=== PATIENT | male | born 1940 | race Caucasian/White ===

== ENCOUNTER 2023-01-01 14:10 | Emergency (ER) | payer MEDICARE, OTHER, SELFPAY ==
[2023-01-01] VITALS (9 sets, daily range): BP systolic 133–159; BP diastolic 66–97; PULSE 62–80; RESP 18–27; TEMP 36.4; O2SAT 91–96; BMI 34.4
--- NOTE | 2023-01-01 14:13 | EKG12_ITS ---
Test Reason : STROKE Blood Pressure : / mmHG Vent. Rate : 062 BPM Atrial Rate : 062 BPM P-R Int : 202 ms QRS Dur : 192 ms QT Int : 538 ms P-R-T Axes : 042 -39 131 degrees QTc Int : 546 ms Normal sinus rhythm Left axis deviation Left bundle branch block Abnormal ECG Confirmed by GABO PEGUERO, MARCO ANTONIO ([id number]), rewrite editor NATE KEATING ([id number]) on 01/03/2023 10:11:37 A M Referred By: Confirmed By:DENI AYON MD
--- NOTE | 2023-01-01 14:13 | CT_ITS ---
STUDY: CTA HEAD AND NECK WITH CONTRAST REASON FOR EXAM: Male, 82 years old. Neuro deficit, acute, stroke suspected RADIATION DOSAGE (If Supplied By Facility): CTDIvol = ( 28.06 ) mGy, DLP = ( 726.04 ) mGycm TECHNIQUE: CT angiography was performed with a multi-detector CT scanner. Data acquisition was obtained from the skull base through the vertex following intravenous administration of IV 100mL Isovue-370. MIP images were reconstructed from the axial data set. Post-processing of the angiographic images was performed, with multiplanar reformation and 3D reconstruction. Individualized dose optimization techniques were used for this CT. COMPARISON: No relevant priors. FINDINGS: Normal bilateral petrous carotid arteries. There is calcified plaque formation of the right cavernous carotid artery, without a cross-sectional luminal stenosis. There is calcified plaque formation of the left cavernous carotid artery, without a cross-sectional luminal stenosis. Normal right A1 segments of the anterior cerebral artery. Normal left A1 segments of the anterior cerebral artery. Normal intact anterior communicating artery (ACOM). Normal bilateral A2 segments of the anterior cerebral arteries. Normal right M1 and M2 segments of the middle cerebral arteries, with a normal M1 bifurcation. Normal left M1 and M2 segments of the middle cerebral arteries, with a normal M1 bifurcation. Normal right posterior communicating artery (PCOM). Normal left posterior communicating artery (PCOM). Normal bilateral vertebral arteries. Normal basilar artery with a normal basilar bifurcation. The visualized bilateral superior cerebellar (SCA) arteries are normal. Normal bilateral P1, P2 and visualized P3 segments of the posterior cerebral arteries. There is no demonstrated aneurysm of the upper [place] of [place]. Heterogeneous enlargement of the left lobe of the thyroid gland. AORTIC ARCH: There is atherosclerotic calcific plaque formation of the aortic arch and great vessels arising from the aortic arch, without a hemodynamically significant stenosis. There is a bovine origin of the great vessels with a common origin of the brachiocephalic and left common carotid artery. Normal origin of the left subclavian artery. RIGHT CAROTID ARTERIES: Normal right common carotid artery (CCA). Normal right common carotid bulb. Normal origin of the right internal carotid (ICA) artery without a hemodynamically significant stenosis. Normal visualized cervical portion of the right internal carotid artery. Normal origin of the right external carotid artery (ECA). LEFT CAROTID ARTERIES: Normal left common carotid artery (CCA). Normal left common carotid bulb. There is mild atherosclerotic plaque formation of the origin of the left internal carotid artery with less than 50% cross sectional diameter stenosis. Normal visualized cervical portion of the left internal carotid artery. Normal origin of the left external carotid artery (ECA). VERTEBRAL ARTERIES: There is enhancement within the bilateral vertebral arteries with a small right vertebral artery, and a dominant left vertebral artery. Calcific plaque seen in the distal aspect of the basilar artery. CT/STROKE CTA Head AND Neck W/Con IMPRESSION: Focal calcific plaques at the origin of the left internal carotid artery causing less than 50% narrowing. N.B. : The above Results were Read Back by Perry Lama MD to Lovely Karimi and understanding confirmed on 01/01/2023 14:49:21 (ET). Electronically Signed: Perry Lama MD at 14:50 EDT ,
--- NOTE | 2023-01-01 14:13 | CT_ITS ---
STUDY: CT HEAD STROKE PROTOCOL W/O CONTRAST INJECTION REASON FOR EXAM: Male, 82 years old. Neuro deficit, acute, stroke suspected RADIATION DOSAGE (If Supplied By Facility): CTDIvol = ( 44.99 ) mGy, DLP = ( 846.73 ) mGycm TECHNIQUE: Transaxial CT imaging of the brain was performed without administration of intravenous contrast material. Individualized dose optimization techniques were used for this CT. COMPARISON: No relevant priors. FINDINGS: Normal soft tissue structures. Normal calvarium. There is mild cerebral atrophy with widening of the extra-axial spaces and ventricular dilatation. There are areas of decreased attenuation within the white matter tracts of the supratentorial brain, consistent with microvascular disease changes. Normal basal ganglia and thalami. Normal brainstem. Normal cerebellum. There is no intracranial hemorrhage. There are no findings of an acute ischemic infarction. Atherosclerotic calcific plaques of the vertebral arteries and cavernous portions of the internal carotid arteries bilaterally. Partial opacification of the sphenoid sinus. ASPECT score: 10 CT/STROKE Brain/Head without Cont IMPRESSION: Chronic involutional changes of the brain. N.B. : The above Results were Read Back by Perry Lama MD to Dr Bev DO, and understanding confirmed on 01/01/2023 14:28:22 (ET). Electronically Signed: Perry Lama MD at 14:29 EDT ,
--- NOTE | 2023-01-01 14:14 | ED.VIS.STROK ---
HPI History of Present Illness Chief Complaint: Stroke Alert Detail of Chief Complaint: Concern for stroke Informant: patient and EMS Narrative Narrative: Patient presents the emergency department via EMS from home. Patient apparently was sitting at a desk and then had a could not get up about 25 minutes ago. Patient was noted to be diaphoretic. called EMS. On EMS arrival they noted patient had left-sided weakness and left-sided facial droop. Patient with slurred speech. Patient diaphoretic. They did check a blood sugar and was unremarkable. I am being told patient has no medical history although he cannot really give me much history because of his slurred speech. He is not believed to be on blood thinners. PFSH PFSH Home Medications NK 01/01/23 [History Last Taken Unknown] Allergy/AdvReac Type Severity Reaction Status Date / Time Unable to Assess Allergy Verified 01/01/23 14:12 Social History Smoking Status: Never smoker ROS ROS ED Review of Systems ROS Unobtainable: due to encephalopathy, due to mental status and other Constitutional Constitutional ED: Reports lethargy; Denies chills, fever(s), sweats or weight loss Eyes Eyes: Denies blurry vision, change in vision or diplopia ENT ENT ED: Denies rhinorrhea or sore throat Cardiovascular Cardiovascular: Reports chest pain and racing heartbeat; Denies orthopnea Respiratory/Chest Respiratory/Chest: Reports dyspnea and dyspnea on exertion; Denies cough, orthopnea or sputum Gastrointestinal Gastrointestinal: Denies abdominal pain, diarrhea, nausea or vomiting Genitourinary Genitourinary ED: Denies dysuria, hematuria or urinary frequency Musculoskeletal Musculoskeletal: Denies arthralgias, back pain, myalgias or neck pain Integumentary Denies abscess, Abrasions or rash Neurologic Neurologic: Denies headache(s) or weakness Psychiatric Psychiatric: Denies anxiety, depression or suicidal thoughts Endocrine Endocrinology: Denies polydipsia, polyphagia or polyuria Hematologic/Lymphatic Hematologic/Lymphatic: Denies easy bleeding, easy bruising or lymphadenopathy Allergic/Immunologic Allergic/Immunologic ED: Denies mouth swelling, tongue swelling or urticaria EXAM Physical Exam Const Vital Signs: 01/01/23 14:13 01/01/23 14:21 01/01/23 14:39 Temperature 97.6 F L Temperature Source Temporal Pulse Rate Respiratory Rate Blood Pressure 151/84 H Blood Pressure Mean Blood Pressure Source Blood Pressure Position Blood Pressure Location Pulse Ox Oxygen Delivery Method Room Air 01/01/23 14:23 01/01/23 14:13 01/01/23 14:38 Temperature Temperature Source Pulse Rate 64 65 64 Respiratory Rate 20 H 21 H 27 H Blood Pressure 159/77 H 133/97 H 150/81 H Blood Pressure Mean 104 109 104 Blood Pressure Source Monitor Monitor Blood Pressure Position Semi-Fowlers Semi-Fowlers Blood Pressure Location Right Arm Pulse Ox 92 92 92 Oxygen Delivery Method Room Air Room Air Room Air 01/01/23 15:00 01/01/23 14:53 01/01/23 15:08 Temperature Temperature Source Pulse Rate 80 64 62 Respiratory Rate 18 23 H 21 H Blood Pressure 139/66 H 145/79 H 142/75 H Blood Pressure Mean 90 101 97 Blood Pressure Source Monitor Monitor Blood Pressure Position Semi-Fowlers Semi-Fowlers Blood Pressure Location Right Arm Right Arm Pulse Ox 96 92 91 Oxygen Delivery Method Room Air Room Air Room Air 01/01/23 14:59 Temperature Temperature Source Pulse Rate Respiratory Rate Blood Pressure 140/75 H Blood Pressure Mean 96 Blood Pressure Source Blood Pressure Position Blood Pressure Location Pulse Ox Oxygen Delivery Method Positive well nourished and well developed General Appearance ED: well developed and NAD HEENT Reports TM's clear and moist mucous membranes normocephalic and atraumatic; Negative for trauma or tenderness Tympanic Membrane ED: Yes TM's clear Eyes PERRL and EOMs intact bilaterally General Eye ED: Negative for pale conjunctiva or scleral icterus Neck no lymphadenopathy, supple and no JVD General: Negative for tenderness Chest Wall inspection of chest normal and palpation of chest normal Chest: Negative for tenderness Resp normal respiratory effort and clear to auscultation bilaterally Effort and Inspection: Negative for respiratory distress or pain with movement Auscultation: Negative for rhonchi, wheezes or diminished lung sounds Cardio regular rate, regular rhythm, S1 normal heart sound, S2 normal heart sound and no murmurs Peripheral Pulses: pulses 2+ throughout GI normal to inspection, nondistended, normoactive bowel sounds, soft to palpation, non-tender, non-distended and no masses Back/Spine no CVA tenderness and no thoracic nor lumbar tenderness Extremity normal to inspection General Extremety ED: Negative for edema General Extremity: Negative for edema Neuro oriented x3, CN's II-XII intact bilaterally, no sensory deficits noted and gait normal Neuro Narrative: Patient with left-sided weakness and left-sided facial droop. Patient with extinction to the left side. Forced deviation to the right. NIH stroke scale of 16. Sensorium / Orientation: awake, alert, oriented to person, oriented to place and oriented to time Motor Exam: strength 5/5 throughout and strength abnormal Psych mental status grossly normal Skin no rashes or lesions noted and no wounds MDM MDM MDM Narrative Medical decision making narrative: Patient presented with sudden onset of left-sided weakness and facial droop. Patient with inattention. Patient has significant deficits for stroke. Patient was sent from EMS cot to CT. Radiologist noted patient did not have any evidence of hemorrhage. I immediately ordered tenecteplase for stroke. Stroke neurologist from [facility] was able to evaluate patient and agreed with tenecteplase. I discussed with risk versus benefit of tenecteplase. She would like to proceed. Patient also would like to proceed. Patient lab work-up unremarkable. Stroke neurologist called and said patient had a large vessel occlusion in the right M1 distribution and recommended transfer to [facility]. Patient currently receiving tenecteplase. Discussed CTA results with radiologist who initially noted 50% carotid occlusion left internal carotid artery causing less than 50% narrowing. Initially there was no description of large vessel occlusion. After further evaluation discussion with radiologist he does think there is a LVO in the M1 segment that initially was thought to maybe just be tortuosity. Lab Data Attestation: I reviewed the patient's lab results. Labs: Laboratory Results - last 24 hr 01/01/23 01/01/23 01/01/23 14:00 14:00 14:00 WBC 8.9 RBC 4.61 Hgb 14.9 Hct 44.2 MCV 95.9 H MCH 32.3 H MCHC 33.7 RDW Std Deviation 49.7 H RDW Coeff of [place] 14.2 Plt Count 325 MPV 11.2 Immature Gran % (Auto) 0.200 Neut % (Auto) 48.2 Lymph % (Auto) 35.8 [place] % (Auto) 12.7 H Eos % (Auto) 2.2 Baso % (Auto) 0.9 Absolute Neuts (auto) 4.3 Absolute Lymphs (auto) 3.19 Nucleated RBC % 0 PT 13.3 INR 1.0 APTT 24.6 Sodium 139 Potassium 4.2 Chloride 109 H Carbon Dioxide 24.0 Anion Gap 6 BUN 22 H Creatinine 1.09 Estim Creat Clear Calc 52.25 Est GFR (MDRD) Af Amer 83 Est GFR (MDRD) Non-Af 69 BUN/Creatinine Ratio 20.2 H Glucose 130 H Calcium 8.7 Troponin I High Sens 21 Radiography Diagnostic Testing: Clinical Impression(s) from Imaging Studies Brain CT 01/01/23 14:13 IMPRESSION: Chronic involutional changes of the brain. N.B. : The above Results were Read Back by Perry Lama MD to Dr Bev DO, and understanding confirmed on 01/01/2023 14:28:22 (ET). Electronically Signed: Perry Lama MD at 14:29 EDT , ADDENDUM: 01/01/23 1436 IMPRESSION: Chronic involutional changes of the brain. N.B. : The above Results were Read Back by Perry Lama MD to Dr Bev DO, and understanding confirmed on 01/01/2023 14:28:22 (ET). Electronically Signed: Perry Lama MD at 14:29 EDT , Head/Neck CTA 01/01/23 14:13 IMPRESSION: Focal calcific plaques at the origin of the left internal carotid artery causing less than 50% narrowing. N.B. : The above Results were Read Back by Perry Lama MD to Lovely Karimi and understanding confirmed on 01/01/2023 14:49:21 (ET). Electronically Signed: Perry Lama MD at 14:50 EDT , ADDENDUM: 01/01/23 1457 IMPRESSION: Focal calcific plaques at the origin of the left internal carotid artery causing less than 50% narrowing. N.B. : The above Results were Read Back by Perry Lama MD to Lovely Karimi and understanding confirmed on 01/01/2023 14:49:21 (ET). Electronically Signed: Perry Lama MD at 14:50 EDT , EKG Initial EKG: Attestation: I personally reviewed and interpreted this EKG as follows: Comments: Sinus rhythm with left bundle branch block with rate of 62 bpm Stroke Documentation Questions Stroke Team Activated: Yes Reviewed Inclusion/Exclusion criteria: Yes IV Thrombolytic Administered: Yes No contraindications from thrombolytic administration: Yes Risks, Benefits, Alternatives Discussed: Yes Discharge Plan Triage Chief Complaint: Stroke Alert ED Provider: Lovely Karimi Dx/Rx/DC Orders Clinical Impression: Acute CVA (cerebrovascular accident), Acute left-sided weakness, Dysarthria Prescriptions: No Action NK Primary Care Provider: Rishi Anna Referrals: Care Physician,No Primary [Non-Staff] - Disposition Disposition: DC/Tx to Another Type of HCF Discharge Location: [facility] Discharge Date/Time: 01/01/23 15:28
--- NOTE | 2023-01-01 14:22 | NURSING ---
FAXED FACESHEET TO [facility]
[2023-01-01 14:26] LABS: Absolute Lymphocyte Count 3.19 X10^3/uL (0.83-4.51); Absolute Neutrophil Count 4.3 X10^3/uL (2.0-7.7); Basophil# 0.08 X10^3/uL; Basophil% 0.9 % (0-1); Eosinophils% 2.2 % (0-5); Hematocrit 44.2 % (40-54); Hemoglobin 14.9 g/dL (13.0-16.5); Lymphocyte # 3.19 X10^3/ul (0.83-4.51); Lymphocyte % 35.8 % (19-41); Mean Corp Hgb Conc 33.7 g/dL (32-36); Mean Corpuscular Hgb 32.3 pg (27.0-32.0); Mean Corpuscular Volume 95.9 fL (80-94); Mean Platelet Vol. 11.2 fl (6.2-12.0); Monocyte# 1.13 X10^3/uL; Monocyte% 12.7 % (0-10); NRBC Flagged by Analyzer 0 % (0-5); Neutrophil # 4.28 X10^3/uL (2.7-7.7); Neutrophil % 48.2 % (47-70); Platelet Count 325 K/mm3 (150-450); RBC Distribution Width CV 14.2 % (11.6-14.6); RBC Distribution Width SD 49.7 fl (35.1-43.9); Red Blood Count 4.61 M/mm3 (4.6-6.2); White Blood Count 8.9 K/mm3 (4.4-11.0)
--- NOTE | 2023-01-01 14:28 | NURSING ---
[id number] STROKE ALERT CALLED. ETA IS 5 MIN
[2023-01-01 14:34] LABS: Prothrombin Time (Protime)PT. 13.3 SECONDS (11.7-14.9)
[2023-01-01 14:35] LABS: Partial Thromboplast Time 24.6 Seconds (24.1-36.2)
[2023-01-01] MEDS: Tenecteplase 25 MG in Syringe 1 EACH 3600 MG IV (14:39)
[2023-01-01] MEDS: 0.9% Normal Saline 1,000 ML 100 ML IV (14:39)
[2023-01-01 14:41] LABS: Anion Gap 6 (5-15); BUN 22 mg/dL (7-18); BUN/Creat Ratio 20.2 RATIO (10-20); Calcium,Total 8.7 mg/dL (8.5-10.1); Chloride 109 mmol/L (98-107); Creatinine, Serum 1.09 mg/dL (0.70-1.30); EST Glomerular Filtration Rate 69 mL/min (>60); Est Glom Filt Rate - Afr Amer 83 mL/min (>60); Estimated Creatinine Clearance 52.25 ml/min; Glucose 130 mg/dL (74-106); Potassium 4.2 mmol/L (3.5-5.1); Sodium Level 139 mmol/L (136-145); Troponin-I HS 21 pg/mL (3.0-78.0)
--- NOTE | 2023-01-01 14:54 | NURSING ---
CALLED [facility] FOR TRANSPORT, THEY WILL CHECK WITH THE PRINTING PRESS OPERATOR APPRENTICE AND CALL WITH AN ETA
--- NOTE | 2023-01-01 15:00 | NURSING ---
ETA IS 20 MIN
--- NOTE | 2023-01-01 15:49 | CHAPLAIN ---
Type of Pastoral Visit ___ Initial Visit ___ Follow-up Visit ___ On-call Visit ___ General Patient Visit ___ Spiritual Assessment ___ Family Conference ___ Bereavement _x__ Rapid Response ___ Code Blue ___ Other (describe below) Pastoral Care Referral From ___ Patient ___ Family ___ Nurse ___ Physician ___ Diesel Scoop Operator ___ Keypuncher _x__ Other (describe below) Sacrament/Intervention _x__ Active listening ___ Anointing ___ Latter Day ___ Bereavement ___ Communion ___ Phuong exploration ___ _x__ Life review _x__ Prayer ___ Reconciliation ___ Sacrament of Sick _x__ Supportive presence ___ Wedding ___ Other (describe below) Pastoral Comments responded to stroke alert; patient taken to CT; spouse and daughter arrived and was offered support and presence; both received this offer gratefully; prayer was given; pt was given medical attention/meds and improvement became evident soon; decision remained to send pt to [facility]; got information and directors to family; brought water and had time to listen to family speak of some life review; 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
== END 2023-01-01 15:28 | disposition other institution (70) ==
PROVIDERS: Emergency Provider Emergency Medicine; PCP Family Medicine; Visit Provider Emergency Medicine
DX: I63.232 Cerebral infarction due to unspecified occlusion or stenosis of left carotid arteries (principal); R53.1 Weakness; R47.81 Slurred speech; R47.1 Dysarthria and anarthria
CPT/HCPCS: 51702; 70450; 70496; 70498; 80048; 84484; 85025; 85610; 85730; 93005; 99285; J3101; Q9967; A4216; J3490

== ENCOUNTER → 2023-02-19 | Outpatient (CLI) | payer MEDICARE, OTHER, SELFPAY ==
[2023-02-19 08:30] LABS: Anion Gap 1 (5-15); BUN 18 mg/dL (7-18); BUN/Creat Ratio 18.5 RATIO (10-20); Calcium,Total 8.6 mg/dL (8.5-10.1); Chloride 107 mmol/L (98-107); Creatinine, Serum 0.97 mg/dL (0.70-1.30); EST Glomerular Filtration Rate 78 mL/min (>60); Est Glom Filt Rate - Afr Amer 95 mL/min (>60); Glucose 109 mg/dL (74-106); Potassium 4.3 mmol/L (3.5-5.1); Sodium Level 137 mmol/L (136-145)
== END | disposition home or self-care (01) ==
LOC: LAB 07:06
PROVIDERS: PCP Family Medicine; Referring Provider Internal Medicine Cardiovascular Disease; Visit Provider Internal Medicine Cardiovascular Disease
DX: I11.0 Hypertensive heart disease with heart failure (principal); I50.20 Unspecified systolic (congestive) heart failure
CPT/HCPCS: 36415; 80048

== ENCOUNTER → 2023-02-26 | Outpatient (CLI) | payer MEDICARE, OTHER, SELFPAY ==
--- NOTE | 2023-02-27 12:41 | STRESSREP_ITS ---
Stress Test Report Date: 02/26/2023 Procedure: Pharmacologic stress nuclear imaging study Indications: Heart failure Consent: Per the patient Procedure: The patient underwent pharmacologic (Regadenoson 0.4mg ) evaluation with a peak heart rate of 82 beats per minute (59%predicted maximal heart rate) and a peak blood pressure of 130/84 mmHg. The baseline ECG demonstrated sinus rhythm with left bundle branch block. The peak pharmacologic ECG demonstrated no diagnostic changes secondary to baseline abnormalities. There were no cardiac dysrhythmias pretest, during pharmacologic infusion, or recovery. There was no complaint of chest discomfort during pharmacologic infusion or recovery. The patient was injected with 14.1 millicuries of technetium 99m Cardiolite and subsequently rest SPECT Cardiolite nuclear imaging was obtained in the horizontal long, vertical long, and short axis views. The patient underwent pharmacologic (Regadenoson) evaluation. The patient was injected with 44.3 millicuries of technetium 99m Cardiolite and subsequently stress SPECT Cardiolite nuclear imaging was obtained in the horizontal long, vertical long, and short axis views. A gated Cardiolite study at peak stress was obtained. The examination was stopped secondary to completion of protocol. Rest and stress SPECT Cardiolite nuclear imaging status post realignment, normalization, and attenuation correction demonstrate no reversible perfusion defects. There is mildly decreased uptake at the apex which may represent physiological thinning. The left ventricle appears dilated. The reported LVEF is 24%. Impression: 1. Pharmacologic (Regadenoson) evaluation 2. Peak pharmacologic ECG with no diagnostic changes secondary to baseline abnormalities. 3. There were no cardiac dysrhythmias pretest, during pharmacologic infusion, or recovery. 5. No reversible perfusion defects.. 6. The gated Cardiolite study reports an LVEF of 24%. The left ventricle appears dilated with global hypokinesis. This note was generated with Submittableation software. It may contain incorrect words, spelling, and punctuation that were not noted in checking the note before signing.
== END | disposition home or self-care (01) ==
PROVIDERS: PCP Family Medicine; Referring Provider Internal Medicine Cardiovascular Disease; Visit Provider Internal Medicine Cardiovascular Disease
DX: I51.7 Cardiomegaly (principal); I11.0 Hypertensive heart disease with heart failure; I50.21 Acute systolic (congestive) heart failure; Z86.73 Personal history of transient ischemic attack (TIA), and cerebral infarction without residual deficits; R93.1 Abnormal findings on diagnostic imaging of heart and coronary circulation
CPT/HCPCS: 78452; 93017; A9500; A4216; J2785

== ENCOUNTER → 2023-06-11 | Outpatient (CLI) | payer MEDICARE, OTHER, SELFPAY ==
--- NOTE | 2023-06-11 10:57 | ECHOD_ITS ---
Reason For Study: CARDIOMEGALY Procedure This was a 2D Doppler, Color Flow transthoracic echocardiogram. Exam performed in department. Left Ventricle Mild concentric left ventricular hypertrophy. Severely dilated left ventricle. Severe global left ventricular systolic dysfunction. The left ventricular ejection fraction is 20 %. Stage 1 diastolic dysfunction. Right Ventricle Normal right ventricle. Atria The left and right atria are normal. Mitral Valve Trivial mitral valve insufficiency. Tricuspid Valve Trivial tricuspid valve insufficiency. Unable to estimate RV systolic pressure due to insufficient tricuspid regurgitant envelope. Aortic Valve Aortic sclerosis, no stenosis. Pulmonic Valve The pulmonic valve is not well visualized. Great Vessels Normal sized aortic root. Pericardium/Pleural No pericardial effusion. MMode/2D Measurements & Calculations LVIDd: 7.0 cm IVSd: 1.4 cm Ao root diam: 3.7 cm LVPWd: 1.1 cm LAV(MOD-bp): 90.0 ml LVAd ap4: 48.3 cm2 SV(MOD-sp4): 51.6 ml LAV(MOD-bp) Indexed: 41.5 ml/m2 LVLd ap4: 10.5 cm LAV(MOD-sp2): 94.2 ml EDV(MOD-sp4): 186.4 ml LAV(MOD-sp4): 84.0 ml EDV(sp4-el): 187.5 ml LVAs ap4: 38.6 cm2 LVLs ap4: 9.3 cm ESV(MOD-sp4): 134.9 ml ESV(sp4-el): 136.7 ml EF(MOD-sp4): 27.7 % EF(sp4-el): 27.1 % SV(sp4-el): 50.8 ml LA A4 area: 24.3 cm2 LA dimension(2D): 4.0 cm RA A4 area: 13.8 cm2 TAPSE: 2.7 cm Time Measurements MV dec time: 0.20 sec Doppler Measurements & Calculations MV E max meng: 59.8 cm/sec Lat Peak E' Meng: 6.7 cm/sec Med Peak E' Meng: 6.0 cm/sec MV A max meng: 84.8 cm/sec E/E' lat: 8.9 E/E' med: 9.9 MV E/A: 0.70 MV V2 max: 88.3 cm/sec Ao V2 max: 141.2 cm/sec MV max P.1 mmHg MV dec slope: 307.9 cm/sec2 Ao max P.0 mmHg MV V2 mean: 51.8 cm/sec Ao V2 mean: 95.3 cm/sec MV mean P.2 mmHg Ao mean P.2 mmHg MV V2 VTI: 31.2 cm Ao V2 VTI: 31.7 cm AV (velocity ratio): 0.71 LV V1 max: 105.9 cm/sec PA V2 max: 123.4 cm/sec LV V1 max P.5 mmHg PA V2 mean: 76.5 cm/sec LV V1 mean P.2 mmHg LV V1 mean: 67.8 cm/sec LV V1 VTI: 22.5 cm ECHO/Echo Complete Interpretation Summary Mild concentric left ventricular hypertrophy. Severely dilated left ventricle. Severe global left ventricular systolic dysfunction. The left ventricular ejection fraction is 20 %. Stage 1 diastolic dysfunction. Ordering Physician: Josephine Morrissey Referring Physician: Josephine Morrissey Performed By: Janina Olivares RCS
[2023-06-11 13:05] LABS: Anion Gap 5 (5-15); BUN 21 mg/dL (7-18); BUN/Creat Ratio 20.4 RATIO (10-20); Calcium,Total 8.1 mg/dL (8.5-10.1); Chloride 105 mmol/L (98-107); Cholesterol 159 mg/dL (200); Creatinine, Serum 1.03 mg/dL (0.70-1.30); EST Glomerular Filtration Rate 73 mL/min (>60); Est Glom Filt Rate - Afr Amer 89 mL/min (>60); Glucose 97 mg/dL (74-106); High Density Lipoprotein 29 mg/dL; Magnesium 2.3 mg/dL (1.6-2.6); Potassium 4.3 mmol/L (3.5-5.1); Sodium Level 138 mmol/L (136-145); Triglycerides 293 mg/dL; Very Low Density Lipoprotein 59 mg/dL (5-40)
== END | disposition home or self-care (01) ==
PROVIDERS: PCP Family Medicine; Referring Provider Internal Medicine Cardiovascular Disease; Visit Provider Internal Medicine Cardiovascular Disease
DX: I51.7 Cardiomegaly (principal); I50.20 Unspecified systolic (congestive) heart failure; I42.9 Cardiomyopathy, unspecified; I47.29 Other ventricular tachycardia; I63.411 Cerebral infarction due to embolism of right middle cerebral artery; R93.1 Abnormal findings on diagnostic imaging of heart and coronary circulation
CPT/HCPCS: 36415; 80048; 80061; 83735; 93306

== ENCOUNTER 2023-08-09 18:14 | Emergency (ER) | payer MEDICARE, OTHER, SELFPAY ==
[2023-08-09 18:15] VITALS: BP 165/81; PULSE 71; RESP 18; TEMP 36.2; O2SAT 97; BMI 33.9
--- NOTE | 2023-08-09 18:35 | EX.ED.DYSGE1 ---
HPI History of Present Illness Chief Complaint: Abd Pain Narrative Narrative: Patient presenting today due to constipation. He reports that he normally has a bowel movement every other day. Last bowel movement was . He reports that he is passing gas regularly. No history of bowel obstruction. He denies having abdominal pain. He reports that he has been eating less over the past 4 to 5 days due to decreased appetite. He has felt intermittently nauseous over the past 4 to 5 days but is not currently nauseous. He has had no vomiting. He did try to take 1 dose of MiraLAX a few hours prior to arrival. 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 Essential hypertension HFrEF (heart failure with reduced ejection fraction) Hypertriglyceridemia Left atrial enlargement Left-sided weakness Memory deficit RLS (restless legs syndrome) Umbilical hernia without obstruction or gangrene Ventral hernia without obstruction or gangrene Home Medications aspirin 81 mg tablet,delayed release 81 mg PO DAILY 02/11/23 [History Last Taken Unknown] ascorbic acid (vitamin C) 500 mg tablet 500 mg PO BID 06/02/23 [History Last Taken Unknown] losartan 100 mg tablet 100 mg PO DAILY #90 tabs 06/02/23 [Rx Last Taken Unknown] metoprolol succinate 50 mg tablet,extended release 24 hr 50 mg PO DAILY #90 tabs 06/02/23 [Rx Last Taken Unknown] Allergy/AdvReac Type Severity Reaction Status Date / Time No Known Allergies Allergy Verified 08/09/23 18:15 Family History Father Kidney disease Heart disease Surgical History Hx of left knee surgery Hx of splenectomy Hx of tonsillectomy Social History Smoking Status: Former smoker how long ago did patient quit smokin's alcohol intake: current alcohol intake frequency: holidays/special occasions only substance use type: does not use caffeine: Yes Type: coffee Number of servings: 4 ROS ROS ED Constitutional Constitutional ED: Denies chills or fever(s) Cardiovascular Cardiovascular: Denies chest pain Respiratory/Chest Respiratory/Chest: Denies cough or dyspnea Gastrointestinal Gastrointestinal: Reports constipation; Denies abdominal pain, diarrhea, nausea or vomiting Genitourinary Genitourinary ED: Denies dysuria or urinary frequency Musculoskeletal Musculoskeletal: Denies arthralgias or myalgias Integumentary Denies rash Neurologic Neurologic: Denies weakness EXAM Physical Exam Const Vital Signs: 08/09/23 18:15 Temperature 97.1 F L Temperature Source Temporal Pulse Rate 71 Respiratory Rate 18 Blood Pressure 165/81 H Blood Pressure Mean 109 Pulse Ox 97 Oxygen Delivery Method Room Air Positive well nourished, well developed and no apparent distress General Appearance ED: well developed HEENT Reports normocephalic and head/scalp atraumatic Mouth ED: Yes moist mucous membranes normal Eyes PERRL and EOMs intact bilaterally Neck full ROM and supple Chest Wall inspection of chest normal Resp normal respiratory effort and clear to auscultation bilaterally Cardio regular rate and regular rhythm GI soft to palpation, non-tender, non-distended and no masses Back/Spine normal ROM and normal to inspection Extremity normal to inspection and full ROM Neuro oriented x3, CN's II-XII intact bilaterally, moves all extremities, no focal motor deficits and no sensory deficits noted Sensorium / Orientation: awake and alert Psych mental status grossly normal and thought process normal Skin no rashes or lesions noted and no wounds MDM MDM MDM Narrative Medical decision making narrative: Patient presents today due to constipation. Normally has a bowel movement every other day, today is the day he is supposed to have 1 but has not had 1 yet. He has been passing gas all day today. No abdominal pain or abdominal tenderness on exam. He feels well otherwise. He has had a decreased appetite over the past few days and has not been eating as much which could be contributing to his constipation. He has only had 1 dose of MiraLAX which was just a few hours prior to coming here. KUB obtained and shows nonspecific gas pattern, no signs of bowel obstruction. He will be given magnesium citrate here to take home with him with instructions on how to take this. He has been given return instructions and will be discharged in stable condition. He is comfortable with plan. Radiography X-Ray: Read by ED Physician and Read by Radiologist Diagnostic Testing: Clinical Impression(s) from Imaging Studies KUB X-Ray 08/09/23 18:40 IMPRESSION: Nonspecific mild increased gas pattern with no signs of bowel obstruction or free air. Electronically Signed: Jo Reyes MD at 19:09 EST , Discharge Plan Triage Chief Complaint: Abd Pain ED Midlevel Provider: Rula Downey ED Provider: Guadalupe Simpson Dx/Rx/DC Orders Clinical Impression: Constipation Instructions: ED Constipation (Adult) Prescriptions: No Action aspirin 81 mg tablet,delayed release (DR/EC) 81 mg PO DAILY ascorbic acid (vitamin C) 500 mg tablet 500 mg PO BID losartan 100 mg tablet 100 mg PO DAILY Qty: 90 3RF metoprolol succinate 50 mg tablet extended release 24 hr 50 mg PO DAILY Qty: 90 3RF Primary Care Provider: Rishi Anna Referrals: Rishi Anna MD [Primary Care Provider] - 3-5 Days Activity Restrictions/Additional Instructions: Take half the bottle of magnesium citrate tomorrow morning, if no bowel movement in 3 to 4 hours then you can finish the bottle. Disposition Disposition: Home, Self Care
--- NOTE | 2023-08-09 18:40 | RAD_ITS ---
STUDY: X-RAY - ABDOMEN/PELVIS REASON FOR EXAM: Male, 82 years old. constipation TECHNIQUE: Single AP view of the abdomen / pelvis. COMPARISON: None. FINDINGS: Lung bases not included in the [id number]. Nonspecific increase gas pattern within the bowel. No significant dilatation to suggest obstruction. There is no demonstrated free abdominal air. The visualized liver, spleen and kidneys are grossly normal in size and morphology. Normal soft tissue structures. There are diffuse degenerative changes of the visualized lumbar spine. Artifact versus expansion of the right inferior pubic ramus, clinical correlation recommended and if indicated, follow-up with known dedicated x-ray of the pelvis or pubic bone to evaluate for neoplasm or etiology such as Paget''s versus posttraumatic change. RAD/Abdomen Single View IMPRESSION: Nonspecific mild increased gas pattern with no signs of bowel obstruction or free air. Electronically Signed: Jo Reyes MD at 19:09 EST ,
--- OUTSIDE RECORDS SUMMARY | 2023-08-09 18:55 | XMS RPT_ITS | CCD ---
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 THERAPY TREATMENT NOTE ASSESSMENT: Segundo Lewis tolerated the session with fatigue and no issues. He demonstrated difficulty with balancing on wobble board. The patient will continue to benefit from ongoing skilled physical therapy to progress toward set goals. PLAN FOR NEXT VISIT: Continue with balance and LE strengthening. SUBJECTIVE: Pt reports that he is feeling good today. Pt states he push mowed the lawn yesterday, part of it on a hill. Pain: Pain Pain Level: 0 Post Treatment Pain Post Treatment Pain Level: 0 OBJECTIVE MEASURES WITH LEVEL OF FUNCTION: Pt challenged with balancing on wobble board. TREATMENT: Therapeutic Exercise: 1: Dbl Leg Press: 3x10 64# 2: SL Leg Press: 2x10 ea. 40# 3: Step ups on BOSU 2x10 B 4: Seated LAQ with 2# ankle weight 2x10 B 5: STS without UE 2x10 Skilled Intervention: Patient was educated in proper exercise technique and purpose for exercises. Skilled judgment was provided in selection of appropriate interventions. Correct performance of therapeutic exercises was facilitated with verbal and visual cuing. Neuromuscular Re-Education: 1: Tandem walking on foam beam 2x20ft 2: Side stepping on foam beam 2x20 ft each direction 3: Wobble board taps front to back and side to side x 15 each 4: Balancing on wobble board front to back , multiple attempts x 5 seconds 5: Balancing on wobble board side to side, mulitple attempts x 5 seconds Skilled Intervention: Skilled judgment used to assess appropriate program for balance and coordination activity. Ensured patient safety with use of gait belt. Billing Therapeutic Exercise Treatment Minutes: 17 Neuromuscular Re-Education Treatment Minutes: 24 Total Treatment Time Minutes (timed/untimed): 41 Session Start Time : 931 Session Stop Time : 1013 ROMULO Chaudhry, PT, DPT. documented in this encounter [facility] 02-19-2023 Note HNO ID: [id number] Author: Michelle Schaffer LPN Service: ? Author Type: ? Type: Progress Notes Filed: 02/19/2023 4:53 PM Note Text: Scan on 02/19/2023 8:39 AM by ProviderJessica PA-C: Miscellaneous Lab [facility] 02-19-2023 History of Present illness Narrative Scan on 02/19/2023 8:39 AM by Provider, CARLOS Lopez: Miscellaneous Lab documented in this encounter [facility] 02-18-2023 Note HNO ID: [id number] Author: Anoop Slater PT Service: ? Author Type: Physical Therapist Type: Progress Notes Filed: 02/18/2023 12:51 PM Note Text: Episode Visit Count: 5 Therapist That Will Accept/Oversee The Plan Of Care: Anoop Slater PT, DPT Start of Care Date: 01/29/23 Onset Date: 01/01/23 Plan of Care Certification Date: 01/29/23 Next Certification Due Date: 03/05/23 Patient Identified by Name and Date of : Yes REHABILITATION AND SPORTS THERAPY PHYSICAL THERAPY TREATMENT NOTE ASSESSMENT: Segundo Lewis tolerated the session with fatigue and expected muscle soreness. He demonstrated improvements in balance activities. The patient will continue to benefit from ongoing skilled physical therapy to progress toward set goals. PLAN FOR NEXT VISIT: Continue with balance and LE strengthening. SUBJECTIVE: Patient Reason for Visit: Pt apologizes for missing his last appointment, he didn't have it written down. Pt reports doing a 2 mile walk prior to therapy today. Pt reports that overall he is feeling better. Pt had difficulty sleeping last night. Pain: Pain Pain Level: 0 Post Treatment Pain Post Treatment Pain Level: 0 OBJECTIVE MEASURES WITH LEVEL OF FUNCTION: Patient appropriately challenged with balance exercises today, no loss of balance and improvements in decreased lateral sway compared to previous visits. TREATMENT: Therapeutic Exercise: 1: Lateral step ups on 6 inch step 1x20 B 2: Forward step ups on 6 inch step 2x15 B 3: Seated LAQ with 2# ankle weight 2x10 B Skilled Intervention: Patient was educated in proper exercise technique and purpose for exercises. Skilled judgment was provided in selection of appropriate interventions. Correct performance of therapeutic exercises was facilitated with verbal and visual cuing. Neuromuscular Re-Education: 1: NBOS on even ground EO 1x30 seconds 2: NBOS on even ground wiht EC 2x30 seconds 3: Semi-tandem stance 1x30 seconds B 4: Tandem stance 2x30 seconds B (with occasional tap on // pars and CGA provided at gait belt) 5: Tandem walking on foam beam 2x20ft 6: Side stepping on foam beam 2x20 ft each direction Skilled Intervention: Skilled judgment used to assess appropriate program for balance and coordination activity. Ensured patient safety with use of gait belt. Billing Therapeutic Exercise Treatment Minutes: 17 Neuromuscular Re-Education Treatment Minutes: 23 Total Treatment Time Minutes (timed/untimed): 40 Session Start Time : 1100 Session Stop Time : 1140 ROMULO Chaudhry PT, DPT. [facility] 02-18-2023 History of Present illness Narrative Episode Visit Count: 5 Therapist That Will Accept/Oversee The Plan Of Care: Anoop Slater PT, DPT Start of Care Date: 01/29/23 Onset Date: 01/01/23 Plan of Care Certification Date: 01/29/23 Next Certification Due Date: 03/05/23 Patient Identified by Name and Date of : Yes REHABILITATION AND SPORTS THERAPY PHYSICAL THERAPY TREATMENT NOTE ASSESSMENT: Segundo Lewis tolerated the session with fatigue and expected muscle soreness. He demonstrated improvements in balance activities. The patient will continue to benefit from ongoing skilled physical therapy to progress toward set goals. PLAN FOR NEXT VISIT: Continue with balance and LE strengthening. SUBJECTIVE: Patient Reason for Visit: Pt apologizes for missing his last appointment, he didn't have it written down. Pt reports doing a 2 mile walk prior to therapy today. Pt reports that overall he is feeling better. Pt had difficulty sleeping last night. Pain: Pain Pain Level: 0 Post Treatment Pain Post Treatment Pain Level: 0 OBJECTIVE MEASURES WITH LEVEL OF FUNCTION: Patient appropriately challenged with balance exercises today, no loss of balance and improvements in decreased lateral sway compared to previous visits. TREATMENT: Therapeutic Exercise: 1: Lateral step ups on 6 inch step 1x20 B 2: Forward step ups on 6 inch step 2x15 B 3: Seated LAQ with 2# ankle weight 2x10 B Skilled Intervention: Patient was educated in proper exercise technique and purpose for exercises. Skilled judgment was provided in selection of appropriate interventions. Correct performance of therapeutic exercises was facilitated with verbal and visual cuing. Neuromuscular Re-Education: 1: NBOS on even ground EO 1x30 seconds 2: NBOS on even ground wiht EC 2x30 seconds 3: Semi-tandem stance 1x30 seconds B 4: Tandem stance 2x30 seconds B (with occasional tap on // pars and CGA provided at gait belt) 5: Tandem walking on foam beam 2x20ft 6: Side stepping on foam beam 2x20 ft each direction Skilled Intervention: Skilled judgment used to assess appropriate program for balance and coordination activity. Ensured patient safety with use of gait belt. Billing Therapeutic Exercise Treatment Minutes: 17 Neuromuscular Re-Education Treatment Minutes: 23 Total Treatment Time Minutes (timed/untimed): 40 Session Start Time : 1100 Session Stop Time : 1140 ROMULO Chaudhry PT, DPT. documented in this encounter [facility] 02-10-2023 Note HNO ID: [id number] Author: Anoop Slater PT Service: ? Author Type: Physical Therapist Type: Progress Notes Filed: 02/11/2023 12:45 PM Note Text: Episode Visit Count: 4 Therapist That Will Accept/Oversee The Plan Of Care: Anoop Slater PT, DPT Start of Care Date: 01/29/23 Onset Date: 01/01/23 Plan of Care Certification Date: 01/29/23 Next Certification Due Date: 03/05/23 Patient Identified by Name and Date of : Yes REHABILITATION AND SPORTS THERAPY PHYSICAL THERAPY TREATMENT NOTE ASSESSMENT: Segundo Lewis tolerated the session with fatigue and expected muscle soreness. He demonstrated difficulty with slow control with exercises. The patient will continue to benefit from ongoing skilled physical therapy to progress toward set goals. PLAN FOR NEXT VISIT: Continue with balance and LE strengthening. SUBJECTIVE: Patient Reason for Visit: Pt reports that he is feeling good today. Pt denies pain.Pt reports that he was tired this afternoon, thinks due to beta justino. Pt walked 2 miles today and last week he walked 20 minutes. Pain: Pain Pain Level: 0 Post Treatment Pain Post Treatment Pain Level: 0 OBJECTIVE MEASURES WITH LEVEL OF FUNCTION: Pt easily fatigued with LAQ. TREATMENT: Therapeutic Exercise: 1: Lateral step ups on 6 inch step 1x20 B 2: Forward step ups on 6 inch step 2x10 B 3: Gaq-la-Oixjjo, GTB around knee: 1x10 (cues to perform slower to not fatigue as quickly.) 4: Seated LAQ with 1.5# ankle weight 2x10 B Skilled Intervention: Patient was educated in proper exercise technique and purpose for exercises. Skilled judgment was provided in selection of appropriate interventions. Correct performance of therapeutic exercises was facilitated with verbal and visual cuing. Neuromuscular Re-Education: 1: NBOS on even ground EO 1x30 seconds 2: NBOS on even ground wiht EC 2x30 seconds 3: NBOS on foam EO 2x30 seconds 4: NBOS on foam EC 1x25 seconds (Min A provided at 25 secinds) 5: Semi-tandem stance 1x30 seconds B 6: Tandem stance 1x30 seconds B Skilled Intervention: Skilled judgment used to assess appropriate program for balance and coordination activity. Ensured patient safety with use of gait belt. Billing Therapeutic Exercise Treatment Minutes: 25 Neuromuscular Re-Education Treatment Minutes: 18 Total Treatment Time Minutes (timed/untimed): 43 Session Start Time : 1802 Session Stop Time : 184 ROMULO Chaudhry PT, DPT. [facility] 02-04-2023 Note HNO ID: [id number] Author: Anoop Slater PT Service: ? Author Type: Physical Therapist Type: Progress Notes Filed: 02/04/2023 10:30 AM Note Text: Episode Visit Count: 3 Therapist That Will Accept/Oversee The Plan Of Care: Anoop Slater PT, DPT Start of Care Date: 01/29/23 Onset Date: 01/01/23 Plan of Care Certification Date: 01/29/23 Next Certification Due Date: 03/05/23 REHABILITATION AND SPORTS THERAPY PHYSICAL THERAPY TREATMENT NOTE ASSESSMENT: Segundo Lewis tolerated the session with fatigue, expected muscle soreness, and no issues. He demonstrated improvements in activity tolerance and was able to increase parameters without issue this date. Gulshan demonstrated difficulty in balance interventions and was challenged throughout, david. Tandem stance. The patient will continue to benefit from ongoing skilled physical therapy to progress toward set goals. PLAN FOR NEXT VISIT: B LE strength and balance (more exercises) progressions as able. SUBJECTIVE: Patient Reason for Visit: Pt. states no pain or soreness this a.m.; reports compliance to HEP and his own walking program at home; notes HEP is approrpiate and still challenging for him currently. Pain: Pain Pain Level: 0 Post Treatment Pain Post Treatment Pain Level: 0 Post Treatment Pain Description: Other: See comment Post Treatment Symptoms: Chun LE Fatigue. OBJECTIVE MEASURES WITH LEVEL OF FUNCTION: During ath-ga-zfdsmz with GTB around knee, patient struggled with keeping heap up and eyes looking straight forward - patient able to follow verbal cues to reduce looking down, however sfz-zm-[id number] became more challenging. TREATMENT: Therapeutic Exercise: 1: Blu-ju-Isakiu, GTB around knee: 2x10 2: Fwd Step-Ups: 1x20 ea. leg up first, blue+green box. 3: Bridge GTB: 2x15 4: Lateral Step-Ups: 1x20 ea. side, blue box. 6: Dbl Leg Press: 3x10 64# 7: Supine Hib ABD: 2x20 5 hold GTB. 8: SL Leg Press: 2x10 ea. 40# Skilled Intervention: Patient was educated in proper exercise technique and purpose for exercises. Reviewed and educated patient on additions/changes for home exercise program as above (*). Skilled judgment was provided in selection of appropriate interventions. Correct performance of therapeutic exercises was facilitated with verbal and tactile cuing. Neuromuscular Re-Education: 1: Feet Together, EC on Airex: 3x30 2: Tandem Ground, EO: 4x15 ea. Skilled Intervention: Skilled judgment used to assess appropriate program for balance and coordination activity. Ensured patient safety with use of gait belt AND supervision from therapist. Billing Therapeutic Exercise Treatment Minutes: 35 Neuromuscular Re-Education Treatment Minutes: 10 Total Treatment Time Minutes (timed/untimed): 45 Anoop Slater PT [facility] 02-04-2023 History of Present illness Narrative Episode Visit Count: 3 Therapist That Will Accept/Oversee The Plan Of Care: Anoop Slater PT, DPT Start of Care Date: 01/29/23 Onset Date: 01/01/23 Plan of Care Certification Date: 01/29/23 Next Certification Due Date: 03/05/23 REHABILITATION AND SPORTS THERAPY PHYSICAL THERAPY TREATMENT NOTE ASSESSMENT: Segundo Arsenio Lewis tolerated the session with fatigue, expected muscle soreness, and no issues. He demonstrated improvements in activity tolerance and was able to increase parameters without issue this date. Gulshan demonstrated difficulty in balance interventions and was challenged throughout, david. Tandem stance. The patient will continue to benefit from ongoing skilled physical therapy to progress toward set goals. PLAN FOR NEXT VISIT: B LE strength and balance (more exercises) progressions as able. SUBJECTIVE: Patient Reason for Visit: Pt. states no pain or soreness this a.m.; reports compliance to HEP and his own walking program at home; notes HEP is approrpiate and still challenging for him currently. Pain: Pain Pain Level: 0 Post Treatment Pain Post Treatment Pain Level: 0 Post Treatment Pain Description: Other: See comment Post Treatment Symptoms: Chun LE Fatigue. OBJECTIVE MEASURES WITH LEVEL OF FUNCTION: During wwx-xs-beaczl with GTB around knee, patient struggled with keeping heap up and eyes looking straight forward - patient able to follow verbal cues to reduce looking down, however auu-az-tmxqjn became more challenging. TREATMENT: Therapeutic Exercise: 1: Myp-sy-Qqrnkr, GTB around knee: 2x10 2: Fwd Step-Ups: 1x20 ea. leg up first, blue+green box. 3: Bridge GTB: 2x15 4: Lateral Step-Ups: 1x20 ea. side, blue box. 6: Dbl Leg Press: 3x10 64# 7: Supine Hib ABD: 2x20 5 hold GTB. 8: SL Leg Press: 2x10 ea. 40# Skilled Intervention: Patient was educated in proper exercise technique and purpose for exercises. Reviewed and educated patient on additions/changes for home exercise program as above (*). Skilled judgment was provided in selection of appropriate interventions. Correct performance of therapeutic exercises was facilitated with verbal and tactile cuing. Neuromuscular Re-Education: 1: Feet Together, EC on Airex: 3x30 2: Tandem Ground, EO: 4x15 ea. Skilled Intervention: Skilled judgment used to assess appropriate program for balance and coordination activity. Ensured patient safety with use of gait belt & supervision from therapist. Billing Therapeutic Exercise Treatment Minutes: 35 Neuromuscular Re-Education Treatment Minutes: 10 Total Treatment Time Minutes (timed/untimed): 45 Anoop Slater PT documented in this encounter [facility] 01-31-2023 Note HNO ID: [id number] Author: Anoop Slater PT Service: ? Author Type: Physical Therapist Type: Progress Notes Filed: 01/31/2023 10:54 AM Note Text: Episode Visit Count: 2 Therapist That Will Accept/Oversee The Plan Of Care: Anoop Slater PT, DPT Start of Care Date: 01/29/23 Onset Date: 01/01/23 Plan of Care Certification Date: 01/29/23 Next Certification Due Date: 03/05/23 REHABILITATION AND SPORTS THERAPY PHYSICAL THERAPY TREATMENT NOTE ASSESSMENT: Segundo Lewis tolerated the session with fatigue, expected muscle soreness, and no issues. He demonstrated difficulty with completing standing exercises (david. Step-ups) without looking down at his feet, causing poor posture during movements - patient with slight improvement following cues, however needed frequent reminder. The patient will continue to benefit from ongoing skilled physical therapy to progress toward set goals. PLAN FOR NEXT VISIT: Add balance exercises. SUBJECTIVE: Patient Reason for Visit: Pt. reports no pain when arriving to session. He already completed his HEP this morning and reports adeherance overall. Completed one mile of walking and yardwork yesterday with noticable fatigue. Pain: Pain Pain Level: 0 Post Treatment Pain Post Treatment Pain Level: 0 Post Treatment Pain Description: Other: See comment Post Treatment Symptoms: Bilateral LE Fatigue. OBJECTIVE MEASURES WITH LEVEL OF FUNCTION: Patient needed cueing for double leg press for proper control of the overall movement. Frequent cues needed to not drop the weights and keep feet shoulder width apart. TREATMENT: Therapeutic Exercise: 1: Pallof Press: 2x10 GTB 2: Fwd Step-Ups: 2x12 ea. leg up first, blue+green box. 3: Bridge: 2x10 4: Lateral Step-Ups: 2x12 ea. side, blue box. 5: Standing Static [id number], 2#cuff on ankles. 6: Dbl Leg Press: 3x10 64# 7: Supine Hib ABD: 2x15 3-5 hold GTB. Skilled Intervention: Patient was educated in proper exercise technique and purpose for exercises. Reviewed and educated patient on home exercise program. Skilled judgment was provided in selection of appropriate interventions. Correct performance of therapeutic exercises was facilitated with verbal, visual, and tactile cuing. Billing Therapeutic Exercise Treatment Minutes: 30 Total Treatment Time Minutes (timed/untimed): 30 Anoop Bryon, PT [facility] 01-31-2023 History of Present illness Narrative Episode Visit Count: 2 Therapist That Will Accept/Oversee The Plan Of Care: Anoop Slater PT, DPT Start of Care Date: 01/29/23 Onset Date: 01/01/23 Plan of Care Certification Date: 01/29/23 Next Certification Due Date: 03/05/23 REHABILITATION AND SPORTS THERAPY PHYSICAL THERAPY TREATMENT NOTE ASSESSMENT: Segundo Lewis tolerated the session with fatigue, expected muscle soreness, and no issues. He demonstrated difficulty with completing standing exercises (david. Step-ups) without looking down at his feet, causing poor posture during movements - patient with slight improvement following cues, however needed frequent reminder. The patient will continue to benefit from ongoing skilled physical therapy to progress toward set goals. PLAN FOR NEXT VISIT: Add balance exercises. SUBJECTIVE: Patient Reason for Visit: Pt. reports no pain when arriving to session. He already completed his HEP this morning and reports adeherance overall. Completed one mile of walking and yardwork yesterday with noticable fatigue. Pain: Pain Pain Level: 0 Post Treatment Pain Post Treatment Pain Level: 0 Post Treatment Pain Description: Other: See comment Post Treatment Symptoms: Bilateral LE Fatigue. OBJECTIVE MEASURES WITH LEVEL OF FUNCTION: Patient needed cueing for double leg press for proper control of the overall movement. Frequent cues needed to not drop the weights and keep feet shoulder width apart. TREATMENT: Therapeutic Exercise: 1: Pallof Press: 2x10 GTB 2: Fwd Step-Ups: 2x12 ea. leg up first, blue+green box. 3: Bridge: 2x10 4: Lateral Step-Ups: 2x12 ea. side, blue box. 5: Standing Static [id number], 2#cuff on ankles. 6: Dbl Leg Press: 3x10 64# 7: Supine Hib ABD: 2x15 3-5 hold GTB. Skilled Intervention: Patient was educated in proper exercise technique and purpose for exercises. Reviewed and educated patient on home exercise program. Skilled judgment was provided in selection of appropriate interventions. Correct performance of therapeutic exercises was facilitated with verbal, visual, and tactile cuing. Billing Therapeutic Exercise Treatment Minutes: 30 Total Treatment Time Minutes (timed/untimed): 30 Anoop Slater PT documented in this encounter [facility] 01-29-2023 Note HNO ID: [id number] Author: Anoop Slater PT Service: ? 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 He presents with impairments in ADL's, balance, flexibility, gait, independence in exercise, overall function, strength, and symptom management. PROMIS? (Patient-Reported Outcomes Measurement Information System) scores were reviewed and physical function domain and self efficacy domain identified as within normal limits. Prognosis for therapy is Excellent due to: current objective clinical presentation, good overall health status, good support system/ coping skills . He will benefit from skilled therapy services to meet the goals established for this plan of care as noted below. Goals for Episode of Care: created on 01/29/23 through 03/05/23 [place] in home exercise program including cardiovascular exercise. Patient will demonstrate increase in trunk AND Chun LE strength to 5/5 during manual muscle testing in order to improve function for basic self-care tasks, home management tasks, leisure / recreation skills, light functional tasks, and prior functional tasks. Patient will increase flexibility of B Hamstrings/Quads to WNL to improve ability to maintain proper posture, improve mechanics, and decrease pain. Perform walking 4 miles (prior baseline) with decreased report of symptoms/fatigue in 4-6 weeks. Improve single lower extremity calf raises to 6-8 repetitions to demonstrate increase in strength. Patient will improve 2 minute step test to 90-100 steps. Patient will Improve Timed Up and Go to 8 seconds to demonstrate decreased risk of falling and meet MDC of 2.9 sec for patients who suffered a stroke. Patient Goals: Improve muscle strength and endurance/fatigue. Return to PLOF. Planned Interventions, Frequency, and Duration: Current Frequency: 2x/week Duration: 3 weeks Total Number of Visits Planned: 6 Planned Treatment Interventions: Therapeutic exercise (00895), Neuromuscular re-education (19876), Manual therapy (96335), Therapeutic activities (23497), Self-custodial management (89021), Patient/Family/Caregiver Education, Body Mechanics Training, Gait Training (81186), General Conditioning PLAN FOR NEXT VISIT: Core stabilzation, B LE strengthening and endurance exercises. Patient demonstrates good understanding of plan of care and treatment. The above goals and plan of care were discussed and agreed upon by patient/family. SUBJECTIVE: Segundo Lewis is a 82 year old male seen today for Pt. reports walking for for 4 miles on 01/01/23, returning home and then noticed him having slurred speech, facial droop and L-sided weakness. Pt. was taken via EMS to [facility], adminstered TPA; transferred to [facility], taken to surgery, removed clot and reports no residual symptoms, returned home 01/05/23. Patient reports he is making good recovery and is near previous baseline, except for endurance. Currently walking 1 mile, use to do 4 a day. On beta-blockers, and wilfredo-inhibitor currently. Heart Monitor on till 02/15/23. Patient Goals: Improve muscle strength and endurance/fatigue. Return to PLOF. Functional Limitations: walking in the community, heavy exertion, physical activities, recreational activities Prior Level of Function: Independent without limitations Relevant History Past Relevant Medical Conditions: Comments Relevant Medical Conditions Comments: Stroke, HFrEF Employment: Retired Recreation / Current Exercise: Usually walk 4 miles a day, 3-5 days a week. Now currently doing 1 mile a day. Home Environment Patient Lives With: Spouse Intake Information: Prescription present Previous Treatment: None Falls Interview: No positive findings with falls interview Pain: Pain Pain Level: 0 Post Treatment Pain Post Treatment Pain Level: 0 PROMIS Scales Higher is Better 01/29/2023 Phys Func - Score 49 (within normal limits) Phys Func - Percentile 46 % Self-Eff Symptom - Score 54 (Average) Self-Eff Symptom - Percentile 66 %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 motion consistent with left bundle branch block. Ejection fraction is severely reduced (25 - 30%). Diastolic function is consistent with impaired relaxation (grade I). Right Ventricle: Chamber size is normal. Systolic function is normal. Left Atrium: Chamber size is moderately enlarged. No hemodynamically significant valve disease. No prior for comparison. CXR 01/03/2023 IMPRESSION: Bibasilar atelectasis and potential small pleural effusions, limited by portable technique. ADDITIONAL DATA REVIEWED Intake/Output Summary (Last 24 hours) at 01/04/2023 1249 Last data filed at 01/04/2023 1055 Gross per 24 hour Intake 1260 ml Output 2200 ml Net -940 ml Temp: [98.2 F (36.8 C)-99.5 F (37.5 C)] 98.8 F (37.1 C) Pulse (Heart Rate): [64-78] 64 Resp Rate: [16-27] 22 BP: (127-154)/(60-78) 140/71 O2 Sat (%): [90 %-96 %] 93 % Oxygen Therapy O2 Sat (%): 93 % O2 Device: room air Flow (L/min): 2 LABS Bun/Creat/Cl/CO2/Glucose: 17/0.74/106/24/112 (01/04 405-01/05 1136) Na/K+/Phos/Mg/Ca: 136/4.0/2.7/1.9/-- (01/04 405) WBC/Hgb/Hct/Plts: 13.37/12.8/38.2/239 (01/04 405) Lab Results Component Value Date BNP 147 (H) 01/02/2023 CURRENT MEDICATIONS: aspirin 81 mg Oral Daily Atorvastatin 40 mg Oral QHS enoxaparin 40 mg Subcutaneous Daily Insulin lispro Subcutaneous 4x daily w/meals, HS Lisinopril 2.5 mg Oral Daily Metoprolol succinate 25 mg Oral Daily Senna 8.6 mg Oral Daily Or Senna 8.6 mg Per NG tube Daily I have seen and examined the patient with the team today. I have personally reviewed all the imaging studies and laboratory data and also reviewed the note. I agree with the assessment and plan with the following additions : CTA: R M1 occlusion MRI: R MCA stroke ECHO: EF 25--30% Lab Results Component Value Date LDLCALC 01/01/2023 Comment: Not Calculated Lab Results Component Value Date HGBA1C 6.0 (H) 01/01/2023 CBC: Lab Results Component Value Date WBC 13.37 (H) 01/04/2023 HGB 12.8 (L) 01/04/2023 HCT 38.2 (L) 01/04/2023 PLATELET 239 01/04/2023 MCV 93.9 01/04/2023 Chem 7: Lab Results Component Value Date SODIUM 136 01/04/2023 POTASSIUM 4.0 01/04/2023 CHLORIDE 106 01/04/2023 CO2 24 01/04/2023 GLUCOSE 114 (H) 01/04/2023 BUN 17 01/04/2023 CREATSERUM 0.74 01/04/2023 BUNCREARATIO 23 01/04/2023 OSMOLALITY 288 01/04/2023 GFR 90 01/04/2023 Neuro Exam: MS: SAFIA OX3. Language: Dysarthria CN: No gross assymetry Motor: 5/5 all over. Assessment: Segundo Lewis is a 82 y.o. male with unknown PMH who presents as level A ischemic stroke transfer from with Left sided weakness and facial droop. LKW 1340 on 01/01/23. NIHSS on Telestroke 18. CTA at OSH showed R M1 occlusion. Received TNK at OSH. S/p IR TICI 2 C revascularization. Cryptogenic in etiology suspect due to low EF Plan: ASA Statin HFREF. GDMT Event monitor upon DC PT/OT evaluation Risk factor modification and stroke education DVT prophylaxis Plan rehab Meli Dominguez MD [employer] Department of Neurology Acute Physical Therapy Treatment Prior to Admission AMPAC score(s): PRIOR LEVEL AM-PAC Mobility Raw Score: 24 PRIOR LEVEL AM-PAC Activity Raw Score: 24 Current AM-PAC score(s): CURRENT AM-PAC Mobility Raw Score: 22 Based on the above AM-PAC score(s) and PT clinical judgment, patient is a good candidate for discharge to Home with Outpatient Rehab Services Barriers to discharge home: None Supporting Factors (would benefit from skilled therapy services): Patient status is anticipated to be appropriate to tolerate inpatient rehab therapy requirements at time of discharge from acute care, Impaired balance, Impaired functional status, Fall risk Mobility equipment available at home: 2 wheeled walker, straight cane ADL equipment available at home: shower chair, grab bars Equipment needed for discharge: none Current therapy frequency recommendation in acute: Therapy Frequency: 3 times a week Precautions and Weightbearing Status: Existing Precautions/Restrictions: fall Patient Safety Communication Prior to Visit: Nursing Subjective: Pt reports he would love to get out of bed Pain: General Pain Documentation (Adult, OB, Peds) Presence of Pain: denies pain/discomfort DVPRS (Defense and Veterans Pain Rating Scale) DVPRS: Activity: 0- no pain Objective/Observation: Vitals/Vitals Responses to Treatment: Tolerates session well Cognition Overall Cognitive Status: Within Functional Limits Extremity Assessments: See PT Evaluation flowsheet for Extremity Measurement updates. Skin and Edema: Balance: Sitting Balance Static Sitting-Level of Assistance: Independent Dynamic Sitting-Level of Assistance: Independent Standing Balance Static Standing-Level of Assistance: Supervision Dynamic Standing-Level of Assistance: Supervision Mobility Assessment/Intervention: Supine to Sit Mobility [place] Level: Supine->Sit: independent Transfer Assessment/Intervention: Sit to Stand Transfer [place] Level: Sit->Stand: supervision Skilled Intervention/Details: Sit->Stand: 4x5 completed in session to challenge activity tolerance. Min cues to help with eccentric control/sequencing/and coordination. Improves during session Gait/Functional Mobility Assessment/Intervention: Gait Assessment [place] Level: Gait: supervision Ambulation Distance (Feet): 200 Gait Deviations Identified: decreased doni, decreased gait speed, decreased heel strike, decreased step length Gait Skilled Rationale: verbal Skilled Intervention/Details - Gait: VC for functional activities to improve NMR. Decreased insight to impairments despite education. Unable to significantly improve gait speed and doni. Mild path deviation Outcome Score(s): Augustine Score: 44 Functional Gait Assessment Score: 18 CURRENT [facility] Basic Mobility Inpatient Short Form Turning over in bed: 4 - No Assistance Sitting/standing from chair: 4 - No Assistance Moving from lying on back to sittin - No Assistance Moving to and from bed to chair: 4 - No Assistance Walk in hospital room: 3 - A Little Assistance Climbing 3-5 steps with a railin - A Little Assistance CURRENT [facility] Mobility Raw Score: 22 CURRENT [facility] Mobility Functional Limitation/Modifier: 20.91% Currently Impaired in Basic Mobility - CJ Assessment & Plan: Patient with significant progression in activity tolerance. Presents with higher level balance limitations that would benefit from continued therapy services in an OP setting Patient Instruction/Education this session: importance of functional mobility Plan for next session: higher level balance Acute PT Goals Plan of Care by Skip Messina PT at 01/04/2023 7:30 AM Version 1 of 1 Problem: PT - Balance/Coordination/Neuro Re-Education Goal: AUGUSTINE Description: Pt will complete AUGUSTINE and achieve fall risk cut off to show low fall risk Outcome: Progressing Toward Goal Problem: PT - Mobility Goal: Ambulation Description: Pt will ambulate 300 feet with out an assistive device with independence to improve ability to navigate home environment. Outcome: Progressing Toward Goal Goal: Stairs Description: Pt will ascend/descend 3 stairs with 1 railings with modified independence with out an assistive device to improve ability to perform functional mobility necessary in recommended discharge environment. Outcome: Progressing Toward Goal Problem: PT - Transfers Goal: Supine <-> Sit Description: Pt will perform bed mobility with flat bed & no rail with independence in order to improve functional mobility and safety. Outcome: Progressing Toward Goal Goal: Sit <-> Stand Description: Pt will perform sit to/from stand transfers with independence with out an assistive device in order to improve functional mobility and safety. Outcome: Progressing Toward Goal PT treatment consisted of the following to progress towards the above goal(s): PT Evaluation and Treatment Time Therapeutic Activity Time Entry: 13 Gait Training Time Entry: 12 Treating Therapist: Skip Messina PT Additional Details: Co-evaluation/co-treatment performed?: No simultaneous skilled care performed I used facemask, protective eye shield, and gloves in today's patient interaction. Patient location at end of session: chair Alarms on at end of session: none Needs in reach. Time In: 07 Time Out: 0758 Total Visit Time: 25 minutes Total Treatment Time (skilled, billable minutes): 25 minutes Upon discontinuation of Acute Care Physical Therapy Services or patient discharge from the hospital this note represents the current Physical Therapy Discharge Summary. NEUROVASCULAR STROKE SERVICE Daily Progress Note IDENTIFYING INFORMATION Segundo Lewis MR# [id number] 01/04/2023 HISTORY OF PRESENT ILLNESS Segundo Lewis is a 82 y.o. male with unknown PMH who presents as level A ischemic stroke transfer from [facility] with Left sided weakness and facial droop. LKW 1340 on 01/01/23. NIHSS on Telestroke by Dr. Laureano 18 (2 ques, 2 gaze, 2 vision, 2 FD, 4 LUE, 4 LLE, 2 neglect). CTA at OSH showed R M1 occlusion. Received TNK at OSH at 1340. NIHSS on arrival 5 (1 FD, 1 LUE, 1 LLE, 1 sensory, 1 dysarthria). He was taken to the OR and had R M3 thrombectomy with TICI 2c revascularization. INTERVAL HISTORY 01/02: Remains in ICU. Intubated. Follows commands. 01/03 extubated yesterday, MRI and TTE done, transfer to floor, consult cardiology 01/04: cards following, change lopressor to Toprol XL, PHYSICAL EXAM Gen: awake, alert, NAD HEENT: normocephalic, no scalp lesions or tenderness Neck: trachea midline No JVD CV: +S1S2, RRR, no m/r/g Lungs: LCTA bilaterally with equal chest rise Abd: soft, nontender, nondistended, +BS x4 quadrants Extrem: Warm and well perfused, no edema, 2+ pulses bilaterally Neuro: Oriented x4, LUCAS x 4, sensation intact and equal bilaterally to light touch CN II - All visual lee intact CN II/III - PERRLA CN III/IV/ - EOMI CN V - Light touch to face intact in V1-3 CN VII - Facial movement intact and symmetrical bilaterally CN VIII - Hearing intact CN X - Cough present CN XI - muscular movement of shoulders and sternocleidomastoid muscles intact and equal bilaterally CN XII - midline protrusion of tongue MOTOR EXAMINATION: no drift NIHSS 01/04/2023 Provider NIH Stroke Scale NIH Interval (Provider): daily NIH Level of Conciousness (Provider): 0 NIH LOC Questions (Provider): 0 NIH LOC Commands (Provider): 0 NIH Best Gaze (Provider): 0 NIH Visual (Provider): 0 NIH Facial Palsy (Provider): 0 NIH Left Arm Motor (Provider): 0 NIH Right Arm Motor (Provider): 0 NIH Left Leg Motor (Provider): 0 NIH Right Leg Motor (Provider): 0 NIH Limb Ataxia (Provider): 0 NIH Sensory (Provider): 0 NIH Best Language (Provider): 0 NIH Dysarthria (Provider): 0 NIH Extinction and Inattention (Provider): 0 NIH Total Score (Provider): 0 ASSESSMENT AND PLAN Neuro: R MCA stroke with R M3 occlusion s/p IV TNK & MT with TICI 2c revascularization CTH (OSH): negative for hemorrhage, large territory stroke CTA brain/neck (OSH): R M1 occlusion 24 hour CTH: No acute large territory infarction is seen. No evidence of intracranial hemorrhage. MRI brain: Small areas of acute infarct within the right lenticulostriate and MCA territory. No significant mass effect or midline shift. No intracranial hemorrhage. ECHO: Severe global hypokinesis. Abnormal septal motion consistent with left bundle branch block. Ejection fraction is severely reduced (25 - 30%). Diastolic function is consistent with impaired relaxation (grade I). No hemodynamically significant valve disease. LDL 93 A1c 6.0 -Stroke Etiology (TOAST Criteria): cryptogenic -Antiplatelet plan: ASA 81mg daily -Statin therapy: atorvastatin 40 mg daily -Blood Pressure goal: <180 mmHg -EM at ID Ischemic Stroke Core Measures -NIHSS on admission 5 -Patient has been started on Mechanical (SCD's) and Pharmacological (SQ heparin/Lovenox) and DVT prophylaxis. -Antiplatelet therapy has been initiated, ASA 81mg daily -Anticoagulation therapy was not indicated for this patient -Patients LDL 93 and HgbA1c 6.0 were checked and the patient will be discharged on Atorvastatin 40 mg daily. -Dysphagia screening ordered, and will be completed prior to patient receiving oral intake. -Stroke education booklet has been ordered and will be provided by the RN that includes both written and verbal education to the patient and family regarding ischemic strokes. We have reviewed the patient's personal modifiable risk factors including: HLD as well as education on reducing these risk factors -Patient is being assessed for Rehab by PT/OT/Speech and PM&R if indicated. HTN (POA) -gradual normotension -continue lisinopril 2.5mg daily-advance as tolerated -change lopressor 12.5mg BID to Toprol XL 25 mg daily HFrEF -EF 25-30% on echo, no prior diagnosis -cardiology consulted, appreciate recs, changed to Toprol as recommended Disposition: Segundo Lewis will likely be discharged to [facility] Tatiana Juarez APRN-MANAGER OF ADMINISTRATION 01/04/2023 7:15 AM VITAL SIGNS Temp: [98.2 F (36.8 C)-99.5 F (37.5 C)] 99.5 F (37.5 C) Pulse (Heart Rate): [67-79] 78 Resp Rate: [16-35] 24 BP: (127-159)/(60-78) 153/78 O2 Sat (%): [91 %-96 %] 92 % Oxygen Therapy: Oxygen Therapy O2 Sat (%): 92 % O2 Device: nasal cannula Flow (L/min): 2 Intake/Output: Intake/Output Summary (Last 24 hours) at 01/04/2023 0715 Last data filed at 01/04/2023 0600 Gross per 24 hour Intake 760 ml Output 2946 ml Net -2186 ml LABS/CULTURES Lab Results Component Value Date WBC 13.37 (H) 01/04/2023 HGB 12.8 (L) 01/04/2023 HCT 38.2 (L) 01/04/2023 PLATELET 239 01/04/2023 MCV 93.9 01/04/2023 Lab Results Component Value Date SODIUM 136 01/04/2023 POTASSIUM 4.0 01/04/2023 CHLORIDE 106 01/04/2023 CO2 24 01/04/2023 BUN 17 01/04/2023 CREATSERUM 0.74 01/04/2023 GLUCOSE 114 (H) 01/04/2023 Lab Results Component Value Date CHOLESTEROL 159 01/01/2023 TRIG 186 (H) 01/02/2023 TRIG 429 (H) 01/01/2023 HDL 23 (L) 01/01/2023 LDLCALC 01/01/2023 Comment: Not Calculated Lab Results Component Value Date HGBA1C 6.0 (H) 01/01/2023 No results found for: TOTALPROTEIN , ALBUMIN , ALBUMINALB , ALBUMINFLD , ALBUMINCSF , ALBUMINSERUM , Lab Results Component Value Date CPK 98 01/02/2023 IMAGING/DIAGNOSTIC STUDIES MRI BRAIN STROKE WITHOUT CONTRAST Final Result IMPRESSION: Small areas of acute infarct within the right lenticulostriate and MCA territory. No significant mass effect or midline shift. No intracranial hemorrhage. I personally viewed and interpreted these images and I have reviewed and approved this report. CHEST PORTABLE Final Result IMPRESSION: Bibasilar atelectasis and potential small pleural effusions, limited by portable technique. CARDIOGRAM Final Result CT HEAD WITHOUT CONTRAST Final Result IMPRESSION: 1. No evolving large vessel occlusion within the brain. 2. No evidence of intracranial hemorrhage. 3. Chronic appearing sphenoid sinus opacification with potential fungal colonization. CHEST PORTABLE Final Result IMPRESSION: Pulmonary edema. Life support devices in place. Minor atelectasis. ABDOMEN 1 VIEW PORTABLE Final Result IMPRESSION: Distal tip of the Dobbhoff tube at the junction of the second and third portion of the duodenum. CATIONS aspirin 81 mg Oral Daily Atorvastatin 40 mg Oral QHS enoxaparin 40 mg Subcutaneous Daily Insulin lispro Subcutaneous 4x daily w/meals, HS Lisinopril 2.5 mg Oral Daily Metoprolol succinate 25 mg Oral Daily Senna 8.6 mg Oral Daily Or Senna 8.6 mg Per NG tube Daily NEUROVASCULAR STROKE SERVICE Daily Progress Note IDENTIFYING INFORMATION Segundo Lewis MR# [id number] 01/03/2023 HISTORY OF PRESENT ILLNESS Segundo Lewis is a 82 y.o. male with unknown PMH who presents as level A ischemic stroke transfer from [facility] with Left sided weakness and facial droop. LKW 1340 on 01/01/23. NIHSS on Telestroke by Dr. Laureano 18 (2 ques, 2 gaze, 2 vision, 2 FD, 4 LUE, 4 LLE, 2 neglect). CTA at OSH showed R M1 occlusion. Received TNK at OSH at 1340. NIHSS on arrival 5 (1 FD, 1 LUE, 1 LLE, 1 sensory, 1 dysarthria). He was taken to the OR and had R M3 thrombectomy with TICI 2c revascularization. INTERVAL HISTORY 01/02: Remains in ICU. Intubated. Follows commands. 01/03 extubated yesterday, MRI and TTE done, transfer to floor, consult cardiology PHYSICAL EXAM Gen: awake, alert, NAD HEENT: normocephalic, no scalp lesions or tenderness Neck: trachea midline No JVD CV: +S1S2, RRR, no m/r/g Lungs: LCTA bilaterally with equal chest rise Abd: soft, nontender, nondistended, +BS x4 quadrants Extrem: Warm and well perfused, no edema, 2+ pulses bilaterally Neuro: Oriented x4, LUCAS x 4, sensation intact and equal bilaterally to light touch CN II - All visual lee intact CN II/III - PERRLA CN III/IV/ - EOMI CN V - Light touch to face intact in V1-3 CN VII - Facial movement intact and symmetrical bilaterally CN VIII - Hearing intact CN X - Cough present CN XI - muscular movement of shoulders and sternocleidomastoid muscles intact and equal bilaterally CN XII - midline protrusion of tongue MOTOR EXAMINATION: no drift NIHSS 01/03/2023 Provider NIH Stroke Scale NIH Interval (Provider): daily NIH Level of Conciousness (Provider): 0 NIH LOC Questions (Provider): 0 NIH LOC Commands (Provider): 0 NIH Best Gaze (Provider): 0 NIH Visual (Provider): 0 NIH Facial Palsy (Provider): 0 NIH Left Arm Motor (Provider): 0 NIH Right Arm Motor (Provider): 0 NIH Left Leg Motor (Provider): 0 NIH Right Leg Motor (Provider): 0 NIH Limb Ataxia (Provider): 0 NIH Sensory (Provider): 0 NIH Best Language (Provider): 0 NIH Dysarthria (Provider): 0 NIH Extinction and Inattention (Provider): 0 NIH Total Score (Provider): 0 ASSESSMENT AND PLAN Neuro: R MCA stroke with R M3 occlusion s/p IV TNK & MT with TICI 2c revascularization CTH (OSH): negative for hemorrhage, large territory stroke CTA brain/neck (OSH): R M1 occlusion 24 hour CTH: No acute large territory infarction is seen. No evidence of intracranial hemorrhage. MRI brain: Small areas of acute infarct within the right lenticulostriate and MCA territory. No significant mass effect or midline shift. No intracranial hemorrhage. ECHO: Severe global hypokinesis. Abnormal septal motion consistent with left bundle branch block. Ejection fraction is severely reduced (25 - 30%). Diastolic function is consistent with impaired relaxation (grade I). No hemodynamically significant valve disease. LDL 93 A1c 6.0 -Stroke Etiology (TOAST Criteria): cryptogenic vs cardioembolic (low EF, cards recs pending) -Antiplatelet plan: ASA 81mg to start 01/04 -Statin therapy: atorvastatin 40 mg daily -Blood Pressure goal: <180 mmHg Ischemic Stroke Core Measures -NIHSS on admission 5 -Patient has been started on Mechanical (SCD's) and Pharmacological (SQ heparin/Lovenox) and DVT prophylaxis. -Antiplatelet therapy has been initiated, ASA 81mg daily -Anticoagulation therapy was not indicated for this patient -Patients LDL 93 and HgbA1c 6.0 were checked and the patient will be discharged on Atorvastatin 40 mg daily. -Dysphagia screening ordered, and will be completed prior to patient receiving oral intake. -Stroke education booklet has been ordered and will be provided by the RN that includes both written and verbal education to the patient and family regarding ischemic strokes. We have reviewed the patient's personal modifiable risk factors including: HLD as well as education on reducing these risk factors -Patient is being assessed for Rehab by PT/OT/Speech and PM&R if indicated. HTN (POA) -gradual normotension -continue lisinopril 2.5mg daily and lopressor 12.5mg BID started in NCCU HFrEF -EF 25-30% on echo, no prior diagnosis -cardiology consulted, appreciate recs Disposition: Segundo Lewis will likely be discharged to [facility] Ilya Chilel APRN-MANAGER OF ADMINISTRATION 01/03/2023 1:50 PM VITAL SIGNS Temp: [97.8 F (36.6 C)-99.1 F (37.3 C)] 98.7 F (37.1 C) Pulse (Heart Rate): [68-79] 75 Resp Rate: [20-35] 24 BP: (127-159)/(58-78) 157/73 O2 Sat (%): [91 %-96 %] 92 % Weight: [87.8 kg (193 lb 9 oz)-89.6 kg (197 lb 9.6 oz)] 89.6 kg (197 lb 9.6 oz) Oxygen Therapy: Oxygen Therapy O2 Sat (%): 92 % O2 Device: nasal cannula Flow (L/min): 1 Oxygen Delivery/Consumption Hemodynamics BSA (Calculated - sq m): 2.06 m2 Intake/Output: Intake/Output Summary (Last 24 hours) at 01/03/2023 1350 Last data filed at 01/03/2023 1342 Gross per 24 hour Intake 2957.75 ml Output 2721 ml Net 236.75 ml LABS/CULTURES Lab Results Component Value Date WBC 10.72 (H) 01/02/2023 HGB 12.6 (L) 01/02/2023 HCT 36.5 (L) 01/02/2023 PLATELET 229 01/02/2023 MCV 95.3 (H) 01/02/2023 Lab Results Component Value Date SODIUM 139 01/02/2023 POTASSIUM 3.9 01/02/2023 CHLORIDE 108 01/02/2023 CO2 22 01/02/2023 BUN 18 01/02/2023 CREATSERUM 0.80 01/02/2023 GLUCOSE 115 (H) 01/02/2023 Lab Results Component Value Date CHOLESTEROL 159 01/01/2023 TRIG 186 (H) 01/02/2023 TRIG 429 (H) 01/01/2023 HDL 23 (L) 01/01/2023 LDLCALC 01/01/2023 Comment: Not Calculated Lab Results Component Value Date HGBA1C 6.0 (H) 01/01/2023 No results found for: TOTALPROTEIN , ALBUMIN , ALBUMINALB , ALBUMINFLD , ALBUMINCSF , ALBUMINSERUM , Lab Results Component Value Date CPK 98 01/02/2023 IMAGING/DIAGNOSTIC STUDIES MRI BRAIN STROKE WITHOUT CONTRAST XR CHEST PORTABLE Final Result IMPRESSION: Bibasilar atelectasis and potential small pleural effusions, limited by portable technique. CARDIOGRAM Final Result CT HEAD WITHOUT CONTRAST Final Result IMPRESSION: 1. No evolving large vessel occlusion within the brain. 2. No evidence of intracranial hemorrhage. 3. Chronic appearing sphenoid sinus opacification with potential fungal colonization. CHEST PORTABLE Final Result IMPRESSION: Pulmonary edema. Life support devices in place. Minor atelectasis. ABDOMEN 1 VIEW PORTABLE Final Result IMPRESSION: Distal tip of the Dobbhoff tube at the junction of the second and third portion of the duodenum. CATIONS [START ON 01/04/2023] aspirin 81 mg Oral Daily Atorvastatin 40 mg Oral QHS enoxaparin 40 mg Subcutaneous Daily Insulin regular Subcutaneous Q6H Lisinopril 2.5 mg Oral Daily Metoprolol 12.5 mg Oral Q12H Senna 8.6 mg Oral Daily Or Senna 8.6 mg Per NG tube Daily Acute Care Speech Language Pathology Note Received consult for swallow evaluation. However, patient passed [place] Swallow Screening by nursing. Swallow eval by QUOTATION CLERK will not be completed at this time unless this service notified of change in status or re-consult for swallow eval placed. QUOTATION CLERK requested speech/language/cognitive evaluation given R MCA stroke with R M3 occlusion s/p IV TNK & MT with TICI 2c revascularization. Thank you. No charge Skye Bullock MA, [facility]-QUOTATION CLERK Pager: [phone] License: [email or web address] Email: [email or web address] I have independently seen and examined the patient on 01/03/23. I agree with the history, examination, assessment and plan as documented by the DIRECTOR OF ASSISTED LIVING with my changes/additions added. 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 S/p TNK. CTA revealed R M2-3 occlusion. He underwent MT with TICI2c revascularization c/b right groin hematoma. He was intubated for the procedure and presented to [facility]. Interval History: Extubated yesterday. No acute overnight events Scheduled Meds: [START ON 01/04/2023] aspirin 81 mg Oral Daily Atorvastatin 40 mg Oral QHS enoxaparin 40 mg Subcutaneous Daily Insulin regular Subcutaneous Q6H Senna 8.6 mg Oral Daily Or Senna 8.6 mg Per NG tube Daily Labs: Lipid panel: Lab Results Component Value Date CHOLESTEROL 159 01/01/2023 TRIG 186 (H) 01/02/2023 HDL 23 (L) 01/01/2023 LDLCALC 01/01/2023 Comment: Not Calculated CHOLTOTALHDL 6.9 (H) 01/01/2023 NHCHOL 136 (H) 01/01/2023 Chem 7: Lab Results Component Value Date SODIUM 139 01/02/2023 POTASSIUM 3.9 01/02/2023 CHLORIDE 108 01/02/2023 CO2 22 01/02/2023 GLUCOSE 115 (H) 01/02/2023 BUN 18 01/02/2023 CREATSERUM 0.80 01/02/2023 BUNCREARATIO 23 01/02/2023 OSMOLALITY 294 01/02/2023 GFR 88 01/02/2023 CBC: Lab Results Component Value Date WBC 10.72 (H) 01/02/2023 HGB 12.6 (L) 01/02/2023 HCT 36.5 (L) 01/02/2023 PLATELET 229 01/02/2023 MCV 95.3 (H) 01/02/2023 Physical Exam: Vitals: 01/03/23 1122 BP: Pulse: Resp: Temp: 98.7 F (37.1 C) SpO2: General: no acute distress HEENT: normocephalic, atraumatic Cardiovascular: +S1S2, RRR,+1 edema, + distal pulses, capillary refill < 3 seconds Pulmonary: Redcued auscultate at bilateral bases Abdominal: soft, nontender, nondistended, active bowel sounds Extremities: R groin hematoma - stable Neurology: awake and alert, oriented x3, EOMI, slight facial asymmetry, no drifts Assessment and Plan: Neurology: Acute R MCA ischemic stroke - S/p TNK and MT with TICI2c revascularization Cytotoxic cerebral edema - CTH in 24 hours after thrombolytics with no bleed. On ASA - atorvastatin - SBP goal <160, MAP >65. Eunatremia - Brain MRI Wo contrast when able - Neurochecks and NIHSS Pulmonary: Acute postprocedural respiratory failure - resolved, extubated on 01/02 Oxygen Therapy O2 Sat (%): 91 % O2 Device: nasal cannula Flow (L/min): 1 Oxygen Concentration (%): 40 Cardiovascular: Cardiomyopathy - SBP goal< 160, MAP goal >65. PRN Hydralazine and Labetalol - TTE reveled EF of 25-30%, start low dose lisinopril and metoprolol. Card consult - HLD: statin - Repeat CXR today Nephrology: - Maintain euvolemia Intake/Output Summary (Last 24 hours) at 01/03/2023 1149 Last data filed at 01/03/2023 1112 Gross per 24 hour Intake 3484.77 ml Output 2630 ml Net 854.77 ml GI/Nutrition: - Diet - Bowel regimen to prevent constipation Endocrinology: - Goal blood glucose 140-180. SSI, A1c of 6 ID: - PRN Tylenol for T>100.4F Heme/Onc: Acute R groin hematoma after angio, site is marked, pressure applied. Hgb is stable. Continue to watch - Goal plt >100, INR <1.4, Hgb >7 - VTE prophylaxis: - SCDs - Chemical prophylaxis - LVX Acute deconditioning - PT/OT consulted and following - Mobility as tolerated Additional details and other supportive care as per the DIRECTOR OF ASSISTED LIVING note from the same day Transfer out to floor Adin Dia MD Neurocritical Care Attending Acute Occupational Therapy Evaluation Prior to Admission AM-PAC Score: PRIOR LEVEL AM-PAC Activity Raw Score: 24 Current AM-PAC score(s): CURRENT AM-PAC Activity Raw Score: 20 Based on the above AM-PAC score(s) and OT clinical judgment, discharge destination recommendation is: Inpatient Rehab Facility (possible prog to home with outpatient services if medically appropriate) Supporting Factors (would benefit from skilled therapy services): Impaired balance, Fall risk Mobility equipment available at home: 2 wheeled walker, straight cane ADL equipment available at home: shower chair, grab bars Equipment recommendations for discharge: Current therapy frequency recommendation(s) in acute: 5 times a week Precautions and Weightbearing Status: OT Existing Precautions/Restrictions: fall Urinary catheter Patient Safety Communication Prior to Visit: Nursing Subjective: Pt reports feeling good and happy that him and his came in when they did! Pain: General Pain Documentation (Adult, OB, Peds) Presence of Pain: denies pain/discomfort DVPRS (Defense and Veterans Pain Rating Scale) DVPRS: Rest: 0- no pain DVPRS: Activity: 0- no pain Home Setting Residence: House Lives With: spouse First floor setup: grab bars, bedroom, walk-in shower Number of stairs to enter home: 1 Stair Railings at Home: entry - present on both sides Mobility Equipment Available: 2 wheeled walker, straight cane ADL Equipment Available: shower chair, grab bars Home Environment Details: Son and daughter are both available at times to assist, both and pt are retired Previous Level of Function Prior level ADL Overview: Independent with all ADLs Dominant Hand: Right (sometimes uses left) Bed Mobility/Transfers: independent Ambulation Skills: independent Assistive Device: none used Level of Ambulation: community IADL History IADLs: independent Home Management Skills: ( perform, but pt physically capable) Meal Prep Responsibility: Secondary Laundry Responsibility: Secondary Objective/Observation: Vitals/Vitals Responses to Treatment: Pt SBP reached as high as 195, DBP reached as high as 91. After sitting pt down and cueing for breaths and pumping ankles, pt returned to stable levels (152/69). By the end of the session, pt vitals were stable and pt was in chair. O2 Device: nasal cannula Flow (L/min): 1 Vision Screen Currently wearing corrective lenses: Reading only Speech Speech: no gross deficits noted Hearing Hearing: no gross deficits noted Cognition Overall Cognitive Status: Within Functional Limits ADLs: ADL Assessment: LE Dressing Deficit ADL Anticipated Performance (ADLs not directly observed this session): Eating, Grooming, Bathing, UE Dressing, Toileting Eating Assistance: Independent Grooming Assistance: Independent Bathing Assistance: Contact guard assist UE Dressing Assistance: Independent LE Dressing Assistance: Contact guard assist LE Dressing Location: edge of bed LE Dressing Deficit: Increased time to complete, Balance, Don/doff R sock, Don/doff L sock LE Dressing Skilled Rationale (Verbal/Tactile/Visual/Demonstrati on): Technique of activity, Cues for increased safety, Supervision, Setup LE Dressing Intervention/Details: Cued pt for figure four tech for LE dressing, pt able to don both socks with CGA Toilet Assistance: Contact guard assist Extremity Assessments: RUE Assessment RUE Assessment: Within Functional Limits LUE Assessment LUE Assessment: Within Functional Limits Left UE Assessment Details: Shoulder and elbow flexion 4/5 Balance: Sitting Balance Static Sitting-Level of Assistance: Contact guard Dynamic Sitting-Level of Assistance: Contact guard Skilled Rationale: Positioning, Verbal cues Sitting Balance Skilled Intervention/Details: Cued pt for upright posture in bed, pt sat EOB for approx 3-5 min and in armed chair for approx 8-10 min Standing Balance Static Standing-Level of Assistance: Contact guard Dynamic Standing-Level of Assistance: Contact guard Skilled Rationale: Verbal cues, Cues for increased safety, Initiation and execution of task, Technique of activity, Positioning, Sequencing Standing Balance Skilled Intervention/Details: Cued pt for deep breaths and controlled upright psture during standing. pt stood for approx 8-10 Neuro: Sensation Overall Sensation: Intact Gross Coordination Gross Coordination: bilat UE intact Fine Motor Coordination Additional Documentation: Yes Fine Motor Coordination Left Hand, Finger To Nose: mild impairment Right Hand, Finger To Nose: normal performance Left Hand, Manipulation of Objects: normal performance Right Hand, Manipulation of Objects: normal performance Skin and Edema: Edema Edema: present Location: groin Mobility Assessment: Rolling/Turning Mobility [place] Level: Rolling/Turning: contact guard assist Bed Features/Set-up: Rolling/Turning: Head of bed elevated, Use of bed rail Skilled Rationale: Positioning, Sequencing, Verbal cues, Technique of activity Skilled Intervention/Details: Rolling/Turning: Cued pt for initiation of the transfer and educated on tech, pt demonstrated understanding well Supine to Sit Mobility [place] Level: Supine->Sit: contact guard assist Bed Features/Set-up: Supine->Sit: Head of bed elevated, Use of bed rail Skilled Rationale: Sequencing, Positioning, Verbal cues, Technique of activity, Hand placement Skilled Intervention/Details: Supine->Sit: cued pt for hand placement on bed rail and bed to assist in sitting to supine pos Transfer Assessment: Sit to Stand Transfer [place] Level: Sit->Stand: contact guard assist Skilled Rationale: Positioning, Sequencing, Verbal cues, Technique of activity, Initiation and execution of task Skilled Intervention/Details: Sit->Stand: x2 EOB, x1 chair, cued pt to begin transfer, pt able to complete transfer with CGA Stand to Sit Transfer [place] Level: Stand->Sit: contact guard assist Skilled Rationale: Positioning, Sequencing, Verbal cues, Technique of activity, Initiation and execution of task, Controlled descent for sitting Skilled Intervention/Details: Stand->Sit: x2 chair, x1 EOB, cued pt for slow and controlled descent, pt able to follow commands well and complete transfer with CGA Functional Mobility: Functional Mobility [place] Level: Functional Mobility/Gait: contact guard assist Functional Mobility Distance: Distance needed to access BSC/chair Ambulation Distance (Feet): 5 Functional Mobility Deficits: Balance, Generalized weakness Functional Mobility Skilled Rationale: Verbal cues, Technique of activity Skilled Intervention/Details - Functional Mobility/Gait: Cued pt for balance deficits and initiation of tasks/transfers Outcome Score(s): Fugl-Man Assessment of Physical Performance Left Flexor synergy (out of 12): 12 Left Extensor synergy (out of 6): 6 Left Volitional movement mixing synergies (out of 6) : 6 Left Volitional Movement with little or no synergy (out of 6): 4 Left Wrist (out of 10): 10 Left Hand (out of 14): 14 Left Coordination/Speed (out of 6): 5 LUE Fugl-Man Score (out of 60): 57 CURRENT [facility] Daily Activity Inpatient Short Form Putting on/Taking Off Lower Body Clothin - A Little Assistance Bathin - A Little Assistance Toiletin - A Little Assistance Putting on/Taking Off Upper Body Clothin - No Assistance Groomin - A Little Assistance Eatin - No Assistance CURRENT [facility] Activity Raw Score: 20 CURRENT [facility] Activity Functional Limitation/Modifier: 38.32% Currently Impaired in Daily Activity - Assessment & Plan: Patient was admitted for acute left sided weakness and facial droop. S/p TNK. CTA revealed R M2-3 occlusion. He underwent MT with TICI2c revascularization c/b right groin hematoma and seen for therapy evaluation related to generalized safety and mobility assessment. Exam findings include impairments in: balance, neuromotor development. These impairments contribute to occupational performance limitations including bathing, toileting, leisure integration, driving/transportation. The following factors impact the plan of care: Patient will benefit from skilled occupational therapy to address these impairments, occupational performance limitations, and participation restrictions. Patient's rehab potential is: good, to achieve stated therapy goals. Planned Therapy Interventions (OT Eval): ADL retraining, balance training, transfer training Patient Instruction/Education this session: Patient Instruction: role of OT, POC, OOB activity Plan for next session: balance training, standing tolerance Acute OT Goals Plan of Care by Marija Chowdhury OT at 01/03/2023 10:50 AM Version 1 of 1 Problem: OT - Dressing Goal: Lower Body Dressing Description: Pt will complete LE dressing tasks with supervision for improved ability to complete self-care activities. Outcome: Ongoing Problem: OT - ADLs Goal: Toileting Description: Pt will complete toileting task including clothing management with supervision for improved ability to safely complete self-care activities. Outcome: Ongoing Problem: OT - Balance Goal: Balance - Standing Description: Pt will perform 10 minutes of functional ADL task in standing with supervision and balance level of good to promote safety and improved balance required for self-care activities. Outcome: Ongoing Problem: OT - Endurance Goal: Endurance Functional Mobilty Around Home Description: Pt will complete distance needed for common household mobility without device and sup A for item retrieval and ADL completion. Outcome: Ongoing Problem: OT - Strength/ROM Goal: Neuro Re-education Description: Pt will participate in neuro re-ed of LUE to improve coordination to good for improved use in ADLs. Outcome: Ongoing OT treatment consisted of the following to work and progress towards the above goal(s): OT Evaluation and Treatment Time OT Evaluation (Moderate) Time Entry: 41 Evaluating Therapist: Elmer Treviño Additional Details: Co-evaluation/co-treatment performed?: Yes, simultaneous billable skilled care This co-evaluation session performed between OT and PT was beneficial, necessary and provided distinct services in establishing this person's individual plan of care. Medical complexity with functional deficits necessitated two skilled therapy disciplines working concurrently to determine each discipline's goals. This co-treatment was medically necessary due to patient's: Coordination issues and Postural control I used gloves and facemask in today's patient interaction. OT Evaluation Complexity Occupational Profile and Client History: Moderate - expanded history Assessment of Occupational Performance: Moderate (3-5 performance deficits) Clinical Decision/Performance Deficits: Moderate (detailed assessments w/several treatment options) Time In: 1009 Time Out: 1050 Total Visit Time: 41 minutes Total Treatment Time (skilled, billable minutes): 41 minutes Patient location at end of session: chair Alarms on at end of session: RN aware Needs in reach. Upon discontinuation of Acute Care Occupational Therapy Services or patient discharge from the hospital this note represents the current Occupational Therapy Discharge Summary. Associated attestation - Marija Chowdhury OT - 01/03/2023 1:31 PM EDT I, Marija Chowdhury OT, provided direct guidance in the room during this patient care session. I attest that all documentation reflects accurate skilled clinical decisions and judgements. Acute Physical Therapy Evaluation Prior to Admission [facility] score(s): PRIOR LEVEL AM-PAC Mobility Raw Score: 24 Current AM-PAC score(s): CURRENT AM-PAC Mobility Raw Score: 17 Based on the above AM-PAC score(s) and PT clinical judgment, patient is a good candidate for discharge to Inpatient Rehab Facility Supporting Factors (would benefit from skilled therapy services): Patient status is anticipated to be appropriate to tolerate inpatient rehab therapy requirements at time of discharge from acute care, Impaired balance, Impaired functional status, Fall risk Mobility equipment available at home: 2 wheeled walker, straight cane ADL equipment available at home: shower chair, grab bars Equipment needed for discharge: to be determined Current therapy frequency recommendation in acute: Therapy Frequency: 6 times a week Precautions and Weightbearing Status: Existing Precautions/Restrictions: fall Urinary catheter Patient Safety Communication Prior to Visit: Nursing Subjective: Pt agreeable to therapy. Pain: General Pain Documentation (Adult, OB, Peds) Presence of Pain: denies pain/discomfort Home Setting Residence: House Lives With: spouse First floor setup: grab bars, bedroom, walk-in shower Number of stairs to enter home: 1 Stair Railings at Home: entry - present on both sides Mobility Equipment Available: 2 wheeled walker, straight cane ADL Equipment Available: shower chair, grab bars Home Environment Details: Son and daughter are both available at times to assist, both and pt are retired Previous Level of Function Prior level ADL Overview: Independent with all ADLs Dominant Hand: Right (sometimes uses left) Bed Mobility/Transfers: independent Ambulation Skills: independent Assistive Device: none used Level of Ambulation: community Prior Level of Function Details: Pt drives Objective/Observation: Vitals/Vitals Responses to Treatment: Pt BP went up to 195/91 after x1 sit to stand from EOB and dropped down to 167/73 after a 3-4 min. Pt BP was stable later throughout the session with 152/69. Cognition Overall Cognitive Status: Within Functional Limits Arousal/Alertness: Appropriate responses to stimuli Orientation Level: Oriented X4 Following Commands: Follows all commands and directions without difficulty Safety Judgment: Good awareness of safety precautions Awareness of Errors: Good awareness of errors made Deficits: Fully aware of deficits Vision Screen Currently wearing corrective lenses: Reading only Visual Impairments Observed?: No Speech Speech: no gross deficits noted Extremity Assessments: RUE Assessment RUE Assessment: Within Functional Limits LUE Assessment LUE Assessment: Within Functional Limits RLE Assessment RLE Assessment: Within Functional Limits LLE Assessment LLE Assessment: Strength Impaired Strength LLE L Hip Flexion: 4/5 L Knee Extension: 4/5 L Ankle Plantar Flexion: 4/5 Sensation Overall Sensation: Intact Mobility Assessment: Rolling/Turning Mobility [place] Level: Rolling/Turning: contact guard assist Bed Features/Set-up: Rolling/Turning: Head of bed elevated, Use of bed rail Skilled Rationale: Verbal cues, Cues for increased safety, Positioning, Hand placement Skilled Intervention/Details: Rolling/Turning: cueing on log roll technique Supine to Sit Mobility [place] Level: Supine->Sit: contact guard assist Bed Features/Set-up: Supine->Sit: Head of bed elevated, Use of bed rail Skilled Rationale: Positioning, Verbal cues, Cues for increased safety Skilled Intervention/Details: Supine->Sit: cueing on R hand placement on the L bed rail, pushing off on his R arm to increase safety and effectiveness of the tasks Balance: Sitting Balance Static Sitting-Level of Assistance: Contact guard Dynamic Sitting-Level of Assistance: Contact guard Skilled Rationale: Positioning, Visual cues, Maintain precautions, Verbal cues Standing Balance Static Standing-Level of Assistance: Contact guard Dynamic Standing-Level of Assistance: Contact guard Skilled Rationale: Verbal cues, Positioning, Cues for increased safety Transfer Assessment: Sit to Stand Transfer [place] Level: Sit->Stand: contact guard assist Skilled Rationale: Positioning, Verbal cues, Cues for increased safety Skilled Intervention/Details: Sit->Stand: x1 stand from EOB, BP went up to 195/91 after transfer, dropped to 167/73 after a rest break of 3-4 min. Pt then demonstrated x2 stand from incliner and BP is was 152/69 and stable for the rest of the session. Stand to Sit Transfer [place] Level: Stand->Sit: contact guard assist Skilled Rationale: Positioning, Hand placement, Cues for increased safety Skilled Intervention/Details: Stand->Sit: cueing on hand placement on the arm rests before sitting down to increase safety Outcome Score(s): [place] Score: 27- med fall risk CURRENT [facility] Basic Mobility Inpatient Short Form Turning over in bed: 3 - A Little Assistance Sitting/standing from chair: 3 - A Little Assistance Moving from lying on back to sittin - A Little Assistance Moving to and from bed to chair: 3 - A Little Assistance Walk in hospital room: 3 - A Little Assistance Climbing 3-5 steps with a railin - A Lot of Assistance CURRENT [facility] Mobility Raw Score: 17 CURRENT AM-PAC Mobility Functional Limitation/Modifier: 50.57% Currently Impaired in Basic Mobility - CK Assessment & Plan: Patient was admitted for R M1 occlusion ischemic stroke and seen for therapy evaluation related to weakness and impaired mobility d/t post thrombectomy recovery. Exam findings include impairments in: Strength, Balance, Gait/Locomotion, Transfers, Aerobic capacity/endurance. These impairments contribute to functional limitations including Decreased ambulation distance/endurance, Difficulty stair climbing/descent, Increased fall risk, Decreased functional mobility. Current clinical presentation is Evolving - changing/inconsistent clinical characteristics (Moderate). Patient history factors impacting Plan Of Care include CVA, balance limitions . Patient will benefit from skilled physical therapy to address these impairments, functional limitations, and participation restrictions and has good rehab potential to achieve therapy goals. Planned Therapy Interventions: balance training, functional activity tolerance, gait training, neuromuscular re-education, transfer training Patient Instruction/Education this session: Fall preventions. Acute PT Goals Plan of Care by Skip Messina PT at 01/03/2023 10:05 AM Version 1 of 1 Problem: PT - Balance/Coordination/Neuro Re-Education Goal: AUGUSTINE Description: Pt will complete AUGUSTINE and achieve fall risk cut off to show low fall risk Outcome: Ongoing Problem: PT - Mobility Goal: Ambulation Description: Pt will ambulate 300 feet with out an assistive device with independence to improve ability to navigate home environment. Outcome: Ongoing Goal: Stairs Description: Pt will ascend/descend 3 stairs with 1 railings with modified independence with out an assistive device to improve ability to perform functional mobility necessary in recommended discharge environment. Outcome: Ongoing Problem: PT - Transfers Goal: Supine <-> Sit Description: Pt will perform bed mobility with flat bed & no rail with independence in order to improve functional mobility and safety. Outcome: Ongoing Goal: Sit <-> Stand Description: Pt will perform sit to/from stand transfers with independence with out an assistive device in order to improve functional mobility and safety. Outcome: Ongoing PT treatment consisted of the following to progress towards the above goal(s): PT Evaluation and Treatment Time PT Evaluation (Moderate) Time Entry: 41 Evaluating Therapist: Dolores Bryan Additional Details: Co-evaluation/co-treatment performed?: Yes, simultaneous billable skilled care This co-evaluation session performed between PT and OT was beneficial, necessary and provided distinct services in establishing this person's individual plan of care. Medical complexity with functional deficits necessitated two skilled therapy disciplines working concurrently to determine each discipline's goals. This co-treatment was medically necessary due to patient's: initial safety assessment I was assisted by NAOMIE Valdivia for today's session. and I used gloves and facemask in today's patient interaction. Evaluation Complexity Components History: Moderate (1-2 personal factors and/or comorbidities) Body Systems Review: Moderate (Addressing a total of 3 or more elements) Clinical Presentation: Evolving - changing/inconsistent clinical characteristics (Moderate) Clinical Decision Making: Moderate Time In: 1009 Time Out: 1050 Total Visit Time: 41 minutes Total Treatment Time (skilled, billable minutes): 41 minutes Patient location at end of session: chair Alarms on at end of session: none Needs in reach. Upon discontinuation of Acute Care Physical Therapy Services or patient discharge from the hospital this note represents the current Physical Therapy Discharge Summary. Associated attestation - Skip Messina PT - 01/03/2023 1:56 PM EDT I supervised and agree with the PT student note and have made revisions as needed. Skip Messina PT, DPT License # [id number] Upon discontinuation of Acute Care Physical Therapy Services or patient discharge from the hospital this note represents the current Physical Therapy Discharge Summary. NEUROCRITICAL CARE DAILY NOTE HOSPITAL VISIT DEMOGRAPHICS Patient: Segundo Lewis Code status: Full Code Admission date: 01/01/2023 4:35 PM Hospital days: LOS: 2 days HISTORY OF PRESENT ILLNESS Segundo Lewis is a 82 y.o. male withunknown pmhx, who presented from [facility] with an acute ischemic stroke secondary to R M1 occlusion. Last known well was at 1330 and he presented with left sided weakness and facial droop. NIHSS was 16 initially at OSH, he received TNK at 1439 and NIH improved to 10 upon EMS pickup, when he arrived to [facility] NIH was 5. CTA demonstrated R M1 occlusion. he received IV tPA. Due to the emergent need for treatment, patient was taken emergently for a mechanical thrombectomy. INTERVAL HISTORY SINCE ADMISSION 01/01/2023: admit to NCCU post thrombectomy TICI 2C, R groin hematoma, fentanyl gtt, Q6 H/H 01/02: extubated, 24H CTH stable, start ASA/lovenox. Passed swallow. 01/03: Transfer orders for Neurovasc PHYSICAL EXAM GENERAL: Alert, no acute distress, up to chair at bedside HEENT: normocephalic, no scalp wounds nor lesions CARDIO: +S1S2, RRR, no edema PULM: clear to auscultation bilaterally, equal chest rise, on room air ABDOMINAL: soft, nontender, nondistended, active bowel sounds : Scrotum is edematous and nontender with some ecchymosis noted extending from R groin site (ecchymosis has not increased in area significantly since yesterday); kaba catheter in place EXTREMITIES: no wounds or lesions noted VASCULAR: 2+ distal pulses, Large R groin hematoma with ecchymosis, stable since yesterday NEURO: Oriented to person, place, year/month, interactive. Speech is fluent. EOMI, pupils 3 mm PERRL. Following commands in all extremities. Sensation intact throughout. Mental status: oriented to person, interactive, slight right gaze preference, EOMI, pupils 3 and reactive. follows commands Speech/language: intubated Motor: Normal bulk and tone. Purposeful motor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 admission 5 -Patient has been started on Mechanical (SCD's) and Pharmacological (SQ heparin/Lovenox) DVT prophylaxis will be started if 24 hour CTH stable -Antiplatelet therapy has been held in setting of IV TNK -Anticoagulation therapy was not indicated for this patient -Patients LDL 93 and HgbA1c 6.0 were checked and the patient will be discharged on Atorvastatin 40 mg daily. -Dysphagia screening ordered, and will be completed prior to patient receiving oral intake. -Stroke education booklet has been ordered and will be provided by the RN that includes both written and verbal education to the patient and family regarding ischemic strokes. We have reviewed the patient's personal modifiable risk factors including: HLD as well as education on reducing these risk factors -Patient is being assessed for Rehab by PT/OT/Speech and PM&R if indicated. Disposition: Segundo Lewis will likely be discharged to [facility] Ivana Dumont APRN-GALA 01/02/2023 8:20 AM VITAL SIGNS Temp: [97.4 F (36.3 C)-98.7 F (37.1 C)] 97.4 F (36.3 C) Pulse (Heart Rate): [65-97] 73 Resp Rate: [12-34] 22 BP: (107-199)/(55-132) 122/58 O2 Sat (%): [87 %-99 %] 96 % Weight: [87.1 kg (192 lb 1.6 oz)-87.8 kg (193 lb 8 oz)] 87.8 kg (193 lb 8 oz) Oxygen Therapy: Oxygen Therapy O2 Sat (%): 96 % O2 Device: ventilator (mechanical ventilation) Oxygen Concentration (%): 45 Ventilator Settings and Monitoring (Adult/Peds) Ventilator Type: R860 Ventilator/Non-Ventilator Mode: A/C PRVC Set/Target Tidal Volume: 400 mL/kg IBW Tidal Volume: 5.48 Set Respiratory Rate/Release Rate: 16 Total Respiratory Rate: 20 PEEP (cm H2O): 6 Peak Inspiratory Pressure (cmH2O): 13 I:E Ratio: 1:2.1 Oxygen Delivery/Consumption Hemodynamics BSA (Calculated - sq m): 2.05 m2 Intake/Output: Intake/Output Summary (Last 24 hours) at 01/02/2023 0820 Last data filed at 01/02/2023 0718 Gross per 24 hour Intake 1.67 ml Output 1715 ml Net 306.67 ml LABS/CULTURES Lab Results Component Value Date HGB 13.4 01/02/2023 HCT 39.6 01/02/2023 Lab Results Component Value Date SODIUM 138 01/02/2023 POTASSIUM 4.4 01/02/2023 CHLORIDE 108 01/02/2023 CO2 21 01/02/2023 BUN 22 01/02/2023 CREATSERUM 0.81 01/02/2023 GLUCOSE 160 (H) 01/02/2023 Lab Results Component Value Date CHOLESTEROL 159 01/01/2023 TRIG 186 (H) 01/02/2023 TRIG 429 (H) 01/01/2023 HDL 23 (L) 01/01/2023 LDLCALC 01/01/2023 Comment: Not Calculated Lab Results Component Value Date HGBA1C 6.0 (H) 01/01/2023 No results found for: TOTALPROTEIN , ALBUMIN , ALBUMINALB , ALBUMINFLD , ALBUMINCSF , ALBUMINSERUM , Lab Results Component Value Date CPK 98 01/02/2023 IMAGING/DIAGNOSTIC STUDIES MRI BRAIN STROKE WITHOUT CONTRAST (Results Pending) CT HEAD WITHOUT CONTRAST (Results Pending) ECHOCARDIOGRAM (Results Pending) MEDICATIONS Atorvastatin 40 mg Oral QHS chlorhexidine 15 mL Swish & Spit Q12H faMOTIdine 20 mg Oral Q12H Or famotidine (PF) 20 mg Intravenous Q12H Or faMOTIdine 20 mg Per NG tube Q12H Insulin regular Subcutaneous Q6H Labetalol Senna 8.6 mg Oral Daily Or Senna 8.6 mg Per NG tube Daily 01/02/23 0501 B = Both Spontaneous Awakening and Breathing Trials Was patient receiving mechanical ventilation? Yes Safety Screen Spontaneous Breathing Trial (SBT) Per Provider/LIP Order (see order) (thrombectomy site still bleeding, needs to be relaxed with leg straight.) SBT not performed. See comment above. Department of Pharmacy Stroke Note Patient: Segundo Lewis Room/Bed: [facility]0/ Patient has transferred from an outside hospital ([facility] [phone]). I have contacted the facility and confirmed with the pharmacist the patient was started on the following thrombolytic therapy prior to arrival: Tenecteplase Bolus: 25 mg given at 14:39 on 01/01/[address] [facility], patient went to directly to OR. Please feel free to contact me with any further questions. Name: Ana Berry RPH Phone #: [phone] Date/Time: 01/01/2023 9:07 PM Respiratory Therapy Shift Assessment Segundo Lewis is a 82 y.o. male Plan of care/Rounds Updates: Wean to extuabate No Order No active isolations Admit reason: No chief complaint on file. There were no encounter diagnoses. Pulm/Smoking Hx: No past medical history on file. Social History Tobacco Use Smoking status: Not on file Smokeless tobacco: Not on file Substance Use Topics Alcohol use: Not on file Recent pertinent labs: Recent ABG/VBG: Sputum/Secretions/Consistency/[place] r: clear Breath Sounds:clear Signed: Nhi Mcgarry RCP 01/01/2023 6:26 PM documented in this encounter [facility] 01-04-2023 Plan of care note Problem: PT - Balance/Coordination/Neuro Re-Education Goal: AUGUSTINE Description: Pt will complete AUGUSTINE and achieve fall risk cut off to show low fall risk Outcome: Progressing Toward Goal Problem: PT - Mobility Goal: Ambulation Description: Pt will ambulate 300 feet with out an assistive device with independence to improve ability to navigate home environment. Outcome: Progressing Toward Goal Goal: Stairs Description: Pt will ascend/descend 3 stairs with 1 railings with modified independence with out an assistive device to improve ability to perform functional mobility necessary in recommended discharge environment. Outcome: Progressing Toward Goal Problem: PT - Transfers Goal: Supine <-> Sit Description: Pt will perform bed mobility with flat bed & no rail with independence in order to improve functional mobility and safety. Outcome: Progressing Toward Goal Goal: Sit <-> Stand Description: Pt will perform sit to/from stand transfers with independence with out an assistive device in order to improve functional mobility and safety. Outcome: Progressing Toward Goal [facility] 01-03-2023 Consult note Associated Order (s): IP CONSULT TO CARDIOLOGY CARDIOLOGY CONSULT INITIAL EVALUATION IDENTIFYING DATA PATIENT: Segundo Lewis ADMIT DATE: 01/01/2023 TIME OF EVALUATION: 01/03/2023 3:32 PM HOSPITAL STAY: LOS: 2 days CONSULTING SERVICE: Neurovascular REASON FOR CONSULTATION: admitted with acute stroke, echo with EF 25-30%, no prior HF diagnosis, appreciate recs ASSESSMENT AND PLAN #Cardiomyopathy, EF 25%, without heart failure Patient carries no past medical history due to minimal contact with physicians. Presents for ischemic stroke. As a part of the workup a TTE was obtained which demonstrated EF 25-30%, no WMA, no significant valvular disease. EKG NSR with LBBB, non-ischemic. In discussion with him, he denies any and all cardiac symptoms and is otherwise able to walk four miles without provocation of symptoms. Does not routinely see a physician. Never had heart failure symptoms. Recommendations: Agree with lisinopril, advance as tolerated Recommend switching metoprolol tartrate to metoprolol succinate, as succinate has mortality benefit in individuals with reduced EF. If further blood pressure control is needed, could instead switch to Coreg Follow up outpatient with cardiology in 4-6 weeks for further evaluation Cardiology will sign off. Recommendations are not final until co-signed by an attending. If you have any questions or need any further information, please feel free to contact the the Cardiology Consult Service. Thank you for allowing us to participate in the care of Segundo Lewis. Dinesh Martin MD Fellow of Cardiovascular Medicine Department of Internal Medicine, Division of Cardiology [facility] [email or web address] HISTORY OF PRESENT ILLNESS Segundo Lewis is a 82 y.o. male with a past no medical history. Patient carries no past medical history due to minimal contact with physicians. Presents for ischemic stroke. As a part of the workup a TTE was obtained which demonstrated EF 25-30%, no WMA, no significant valvular disease. EKG NSR with LBBB, non-ischemic. In discussion with him, he denies any and all cardiac symptoms and is otherwise able to walk four miles without provocation of symptoms. Does not routinely see a physician. Never had heart failure symptoms. FAMILY HISTORY No family history on file. REVIEW OF SYSTEMS A full 12 point review of systems was performed and was negative unless otherwise noted. PHYSICAL EXAM General: alert, no distress, no slurred speech or respiratory distress CV: heart rate normal, regular rhythm, no murmurs appreciated. Respiratory: lungs clear to auscultation bilaterally, symmetric chest rise, no increased work of breathing Body mass index is 28.35 kg/m . Relevant Data Vitals: 01/03/23 1514 BP: 151/70 Pulse: 74 Resp: 20 Temp: 98.2 F (36.8 C) SpO2: 91% No past medical history on file. Past Surgical History: Procedure Laterality Date THROMBECTOMY NONCORONARY ARTERY MECHANICAL PERCUTANEOUS 1ST VESSEL N/A 01/01/2023 Laterality: N/A; Surgeon: Felipe Crook MD; Location: [facility] MAIN OR PLACEMENT CATH SELECTIVE INTERNAL CAROTID ARTERY W/ ANGIO IPSILAT INTRACRANIAL CAROTID W/ RAD S&I N/A 01/01/2023 Laterality: N/A; Surgeon: Felipe Crook MD; Location: [facility] MAIN OR SPLENECTOMY TONSILLECTOMY Current Outpatient Medications Medication Instructions aspirin 81 mg, Oral, DAILY MRI BRAIN STROKE WITHOUT CONTRAST Preliminary Result IMPRESSION: Small areas of acute infarct within the right lenticulostriate and MCA territory. No significant mass effect or midline shift. No intracranial hemorrhage. XR CHEST PORTABLE Final Result IMPRESSION: Bibasilar atelectasis and potential small pleural effusions, limited by portable technique. CARDIOGRAM Final Result CT HEAD WITHOUT CONTRAST Final Result IMPRESSION: 1. No evolving large vessel occlusion within the brain. 2. No evidence of intracranial hemorrhage. 3. Chronic appearing sphenoid sinus opacification with potential fungal colonization. CHEST PORTABLE Final Result IMPRESSION: Pulmonary edema. Life support devices in place. Minor atelectasis. ABDOMEN 1 VIEW PORTABLE Final Result IMPRESSION: Distal tip of the Dobbhoff tube at the junction of the second and third portion of the duodenum. [START ON 01/04/2023] aspirin chewable tablet 81 mg, 81 mg, Daily Atorvastatin (LIPITOR) tablet 40 mg, 40 mg, QHS Enoxaparin Sodium (LOVENOX) injection 40 mg, 40 mg, Daily Insulin regular (HUMULIN R;NOVOLIN R) injection, , Q6H Lisinopril (PRINIVIL) tablet 2.5 mg, 2.5 mg, Daily Metoprolol (LOPRESSOR) tablet 12.5 mg, 12.5 mg, Q12H Senna (SENOKOT) tablet 8.6 mg, 8.6 mg, Daily Or Senna (SENOKOT) tablet 8.6 mg, 8.6 mg, Daily Acetaminophen, 650 mg, Q4H PRN Or Acetaminophen, 650 mg, Q4H PRN bisacodyl, 10 mg, Daily PRN Calcium Gluconate, 2 g, As directed PRN Or calcium gluconate IVPB, 4 g, As directed PRN Dextrose, 7.5-25 g, As directed PRN And glucose, 1-2 Tube, As directed PRN hydrALAZINE, 10 mg, Q1H PRN Or hydrALAZINE, 20 mg, Q1H PRN Labetalol, 10 mg, Q1H PRN Or Labetalol, 20 mg, Q1H PRN Magnesium Sulfate IVPB, 4 g, As directed PRN Ondansetron 4mg/2ml, 4 mg, Q4H PRN Polyethylene glycol, 17 g, Daily PRN Or Polyethylene glycol, 17 g, Daily PRN potassium chloride, 20 mEq, As directed PRN Or Potassium chloride, 20 mEq, As directed PRN Or Potassium Bicarb-Citric Acid, 20 mEq, As directed PRN Or potassium chloride, 10 mEq, As directed PRN Sodium chloride 0.9%, 250 mL, PRN Sodium Phosphate IVPB, 30 mmol, As directed PRN Or Sodium Phosphate IVPB, 45 mmol, As directed PRN CBC Lab Results Component Value Date WBC 10.72 (H) 01/02/2023 HGB 12.6 (L) 01/02/2023 HCT 36.5 (L) 01/02/2023 PLATELET 229 01/02/2023 MCV 95.3 (H) 01/02/2023 EDIF Lab Results Component Value Date RBCDISTRIBU 14.7 (H) 01/02/2023 PLATELET 229 01/02/2023 MPV 10.9 01/02/2023 Lab Results Component Value Date SODIUM 139 01/02/2023 POTASSIUM 3.9 01/02/2023 CHLORIDE 108 01/02/2023 CO2 22 01/02/2023 BUN 18 01/02/2023 CREATSERUM 0.80 01/02/2023 GLUCOSE 115 (H) 01/02/2023 No results found for: ALT , TRANSFERASEA , AST , GGT , GAMMAGT , ALKPHOS , BILITOTAL , BILIDIRECT Lab Results Component Value Date INR 1.0 01/01/2023 PT 13.7 01/01/2023 Results for orders placed during the hospital encounter of 01/01/23 ECHOCARDIOGRAM 01/02/2023 (Final) Interpretation Summary Left Ventricle: Chamber size is normal. Normal wall thickness. Severe global hypokinesis. Abnormal septal motion consistent with left bundle branch block. Ejection fraction is severely reduced (25 - 30%). Diastolic function is consistent with impaired relaxation (grade I). Right Ventricle: Chamber size is normal. Systolic function is normal. Left Atrium: Chamber size is moderately enlarged. No hemodynamically significant valve disease. No prior for comparison. Associated attestation - Debbie Clark MD - 01/03/2023 4:47 PM EDT Attending Note: Thank you for allowing us the opportunity to participate in your patient's care. I independently interviewed and examined the patient. I discussed the history, physical exam and care plan with the Performance Test Architect, Dr. Hema Martin. Any changes to the history or physical exam were either edited in the note, or mentioned in this summation. If you have any questions, please do not hesitate to contact our service. Mr. Lewis is an 82 year old gentleman who denies any past medical issues but does admit he does not go to the doctor. He was taking no prescriptions upon admission. He presented with a right sided CVA s/p TPA and thrombectomy. He is doing well. He had an echo as a part of his evaluation and it showed an LVEF of 25% with global hypokinesis, LBBB, moderately dilated LA and no valve disease. He denies chest pain, shortness of breath, PND, orthopnea, syncope, or dizziness. Assessment/Plan: 1. HFrEF. LVEF is 25-30%. He is clinically not in acute CHF. I agree with Dr. Martin's assessment and recommendations. Start GDMT as tolerated. Recommend OP follow up with Cardiology locally. 2. LA enlargement. His LA is moderately dilated on echo which can be a risk or result of paroxysmal atrial fibrillation. Would recommend OP monitoring as his CVA may have been due to PAF. Exam: VS: reviewed Lungs: clear bilaterally Cor: regular w/o murmur Abd: benign Extr: no MAIN I have personally interviewed and examined the patient independently on 01/03/2023. Debbie Clark M.D., FACP, FACC Engine Repair Supervisor of Clinical Internal Medicine Division of Cardiovascular Medicine [facility] Work Phone: 01-03-2023 Consult note Associated Order (s): IP CONSULT TO CARDIOLOGY CARDIOLOGY CONSULT INITIAL EVALUATION IDENTIFYING DATA PATIENT: Segundo Lewis ADMIT DATE: 01/01/2023 TIME OF EVALUATION: 01/03/2023 3:32 PM HOSPITAL STAY: LOS: 2 days CONSULTING SERVICE: Neurovascular REASON FOR CONSULTATION: admitted with acute stroke, echo with EF 25-30%, no prior HF diagnosis, appreciate recs ASSESSMENT AND PLAN #Cardiomyopathy, EF 25%, without heart failure Patient carries no past medical history due to minimal contact with physicians. Presents for ischemic stroke. As a part of the workup a TTE was obtained which demonstrated EF 25-30%, no WMA, no significant valvular disease. EKG NSR with LBBB, non-ischemic. In discussion with him, he denies any and all cardiac symptoms and is otherwise able to walk four miles without provocation of symptoms. Does not routinely see a physician. Never had heart failure symptoms. Recommendations: Agree with lisinopril, advance as tolerated Recommend switching metoprolol tartrate to metoprolol succinate, as succinate has mortality benefit in individuals with reduced EF. If further blood pressure control is needed, could instead switch to Coreg Follow up outpatient with cardiology in 4-6 weeks for further evaluation Cardiology will sign off. Recommendations are not final until co-signed by an attending. If you have any questions or need any further information, please feel free to contact the the Cardiology Consult Service. Thank you for allowing us to participate in the care of Segundo Lewis. Dinesh Martin MD Fellow of Cardiovascular Medicine Department of Internal Medicine, Division of Cardiology [facility] [email or web address] HISTORY OF PRESENT ILLNESS Segundo Lewis is a 82 y.o. male with a past no medical history. Patient carries no past medical history due to minimal contact with physicians. Presents for ischemic stroke. As a part of the workup a TTE was obtained which demonstrated EF 25-30%, no WMA, no significant valvular disease. EKG NSR with LBBB, non-ischemic. In discussion with him, he denies any and all cardiac symptoms and is otherwise able to walk four miles without provocation of symptoms. Does not routinely see a physician. Never had heart failure symptoms. FAMILY HISTORY No family history on file. REVIEW OF SYSTEMS A full 12 point review of systems was performed and was negative unless otherwise noted. PHYSICAL EXAM General: alert, no distress, no slurred speech or respiratory distress CV: heart rate normal, regular rhythm, no murmurs appreciated. Respiratory: lungs clear to auscultation bilaterally, symmetric chest rise, no increased work of breathing Body mass index is 28.35 kg/m . Relevant Data Vitals: 01/03/23 1514 BP: 151/70 Pulse: 74 Resp: 20 Temp: 98.2 F (36.8 C) SpO2: 91% No past medical history on file. Past Surgical History: Procedure Laterality Date THROMBECTOMY NONCORONARY ARTERY MECHANICAL PERCUTANEOUS 1ST VESSEL N/A 01/01/2023 Laterality: N/A; Surgeon: Felipe Crook MD; Location: [facility] MAIN OR PLACEMENT CATH SELECTIVE INTERNAL CAROTID ARTERY W/ ANGIO IPSILAT INTRACRANIAL CAROTID W/ RAD S&I N/A 01/01/2023 Laterality: N/A; Surgeon: Felipe Crook MD; Location: [facility] MAIN OR SPLENECTOMY TONSILLECTOMY Current Outpatient Medications Medication Instructions aspirin 81 mg, Oral, DAILY MRI BRAIN STROKE WITHOUT CONTRAST Preliminary Result IMPRESSION: Small areas of acute infarct within the right lenticulostriate and MCA territory. No significant mass effect or midline shift. No intracranial hemorrhage. XR CHEST PORTABLE Final Result IMPRESSION: Bibasilar atelectasis and potential small pleural effusions, limited by portable technique. CARDIOGRAM Final Result CT HEAD WITHOUT CONTRAST Final Result IMPRESSION: 1. No evolving large vessel occlusion within the brain. 2. No evidence of intracranial hemorrhage. 3. Chronic appearing sphenoid sinus opacification with potential fungal colonization. CHEST PORTABLE Final Result IMPRESSION: Pulmonary edema. Life support devices in place. Minor atelectasis. ABDOMEN 1 VIEW PORTABLE Final Result IMPRESSION: Distal tip of the Dobbhoff tube at the junction of the second and third portion of the duodenum. [START ON 01/04/2023] aspirin chewable tablet 81 mg, 81 mg, Daily Atorvastatin (LIPITOR) tablet 40 mg, 40 mg, QHS Enoxaparin Sodium (LOVENOX) injection 40 mg, 40 mg, Daily Insulin regular (HUMULIN R;NOVOLIN R) injection, , Q6H Lisinopril (PRINIVIL) tablet 2.5 mg, 2.5 mg, Daily Metoprolol (LOPRESSOR) tablet 12.5 mg, 12.5 mg, Q12H Senna (SENOKOT) tablet 8.6 mg, 8.6 mg, Daily Or Senna (SENOKOT) tablet 8.6 mg, 8.6 mg, Daily Acetaminophen, 650 mg, Q4H PRN Or Acetaminophen, 650 mg, Q4H PRN bisacodyl, 10 mg, Daily PRN Calcium Gluconate, 2 g, As directed PRN Or calcium gluconate IVPB, 4 g, As directed PRN Dextrose, 7.5-25 g, As directed PRN And glucose, 1-2 Tube, As directed PRN hydrALAZINE, 10 mg, Q1H PRN Or hydrALAZINE, 20 mg, Q1H PRN Labetalol, 10 mg, Q1H PRN Or Labetalol, 20 mg, Q1H PRN Magnesium Sulfate IVPB, 4 g, As directed PRN Ondansetron 4mg/2ml, 4 mg, Q4H PRN Polyethylene glycol, 17 g, Daily PRN Or Polyethylene glycol, 17 g, Daily PRN potassium chloride, 20 mEq, As directed PRN Or Potassium chloride, 20 mEq, As directed PRN Or Potassium Bicarb-Citric Acid, 20 mEq, As directed PRN Or potassium chloride, 10 mEq, As directed PRN Sodium chloride 0.9%, 250 mL, PRN Sodium Phosphate IVPB, 30 mmol, As directed PRN Or Sodium Phosphate IVPB, 45 mmol, As directed PRN CBC Lab Results Component Value Date WBC 10.72 (H) 01/02/2023 HGB 12.6 (L) 01/02/2023 HCT 36.5 (L) 01/02/2023 PLATELET 229 01/02/2023 MCV 95.3 (H) 01/02/2023 EDIF Lab Results Component Value Date RBCDISTRIBU 14.7 (H) 01/02/2023 PLATELET 229 01/02/2023 MPV 10.9 01/02/2023 Lab Results Component Value Date SODIUM 139 01/02/2023 POTASSIUM 3.9 01/02/2023 CHLORIDE 108 01/02/2023 CO2 22 01/02/2023 BUN 18 01/02/2023 CREATSERUM 0.80 01/02/2023 GLUCOSE 115 (H) 01/02/2023 No results found for: ALT , TRANSFERASEA , AST , GGT , GAMMAGT , ALKPHOS , BILITOTAL , BILIDIRECT Lab Results Component Value Date INR 1.0 01/01/2023 PT 13.7 01/01/2023 Results for orders placed during the hospital encounter of 01/01/23 ECHOCARDIOGRAM 01/02/2023 (Final) Interpretation Summary Left Ventricle: Chamber size is normal. Normal wall thickness. Severe global hypokinesis. Abnormal septal motion consistent with left bundle branch block. Ejection fraction is severely reduced (25 - 30%). Diastolic function is consistent with impaired relaxation (grade I). Right Ventricle: Chamber size is normal. Systolic function is normal. Left Atrium: Chamber size is moderately enlarged. No hemodynamically significant valve disease. No prior for comparison. Associated attestation - Debbie Clark MD - 01/03/2023 4:47 PM EDT Attending Note: Thank you for allowing us the opportunity to participate in your patient's care. I independently interviewed and examined the patient. I discussed the history, physical exam and care plan with the Performance Test Architect, Dr. Hema Martin. Any changes to the history or physical exam were either edited in the note, or mentioned in this summation. If you have any questions, please do not hesitate to contact our service. Mr. Lewis is an 82 year old gentleman who denies any past medical issues but does admit he does not go to the doctor. He was taking no prescriptions upon admission. He presented with a right sided CVA s/p TPA and thrombectomy. He is doing well. He had an echo as a part of his evaluation and it showed an LVEF of 25% with global hypokinesis, LBBB, moderately dilated LA and no valve disease. He denies chest pain, shortness of breath, PND, orthopnea, syncope, or dizziness. Assessment/Plan: 1. HFrEF. LVEF is 25-30%. He is clinically not in acute CHF. I agree with Dr. Martin's assessment and recommendations. Start GDMT as tolerated. Recommend OP follow up with Cardiology locally. 2. LA enlargement. His LA is moderately dilated on echo which can be a risk or result of paroxysmal atrial fibrillation. Would recommend OP monitoring as his CVA may have been due to PAF. Exam: VS: reviewed Lungs: clear bilaterally Cor: regular w/o murmur Abd: benign Extr: larisa QUACH I have personally interviewed and examined the patient independently on 01/03/2023. Debbie Clark M.D., FACP, FACC Engine Repair Supervisor of Clinical Internal Medicine Division of Cardiovascular Medicine [facility] Neurovascular Evaluation Note Evaluation Date: 01/01/2023 Unit: Room/bed info not found Consultation was requested by Dr. Larisa green. providers found Patient status: Emergency Length of stay: 0 days Reason for Consult/Chief Complaint L facial droop, L side weakness, + drift History of Present Illness Segundo Lewis is a 82 y.o. male with unknown PMH who presents as level A ischemic stroke transfer from [facility] with Left sided weakness and facial droop. LKW 1340 on 01/01/23. NIHSS on Telestroke by Dr. Laureano 18 (2 ques, 2 gaze, 2 vision, 2 FD, 4 LUE, 4 LLE, 2 neglect). CTA at OSH showed R M1 occlusion. Received TNK at OSH at 1340. NIHSS on arrival 5 (1 FD, 1 LUE, 1 LLE, 1 sensory, 1 dysarthria). Pt was evaluated on way to OR for thrombectomy. Review of Systems A complete review of systems was negative except for mentioned above. Neurovascular-specific History / Information Home antiplatelet/anticoagulation therapy: Antiplatelet therapy: none. Patient Current Risk Factors: Stroke risk factors include unkown. Prior stroke history: unknown. Family Hx of Stroke: Parents: unknown Siblings: unknown Stroke Diagnostic/Treatment Eligibility Information TNK/tPA given at [facility] at 1340 on 01/01/23.. Time to tPA delayed due to: N/A Stroke Clinical Assessment Information: Past Medical History Medical History: Past Medical History No past medical history on file. SURGICAL HISTORY: Past Surgical History No past surgical history on file. SOCIAL HISTORY: Medications PRIOR TO ARRIVAL MEDS: Prior to Admission medications Not on File Current Meds: Current Facility Administered Meds: Current Medications No current facility-administered medications for this encounter. No current outpatient medications on file. Scheduled Meds: Continuous Infusions: PRN Meds: Vitals Objective Findings: Vital Signs (24hrs): BP: ()/() Arterial Line (1) BP: ()/() There is no height or weight on file to calculate BMI. Lines/Drains/Airways/Wounds: Patient Lines/Drains/Airways Status Active Lines, Drains, Airways, & Wound Overview None Physical Exam General: Laying comfortably in bed; in no acute distress. CV: RRR. Pulmonary: No increased work of breathing, equal chest rise bilaterally, no audible wheezing. Abdomen: soft, non-tender Ext: No cyanosis, edema, or deformity Skin: No rash Neurological Examination Psych and Mental status: alert; oriented to person, place, year, and month; good attention Speech/language: fluent; comprehension intact; object naming intact; repetition intact Cranial nerves: CN II visual lee full to confrontation without visual extinction CN III, IV, PERRL. EOMI. CN V facial sensation intact to light touch bilaterally in V1, V2, V3 CN VII fleft facial droop CN VIII hearing grossly intact to voice CN IX & X soft palate elevates symmetrically in the midline, +ve dysarthria CN XI shoulder shrug full strength bilaterally CNXII tongue protrudes midline Motor: Normal bulk and tone. Right Arm: no drift Left Arm: mild drift Right Leg: no drift Left Leg: mild drift Coordination: Lkxqog-wd-mivd intact bilaterally. Sensation: less sharp on LLE. Gait: deferred Laboratory Results Diagnostics/Procedures: Labs-CBC Labs-Chem 7(PMC) Labs-Coags Additional Labs No results found for: CHOLESTEROL , TRIG , HDL , LDLCALC , LDLDIRECT Labs-Hemoglobin A1C No results found for: HGBA1C Imaging CT Stroke Head at OSH: no acute findings CTA Brain/Neck at OSH: Right M1 occlusion Assessment/Impression Segundo Lewis pis a 82 year old male with unknown PMH who has Left sided weakness and facial droop. LKW 1340 on 01/01/23. initial NIHSS on telestroke 18 (2 ques, 2 gaze, 2 vision, 2 FD, 4 LUE, 4 LLE, 2 neglect). CTA at OSH showed R M1 occlusion. Received TNK at OSH at 1340. NIHSS on arrival 5 (1 FD, 1 LUE, 1 LLE, 1 sensory, 1 dysarthria). pt headed for thrombectomy to the OR. Plan -Please admit to Neurocritical care (NCC) attending Dr. Cooper. An ischemic stroke with IV thrombolysis order set has been signed and held. -Neurosurgery Consulted for Thrombectomy -Swallow evaluation prior to any oral intake -start Aspirin 81 mg orally or 300 mg rectally once 24 CT head with out hemorrhage -Blood pressure goals with SBP less than 180 -Obtain brain MRI, stroke protocol -ECHO to evaluate cardiac function -Lipid panel, LFTs and HgbA1c to evaluate secondary risk factors for ischemic stroke -Baseline EKG, if not done in ED. Continuous telemetry -PT, OT, Speech and social media manager consults This plan has been discussed with stroke attending Dr. Dominguez and has been communicated to ED and NCCU teams. ONUR Guerra Neurology PGY-2 Pager: [phone] 01/01/23 3:06 PM Associated attestation - Meli Dominguez MD - 01/01/2023 6:11 PM EDT I have seen and examined the patient with the team today. I have personally reviewed all the imaging studies and laboratory data and also reviewed the note. I agree with the assessment and plan with the following additions : HCT: Negative CTA: R M1 occlusion MRI: ECHO: No results found for: LDLCALC No results found for: HGBA1C CBC: P Chem 7:P Neuro Exam: MS: AA OX3. Language: Dysarthria CN:Left facial droop Motor: 5/5 all over on right and left hemiparesis Assessment: Segundo Lewis is a 82 y.o. male with unknown PMH who presents as level A ischemic stroke transfer from with Left sided weakness and facial droop. LKW 1340 on 01/01/23. NIHSS on Telestroke 18 (2 ques, 2 gaze, 2 vision, 2 FD, 4 LUE, 4 LLE, 2 neglect). CTA at OSH showed R M1 occlusion. Received TNK at OSH at 1340. NIHSS on arrival 5 (1 FD, 1 LUE, 1 LLE, 1 sensory, 1 dysarthria). Plan: Thrombectomy Stroke w/up Ct with any decline and at 24 hours PT/OT evaluation Risk factor modification and stroke education DVT prophylaxis - SCD and pharmacological prophylaxis after [address] Meli Dominguez MD [employer] Department of Neurology documented in this encounter [facility] 01-03-2023 Hospital Discharge instructions Yanira Diaz RN - 01/03/2023 2:41 PM EDT Please take these discharge instructions to your primary care doctor follow appointment to show them,keep them for your reference and refer to them often for follow up appointments.It is best to write your appointments on a personal calendar so you do not miss them,call if you need to change any appointments please. Education: What are the most common symptoms of stroke? The following are the most common symptoms of stroke. However, each individual may experience symptoms differently. If any of these symptoms are present, call 911 (or your local ambulance service) immediately. Treatment is most effective when started immediately. Symptoms may be sudden and include: -Weakness or numbness of the face, arm, or leg, especially on one side of the body -Confusion or difficulty speaking or understanding -Problems with vision such as dimness or loss of vision in one or both eyes -Dizziness or problems with balance or coordination -Problems with movement or walking -Severe headaches with no other known cause, especially if sudden onset All of the above warning signs may not occur with each stroke. Do not ignore any of the warning signs, even if they go away - take action immediately. The symptoms of stroke may resemble other medical conditions or problems. Always consult your physician for a diagnosis We have provided both written and verbal education to the patient and family regarding ischemic and hemorrhagic strokes. We have discussed the warning signs/symptoms as well as causes of stroke. We have discussed the importance of activating 911/EMS in the event of these symptoms. We have reviewed the patient's personal risk factors as well as education on reducing these risk factors. [facility] Personalized Stroke Treatment Plan My Stroke Type: [x] Ischemic Stroke (Blockage of blood flow to the brain) [] Hemorrhagic Stroke (Bleeding in the brain) [] TIA- Transient Ischemic Attack (mini-stroke) My Risk Factors Include: [x] High Blood Pressure [] Diabetes [] High Cholesterol [x] Heart Disease [] Atrial Fibrillation (Irregular Heart Rate) [] Smoking [] Obesity [] Clotting Disorder [] Alcohol Abuse [] Drug Abuse [] Prior History [] Family History [] Obstructive Sleep Apnea My Follow-Up Treatment Goals: [x] Blood Pressure < 140/90 [] Stop Smoking Immediately [x] LDL < 70 [] HgA1C levels <7% [] Decrease BMI to <25 [x] Take all ordered medications [x] Avoid non-prescription or over the counter medication not cleared by your physician [x] Limit Alcohol use to no more than 1 drink per day for females and 2 drinks per day for males [] Do not drive until cleared [x] Follow up with PCP within a week of discharge to home [x] Follow-up with Neurovascular [x] Follow-up with Occupational,physical and speech therapy if ordered [x] Watch out for depression and seek treatment if needed CONTACTS FOR NEUROVASCULAR SERVICE: - You may call your neurovascular doctors office at [phone], if you have questions between 8:30 am and 4:30 pm. - For off hours or the weekend you may call the office or the hospital rapid transit operator at and ask for the stroke resident it integration architect to be paged. - If you have any questions or needs, please call Abigail Clay RN, stroke plc programmer at [phone] Mon-Fri from - ? Any questions concerning your discharge instructions please call Case Management Office [phone] Patient Stroke Resources: [facility] Stroke Support [facility] Stroke Support Group is for stroke survivors, friends, and family members. Meets every Friday from 12:00PM to 1:00PM at [facility] ([facility] [address] [place] [address] Ksenia Pabon, at [phone]. If you are outside of the [facility], contact The [place] [employer] at www.strokeassociation.org or 2-464-0-stroke, or for supports groups in your area. Also refer to the Stroke Education booklet you received as part of your stroke education while you were a patient for additional resources Additional Contacts: Evening and Weekend Contacts If you have questions or concerns during evening, weekend, or holiday hours, please call: -[facility] rapid transit operator at [phone]. -[facility] rapid transit operator at [phone] Ask the rapid transit operator to page the on-call doctor for Neurovascular service, they were responsible for your care while you were in the hospital. If you having an emergency, call 911. *In the event of an Emergency: If you have a physical or psychiatric emergency call 911 or go to your local emergency department. You should also call your outpatient provider's emergency number. Other reference numbers: [facility] Intake Office at [phone]; [facility] at [phone]; or Suicide Prevention Hotline at 501-259-2775. *Helpful phone numbers: Free Crisis Hotline: 7-547-065-TALK ( ) Suicide Hotline: 271.663.1107 Seniors Suicide Hotline: 937.187.2496 [facility] Youth: 354.974.9616 Mental Health of [place]: 566.870.7181 (free counseling) [employer] Access Hotline: 998-297-EVYK (611-320-6871) 24-hour crisis text hotline: Text the word 4hope to 628-998 for crisis support. Texting this number is free if you have Verizon, [employer], [employer] or Sprint. [facility] Financial Assistance: If you want to learn more about these programs, please call .There are three programs to help you with the cost of your medical care: Medicaid, Hospital Care Assurance Program (HCAP) & bud If you are without Insurance and believe you may qualify for Medicaid/public assistance: The [facility] Department of Job and Family Services can now process bowles (TANF), food (SNAP) and Medicaid Applications over the phone. Please call 6-901-643[facility] ([phone]) and apply over the phone or apply online at www.benefits.[place].gov. Friday-Friday 8am-12pm noon. Medication Assistance Programs [employer] members can buy 100+ common prescriptions for FREE, $3 or $6. Annual membership is $36 for individuals and $72 for families (up to 6 people, including pets). Sign up online or enroll at your nearest pharmacy! -[employer], web site can provide a significant number of coupons for medications at a much lower sneed. Your physician has ordered a 30 day mobile tele monitor. [employer] will mail this to you with instructions. Please call with questions. You will receive a call from a [phone] number to verify your mailing address. Ilya Chilel APRN-MANAGER OF ADMINISTRATION - 01/03/2023 2:41 PM EDT Know your medicines Make sure you know why you are taking each medicine. Make a master list of all your medicines. Write down the medicine names and doctors' names. Include doses and side effects too. And write down why you take each medicine. Include all prescription and nivj-goz-mzunkyp medicines, vitamins, and supplements. Keep this list up to date. Take a copy to each doctor visit. Know when you will run out of each medicine. Ask your pharmacist if there are ways the drugstore can remind you to refill your medicines so you do not run out. Write refill reminders on your calendar. Don't wait until you have a few pills left. Ask your pharmacist to plan your refills so that you can hop picker all your medicines at the same time. This can mean fewer trips to the drugstore. If we have prescribed you a new medication during your stay, please contact with your primary physician for refills LEANDRO Lala - 01/03/2023 2:41 PM EDT Activity -- Please follow these instructions: -Advance your activity as you can tolerate - You may walk all you want. You may go up and down the steps. Use the railing for support - It is normal for your energy level and sleep patterns to change after a stroke - Take rest periods during the day as needed - Complete recovery may take several weeks, months, up to a year. Patience is alvarez. LEANDRO Lala - 01/03/2023 2:41 PM EDT Current Diet Orders Procedures DIET REGULAR Standing Status: Standing Number of Occurrences: 1 LEANDRO Lala - 01/03/2023 2:41 PM EDT Notify Your Doctor if you have any of the following: NEUROLOGICAL CHANGES-- Change in alertness Increased sleepiness Nausea and vomiting New onset of numbness or weakness in arms or legs New problems with your bowels or bladder New or worse problems with balance or walking Seizures, new or worsening UNRELIEVED HEADACHE PAIN-- New or increased pain unrelieved with pain medications Pain associated with nausea and vomiting Pain associated with other symptoms QUESTIONS OR PROBLEMS-- Any questions or problems that you are unsure about Deep Vein Thrombosis Symptoms Call your doctor or nurse right away if you have any signs of blood clots such as -Tender, swollen or reddened areas anywhere in your leg. -Numbness or tingling in your lower leg or calf, or at the top of your leg or groin -Skin on you leg looks pale or blue or feels cold to touch -Chest pain or have trouble breathing -Fever or chills documented in this encounter [facility] 01-03-2023 Plan of care note Problem: OT - Dressing Goal: Lower Body Dressing Description: Pt will complete LE dressing tasks with supervision for improved ability to complete self-care activities. Outcome: Ongoing Problem: OT - ADLs Goal: Toileting Description: Pt will complete toileting task including clothing management with supervision for improved ability to safely complete self-care activities. Outcome: Ongoing Problem: OT - Balance Goal: Balance - Standing Description: Pt will perform 10 minutes of functional ADL task in standing with supervision and balance level of good to promote safety and improved balance required for self-care activities. Outcome: Ongoing Problem: OT - Endurance Goal: Endurance Functional Mobilty Around Home Description: Pt will complete distance needed for common household mobility without device and sup A for item retrieval and ADL completion. Outcome: Ongoing Problem: OT - Strength/ROM Goal: Neuro Re-education Description: Pt will participate in neuro re-ed of LUE to improve coordination to good for improved use in ADLs. Outcome: Ongoing [facility] 01-03-2023 Plan of care note Problem: PT - Balance/Coordination/Neuro Re-Education Goal: AUGUSTINE Description: Pt will complete AUGUSTINE and achieve fall risk cut off to show low fall risk Outcome: Ongoing Problem: PT - Mobility Goal: Ambulation Description: Pt will ambulate 300 feet with out an assistive device with independence to improve ability to navigate home environment. Outcome: Ongoing Goal: Stairs Description: Pt will ascend/descend 3 stairs with 1 railings with modified independence with out an assistive device to improve ability to perform functional mobility necessary in recommended discharge environment. Outcome: Ongoing Problem: PT - Transfers Goal: Supine <-> Sit Description: Pt will perform bed mobility with flat bed & no rail with independence in order to improve functional mobility and safety. Outcome: Ongoing Goal: Sit <-> Stand Description: Pt will perform sit to/from stand transfers with independence with out an assistive device in order to improve functional mobility and safety. Outcome: Ongoing [facility] 01-03-2023 Nurse Note Pt reassessed w/o changes unless otherwise noted. [facility] 01-03-2023 Plan of care note Problem: Patient Care Overview Goal: Plan of Care Review Outcome: Ongoing Goal: Individualization & Mutuality Outcome: Ongoing Goal: Discharge Needs Assessment Outcome: Ongoing Goal: Interdisciplinary Rounds/Family Conf Outcome: Ongoing Problem: Thrombolytic Therapy (Adult) Goal: Signs and Symptoms of Listed Potential Problems Will be Absent, Minimized or Managed (Thrombolytic Therapy) Description: Signs and symptoms of listed potential problems will be absent, minimized or managed by discharge/transition of care (reference Thrombolytic Therapy (Adult) CPG). Outcome: Ongoing Problem: Stroke (Ischemic) (Adult) Goal: Signs and Symptoms of Listed Potential Problems Will be Absent, Minimized or Managed (Stroke) Description: Signs and symptoms of listed potential problems will be absent, minimized or managed by discharge/transition of care (reference Stroke (Ischemic) (Adult) CPG). Outcome: Ongoing [facility] 01-03-2023 Nurse Note Pt reassessed w/o changes unless otherwise noted. [facility] 01-02-2023 Plan of care note Respiratory Status Update: Segundo Lewis has been liberated from mechanical ventilation. Recent Vitals and Breath Sounds: Blood pressure 129/58, pulse 75, temperature 99 F (37.2 C), temperature source Oral, resp. rate (!) 32, height 1.778 m (5' 10 ), weight 87.8 kg (193 lb 8 oz), SpO2 95 %. 01/02/2023 Post-Extubation Orders and Indications: Oxtgen via nasal cannula - titrate to maintain SpO2 >=92% Respiratory Plan of Care: As above plus Further therapeutic interventions as needed or required. Thank you, will follow with you. The patients respiratory plan of care was updated by Maximo Rodriguez RCP 01/02/2023 1:06 PM [facility] 01-02-2023 Note HNO ID: [id number] Author: Anahi Salinas LPN Service: ? Author Type: ? Type: Progress Notes Filed: 01/02/2023 11:12 AM Note Text: Scan on 01/01/2023 11:01 PM by External Provider, REBECCAC: Consultation - Emergency Medicine [facility] 01-02-2023 History of Present illness Narrative Scan on 01/01/2023 11:01 PM by External Provider, REBECCAC: Consultation - Emergency Medicine documented in this encounter [facility] 01-02-2023 Progress note Formatting of t his note might be different from the original. I certify that this patient requires inpatient services at this time. I anticipate the expected length of stay will include at least two midnights. Inpatient services are due to the following medical concerns Right MCA infarct. Plans for post hospitalization care will be discharge to [facility]. [facility] 01-02-2023 Note Acute Coronary Syndr ome (ACS): Initial Evaluation and Management: [email or web address] [email or web address] [email or web address] [facility] 01-01-2023 History and physical note NEUROCRITICAL CARE HISTORY AND PHYSICAL HOSPITAL VISIT DEMOGRAPHICS Patient: Segundo Lewis Code status: Full Code Admission date: 01/01/2023 4:35 PM Hospital days: LOS: 0 days CHIEF COMPLAINT Level A LVO HISTORY OF PRESENT ILLNESS Segundo Lewis is a 82 y.o. male withunknown pmhx, who presented from [facility] with an acute ischemic stroke secondary to R M1 occlusion. Last known well was at 1330 and he presented with left sided weakness and facial droop. NIHSS was 16 initially at OSH, he received TNK at 1439 and NIH improved to 10 upon EMS pickup, when he arrived to [facility] NIH was 5. CTA demonstrated R M1 occlusion. he received IV tPA. Due to the emergent need for treatment, patient was taken emergently for a mechanical thrombectomy. INTERVAL HISTORY SINCE ADMISSION 01/01/2023: admit to NCCU post thrombectomy TICI 2C, R groin hematoma, fentanyl gtt, Q6 H/H REVIEW OF SYSTEMS Review of systems not obtained due to intubated and sedated. HISTORY No past medical history on file. No past surgical history on file. Social History Socioeconomic History Marital status: Not on file Spouse name: Not on file Number of children: Not on file Years of education: Not on file Highest education level: Not on file Occupational History Not on file Tobacco Use Smoking status: Not on file Smokeless tobacco: Not on file Substance and Sexual Activity Alcohol use: Not on file Drug use: Not on file Sexual activity: Not on file Other Topics Concern Not on file Social History Narrative Not on file Social Determinants of Health Financial Resource Strain: Not on file Food Insecurity: Not on file Transportation Needs: Not on file Physical Activity: Not on file Stress: Not on file Social Connections: Not on file Intimate Partner Violence: Not on file Housing Stability: Not on file ALLERGIES AND HOME MEDICATIONS Allergies: has no allergies on file. Home Medications: No medications prior to admission. Prior to Arrival Meds: No medications prior to admission. Hospital Medications: Infusions: fentaNYL (SUBLIMAZE) Infusion 25 mcg/hr (01/01/232199) niCARdipine (CARDENE) Infusion Propofol 25 mcg/kg/min (01/01/232251) Sodium chloride 0.9% w/potassium cl 75 mL/hr at 01/01/232199 Scheduled: Atorvastatin 40 mg Oral QHS chlorhexidine 15 mL Swish & Spit Q12H faMOTIdine 20 mg Oral Q12H Or famotidine (PF) 20 mg Intravenous Q12H Or faMOTIdine 20 mg Per NG tube Q12H Insulin regular Subcutaneous Q6H Labetalol Senna 8.6 mg Oral Daily Or Senna 8.6 mg Per NG tube Daily PRN: Acetaminophen OR Acetaminophen, bisacodyl, Calcium Gluconate OR calcium gluconate IVPB, Insulin regular AND BLOOD GLUCOSE (POC DEVICE) AND BLOOD GLUCOSE (POC DEVICE) UDPRN AND COMMUNICATION ORDER FOR NURSING CARE: For Blood Glucose LESS THAN 80 mg/dl AND Dextrose AND glucose AND NOTIFY PHYSICIAN, Blood Glucose LESS THAN 80 mg/dl, fentaNYL AND fentaNYL (SUBLIMAZE) Infusion, fentaNYL OR fentaNYL, hydrALAZINE OR hydrALAZINE, Labetalol OR Labetalol, Labetalol, Magnesium Sulfate IVPB, Ondansetron 4mg/2ml, Polyethylene glycol OR Polyethylene glycol, potassium chloride OR Potassium chloride OR Potassium Bicarb-Citric Acid OR potassium chloride, Sodium chloride 0.9%, Sodium Phosphate IVPB OR Sodium Phosphate IVPB PHYSICAL EXAM GENERAL: Drowsy, no acute distress HEENT: normocephalic, no scalp wounds nor lesions CARDIO: +S1S2, RRR, no m/r/g, no edema PULM: clearto auscultation bilaterally, equal chest rise; mechanically ventilated ABDOMINAL: soft, nontender, nondistended, active bowel sounds EXTREMITIES: no wounds or lesions VASCULAR: 2+ distal pulses, capillary refill <3 seconds; Large R groin hematoma NEURO: Mental status: drowsy oriented to person, interactive, slight right gaze preference, unable to cross midline , pupils 3 and reactive Speech/language: intubated Motor: Normal bulk and tone. Purposeful motor response RUE/RLE, localized LUE, wiggled toes LLE. Follows commands on right side Sensation: Extremity sensation intact throughout. Coordination: No ataxia, dysmetria FTS ASSESSMENT AND PLAN Neuro: (01/01/2023) Day of Surgery S/p R M3 thrombectomy TICI 2C R MCA stroke - Initial CVA Management: - 01/01 Stroke alert performed; summary of imaging findings: R M1 Occlusion - 01/01: TNK given @ 1439 - 01/01 NSGY consulted for thrombectomy, performed and obtained TICI 2C revascularization - Ongoing CVA management: - Monitor neurostatus with neurochecks Q1H and pupilometer Q1H - Prevent cerebral hypoperfusion with goal SBP < 160 (see cards) - Imaging: - 01/[address] H: No acute findings - 01/01 CTA: R M1 Occlusion - 24 hr CTH: p - MRI B: p - Daily NIHSS: NIH Stroke Scale: NIH Level of Conciousness (Provider): 1 NIH LOC Questions (Provider): 1 NIH LOC Commands (Provider): 0 NIH Best Gaze (Provider): 1 NIH Visual (Provider): 0 NIH Facial Palsy (Provider): 1 NIH Left Arm Motor (Provider): 3 NIH Right Arm Motor (Provider): 1 NIH Left Leg Motor (Provider): 3 NIH Right Leg Motor (Provider): 1 NIH Limb Ataxia (Provider): 0 NIH Sensory (Provider): 0 NIH Best Language (Provider): 0 NIH Dysarthria (Provider): 0 NIH Extinction and Inattention (Provider): 0 NIH Total Score (Provider): 12 - Stroke etiology presumed to be unknown based on the TOAST Criteria. Stroke risk factors include unknown. - Complete TTE (see cards) P - Obtain LDL level and statin therapy if indicated (see cards) 93 - Obtain HA1C level (see endo) 6.0 - Initiate antiplatelet therapy within 48H of admission (see cards) - Initiate VTE prophylaxis immediately if no tPA given or 24H post-thrombectomy if performed (see heme) - Develop therapeutic anticoagulation plan, if indicated based on CVA etiology (see cards) - Consider urine drug screen on admission if no stroke risk factors - Consider hypercoagulability panel 24H-post tPA if no stroke risk factors - Pain/Sedation management - Tylenol 650mg Q4H PRN - Fentanyl gtt - Propofol gtt Psych: No Current Issues Pulm: Acute Post-Procedural Respiratory Failure Ventilator/Non-Ventilator Mode: A/C PRVC Set Respiratory Rate/Release Rate: 16 PEEP (cm H2O): 6 O2 Sat (%): 97 % (01/02 139) O2 Device: ventilator (mechanical ventilation) (01/02 2000) Oxygen Concentration (%): 100 (01/02 139) - Goal SpO2 >92%; wean FiO2 as tolerated - - INK3CFM, encourage pulmonary toileting Cards: HLD Temp: [97.4 F (36.3 C)] 97.4 F (36.3 C) Pulse (Heart Rate): [65-97] 70 Resp Rate: [16-34] 16 BP: (119-199)/(59-132) 143/69 O2 Sat (%): [87 %-98 %] 98 % Weight: [87.1 kg (192 lb 1.6 oz)] 87.1 kg (192 lb 1.6 oz) - Goal SBP <160, MAP >65 - Home antihypertensives: none - PRN labetalol and hydralazine -TTE: P - 01/01 troponin: - 01/02 ECG: p - Statin Therapy: Indicated if LDL >70; began atorvastatin 40 mg Recent Labs 01/01/23200401/02/23 0006 CHOLESTEROL 159 -- TRIG 429* 186* HDL 23* -- LDLDIRECT 93 -- Renal/: No Current Issues - Fluid Balance: - Goal: euvolemia - Net p mL/24H, p mL/admission - UOP p mL/24H - Continue kaba, (indication: I/O) - Maintenance: 0.9NS w/ 20 KCl @ 75 mL/hr - Daily Chem 10; electrolytes replaced per NCCU protocol Recent Labs 01/02/23 0006 SODIUM 138 POTASSIUM 4.4 CHLORIDE 108 CO2 21 BUN 22 CREATSERUM 0.81 MAGNESIUM 1.9 PHOSPHORUS 4.0 CPK 98 GI/Nutrition: Obesity No results for input(s): ALBUMIN , BILIDIRECT , BILITOTAL , ALKPHOS , ALT , AST , TP , AMYLASE , LIPASE in the last 72 hours. - DIET NPO WITHOUT meds AAT - - Consult nutrition for malnutrition screening - Body mass index is 27.56 kg/m . - Bowel regimen: - - Senna, miralax Endo: No Current Issues - Goal blood glucose 140-180 Recent Labs 01/01/23 1818 01/01/23200301/01/23200401/02/23 0005 01/02/23 0006 GLUCOSE 137* 167* -- 162* 160* HGBA1C -- -- 6.0* -- -- ID: No Current Issues No results for input(s): WBC , LACT , PROCALCITONI in the last 72 hours. - Temp (24hrs), Av.1 F (36.7 C), Min:97.4 F (36.3 C), Max:98.7 F (37.1 C) - PRN Tylenol for T>100.4F - Most recent and positive cultures: Date Collected Source Result Date Finalized 01/01 Staph nasal swab p - Antiinfectives: Start Date Antiinfective Coverage Course Length Stop Date Heme/Onc: R Femoral Hematoma / thrombectomy failed closure Recent Labs 01/01/23200401/02/23 0006 HGB -- 13.7 HCT -- 40.8 PT 13.7 -- PTT 24.9 -- INR 1.0 -- FIBRINOGEN 300 -- - Goal plt >100, INR <1.4, Hgb >7 - Q6H H/H Musc: No Current Issues - PT/OT consulted and following - Current Activity Order: AAT Social/Dispo: - Code status: Full Code - - HCPOA/LNOK: - 01/01: Last updated Family. - Medications reconciled - Discharge planning per PCRM/SW. Nicotine Dependence [facility] ICU Checklist: [ ] CAM-ICU [ ] ICU Diary daily completed on [ ] SAT [ ] SBT [ ] DVT ppx; [ x] SCDs; [ ] Lovenox, [ ] heparin [x ] Stress ulcer prophylaxis: Pepcid while intubated - Lines/Tubes: Kaba: inserted 01/01, (indication:I/O) Segundo Lewis remained in the neurocritical care unit overnight requiring frequent neurochecks, strict BP control and monitoring, follow up on imaging, strict I&Os, pain management, and monitoring for neurologic decline. Greater the 50% of my time today was spent in counseling and/or coordination of care for this patient. I have spent a total of 25 minutes with this patient. Lisa Wheeler APRN-MANAGER OF ADMINISTRATION Service pager: [phone] Service [place] #: [phone] (Beds [phone] and beds), [place] #: [phone] (Beds [phone] and [facility]) 01/01/23 10:23 PM [facility] 01-01-2023 History and physical note NEUROCRITICAL CARE HISTORY AND PHYSICAL HOSPITAL VISIT DEMOGRAPHICS Patient: Segundo Lewis Code status: Full Code Admission date: 01/01/2023 4:35 PM Hospital days: LOS: 0 days CHIEF COMPLAINT Level A LVO HISTORY OF PRESENT ILLNESS Segundo Lewis is a 82 y.o. male withunknown pmhx, who presented from [facility] with an acute ischemic stroke secondary to R M1 occlusion. Last known well was at 1330 and he presented with left sided weakness and facial droop. NIHSS was 16 initially at OSH, he received TNK at 1439 and NIH improved to 10 upon EMS pickup, when he arrived to [facility] NIH was 5. CTA demonstrated R M1 occlusion. he received IV tPA. Due to the emergent need for treatment, patient was taken emergently for a mechanical thrombectomy. INTERVAL HISTORY SINCE ADMISSION 01/01/2023: admit to NCCU post thrombectomy TICI 2C, R groin hematoma, fentanyl gtt, Q6 H/H REVIEW OF SYSTEMS Review of systems not obtained due to intubated and sedated. HISTORY No past medical history on file. No past surgical history on file. Social History Socioeconomic History Marital status: Not on file Spouse name: Not on file Number of children: Not on file Years of education: Not on file Highest education level: Not on file Occupational History Not on file Tobacco Use Smoking status: Not on file Smokeless tobacco: Not on file Substance and Sexual Activity Alcohol use: Not on file Drug use: Not on file Sexual activity: Not on file Other Topics Concern Not on file Social History Narrative Not on file Social Determinants of Health Financial Resource Strain: Not on file Food Insecurity: Not on file Transportation Needs: Not on file Physical Activity: Not on file Stress: Not on file Social Connections: Not on file Intimate Partner Violence: Not on file Housing Stability: Not on file ALLERGIES AND HOME MEDICATIONS Allergies: has no allergies on file. Home Medications: No medications prior to admission. Prior to Arrival Meds: No medications prior to admission. Hospital Medications: Infusions: fentaNYL (SUBLIMAZE) Infusion 25 mcg/hr (01/01/23 2200) niCARdipine (CARDENE) Infusion Propofol 25 mcg/kg/min (01/01/232251) Sodium chloride 0.9% w/potassium cl 75 mL/hr at 01/01/232199 Scheduled: Atorvastatin 40 mg Oral QHS chlorhexidine 15 mL Swish & Spit Q12H faMOTIdine 20 mg Oral Q12H Or famotidine (PF) 20 mg Intravenous Q12H Or faMOTIdine 20 mg Per NG tube Q12H Insulin regular Subcutaneous Q6H Labetalol Senna 8.6 mg Oral Daily Or Senna 8.6 mg Per NG tube Daily PRN: Acetaminophen OR Acetaminophen, bisacodyl, Calcium Gluconate OR calcium gluconate IVPB, Insulin regular AND BLOOD GLUCOSE (POC DEVICE) AND BLOOD GLUCOSE (POC DEVICE) UDPRN AND COMMUNICATION ORDER FOR NURSING CARE: For Blood Glucose LESS THAN 80 mg/dl AND Dextrose AND glucose AND NOTIFY PHYSICIAN, Blood Glucose LESS THAN 80 mg/dl, fentaNYL AND fentaNYL (SUBLIMAZE) Infusion, fentaNYL OR fentaNYL, hydrALAZINE OR hydrALAZINE, Labetalol OR Labetalol, Labetalol, Magnesium Sulfate IVPB, Ondansetron 4mg/2ml, Polyethylene glycol OR Polyethylene glycol, potassium chloride OR Potassium chloride OR Potassium Bicarb-Citric Acid OR potassium chloride, Sodium chloride 0.9%, Sodium Phosphate IVPB OR Sodium Phosphate IVPB PHYSICAL EXAM GENERAL: Drowsy, no acute distress HEENT: normocephalic, no scalp wounds nor lesions CARDIO: +S1S2, RRR, no m/r/g, no edema PULM: clearto auscultation bilaterally, equal chest rise; mechanically ventilated ABDOMINAL: soft, nontender, nondistended, active bowel sounds EXTREMITIES: no wounds or lesions VASCULAR: 2+ distal pulses, capillary refill <3 seconds; Large R groin hematoma NEURO: Mental status: drowsy oriented to person, interactive, slight right gaze preference, unable to cross midline , pupils 3 and reactive Speech/language: intubated Motor: Normal bulk and tone. Purposeful motor response RUE/RLE, localized LUE, wiggled toes LLE. Follows commands on right side Sensation: Extremity sensation intact throughout. Coordination: No ataxia, dysmetria FTS ASSESSMENT AND PLAN Neuro: (01/01/2023) Day of Surgery S/p R M3 thrombectomy TICI 2C R MCA stroke - Initial CVA Management: - 01/01 Stroke alert performed; summary of imaging findings: R M1 Occlusion - 01/01: TNK given @ 1439 - 01/01 NSGY consulted for thrombectomy, performed and obtained TICI 2C revascularization - Ongoing CVA management: - Monitor neurostatus with neurochecks Q1H and pupilometer Q1H - Prevent cerebral hypoperfusion with goal SBP < 160 (see cards) - Imaging: - 01/[address] H: No acute findings - 01/01 CTA: R M1 Occlusion - 24 hr CTH: p - MRI B: p - Daily NIHSS: NIH Stroke Scale: NIH Level of Conciousness (Provider): 1 NIH LOC Questions (Provider): 1 NIH LOC Commands (Provider): 0 NIH Best Gaze (Provider): 1 NIH Visual (Provider): 0 NIH Facial Palsy (Provider): 1 NIH Left Arm Motor (Provider): 3 NIH Right Arm Motor (Provider): 1 NIH Left Leg Motor (Provider): 3 NIH Right Leg Motor (Provider): 1 NIH Limb Ataxia (Provider): 0 NIH Sensory (Provider): 0 NIH Best Language (Provider): 0 NIH Dysarthria (Provider): 0 NIH Extinction and Inattention (Provider): 0 NIH Total Score (Provider): 12 - Stroke etiology presumed to be unknown based on the TOAST Criteria. Stroke risk factors include unknown. - Complete TTE (see cards) P - Obtain LDL level and statin therapy if indicated (see cards) 93 - Obtain HA1C level (see endo) 6.0 - Initiate antiplatelet therapy within 48H of admission (see cards) - Initiate VTE prophylaxis immediately if no tPA given or 24H post-thrombectomy if performed (see heme) - Develop therapeutic anticoagulation plan, if indicated based on CVA etiology (see cards) - Consider urine drug screen on admission if no stroke risk factors - Consider hypercoagulability panel 24H-post tPA if no stroke risk factors - Pain/Sedation management - Tylenol 650mg Q4H PRN - Fentanyl gtt - Propofol gtt Psych: No Current Issues Pulm: Acute Post-Procedural Respiratory Failure Ventilator/Non-Ventilator Mode: A/C PRVC Set Respiratory Rate/Release Rate: 16 PEEP (cm H2O): 6 O2 Sat (%): 97 % (01/02 139) O2 Device: ventilator (mechanical ventilation) (01/02 2000) Oxygen Concentration (%): 100 (01/02 139) - Goal SpO2 >92%; wean FiO2 as tolerated - - NIV6GDS, encourage pulmonary toileting Cards: HLD Temp: [97.4 F (36.3 C)] 97.4 F (36.3 C) Pulse (Heart Rate): [65-97] 70 Resp Rate: [16-34] 16 BP: (119-199)/(59-132) 143/69 O2 Sat (%): [87 %-98 %] 98 % Weight: [87.1 kg (192 lb 1.6 oz)] 87.1 kg (192 lb 1.6 oz) - Goal SBP <160, MAP >65 - Home antihypertensives: none - PRN labetalol and hydralazine -TTE: P - 01/01 troponin: 17 - 01/02 ECG: p - Statin Therapy: Indicated if LDL >70; began atorvastatin 40 mg Recent Labs 01/01/23200401/02/23 0006 CHOLESTEROL 159 -- TRIG 429* 186* HDL 23* -- LDLDIRECT 93 -- Renal/: No Current Issues - Fluid Balance: - Goal: euvolemia - Net p mL/24H, p mL/admission - UOP p mL/24H - Continue kaba, (indication: I/O) - Maintenance: 0.9NS w/ 20 KCl @ 75 mL/hr - Daily Chem 10; electrolytes replaced per NCCU protocol Recent Labs 01/02/23 0006 SODIUM 138 POTASSIUM 4.4 CHLORIDE 108 CO2 21 BUN 22 CREATSERUM 0.81 MAGNESIUM 1.9 PHOSPHORUS 4.0 CPK 98 GI/Nutrition: Obesity No results for input(s): ALBUMIN , BILIDIRECT , BILITOTAL , ALKPHOS , ALT , AST , TP , AMYLASE , LIPASE in the last 72 hours. - DIET NPO WITHOUT meds AAT - - Consult nutrition for malnutrition screening - Body mass index is 27.56 kg/m . - Bowel regimen: - - Senna, miralax Endo: No Current Issues - Goal blood glucose 140-180 Recent Labs 01/01/23 1818 01/01/23200301/01/23200401/02/23 0005 01/02/23 0006 GLUCOSE 137* 167* -- 162* 160* HGBA1C -- -- 6.0* -- -- ID: No Current Issues No results for input(s): WBC , LACT , PROCALCITONI in the last 72 hours. - Temp (24hrs), Av.1 F (36.7 C), Min:97.4 F (36.3 C), Max:98.7 F (37.1 C) - PRN Tylenol for T>100.4F - Most recent and positive cultures: Date Collected Source Result Date Finalized 01/01 Staph nasal swab p - Antiinfectives: Start Date Antiinfective Coverage Course Length Stop Date Heme/Onc: R Femoral Hematoma 2/ thrombectomy failed closure Recent Labs 01/01/23200401/02/23 0006 HGB -- 13.7 HCT -- 40.8 PT 13.7 -- PTT 24.9 -- INR 1.0 -- FIBRINOGEN 300 -- - Goal plt >100, INR <1.4, Hgb >7 - Q6H H/H Musc: No Current Issues - PT/OT consulted and following - Current Activity Order: AAT Social/Dispo: - Code status: Full Code - - HCPOA/LNOK: - 01/01: Last updated Family. - Medications reconciled - Discharge planning per PCRM/SW. Nicotine Dependence [facility] ICU Checklist: [ ] CAM-ICU [ ] ICU Diary daily completed on [ ] SAT [ ] SBT [ ] DVT ppx; [ x] SCDs; [ ] Lovenox, [ ] heparin [x ] Stress ulcer prophylaxis: Pepcid while intubated - Lines/Tubes: Kaba: inserted 01/01, (indication:I/O) Segundo Lewis remained in the neurocritical care unit overnight requiring frequent neurochecks, strict BP control and monitoring, follow up on imaging, strict I&Os, pain management, and monitoring for neurologic decline. Greater the 50% of my time today was spent in counseling and/or coordination of care for this patient. I have spent a total of 25 minutes with this patient. LEANDRO Butler Service pager: [phone] Service [place] #: [phone] (Beds [phone] and beds), [place] #: [id number] (Beds [phone] and [facility] beds) 01/01/23 10:23 PM documented in this encounter [facility] 01-01-2023 Note Acute Coronary Syndr ome (ACS): Initial Evaluation and Management: [email or web address] [facility] 01-01-2023 Nurse procedure note NEUROCRITICAL CARE OR SIGNOUT NOTE Admitting Diagnosis: Level A, LVO Procedure Completed: Procedure(s): THROMBECTOMY NONCORONARY ARTERY MECHANICAL PERCUTANEOUS 1ST VESSEL PLACEMENT CATH SELECTIVE INTERNAL CAROTID ARTERY W/ ANGIO IPSILAT INTRACRANIAL CAROTID W/ RAD S&I Intraoperative Interventions: R M3 thrombectomy TICI 2c - EBL: * No blood loss amount entered * - Fluids given: 900 mL NaCl - Medications given: mignon, succs, propofol - NMB reversed? No - Complications: * No complications entered in OR log * - Hemodynamic issues? Yes - Endotracheal cough deflated during the case, patient desaturated to 83% ETT exchanged. With closure, CELT failed, groin hematoma - manual pressure held. Hematoma site soft. - Case length: 1 Hr 41 Min 16 Sec Postop Plan: - Goal SBP <160, MAP >65 - Trend H&H - Family updated by DARYL 01/01/23 6:34 PM. LEANDRO Yuan 01/01/23 Service Pager: [phone] 6:34 PM [facility] Work Phone: 01-01-2023 Consult note Formatting of th is note is different from the original. Neurovascular Evaluation Note Evaluation Date: 01/01/2023 Unit: Room/bed info not found Consultation was requested by Dr. Larisa green. providers found Patient status: Emergency Length of stay: 0 days Reason for Consult/Chief Complaint L facial droop, L side weakness, + drift History of Present Illness Segundo Lewis is a 82 y.o. male with unknown PMH who presents as level A ischemic stroke transfer from [facility] with Left sided weakness and facial droop. LKW 1340 on 01/01/23. NIHSS on Telestroke by Dr. Laureano 18 (2 ques, 2 gaze, 2 vision, 2 FD, 4 LUE, 4 LLE, 2 neglect). CTA at OSH showed R M1 occlusion. Received TNK at OSH at 1340. NIHSS on arrival 5 (1 FD, 1 LUE, 1 LLE, 1 sensory, 1 dysarthria). Pt was evaluated on way to OR for thrombectomy. Review of Systems A complete review of systems was negative except for mentioned above. Neurovascular-specific History / Information Home antiplatelet/anticoagulation therapy: Antiplatelet therapy: none. Patient Current Risk Factors: Stroke risk factors include unkown. Prior stroke history: unknown. Family Hx of Stroke: Parents: unknown Siblings: unknown Stroke Diagnostic/Treatment Eligibility Information TNK/tPA given at OSh at 1340 on 01/01/23.. Time to tPA delayed due to: N/A Stroke Clinical Assessment Information: Past Medical History Medical History: Past Medical History No past medical history on file. SURGICAL HISTORY: Past Surgical History No past surgical history on file. SOCIAL HISTORY: Medications PRIOR TO ARRIVAL MEDS: Prior to Admission medications Not on File Current Meds: Current Facility Administered Meds: Current Medications No current facility-administered medications for this encounter. No current outpatient medications on file. Scheduled Meds: Continuous Infusions: PRN Meds: Vitals Objective Findings: Vital Signs (24hrs): BP: ()/() Arterial Line (1) BP: ()/() There is no height or weight on file to calculate BMI. Lines/Drains/Airways/Wounds: Patient Lines/Drains/Airways Status Active Lines, Drains, Airways, & Wound Overview None Physical Exam General: Laying comfortably in bed; in no acute distress. CV: RRR. Pulmonary: No increased work of breathing, equal chest rise bilaterally, no audible wheezing. Abdomen: soft, non-tender Ext: No cyanosis, edema, or deformity Skin: No rash Neurological Examination Psych and Mental status: alert; oriented to person, place, year, and month; good attention Speech/language: fluent; comprehension intact; object naming intact; repetition intact Cranial nerves: CN II visual lee full to confrontation without visual extinction CN III, IV, PERRL. EOMI. CN V facial sensation intact to light touch bilaterally in V1, V2, V3 CN VII fleft facial droop CN VIII hearing grossly intact to voice CN IX & X soft palate elevates symmetrically in the midline, +ve dysarthria CN XI shoulder shrug full strength bilaterally CNXII tongue protrudes midline Motor: Normal bulk and tone. Right Arm: no drift Left Arm: mild drift Right Leg: no drift Left Leg: mild drift Coordination: [id number] intact bilaterally. Sensation: less sharp on LLE. Gait: deferred Laboratory Results Diagnostics/Procedures: Labs-CBC Labs-Chem 7([facility]) Labs-Coags Additional Labs No results found for: CHOLESTEROL , TRIG , HDL , LDLCALC , LDLDIRECT Labs-Hemoglobin A1C No results found for: HGBA1C Imaging CT Stroke Head at OSH: no acute findings CTA Brain/Neck at OSH: Right M1 occlusion Assessment/Impression Segundo Arsenio Debbie pis a 82 year old male with unknown PMH who has Left sided weakness and facial droop. LKW 1340 on 01/01/23. initial NIHSS on telestroke 18 (2 ques, 2 gaze, 2 vision, 2 FD, 4 LUE, 4 LLE, 2 neglect). CTA at OSH showed R M1 occlusion. Received TNK at OSH at 1340. NIHSS on arrival 5 (1 FD, 1 LUE, 1 LLE, 1 sensory, 1 dysarthria). pt headed for thrombectomy to the OR. Plan -Please admit to Neurocritical care (NCC) attending Dr. Cooper. An ischemic stroke with IV thrombolysis order set has been signed and held. -Neurosurgery Consulted for Thrombectomy -Swallow evaluation prior to any oral intake -start Aspirin 81 mg orally or 300 mg rectally once 24 CT head with out hemorrhage -Blood pressure goals with SBP less than 180 -Obtain brain MRI, stroke protocol -ECHO to evaluate cardiac function -Lipid panel, LFTs and HgbA1c to evaluate secondary risk factors for ischemic stroke -Baseline EKG, if not done in ED. Continuous telemetry -PT, OT, Speech and social media manager consults This plan has been discussed with stroke attending Dr. Dominguez and has been communicated to ED and NCCU teams. ONUR Guerra Neurology PGY-2 Pager: [phone] 01/01/23 3:06 PM Associated attestation - Meli Dominguez MD - 01/01/2023 6:11 PM EDT I have seen and examined the patient with the team today. I have personally reviewed all the imaging studies and laboratory data and also reviewed the note. I agree with the assessment and plan with the following additions : HCT: Negative CTA: R M1 occlusion MRI: ECHO: No results found for: LDLCALC No results found for: HGBA1C CBC: P Chem 7:P Neuro Exam: MS: AA OX3. Language: Dysarthria CN:Left facial droop Motor: 5/5 all over on right and left hemiparesis Assessment: Segundo Lewis is a 82 y.o. male with unknown PMH who presents as level A ischemic stroke transfer from with Left sided weakness and facial droop. LKW 1340 on 01/01/23. NIHSS on Telestroke 18 (2 ques, 2 gaze, 2 vision, 2 FD, 4 LUE, 4 LLE, 2 neglect). CTA at OSH showed R M1 occlusion. Received TNK at OSH at 1340. NIHSS on arrival 5 (1 FD, 1 LUE, 1 LLE, 1 sensory, 1 dysarthria). Plan: Thrombectomy Stroke w/up Ct with any decline and at 24 hours PT/OT evaluation Risk factor modification and stroke education DVT prophylaxis - SCD and pharmacological prophylaxis after [address] Meli Dominguez MD [employer] Department of Neurology [facility] Work Phone: 10-19-2022 Miscellaneous Notes Stroke patient education has been reviewed and all required elements are complete and personalized. Care plan documentation complete and patient adequate for discharge. Next dose medication details have been added to the AVS as appropriate. Problem: PT - Balance/Coordination/Neuro Re-Education Goal: AUGUSTINE Description: Pt will complete AUGUSTINE and achieve fall risk cut off to show low fall risk Outcome: Progressing Toward Goal Problem: PT - Mobility Goal: Ambulation Description: Pt will ambulate 300 feet with out an assistive device with independence to improve ability to navigate home environment. Outcome: Progressing Toward Goal Goal: Stairs Description: Pt will ascend/descend 3 stairs with 1 railings with modified independence with out an assistive device to improve ability to perform functional mobility necessary in recommended discharge environment. Outcome: Progressing Toward Goal Problem: PT - Transfers Goal: Supine <-> Sit Description: Pt will perform bed mobility with flat bed & no rail with independence in order to improve functional mobility and safety. Outcome: Progressing Toward Goal Goal: Sit <-> Stand Description: Pt will perform sit to/from stand transfers with independence with out an assistive device in order to improve functional mobility and safety. Outcome: Progressing Toward Goal Problem: OT - Dressing Goal: Lower Body Dressing Description: Pt will complete LE dressing tasks with supervision for improved ability to complete self-care activities. Outcome: Ongoing Problem: OT - ADLs Goal: Toileting Description: Pt will complete toileting task including clothing management with supervision for improved ability to safely complete self-care activities. Outcome: Ongoing Problem: OT - Balance Goal: Balance - Standing Description: Pt will perform 10 minutes of functional ADL task in standing with supervision and balance level of good to promote safety and improved balance required for self-care activities. Outcome: Ongoing Problem: OT - Endurance Goal: Endurance Functional Mobilty Around Home Description: Pt will complete distance needed for common household mobility without device and sup A for item retrieval and ADL completion. Outcome: Ongoing Problem: OT - Strength/ROM Goal: Neuro Re-education Description: Pt will participate in neuro re-ed of LUE to improve coordination to good for improved use in ADLs. Outcome: Ongoing Problem: PT - Balance/Coordination/Neuro Re-Education Goal: AUGUSTINE Description: Pt will complete AUGUSTINE and achieve fall risk cut off to show low fall risk Outcome: Ongoing Problem: PT - Mobility Goal: Ambulation Description: Pt will ambulate 300 feet with out an assistive device with independence to improve ability to navigate home environment. Outcome: Ongoing Goal: Stairs Description: Pt will ascend/descend 3 stairs with 1 railings with modified independence with out an assistive device to improve ability to perform functional mobility necessary in recommended discharge environment. Outcome: Ongoing Problem: PT - Transfers Goal: Supine <-> Sit Description: Pt will perform bed mobility with flat bed & no rail with independence in order to improve functional mobility and safety. Outcome: Ongoing Goal: Sit <-> Stand Description: Pt will perform sit to/from stand transfers with independence with out an assistive device in order to improve functional mobility and safety. Outcome: Ongoing Pt reassessed w/o changes unless otherwise noted. Problem: Patient Care Overview Goal: Plan of Care Review Outcome: Ongoing Goal: Individualization & Mutuality Outcome: Ongoing Goal: Discharge Needs Assessment Outcome: Ongoing Goal: Interdisciplinary Rounds/Family Conf Outcome: Ongoing Problem: Thrombolytic Therapy (Adult) Goal: Signs and Symptoms of Listed Potential Problems Will be Absent, Minimized or Managed (Thrombolytic Therapy) Description: Signs and symptoms of listed potential problems will be absent, minimized or managed by discharge/transition of care (reference Thrombolytic Therapy (Adult) CPG). Outcome: Ongoing Problem: Stroke (Ischemic) (Adult) Goal: Signs and Symptoms of Listed Potential Problems Will be Absent, Minimized or Managed (Stroke) Description: Signs and symptoms of listed potential problems will be absent, minimized or managed by discharge/transition of care (reference Stroke (Ischemic) (Adult) CPG). Outcome: Ongoing Pt reassessed w/o changes unless otherwise noted. Respiratory Status Update: Segundo Lewis has been liberated from mechanical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 Confidentiality of Alcohol and Drug Abuse Patient Records regulations: The Federal rules restrict any use of the information to criminally investigate or prosecute any alcohol or drug abuse patient.[facility] Center[facility] the event this information is protected by the Federal Confidentiality of Alcohol and Drug Abuse Patient Records regulations: The Federal rules restrict any use of the information to criminally investigate or prosecute any alcohol or drug abuse patient.[facility] Center[facility] the event this information is protected by the Federal Confidentiality of Alcohol and Drug Abuse Patient Records regulations: The Federal rules restrict any use of the information to criminally investigate or prosecute any alcohol or drug abuse patient.[facility] Center[facility] the event this information is protected by the Federal Confidentiality of Alcohol and Drug Abuse Patient Records regulations: The Federal rules restrict any use of the information to criminally investigate or prosecute any alcohol or drug abuse patient.[facility] Center[facility] the event this information is protected by the Federal Confidentiality of Alcohol and Drug Abuse Patient Records regulations: The Federal rules restrict any use of the information to criminally investigate or prosecute any alcohol or drug abuse patient.[facility] Center[facility] the event this information is protected by the Federal Confidentiality of Alcohol and Drug Abuse Patient Records regulations: The Federal rules restrict any use of the information to criminally investigate or prosecute any alcohol or drug abuse patient.[facility] Center[facility] the event this information is protected by the Federal Confidentiality of Alcohol and Drug Abuse Patient Records regulations: The Federal rules restrict any use of the information to criminally investigate or prosecute any alcohol or drug abuse patient.[facility] CenterIn the event this information is protected by the Federal Confidentiality of Alcohol and Drug Abuse Patient Records regulations: The Federal rules restrict any use of the information to criminally investigate or prosecute any alcohol or drug abuse patient.[facility] CenterIn the event this information is protected by the Federal Confidentiality of Alcohol and Drug Abuse Patient Records regulations: The Federal rules restrict any use of the information to criminally investigate or prosecute any alcohol or drug abuse patient.[facility] CenterIn the event this information is protected by the Federal Confidentiality of Alcohol and Drug Abuse Patient Records regulations: The Federal rules restrict any use of the information to criminally investigate or prosecute any alcohol or drug abuse patient.[facility] CenterIn the event this information is protected by the Federal Confidentiality of Alcohol and Drug Abuse Patient Records regulations: The Federal rules restrict any use of the information to criminally investigate or prosecute any alcohol or drug abuse patient.[facility] CenterIn the event this information is protected by the Federal Confidentiality of Alcohol and Drug Abuse Patient Records regulations: The Federal rules restrict any use of the information to criminally investigate or prosecute any alcohol or drug abuse patient.[facility] Reason for Visit (unrecogniz ed section and content) Specialty Diagnoses / Procedures Referred By Maddy perez Referred To Contact [facility] Diagnoses HFrEF (heart failure with reduced ejection fraction) (HCC) Left atrial enlargement 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) Left-sided weakness Procedures CONSULT TO PHYSICAL THERAPY PHYSICAL THERAPY EVALUATION HIGH COMPLEX 45 MINS Polina Maravilla PA-C [address] [place] [address] [facility] [address] [address] Referral ID Status Reason Start Date Expiration Date Visits Requested Visits Authorized [id number] Authorized PCP Requested Referral Auto-Generate d Referral 01/07/2023 01/07/2024 99 99 Reason Comments Results Reason Comments Medicare Wellness Exam Reason Comments Imm/Inj Reason Comments ER Discharge Summary Specialty Diagnoses / Procedures Referred By Maddy perez Referred To Contact Diagnoses Level A, LVO Felipe Crook MD [address] [place] [address] [facility] [address] [place] [address] Referral ID Status Reason Start Date Expiration Date Visits Re quested Visits Authorized [id number] [address] report Reason Comments Hospital F/U Reason Comments Stroke [facility] for stroke on , had surgery Specialty Diagnoses / Procedures Referred By Maddy perez Referred To Contact Neurology Diagnoses HFrEF (heart failure with reduced ejection fraction) (HCC) Left atrial enlargement 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) Procedures CONSULT TO NEUROLOGY OFFICE/OUTPATIENT [facility] MDM 60-74 MINUTES Polina Maravilla PA-C [address] [place] [address] Referral ID Status Reason Start Date Expiration Date V isits Requested Visits Authorized [id number] Closed PCP Requested Referral 01/07/2023 01/07/2024 1 1 Reason Comments PT Eval Specialty Diagnoses / Procedures Referred By Maddy perez Referred To Contact [facility] Diagnoses HFrEF (heart failure with reduced ejection fraction) (HCC) Left atrial enlargement 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) Left-sided weakness Procedures CONSULT TO PHYSICAL THERAPY PHYSICAL THERAPY EVALUATION [facility] COMPLEX 45 MINS Polina Maravilla PA-C [address] [place] [address] [facility] [place] [address] [place] [address] Reason Comments Physical Therapy Reason Comments Outside [id number] Ordered Reason Comments Outside Stress Test Reason Comments Outside Cardiology Reason Comments Outside [id number] Ordered ECHO Care Teams (unrecognized sec tion and content) 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 Start Date End Date Rishi Anna MD [address] [place] [address] PCP - General Family Medicine 12/11/18 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 Start Date End Date Rishi Anna MD [address] [place] [address] PCP - General Family Medicine 12/11/18 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 Start Date End Date Rishi Anna MD [address] [place] [address] PCP - General Family Medicine 12/11/18 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 Start Date End Date Self, Self PCP - General Other 01/02/23 01/04/23 Rishi Anna MD [address] [place] [address] PCP - General Family Medicine 01/05/23 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 Start Date End Date Rishi Anna MD [address] [place] [address] PCP - General Family Medicine 12/11/18 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 Start Date End Date Rishi Anna MD [address] [place] [address] PCP - General Family Medicine 12/11/18 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 Start Date End Date Rishi Anna MD [address] [place] [address] PCP - General Family Medicine 12/11/18 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 Start Date End Date Rishi Anna MD [address] [place] [address] PCP - General Family Medicine 12/11/18 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 Start Date End Date Rishi Anna MD [address] [place] [address] PCP - General Family Medicine 12/11/18 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 Start Date End Date Rishi Anna MD [address] [place], [place] [address] [phone] PCP - General Family Medicine 12/11/18 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 Start Date End Date Rishi Anna MD [address] [place] [address] PCP - General Family Medicine 12/11/18 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 Start Date End Date Rishi Anna MD [address] [place] [address] PCP - General Family Medicine 12/11/18 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 [place] [address] [place] [phone] PCP - General Family Medicine 12/11/18 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 [place] [address] [place] [address] PCP - General Family Medicine 12/11/18 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 Start Date End Date Rishi Anna MD [address] [place] [phone] PCP - General Family Medicine 12/11/18 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 1957 (Given - Provider: Kristen Yanez RN) 1403 (Given - Provider: Claudia Richardson RN)2111 (Given - Provider: Soraida Whiting RN) 721 (Given - Provider: Soraida Whiting RN) Acetaminophen (TYLENOL) tablet 650 mg(Linked Group 3) 650 mg, Per NG tube, EVERY 4 HOURS NEEDED, Starting on Fri01/01/23 at 1840, Until 01/05/23 at 1416, Mild Pain, Other, Oral temp > 99.5 F, Maximum dose of acetaminophen is 4000 mg from all sources in 24 hours. 1957 (See Alternative - Provider: Kristen Yanez RN) 1403 (See Alternative - Provider: Claudia Richardson RN)2111 (See Alternative - Provider: Soraida Whiting RN) 721 (See Alternative - Provider: Soraida Whiting RN) bisacodyl (DULCOLAX) suppository 10 mg 10 mg, Rectal, DAILY NEEDED, Starting on Fri01/01/23 at 1844, Until 01/05/23 at 1416, Constipation 1st Line Calcium Gluconate 10 % injection 2 g (CANCELED) 2 g, Intravenous, ADMINISTER DIRECTED, Starting on Fri01/01/23 at 1840, Until 01/04/23 at 2311, See admin instructions, ICU Calcium Gluconate Replacement Parameters, Administer if ionized calcium is between 4.1-4.4 mg/dl. EXCLUDE less than 45 kg, SCr greater than or equal to 2 mg/dL, CrCl less than 30 ml/min, ESRD, and renal replacement therapy, Serum total Ca x serum Phos greater than 70 mg/dL. Extravasation Risk 0544 (Given - Provider: Willa Chen RN) Ondansetron 4mg/2ml (ZOFRAN) injection 4 mg 4 mg, Intravenous, EVERY 4 HOURS NEEDED, Starting on Fri01/01/23 at 1840, Until 01/05/23 at 1416, Nausea / Vomiting Polyethylene glycol (MIRALAX) packet 17 g(Linked Group 4) 17 g, Oral, DAILY NEEDED, Starting on Fri01/01/23 at 1840, Until 01/05/23 at 1416, Constipation If No Bowel Movement in 48 Hours, after bisacodyl Polyethylene glycol (MIRALAX) packet 17 g(Linked Group 4) 17 g, Per NG tube, DAILY NEEDED, Starting on Fri01/01/23 at 1840, Until 01/05/23 at 1416, Constipation If No Bowel Movement in 48 Hours, after bisacodyl Potassium chloride (K-DUR) tablet ER 20 mEq (CANCELED) 20 mEq, Oral, ADMINISTER DIRECTED, Starting on Fri01/01/23 at 1840, Until 01/04/23 at 2311, See admin instructions, ICU Potassium Replacement Parameters, Swallow tablets whole; do not crush, chew, or suck on tablet. Tablet may also be broken in half and each half swallowed separately Administer 40 mEq if potassium level 3.6-3.9 mmol/L; administer 80 mEq if potassium level is less than or equal to 3.5 mmol/L If replacing magnesium also, replete Mg prior to KCl administration. EXCLUDE less than 45 kg, SCr greater than or equal to 2 mg/dL, CrCl less than 30 ml/min, ESRD, and renal replacement therapy. If patient receiving tube feeds, diet or is receiving other oral medications, enteral route preferred unless serum potassium is less than 3.0 mmol/L, then use IV formulation. If potassium level is less than or equal to 3.0 mmol/L, recheck potassium 4 hours after replacement. 0544 (Given - Provider: Willa Chen, RN) Sodium chloride 0.9% IV solution 250 mL Intravenous, at 20 mL/hr, NEEDED, Starting on Fri01/01/23 at 1840, Until Fri01/05/23 at 1416, Carrier Fluid - See Admin. Inst, 250mL 0.9NS to be used as carrier fluid for intermittent small volume or piggyback medication administration as needed. Infusion rate of the carrier fluid should be set at 20 mL/hr unless the rate as the intermittent medication is less than 20 mL/hr. For intermittent medications with a rate less than 20 mL/hr set the carrier fluid at that rate of the intermittent or piggy back medication. Linked Groups Order Group 1: Enoxaparin Sodium (LOVENOX) injection 40 mgJump to med 40 mg, Subcutaneous, DAILY, First dose on Fri01/03/23 at 0900, Until Discontinued

Indications: DVT/PE prophylaxis And PLATELET COUNT (CANCELED) Routine, EVERY 3 DAYS AM LAB, First occurrence on Fri01/05/23 at 0500, Until Specified, New collection Group 2: Senna (SENOKOT) tablet 8.6 mgJump to med 8.6 mg, Oral, DAILY, First dose on Deirdre 01/02/23 at 0900, Until Discontinued Or Senna (SENOKOT) tablet 8.6 mgJump to med 8.6 mg, Per NG tube, DAILY, First dose on Fri01/02/23 at 0900, Until Discontinued Group 3: Acetaminophen (TYLENOL) tablet 650 mgJump to med 650 mg, Oral, EVERY 4 HOURS NEEDED, Starting on Fri01/01/23 at 1840, Until Fri01/05/23 at 1416, Mild Pain, Other, Oral temp > 99.5 F
Maximum dose of acetaminophen is 4000 mg from all sources in 24 hours.
Or Acetaminophen (TYLENOL) tablet 650 mgJump to med 650 mg, Per NG tube, EVERY 4 HOURS NEEDED, Starting on Fri01/01/23 at 1840, Until Fri01/05/23 at 1416, Mild Pain, Other, Oral temp > 99.5 F
Maximum dose of acetaminophen is 4000 mg from all sources in 24 hours.
Group 4: Polyethylene glycol (MIRALAX) packet 17 gJump to med 17 g, Oral, DAILY NEEDED, Starting on Fri01/01/23 at 1840, Until Fri01/05/23 at 1416, Constipation If No Bowel Movement in 48 Hours, after bisacodyl Or Polyethylene glycol (MIRALAX) packet 17 gJump to med 17 g, Per NG tube, DAILY NEEDED, Starting on Fri01/01/23 at 1840, Until Fri01/05/23 at 1416, Constipation If No Bowel Movement in 48 Hours, after bisacodyl FOR RECORDS PERTAINING TO PATIENTS WHO ARE OR HAVE BEEN ENROLLED IN A CHEMICAL DEPENDENCY/SUBSTANCEABUSE PROGRAM, SOME INFORMATION MAY BE OMITTED. This clinical summary was aggregated from multiple sources. Caution should be exercised in using it in the provision of clinical care. This summary normalizes information from multiple sources, and as a consequence, information in this document may materially change the coding, format and clinical context of patient data. In addition, data may be omitted in some cases. CLINICAL DECISIONS SHOULD BE BASED ON THE PRIMARY CLINICAL RECORDS. [facility] [employer] [facility]. provides no warranty or guarantee of the accuracy or completeness of information in this document.
[2023-08-09] MEDS: Magnesium Citrate 300 ML PO (20:03)
[2023-08-09 20:04] VITALS: BP 138/74; PULSE 81; RESP 16; O2SAT 99
== END 2023-08-09 20:05 | disposition home or self-care (01) ==
PROVIDERS: Emergency Provider Emergency Medicine; PCP Family Medicine; Visit Provider Emergency Medicine
DX: K59.00 Constipation, unspecified (principal); Z87.891 Personal history of nicotine dependence; Z79.82 Long term (current) use of aspirin; Z79.899 Other long term (current) drug therapy; Z86.73 Personal history of transient ischemic attack (TIA), and cerebral infarction without residual deficits
CPT/HCPCS: 74018; 99282

== ENCOUNTER 2025-03-27 00:17 | Emergency (ER) | payer MEDICARE, OTHER, SELFPAY ==
[2025-03-27 00:18] VITALS: BP 159/80; PULSE 74; RESP 16; TEMP 36.4; O2SAT 96; BMI 33.3
--- NOTE | 2025-03-27 00:53 | EX.ED.DYSGE1 ---
HPI History of Present Illness Chief Complaint: Dizziness Informant: patient Narrative Narrative: Patient is an 84-year-old male with past medical history of hyperlipidemia and previous CVA. He states that his previous stroke was a few years ago and caused left-sided arm and leg weakness with the inability to speak. He states he received medication in the ER and then was transferred to [facility] and after a few days was discharged any deficit. He states he simply takes a baby aspirin daily but denies any true blood thinner use. He states that this evening he was sitting around watching football and then he states he watched a movie after this. He reported that he got up and at that time felt dizzy. He describes the dizziness as a sense of being off balance or sense of motion and states he felt he was falling towards the right. He states this lasted only for a few minutes and then resolved. He denies any recent bouts of sick symptoms such as nausea vomiting diarrhea or dysuria. He denies any concern for dehydration. He reports feeling normal at this time but because of his previous history of stroke in the event this evening he was concerned for this and therefore comes in for evaluation. 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 Essential hypertension HFrEF (heart failure with reduced ejection fraction) Hypertriglyceridemia Left atrial enlargement Left-sided weakness Memory deficit RLS (restless legs syndrome) Umbilical hernia without obstruction or gangrene Ventral hernia without obstruction or gangrene Home Medications ?Medication ?Instructions ?Recorded ?Last Taken ?Type aspirin 81 mg tablet,delayed 81 mg PO DAILY 02/11/23 Unknown History release ascorbic acid (vitamin C) 500 mg 500 mg PO BID 06/02/23 Unknown History tablet losartan 100 mg tablet 100 mg PO DAILY #90 tabs 06/04/24 Unknown Rx metoprolol succinate 50 mg 50 mg PO DAILY #90 tabs 06/04/24 Unknown Rx tablet,extended release 24 hr Allergy/AdvReac Type Severity Reaction Status Date / Time No Known Allergies Allergy Verified 03/27/25 00:23 Family History Father Kidney disease Heart disease Surgical History Hx of left knee surgery Hx of splenectomy Hx of tonsillectomy Social History Smoking Status: Former smoker how long ago did patient quit smokin's alcohol intake: current alcohol intake frequency: holidays/special occasions only substance use type: does not use caffeine: Yes Type: coffee Number of servings: 4 ROS ROS ED Constitutional Constitutional ED: Denies chills or fever(s) Eyes Eyes: Denies change in vision ENT ENT ED: Denies ear pain, rhinorrhea or sore throat Cardiovascular Cardiovascular: Reports other Details: Negative syncope ; Denies chest pain, palpitations or racing heartbeat Respiratory/Chest Respiratory/Chest: Denies cough or dyspnea Gastrointestinal Gastrointestinal: Reports nausea; Denies abdominal pain, diarrhea or vomiting Genitourinary Genitourinary ED: Denies dysuria Musculoskeletal Musculoskeletal: Denies myalgias Integumentary Denies rash Neurologic Neurologic: Reports other Details: Positive dizziness ; Denies headache(s) Hematologic/Lymphatic Hematologic/Lymphatic: Denies easy bleeding or easy bruising EXAM Physical Exam Const Vital Signs: 03/27/25 00:18 03/27/25 00:56 Temperature 97.6 F L 98.1 F Temperature Source Oral Pulse Rate 74 73 Respiratory Rate 16 16 Blood Pressure 159/80 H 150/70 H Blood Pressure Mean 106 96 Pulse Ox 96 96 Oxygen Delivery Method Room Air Positive well nourished, well developed and obese General Appearance ED: well developed; Negative for pallor Nutritional Appearance: obese HEENT HEENT Narrative: Normocephalic atraumatic Bilateral TMs have approximately 90% cerumen impaction; a portion of the TM that is visualized is not reveal any signs of secondary infection Eyes PERRL and EOMs intact bilaterally General Eye ED: Negative for scleral icterus Neck supple Resp normal respiratory effort and clear to auscultation bilaterally Cardio regular rate and regular rhythm Rate: other Other Details: Radial and carotid pulses are equal and symmetric GI normal to inspection, nondistended, normoactive bowel sounds, non-tender, non-distended and no masses Auscultation: normoactive bowel sounds Palpation: soft Extremity normal to inspection Neuro oriented x3, CN's II-XII intact bilaterally and no sensory deficits noted Neuro Narrative: GCS of 15 Cranial nerves II through XII are grossly intact without focal neurologic deficit No pronator drift no dysmetria no truncal ataxia There is mild horizontal nystagmus noted with positive [place] exam on left NIH stroke scale score of 0 Sensorium / Orientation: alert Motor Exam: strength 5/5 throughout Psych mental status grossly normal Skin no rashes or lesions noted and No skin turgor normal Skin Narrative: Skin turgor is slightly increased General Skin Exam: Negative for jaundice or pallor MDM MDM MDM Narrative Medical decision making narrative: Patient presented to the ER slightly hypertensive but otherwise with stable vitals. He reported short-lived bout of dizziness which she described as more of an off-balance or sense of motion. He states that there has been no recent symptoms such as vomiting or diarrhea which could have led to dehydration. He denies any loss of blood in his urine or stool. At this time he feels normal and was able to drive and ambulate on his own without any dizziness. I discussed with the patient that his history and exam is most consistent with peripheral vertigo. In order to rule out acute blood loss anemia acute kidney injury clinically significant electrolyte abnormality or potential brain bleed or mass the safest option would be to perform basic laboratory studies and a head CT. I informed the patient however as he does not have any truncal ataxia or pronator drift and the fact that his symptoms came on suddenly worsened with motion and then resolved at rest that the chance for this being a posterior circulation stroke/vertebrobasilar insufficiency is extremely low. The patient reports that as his history and exam does not indicate this dizziness was from a stroke he does not want to undergo any type of testing and request to be discharged. Therefore at this time the patient can walk with a steady gait there is no sign to suggest SUSTAINABILITY MANAGER infarct and vitals are stable and the patient is competent to make this decision therefore he will be discharged as requested and can follow-up with family doctor for further evaluation or return to the ER if needed History & Record Review Discussion w/independent historian: Patient Discharge Plan Triage Chief Complaint: Dizziness ED Provider: Merlin West Dx/Rx/DC Orders Clinical Impression: Peripheral vertigo, Essential hypertension, History of cardioembolic cerebrovascular accident (CVA) Instructions: ED BPV Vertigo Prescriptions: No Action aspirin 81 mg tablet,delayed release (DR/EC) 81 mg PO DAILY ascorbic acid (vitamin C) 500 mg tablet 500 mg PO BID metoprolol succinate 50 mg tablet extended release 24 hr 50 mg PO DAILY Qty: 90 3RF losartan 100 mg tablet 100 mg PO DAILY Qty: 90 3RF Primary Care Provider: Rishi Anna Referrals: Rishi Anna MD [Primary Care Provider] - Activity Restrictions/Additional Instructions: Your physical exam did not show any signs of stroke. Your history and exam is consistent with peripheral vertigo. If this happens once again but it is short-lived and only lasts a few minutes and then resolves it is okay to stay home. However if symptoms are persistent or recurrent please return to the ER for repeat evaluation. Print Language: Hungarian Disposition Disposition: Home, Self Care Discharge Date/Time: 03/27/25 01:03
[2025-03-27 00:56] VITALS: BP 150/70; PULSE 73; RESP 16; TEMP 36.7; O2SAT 96
--- OUTSIDE RECORDS SUMMARY | 2025-03-27 01:00 | XMS RPT_ITS | CCD ---
Author Organization [facility] Care Team Providers Care Flat Grinder Operator Name Role Phone Rishi Wright MD Primary Care Provider Self, Self Primary Care Provider Unavailabl Rishi Bhatt MD Primary Care Provider Rishi Wright MD Primary Care Provider [phone] PROVIDER, UNKNOWN Attending Unavailable PROVIDER, UNKNOWN Admitting Unavailable Dr. Rishi Wright Primary Care Provider Dr. Rishi Wright Referring Provider Ghanshyam, Dr. Burton Attending Provider Ghanshyam, Dr. Burton Referring Provider Ghanshyam, Dr. Burton Other Provider RISHI WRIGHT Primary Care Unavailable TATIANA JUAREZ Referring Unavailable ANA MARIA BOND Attending Unavailable MELI DOMINGUEZ Attending Unavailable FELIPE CROOK Admitting Unavailable [facility], OTHER Referring Unavailable CONSULT, CARDIOLOGY Consulting Unavailable SYSTEM, PROVIDER NOT IN Referring Unavaila Dr. Rishi Álvarez Primary Care Provider Ghanshyam, Dr. Burton Attending Provider Ghanshyam, Dr. Burton Referring Provider Ghanshyam, Dr. Burton Other Provider Dr. Rishi Wright Referring Provider Josephine Morrissey Referring Unavailable Josephine Morrissey Attending Unavailable Rishi Wright Primary Care Unavailable Ungur, Remus Attending Unavailable Rishi Wright Primary Care Unavailable Rishi Wright Primary Care Unavailable Josephine Morrissey Attending Unavailable Ghanshyam, Josephine Referring Unavailable Adriana, Rishi Primary Care Unavailable AdrianaRishi estrella Referring Unavailable Ghanshyam, Josephine Attending Unavailable Ghanshyam, Josephine Referring Unavailable Ghanshyam, Josephine Attending Unavailable Adriana, Rishi Primary Care Unavailable Ghanshyam, Josephine Consulting Unavailable Ghanshyam, Josephine Attending Unavailable Adriana, Rishi Primary Care Unavailable Ghanshyam, Josephine Referring Unavailable Adriana, Rishi Primary Care Unavailable Ghanshyam, Josephine Attending Unavailable Adriana, Rishi Referring Unavailable Adriana, Rishi Primary Care Unavailable Ghanshyam, Josephine Attending Unavailable Ghanshyam, Josephine Referring Unavailable Adriana, Dr. Blackwell Primary Care Provider Ghanshyam, Dr. Burton Attending Provider Ghanshyam, Dr. Burton Referring Provider Rishi Wright MD Primary Care Provider Traci FIRE EXTINGUISHER MECHANIC.CRIMINAL RESEARCHER, Rolanda Unavailable Polina Maravilla PA-C Unavailable Rishi Wright MD Primary Care Provider Traci FIRE EXTINGUISHER MECHANIC.GALA, Rolanda Unavailable Polina Maravilla PA-C Unavailable GIRMA WOODY Attending Unavailable ADRIANA, RISHI A Primary Care Unavailable ADRIANA, RISHI A Primary Care Unavailable JACQUES WHITMORE Attending Unavailable ADRIANASHENA ESTRELLAREY A Attending Unavailable ADRIANA, RISHI A Primary Care Unavailable ADRIANA, RISHI A Referring Unavailable ADRIANA, RISHI A Primary Care Unavailable ANDREA HERRERA Referring Unavailable ADRIANA, RISHI A Primary Care Unavailable ANDREA HERRERA Referring Unavailable ADRIANA, RISHI A Primary Care Unavailable ANDREA HERRERA Referring Unavailable ADRIANA, RISHI A Primary Care Unavailable GIRMA WOODY Attending Unavailable ANDREA HERRERA Referring Unavailable ADRIANA, RISHI A Primary Care Unavailable GIRMA WOODY Referring Unavailable ADRIANA, RISHI A Primary Care Unavailable KE, GIRMA Referring Unavailable ADRIANA, RISHI A Primary Care Unavailable KE, GIRMA Referring Unavailable ADRIANA, RISHI A Primary Care Unavailable Medications Current Medications Medication Drug Class(es) Dates Sig (Normalized) Sig (Original) ascorbic acid 500 mg oral tablet (2 sources) Vitamin C Start: 06-02-2023 take 500 mg by mouth twice daily Ascorbic Acid (Vitamin C) Active 500 MG PO TWICE A DAY June 02, 2023 12:00am aspirin 81 mg delayed release oral tablet (20 sources) Platelet Aggregation Inhibitor, Nonsteroidal Anti-inflammatory Drug Start: 02-11-2023 take 81 mg by mouth once daily Aspirin Active 81 MG PO DAILY February 10, 2023 11:00pm Start: 01-04-2023 End: 03-24-2025 aspirin chewable tablet 81 m g Start: 01-02-2023 End: 01-03-2023 aspirin chewable tablet 81 m g Start: 03-03-2014 End: 06-21-2023 take 325 mg by mouth once daily Aspirin Discontinued 325 MG PO DAILY February 03, 2023 11:00pm February 11, 2023 9:48am Comment on above: Take 1 tablet by oc th as needed. Take with food. Take 81 mg by mouth once daily. losartan potassium 100 mg oral tablet (20 sources) Angiotensin 2 Receptor Nury Start: 06-02-2023 take 1 tablet by mouth once losartan (COZAAR) 100 mg tablet Take 1 tablet by mouth once daily. Per [facility] 06/05/2023 Active Start: 02-11-2023 End: 06-02-2023 take 50 mg by mouth once daily Losartan Discontinued 5 0 MG PO DAILY February 10, 2023 11:00pm June 02, 2023 2:58pm Comment on above: Take 1 tablet by oc th once daily. Per [facility] 24 hr metoprolol succinate 50 mg extended release oral tablet (20 sources) beta-Adrenergic Nury Start: 06-05-2023 take 1 tablet by mouth every hour metoprolol succinate ER (TOPROL XL) 50 mg 24 hr tablet Take 1 tablet by mouth once daily. Per [facility] 06/05/2023 Active Start: 06-02-2023 take 50 mg by mouth once daily Metoprolol Succinate Active 50 MG PO DAILY June 02, 2023 12:00am Start: 01-04-2023 End: 06-05-2023 take 25 mg by mouth once daily Metoprolol Succinate Di scontinued 25 MG PO DAILY April 07, 2023 11:01June 02, 2023 2:58pm Start: 01-03-2023 End: 01-03-2023 Metoprolol (LOPRESSOR) table t 12.5 mg Comment on above: Take 25 mg by mouth once daily. Take 1 tablet by co th once daily. Per [facility] Completed/Discontinued Medications Medication Drug Class(es) Dates Sig (Normalized) Sig (Original) Acetaminophen (1 source) Start: 01-01-2023 End: 01-05-2023 take 1 tablet by mouth every four hours as needed Acetaminophen (TYLENOL) tablet 650 mg atorvastatin 40 mg oral tablet (20 sources) HMG-CoA Reductase Inhibitor Start: 01-03-2023 End: 06-21-2023 take 40 mg by mouth at bedtime Atorvastatin Discontinued 40 MG PO AT BEDTIME February 03, 2023 11:00pm February 11, 2023 9:48am Start: 01-02-2023 End: 01-03-2023 Atorvastatin (LIPITOR) table t 40 mg Comment on above: Take 40 mg by mouth once daily. bisacodyl 10 mg rectal suppository (1 source) Stimulant Laxative Start: 01-02-20 End: 01-06-20 bisacodyl (DULCOLAX) suppository 10 mg chlorhexidine gluconate 1.2 mg/ml mouthwash (1 source) Start: 01-03-20 End: 01-03-20 chlorhexidine (PERIDEX) 0.12 % oral solution 15 mL empagliflozin 10 mg oral tablet (2 sources) Sodium-Glucose Cotransporter 2 Inhibitor Start: 06-02-20 End: 08-09-19 take 1 tablet by mouth once daily Empagliflozin (Jardiance) 10 mg tablet Discontinued 10 MG PO DAILY June 02, 2023 12:00am August 09, 2023 6:53pm Enoxaparin Sodium (LOVENOX) injection 40 mg (1 source) Start: 01-04-20 End: 01-06-20 Enoxaparin Sodium (LOVENOX) injection 40 mg Garlic (2 sources) Non-Standardized Food Allergenic Extract Start: 06-02-20 End: 08-09-19 take 1000 mg by mouth once daily Garlic Discontinued 1000 MG PO DAILY June 02, 2023 12:00am August 09, 2023 6:52pm Start: 06-02-2023 take 1000 mg by mouth once cinthia ly Garlic Active 1000 MG PO DAILY June 02, 2023 12:00am 1 ml HYDROmorphone hydrochloride 1 mg/ml cartridge (2 sources) Opioid Agonist Start: 01-01-2023 End: 01-01-2023 HYDROmorphone (DILAUDID) injection 1 mg Start: 01-01-2023 End: 01-01-2023 HYDROmorphone (DILAUDID) inj ection iv contrast (will be provided with radiology test) (1 source) Start: 07-16-2024 End: 07-17-2024 iv contrast (will be provided with radiology test) Indications: Hydronephrosis, unspecified hydronephrosis type CT Urogram WO/W Inject, intravenously, once for 1 dose.No IV access, insert saline lock prior to the beginning of sedation, infusion, injection of imaging exam. Discontinue saline lock post exam. If Pt. has a central line or IVAD, may access for administration according to line specific nursing protocol. Once exam is complete flush line and de-access according to line specific nursing protocol in the CT contrast administration guidelines link. 1 Each 07/16/2024 07/17/2024 labetalol hydrochloride 5 mg/ml injectable solution (1 source) beta-Adrenergic Nury Start: 01-01-2023 End: 01-01-2023 Labetalol (NORMODYNE) injection 10 mg lisinopril 2.5 mg oral tablet (17 sources) Angiotensin Converting Enzyme Inhibitor Start: 01-03-2023 End: 06-05-2023 take 2.5 mg by mouth once daily Lisinopril Discontinued 2.5 MG PO DAILY February 03, 2023 11:00pm February 11, 2023 10:25am Comment on above: Take 2.5 mg by mouth once daily. 50 ml magnesium sulfate 80 mg/ml injection (1 source) Start: 01-01-2023 End: 01-04-2023 Magnesium sulfate 4 g in sterile water 50 ml premix IVPB mecobalamin 1 mg chewable tablet (2 sources) Start: 06-02-2023 End: 08-09-2023 take 3000 ug by mouth once daily Mecobalamin (Vitamin B12) Discontinued 3000 MCG PO DAILY June 02, 2023 12:00am August 09, 2023 6:53pm Courtland-3 Fatty Acids (2 sources) Start: 06-02-2023 End: 08-09-2023 take 1000 mg by mouth once daily Courtland-3 Fatty Acids Discontinued 1000 MG PO DAILY June 02, 2023 12:00am August 09, 2023 6:53pm Start: 06-02-2023 take 1000 mg by mouth once cinthia ly Courtland-3 Fatty Acids Active 1000 MG PO DAILY June 02, 2023 12:00am 2 ml ondansetron 2 mg/ml injection (1 source) Serotonin-3 Receptor Antagonist Start: 01-01-2023 End: 01-05-2023 take 4 mg intravenously every four hours as needed Ondansetron 4mg/2ml (ZOFRAN) injection 4 mg Perflutren Lipid Microsphere (DEFINITY) 1.5 mL in Normal saline flush 0.9% 8.5 mL (1 source) Start: 01-02-2023 End: 01-02-2023 Perflutren Lipid Microsphere (DEFINITY) 1.5 mL in Normal saline flush 0.9% 8.5 mL Polyethylene glycol (MIRALAX) packet 17 g (1 source) Start: 01-01-2023 End: 01-05-2023 Polyethylene glycol (MIRALAX) packet 17 g 1000 ml potassium chloride 0.02 meq/ml / sodium chloride 9 mg/ml injection (2 sources) Start: 01-01-2023 End: 01-02-2023 sodium chloride 0.9% 1,000 ml with potassium chloride 20 mEq premix IV solution 100 ml propofol 10 mg/ml injection (1 source) General Anesthetic Start: 01-01-2023 End: 01-02-2023 Propofol (DIPRIVAN) 1000 MG/100ML premix infusion Senna Leaves (1 source) Start: 01-02-2023 End: 01-05-2023 Senna (SENOKOT) tablet 8.6 mg 1000 ml sodium chloride 9 mg/ml injection (2 sources) Start: 07-16-2024 End: 07-16-2024 0.9 % sodium chloride (NACL 0.9%) infusion Indications: Hydronephrosis, unspecified hydronephrosis type Administer at rate defined per CT contrast administration specifications. To be provided with radiology test. 150 mL 07/16/2024 07/16/2024 Start: 01-01-2023 End: 01-05-2023 Sodium chloride 0.9% IV solu tion 250 mL ubidecarenone 200 mg oral capsule (2 sources) Start: 06-02-2023 End: 08-09-2023 Coenzyme Q10 Discontinued 200 MG PO TWICE A DAY June 02, 2023 12:00am August 09, 2023 6:52pm vitamin e 180 mg oral capsule (2 sources) Start: 06-02-2023 End: 08-09-2023 take 360 mg by mouth twice daily Vitamin E (Dl, Acetate) Discontinued 360 MG PO TWICE A DAY June 02, 2023 12:00am August 09, 2023 6:53pm Problems Active Problems Problem Classification Problem Date Documented Da te Episodic/Chronic Acute cerebrovascular disease (20 sources) 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; Translations: [Cerebral infarction due to embolism of right middle cerebral artery] Onset: 01-01-2023 Chronic Cardiac dysrhythmias (4 sources) Nonsustained ventricular tachycardia ; Translations: [Nonsustained ventricular tachycardia] 06-02-2023 Chronic Congestive heart failure; nonhypertensive (20 sources) Heart failure with reduced ejection fraction; Translations: [Unspecified systolic (congestive) heart failure] Onset: 01-07-2023 Chronic Disorders of lipid metabolism (20 sources) Hypertriglyceridemia; Translations: [Pure hyperglyceridemia] Onset: 06-05-2022 Chronic Essential hypertension (18 sources) Essential hypertension; Translations: [Essential (primary) hypertension] Onset: 03-17-2023 02-11-2023 Chronic Hypertension with complications and secondary hypertension (1 source) Hypertensive heart disease with heart failure; Translations: [Hypertensive heart disease with heart failure] Onset: 03-17-2023 Chronic Neoplasms of unspecified nature or uncertain behavior (3 sources) Neoplasm of uncertain behavior of skin of nose; Translations: [Neoplasm of uncertain behavior of skin] Onset: 03-24-2025 03-24-2025 Episodic Other aftercare (1 source) Post-discharge follow-up; [...] 01-07-2023 Chronic Other and ill-defined heart disease (2 sources) Cardiomegaly; Translations: [Cardiomegaly] Onset: 03-17-2023 Chronic Other congenital anomalies (20 sources) Congenital anomaly of spleen; 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] Onset: 07-06-2007 07-06-2007 Chronic Other diseases of kidney and ureters (2 sources) Hydronephrosis; Translations: [Unspecified hydronephrosis] 07-16-2024 Episodic Other gastrointestinal disorders (1 source) Constipation; Translations: [Constipation, unspecified] 08-09-2023 Episodic Other hereditary and degenerative nervous system conditions (20 sources) Restless legs; Translations: [Restless legs syndrome] Onset: 12-11-2018 12-11-2018 Chronic Other male genital disorders (18 sources) Secondary erectile dysfunction; Translations: [Male erectile dysfunction, unspecified] Onset: 06-21-2023 06-21-2023 Chronic Other nervous system disorders (4 sources) Dysarthria; Translations: [Dysarthria and anarthria] 01-09-2023 Episodic Other non-traumatic joint disorders (2 sources) Pain in left knee; Translations: [Pain in joint, lower leg] Onset: 03-24-2025 03-24-2025 Episodic Other nutritional; endocrine; and metabolic disorders (19 sources) Obese class I; Translations: [Obesity, unspecified] Onset: 06-21-2023 06-21-2023 Chronic Other upper respiratory infections (1 source) Acute upper respiratory infection; Translations: [Acute upper respiratory infection, unspecified] 07-15-2024 Episodic Lesly-; endo-; and myocarditis; cardiomyopathy (except that caused by tuberculosis or sexually transmitted disease) (5 sources) Cardiomyopathy; Translations: [Cardiomyopathy, unspecified] Onset: 06-02-2023 06-02-2023 Chronic Unclassified (2 sources) Level A, LVO Onset: 01-01-2023 Unclassified (1 source) Other ventricular tachycardia; Translations: [Other ventricular tachycardia] Onset: 06-02-2023 Past or Other Problems Problem Classification Problem Date Documented Date Episodic/Chronic Abdominal hernia (20 sources) Umbilical hernia; Translations: [Umbilical hernia without obstruction or gangrene] Onset: 06-05-2022 Episodic Administrative/social admission (20 sources) Advance directive discussed with patient; Translations: [Other specified counseling] Onset: 06-05-2022 Episodic Diabetes mellitus without complication (20 sources) Hyperglycemia; Translations: [Hyperglycemia, unspecified] Onset: 06-05-2022 Episodic Genitourinary symptoms and ill-defined conditions (20 sources) Proteinuria; Translations: [Proteinuria, unspecified] Onset: 06-23-2024 06-23-2023 Episodic Immunizations and screening for infectious disease (5 sources) Vaccination needed; Translations: [Encounter for immunization] Onset: 06-30-2024 Episodic Malaise and fatigue (20 sources) Left hemiparesis; Translations: [Weakness] Onset: 01-29-2023 Episodic Other circulatory disease (19 sources) History of cerebrovascular accident; Translations: [Personal history of transient ischemic attack (TIA), and cerebral infarction without residual deficits] Onset: 06-21-2023 06-21-2023 Episodic Other diseases of kidney and ureters (1 source) Unspecified hydronephrosis; Translations: [Hydronephrosis, unspecified hydronephrosis type] Onset: 08-04-2024 Episodic Other non-epithelial cancer of skin (1 source) Malignant neoplasm of skin; Translations: [Other and unspecified malignant neoplasm of other specified sites of skin] Onset: 01-29-2007 01-29-2007 Episodic Other screening for suspected conditions (not mental disorders or infectious disease) (7 sources) Echocardiogram abnormal; Translations: [Abnormal findings on diagnostic imaging of heart and coronary circulation] Onset: 03-17-2023 02-25-2023 Episodic Residual codes; unclassified (20 sources) Memory impairment; Translations: [Other amnesia] Onset: 12-11-2018 12-11-2018 Episodic Residual codes; unclassified (20 sources) Active living will ; Translations: [Other specified health status] Onset: 06-05-2022 Episodic Screening and history of mental health and substance abuse codes (4 sources) Patient encounter status; Translations: [Encounter for screening examination for other mental health and behavioral disorders] Onset: 06-30-2024 06-29-2024 Episodic Results Test Name Value Interpretation Reference Range Facility [facility] 03-24-2025 CNOV Office Visit ([facility]) ANKIT LEWIS ([id number]) 1940 M Date Time Provider Department 03/24/25 3:15 PM JACQUES WHITMORE [facility] During your visit today, we recorded the following information about you: Temperature Pulse Respiration Blood pressure 97 degrees 64/minute 22/minute 158/79 Weight 104 kg Jacques Whitmore MD 03/24/2025 3:34 PM Signed Schedule follow-up with dermatology for suspected cancer on the nose. [facility] [phone] [facility] [phone] Jacques Whitmore MD 03/24/2025 3:51 PM Signed [facility] Subjective Ankit Lewis is a 84 year old male. 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 Review of Systems Objective BP 158/79 Pulse 97 Temp (!) 17.8 ?C (64 ?F) Resp 22 Wt 104 kg (229 lb 4.5 oz) SpO2 94% BMI 33.38 kg/m? Physical Exam Constitutional: General: He is not in acute distress. HENT: Nose: Comments: 9 mm circumference by 5 mm tall keratotic papule on the midline ball of the nose. Central dome has erosion and granulation tissue. Eyes: Extraocular Movements: Extraocular movements intact. Pupils: Pupils are equal, round, and reactive to light. Cardiovascular: Rate and Rhythm: Normal rate and regular rhythm. Pulmonary: Effort: Pulmonary effort is normal. Breath sounds: Normal breath sounds. Musculoskeletal: Cervical back: Neck supple. No tenderness. Comments: KNEE: left. No erythema, no effusion, mild joint hypertrophy. FROM without pain. No crepitus. No joint line tenderness. Stable to varus and valgus strain. Negative anterior drawer test. Negative posterior drawer test. Lymphadenopathy: Cervical: No cervical adenopathy. Neurological: Mental Status: He is alert. {ASSESSMENT/PLAN: 1. 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 - CONSULT TO DERMATOLOGY He would like to stay local. Numbers for [facility] offices provided. 2. Acute pain of left knee - ICD9: 719.46, ICD10: M25.562 Follow up if failing to continue improving. Jacques Whitmore MD Differential Diagnoses - Basal carcinoma - Squamous cell carcinoma - Keratoacanthoma Procedures Allergies As of Date: 03/24/2025 (No Known Allergies) Date Reviewed: 03/24/2025 Reviewed by: Marcelo Pickens LPN - Fully Assessed Reason for Visit: Derm Problem [33] Cmt: Area on bridge/tip of nose, red raised sore on area, x 2-3 weeks worsening Knee Pain [132] Cmt: Left knee pain, swelling, started wearing new shoes and having issues 2-3 days Primary Visit Diagnosis:Neoplasm of uncertain behavior of skin of nose [D48.5] Other Visit Diagnosis:Acute pain of left knee [M25.562] Order(s):CONSULT TO DERMATOLOGY [9006] Order #: [id number]: 1 FUTURE Prescriptions as of 03/24/2025 - aspirin, enteric coated (ASPIRIN, ENTERIC COATED) 325 mg EC tablet Take 325 mg by mouth once daily. - metoprolol succinate ER (TOPROL XL) 50 mg 24 hr tablet Take 1 tablet by mouth once daily. Per [facility] - losartan (COZAAR) 100 mg tablet Take 1 tablet by mouth once daily. Per [facility] Meds Comments as of 08/09/2023: Uses [facility] for Rx's. 08/09/23. No change to med list. 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 Normal [facility] 03-09-2025 CNOV Office Visit ([facility] ) ANKIT LEWIS ([id number]) 1940 M Date Time Provider Department 03/09/25 10:20 AM GIRMA WOOYD During your visit today, we recorded the following information about you: Pulse Blood pressure Weight Height 60/minute 127/66 104.3 kg 1.765 m Girma Woody MD 03/09/2025 12:19 PM Signed [facility] SERVICE DATE: 03/09/2025 CHIEF COMPLAINT: proteinuria f/u Recording using ambient AI software for draft documentation of the visit was discussed with the patient/authorized claim representative; all questions welcomed and answered. 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 Previous notes and results reviewed. Relevant events/history: - 09/08/2024: Seen by me. Serologies ordered. 03/09/2025 Ankit reports no new symptoms or concerns since his last visit. He has been taking Metamucil but recently switched to a similar product from [employer], which he finds more effective. He drinks 3-5 glasses of water daily and has reduced his coffee intake to 2 cups per day, split into halves and spread throughout the day. He previously consumed 12-20 cups of coffee daily but reduced his intake after experiencing headaches. He has not walked for about 2 weeks due to a foot injury caused by a twisted sock but plans to resume walking soon. Prior to his stroke, he walked 4 miles daily, 5-7 times a week. He uses one large pillow for sleep and denies dyspnea, except what he attributes to old age. He is currently on losartan 100 mg and has a bottle of Jardiance at home but has not taken it. He reports some swelling, which he attributes to his heart condition. He has not seen his hearing examiner for about a year. He recalls a previous stroke affecting his left leg and arm, which resolved after treatment. He denies any recent changes in weight. 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 metoprolol succinate ER (TOPROL XL) 50 mg 24 hr tablet Take 1 tablet by mouth once daily. Per [facility] losartan (COZAAR) 100 mg tablet Take 1 tablet by mouth once daily. Per [facility] ALLERGIES: ALLERGIES No Known Allergies REVIEW OF SYSTEMS: Constitutional: No fevers, chills, weight loss Eyes: No loss in vision, photophobia Ear, Nose, and Throat: No epistaxis, nasal congestion Cardiovascular: No chest pain, CALLEJAS, SOB, palpitations Respiratory: No cough, hemoptysis Gastrointestinal: No diarrhea, constipation Genitourinary: No dysuria, polyuria Musculoskeletal: No joint pain, morning stiffness Skin: No rash, no ulcers Neurological: No headaches, seizures, paresthesias Psychiatric: No depression, anxiety Endocrine: No hair loss, no heat intolerance Hematologic:No easy bruising, easy bleeding PHYSICAL EXAM: BP 127/66 Pulse 60 Ht 176.5 cm (5' 9.49) Wt 104.3 kg (230 lb) BMI 33.49 kg/m? BP - standardized method Pulse 1 BP #1: 127/65 Pulse #1: 60 beats/min 2 BP #2 : 125/63 Pulse #2 : 60 beats/min 3 BP #3 : 130/72 Pulse #3 : 61 beats/min Average Average BP: 127/66 Average Pulse: 60 beats/min Orthostatic vitals Supine Sitting Standing BP cuff location BP cuff size Comments for BP values First BP (right) First BP (left) Last 14 BP Last 14 Encounter BP Readings: Date: BP: 09/08/2024 145/77 07/15/2024 132/84 06/30/2024 122/72 06/21/2023 140/70 01/16/2023 138/70 01/07/2023 108/60 06/05/2022 142/74 11/30/2021 134/80 12/11/2018 122/78 04/19/2014 120/70 03/03/2014 137/88 03/17/2013 132/80 07/05/2008 140/80 01/08/2008 114/74 Last 2 Encounter Wt Readings: Date: Wt: 09/08/2024 104.6 kg (230 lb 9.6 oz) 07/15/2024 106.5 kg (234 lb 12.6 oz) General: Awake, not in distress. HENT: Normocephalic. Eyes: PERRL, Anicteric Neck:Trachea midline, No JVD Respiratory: Clear bilaterally. CV: RRR, No murmurs, rubs, or gallops Abdomen: Soft, non-distended. Extremities: Pedal edema absent. Skin: No rashes (more content not included)... Normal [facility] CBC panel Auto (Bld)on 03-07 Erythrocyte distribution width (RBC) [Ratio] 14.4 % Normal 11.5-15.0 [facility] Comment on above: Order Comment: Ciarani irvin Type: BLOOD SPECIMENOrdering Facility: [facility] Address: [address] [place] [address] Performed By: #### 5 8410-2 ####[facility] [id number] [place] [address] [place] Hematocrit (Bld) [Volume fraction] 42.4 % Normal 39.0-51.0 [facility] Comment on above: Order Comment: Regulo bryan Type: BLOOD SPECIMENOrdering Facility: [facility] Address: [address] [place] [address] Performed By: #### 5 8410-2 ####[facility] [id number] [place] [address] [place] Hemoglobin (Bld) [Mass/Vol] 14.5 g/dL Normal 13.0-17.0 [facility] Comment on above: Order Comment: Speci irvin Type: BLOOD SPECIMENOrdering Facility: [facility] Address: [address] [place] [address] Performed By: #### 5 8410-2 ####[facility] [id number] [place] [address] [place] MCH (RBC) [Entitic mass] 32.3 pg Normal 26.0-34.0 [facility] Comment on above: Order Comment: Speci men Type: BLOOD SPECIMENOrdering Facility: [facility] Address: [address] [place] [address] Performed By: #### 5 8410-2 ####[facility] [place] LAUDERDALENCMIRIANA [id number] [place] [address] [place] MCHC (RBC) [Mass/Vol] 34.2 g/dL Normal 30.5-36.0 [facility] Comment on above: Order Comment: Speci men Type: BLOOD SPECIMENOrdering Facility: [facility] Address: [address] [place] [address] Performed By: #### 5 8410-2 ####[facility]NC[facility] [id number] [place] [address] [place] MCV (RBC) [Entitic vol] 94.4 fL Normal 80.0-100.0 [facility] Comment on above: Order Comment: Speci men Type: BLOOD SPECIMENOrdering Facility: [facility] Address: [address] [place] [address] Performed By: #### 5 8410-2 ####[facility]ITALNCLIA [id number] [place] [address] [place] Nucleated RBC (Bld) [#/Vol] 10*3/uL Normal <0.01 [facility] Comment on above: Order Comment: Speci men Type: BLOOD SPECIMENOrdering Facility: [facility] Address: [address] [place] [address] Performed By: #### 5 8410-2 ####[facility] HOSPITALNCA [id number] [place] [address] [place] Platelet mean volume (Bld) [Entitic vol] 10.2 fL Normal 9.0-12.7 [facility] Comment on above: Order Comment: Speci men Type: BLOOD SPECIMENOrdering Facility: [facility] Address: [address] [place] [address] Performed By: #### 5 8410-2 ####[facility] [place] [id number] [address] Platelets (Bld) [#/Vol] 376 10*3/uL Normal 150-400 [facility] Comment on above: Order Comment: Speci men Type: BLOOD SPECIMENOrdering Facility: [facility] Address: [address] [place] [address] Performed By: #### 5 8410-2 ####[facility] AJNCLIA [id number] [place] [address] [place] RBC (Bld) [#/Vol] 4.49 10*6/uL Normal 4.20-6.00 [facility] Comment on above: Order Comment: Speci men Type: BLOOD SPECIMENOrdering Facility: [facility] Address: [address] [place] [address] Performed By: #### 5 8410-2 ####[facility] HOSPITALALFREDOA [id number] [place] [address] [place] WBC (Bld) [#/Vol] 7.15 10*3/uL Normal 3.70-11.00 [facility] Comment on above: Order Comment: Speci men Type: BLOOD SPECIMENOrdering Facility: [facility] Address: [address] [place] [address] Performed By: #### 5 8410-2 ####[facility]ITALNCLIA [id number] [place] [address] [place] [facility] [place] Prot/Creat Uron 03-07-2025 Protein/Creatinine (U) [Mass ratio] 0.55 mg/mg High <0.15 [facility] Comment on above: Order Comment: Speci men Type: URINE SPECIMENOrdering Facility: [facility] Address: [address] [place] [address] Result Comment: Adul t Proteinuria Categories: <0.15 mg/mg is considered normal to mildly increased 0.15 - 0.50 mg/mg is considered moderately increased >0.50 mg/mg is considered severely increased KDIGO. (2013). KDIGO 2012 Clinical Practice Guideline for the Evaluation and Management of Chronic Kidney Disease. Official Journal of the International Society of Nephrology, 3(1), 1-150. Performed By: #### 2 890-2 ####[facility] LABIA [id number] [place] [id number] [place] Protein/Creatinine (U) [Mass ratio]on 03-07-2025 Creatinine (U) [Mass/Vol] 62.0 mg/dL Normal 20.0-300.0 [facility] Comment on above: Order Comment: Speci men Type: URINE SPECIMENOrdering Facility: [facility] Address: [address] [place] [address] Performed By: #### 2 890-2 ####[facility] [id number] [place] [id number] [place] Protein (U) [Mass/Vol] 34 mg/dL High 0-20 Cl [facility] Comment on above: Order Comment: Speci men Type: URINE SPECIMENOrdering Facility: [facility] Address: [address] [place], [place] [address] Performed By: #### 2 890-2 ####[facility] LABIA [id number] [place] [id number] [place] Renal function 2000 panelon 03-07-2025 Albumin [Mass/Vol] 3.9 g/dL Normal 3.9-4.9 [facility] Comment on above: Order Comment: Speci men Type: BLOOD SPECIMENOrdering Facility: [facility] Address: [address] [place], [place] [address] Performed By: #### 2 4362-6 ####[facility] [id number] [place] [address] [place] Anion gap [Moles/Vol] 11 mmol/L Normal 8-15 [facility] Comment on above: Order Comment: Speci men Type: BLOOD SPECIMENOrdering Facility: [facility] Address: [address] [place] [address] Performed By: #### 2 4362-6 ####[facility] KIAN MILLWNCLIA [id number] [place] [address] [place] Calcium [Mass/Vol] 9.0 mg/dL Normal 8.5-10.2 [facility] Comment on above: Order Comment: Speci men Type: BLOOD SPECIMENOrdering Facility: [facility] Address: [address] [place] [address] Performed By: #### 2 4362-6 ####[facility] PETERSBURGWNCLIA [id number] [place] [address] [place] Chloride [Moles/Vol] 102 mmol/L Normal 98-107 [facility] Comment on above: Order Comment: Speci men Type: BLOOD SPECIMENOrdering Facility: [facility] Address: [address] [place] [address] Performed By: #### 2 4362-6 ####[facility]ITALNCLIA [id number] [place] [address] [place] CO2 [Moles/Vol] 24 mmol/L Normal 22-30 [facility] Comment on above: Order Comment: Speci men Type: BLOOD SPECIMENOrdering Facility: [facility] Address: [address] [place] [address] Performed By: #### 2 4362-6 ####[facility], AVONLIA [id number] [place] [address] [place] Creatinine [Mass/Vol] 0.92 mg/dL Normal 0.73-1.22 [facility] Comment on above: Order Comment: Speci men Type: BLOOD SPECIMENOrdering Facility: [facility] Address: [address] [place] [address] Performed By: #### 2 4362-6 ####[facility] [id number] [place] [address] [place] eGFRcr SerPlBld CKD-EPI 2020 82 mL/min/1.73m??? Normal >=60 [facility] Comment on above: Order Comment: Regulo bryan Type: BLOOD SPECIMENOrdering Facility: [facility] Address: [address] [place] [address] Result Comment: Palmira mated Glomerular Filtration Rate (eGFR) is calculated using the 2020 CKD-EPI creatinine equation. This equation utilizes serum creatinine, sex, and age as parameters. The creatinine assay has traceable calibration to isotope dilution-mass spectrometry. Refer to KDIGO guidelines for clinical interpretation. In patients with unstable renal function, e.g. those with acute kidney injury, the eGFR may not accurately reflect actual GFR. Performed By: #### 2 4362-6 ####[facility] [id number] [place] [address] [place] Glucose [Mass/Vol] 99 mg/dL Normal 74-99 [facility] Comment on above: Order Comment: Regulo bryan Type: BLOOD SPECIMENOrdering Facility: [facility] Address: [address] [place] [address] Result Comment: The [place] Diabetes Association (ADA) provides guidance for cutoff values for fasting glucose and random glucose. The ADA defines fasting as no caloric intake for at least 8 hours. Fasting plasma glucose results between 100 to 125 mg/dL indicate increased risk for diabetes (prediabetes). Fasting plasma glucose results greater than or equal to 126 mg/dL meet the criteria for diagnosis of diabetes. In the absence of unequivocal hyperglycemia, results should be confirmed by repeat testing. In a patient with classic symptoms of hyperglycemia or hyperglycemic crisis, random plasma glucose results greater than or equal to 200 mg/dL meet the criteria for diagnosis of diabetes. Reference: Standards of Medical Care in Diabetes 2016, [place] Diabetes Association. Diabetes Care. 2016.39(Suppl 1). Performed By: #### 2 4362-6 ####[facility] KIAN MILLTOWNCLIA [id number] [place] [address] [place] Phosphate [Mass/Vol] 3.4 mg/dL Normal 2.7-4.8 [facility] Comment on above: Order Comment: Speci men Type: BLOOD SPECIMENOrdering Facility: [facility] Address: [address] [place] [address] Performed By: #### 2 4362-6 ####[facility] MILLTOWNCLIA [id number] [place] [address] [place] Potassium [Moles/Vol] 4.5 mmol/L Normal 3.7-5.1 [facility] Comment on above: Order Comment: Speci men Type: BLOOD SPECIMENOrdering Facility: [facility] Address: [address] [place] [address] Performed By: #### 2 4362-6 ####[facility]ITALNCLIA [id number] [place] [address] [place] Sodium [Moles/Vol] 137 mmol/L Normal 136-144 [facility] Comment on above: Order Comment: Speci men Type: BLOOD SPECIMENOrdering Facility: [facility] Address: [address] [place] [address] Performed By: #### 2 4362-6 ####[facility] MILLTOWNCLIA [id number] [place] [address] [place] Urea nitrogen [Mass/Vol] 16 mg/dL Normal 9-24 [facility] Comment on above: Order Comment: Speci men Type: BLOOD SPECIMENOrdering Facility: [facility] Address: [address] [place] [address] Performed By: #### 2 4362-6 ####[facility] MILLWNCLIA [id number] [place] [address] [place] Urinalysis complete panel (U )on 03-07-2025 Bacteria LM.HPF (Urine sed) [#/Area] Negative Normal Negative [facility] Comment on above: Order Comment: Speci men Type: URINE SPECIMEN [facility] Address: [address] [place] [address] Performed By: #### 2 4356-8 #### [facility] CLIA [id number] [address] [place] [address] [place] Bilirubin Ql (U) Negative Normal Negative [facility] Comment on above: Order Comment: Speci men Type: URINE SPECIMEN [facility] Address: [address] [place] [address] Performed By: #### 2 4356-8 #### [facility] CLIA [id number] [address] [place] [address] [place] Clarity (Unsp spec) Clear Normal Clear [facility] Comment on above: Order Comment: Speci men Type: URINE SPECIMEN [facility] Address: [address] [place] [address] Performed By: #### 2 4356-8 #### [facility] CLIA [id number] [address] [place] [address] [place] [facility] Color (U) Yellow Normal Yellow [facility] Comment on above: Order Comment: Speci men Type: URINE SPECIMEN [facility] Address: [address] [place] [address] Performed By: #### 2 4356-8 #### [facility] CLIA [id number] [address] [place] [address] [place] Epithelial cells LM.HPF (Urine sed) [#/Area] None Seen Normal [facility] Comment on above: Order Comment: Speci men Type: URINE SPECIMEN [facility] Address: [address] [place] [address] Performed By: #### 2 4356-8 #### [facility] CLIA [id number] [address] [place] [address] [place] Glucose Test strip (U) [Mass/Vol] Negative Normal Negative [facility] Comment on above: Order Comment: Speci men Type: URINE SPECIMEN [facility] Address: [address] [place], [place] [address] Performed By: #### 2 4356-8 #### [facility] CLIA [id number] [address] [place], [place] [address] [place] Hemoglobin Ql (U) Negative Normal Negative [facility] Comment on above: Order Comment: Speci men Type: URINE SPECIMEN [facility] Address: [address] [place] [address] Performed By: #### 2 4356-8 #### [facility] CLIA [id number] [address] [place] [address] [place] Hyaline casts (Urine sed) [#/Area] 0 /[LPF] Normal 0 /LPF [facility] Comment on above: Order Comment: Speci men Type: URINE SPECIMEN [facility] Address: [address] [place] [address] Performed By: #### 2 4356-8 #### [facility] CLIA [id number] [address] [place], [place] [address] [place] Ketones Ql (U) Negative Normal Negative [facility] Comment on above: Order Comment: Speci men Type: URINE SPECIMEN [facility] Address: [address] [place], [place] [id number] Performed By: #### 2 4356-8 #### [facility] CLIA [id number] [address] [place], [place] [address] [place] Leukocyte esterase Test strip Ql (U) Negative Normal Negative [facility] Comment on above: Order Comment: Speci men Type: URINE SPECIMEN [facility] Address: [address] [place] [address] Performed By: #### 2 4356-8 #### [facility] CLIA [id number] [address] [place] [address] [place] Nitrite Ql (U) Negative Normal Negative [facility] Comment on above: Order Comment: Speci men Type: URINE SPECIMEN [facility] Address: [address] [place] [address] Performed By: #### 2 4356-8 #### [facility] CLIA [id number] [address] [place] [address] [place] pH (U) 6.5 [pH] Normal 5.0-8.0 [facility] Comment on above: Order Comment: Speci men Type: URINE SPECIMEN [facility] Address: [address] [place] [address] Performed By: #### 2 4356-8 #### [facility] CLIA [id number] [address] [place] [address] [place] Protein (U) [Mass/Vol] 1+ Abnormal Negative [facility] Comment on above: Order Comment: Speci men Type: URINE SPECIMEN [facility] Address: [address] [place] [address] Performed By: #### 2 4356-8 #### [facility] CLIA [id number] [address] [place] [address] [place] RBC LM.HPF (Urine sed) [#/Area] 0-2 /HPF Normal 0-2 /HPF [facility] Comment on above: Order Comment: Speci men Type: URINE SPECIMEN [facility] Address: [address] [place] [address] Performed By: #### 2 4356-8 #### [facility] CLIA [id number] [address] [place] [address] [place] Specific gravity (U) [Rel density] 1.014 Normal 1.005-1.030 [facility] Comment on above: Order Comment: Speci men Type: URINE SPECIMEN [facility] Address: [address] [place] [address] Performed By: #### 2 4356-8 #### [facility] CLIA [id number] [address] [place] [address] [place] Urobilinogen Ql (U) 0.2 EU/dL Normal 0.2-1.0 EU/dL [facility] Comment on above: Order Comment: Speci men Type: URINE SPECIMEN [facility] Address: [address] [place] [address] Performed By: #### 2 4356-8 #### [facility] CLIA [id number] [address] [place] [address] [place] WBC LM.HPF (Urine sed) [#/Area] 0-5 /HPF Normal 0-5 /HPF [facility] Comment on above: Order Comment: Speci men Type: URINE SPECIMEN [facility] Address: [address] [place] [address] Performed By: #### 2 4356-8 #### [facility] CLIA [id number] [address] [place] [address] [place] CNPDarling 12-17-2024 SCOOTER Telephone (NELLIE) ANKIT LEWIS ([id number]) 1940 M Date Time Provider Department 12/17/24 GIRMA WOODY During your visit today, we recorded the following information about you: Guadalupe Garner RN 12/17/2024 11:36 AM Signed I called and left a detailed message relaying results message below from Dr. Woody. Phone number provided to call back if any questions or concerns. [employer] message was also sent by Dr. Woody. Hi Mr Lewis, your kidney function is stable. Your potassium level in the blood is borderline high. Food like bananas, avocados, tomatoes, potatoes, oranges juice, beans, nuts, beef are high in potassium. Please cut down intake of these. Urine protein loss and serum kappa to lambda ratio are within stable as well. Girma Woody MD, FACP, FASN Allergies As of Date: 12/17/2024 (No Known Allergies) Date Reviewed: 09/08/2024 Reviewed by: Kortney Appiah RN - Fully Assessed Prescriptions as of 12/17/2024 - aspirin 81 mg chewable tablet Take 81 mg by mouth once daily. - metoprolol succinate ER (TOPROL XL) 50 mg 24 hr tablet Take 1 tablet by mouth once daily. Per [facility] - losartan (COZAAR) 100 mg tablet Take 1 tablet by mouth once daily. Per [facility] Meds Comments as of 08/09/2023: Uses [facility]ston for Rx's. 08/09/23. No change to med list. 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] [address] [Z78.9] 06/05/2022 Advance directive discussed with patient [Z71.8*06/05/2022 Elevated hemoglobin A1c [R73.09] 06/05/2022 Hypertriglyceridemia [E78.1] 06/05/2022 Umbilical hernia without obstruction or gangren*06/05/2022 Ventral hernia without obstruction or gangrene *06/05/2022 Left atrial enlargement [I51.7] 01/07/2023 Left-sided weakness [R53.1] 01/29/2023 Chronic systolic congestive heart failure (HCC)*06/05/2023 History of CVA (cerebrovascular accident) [Z86.*06/21/2023 Obesity, Class I, BMI 30-34.9 [E66.811] 06/21/2023 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*06/21/2023 Proteinuria [R80.9] 06/23/2024 Essential hypertension [I10] 09/08/2024 Encounter Status:Closed by GUADALUPE GARNER on 12/17/24 Normal [facility] CBC panel Auto (Bld)on 12-15 Erythrocyte distribution width (RBC) [Ratio] 14.5 % Normal 11.5-15.0 [facility] Comment on above: Order Comment: Speci men Type: BLOOD SPECIMEN [facility] Address: [address] [place] [address] Performed By: #### 5 195-3, 21295-3, 47686-6 #### [facility] CLIA [id number] [address] [place] [address] [place] Hematocrit (Bld) [Volume fraction] 45.1 % Normal 39.0-51.0 [facility] Comment on above: Order Comment: Speci men Type: BLOOD SPECIMEN [facility] Address: [address] [place] [address] Performed By: #### 5 195-3, 82375-1, 73872-0 #### [facility] CLIA [id number] [address] [place] [address] [place] Hemoglobin (Bld) [Mass/Vol] 14.8 g/dL Normal 13.0-17.0 [facility] Comment on above: Order Comment: Speci men Type: BLOOD SPECIMEN [facility] Address: [address] [place] [address] Performed By: #### 5 195-3, 34023-5, 43985-0 #### [facility] CLIA [id number] [address] [place] [address] [place] MCH (RBC) [Entitic mass] 31.9 pg Normal 26.0-34.0 [facility] Comment on above: Order Comment: Speci men Type: BLOOD SPECIMEN [facility] Address: [address] [place] [address] Performed By: #### 5 195-3, 39851-2, 57654-0 #### [facility] CLIA [id number] [address] [place] [address] [place] MCHC (RBC) [Mass/Vol] 32.8 g/dL Normal 30.5-36.0 [facility] Comment on above: Order Comment: Speci men Type: BLOOD SPECIMEN [facility] Address: [address] [place] [address] Performed By: #### 5 195-3, 62462-5, 20640-2 #### [facility] CLIA [id number] [address] [place] [address] [place] MCV (RBC) [Entitic vol] 97.2 fL Normal 80.0-100.0 [facility] Comment on above: Order Comment: Speci men Type: BLOOD SPECIMEN Ordering Facility: [facility] Address: [address] [place] [address] Performed By: #### 5 195-3, 75053-5, 69706-7 #### [facility] CLIA [id number] [address] [place] [address] [place] Nucleated RBC (Bld) [#/Vol] 10*3/uL Normal <0.01 [facility] Comment on above: Order Comment: Speci men Type: BLOOD SPECIMEN Ordering Facility: [facility] Address: [address] [place] [address] Performed By: #### 5 195-3, 47067-6, 60653-7 #### [facility] CLIA [id number] [address] [place] [address] [place] Platelet mean volume (Bld) [Entitic vol] 11.9 fL Normal 9.0-12.7 [facility] Comment on above: Order Comment: Speci men Type: BLOOD SPECIMEN Ordering Facility: [facility] Address: [address] [place] [address] Performed By: #### 5 195-3, 92502-6, 09118-1 #### [facility] CLIA [id number] [address] [place] [address] [place] Platelets (Bld) [#/Vol] 318 10*3/uL Normal 150-400 [facility] Comment on above: Order Comment: Speci men Type: BLOOD SPECIMEN Ordering Facility: [facility] Address: [address] [place] [address] Performed By: #### 5 195-3, 61356-9, 16133-4 #### [facility] CLIA [id number] [address] [place] [address] [place] RBC (Bld) [#/Vol] 4.64 10*6/uL Normal 4.20-6.00 [facility] Comment on above: Order Comment: Speci men Type: BLOOD SPECIMEN Ordering Facility: [facility] Address: [address] [place] [address] Performed By: #### 5 195-3, 62636-8, 43069-6 #### [facility] CLIA [id number] [address] [place] [address] [place] WBC (Bld) [#/Vol] 7.31 10*3/uL Normal 3.70-11.00 [facility] Comment on above: Order Comment: Speci men Type: BLOOD SPECIMEN Ordering Facility: [facility] Address: [address] [place] [address] Performed By: #### 5 195-3, 64355-2, 87911-2 #### [facility] CLIA [id number] [address] [place] [address] [place] KAPPA/DEAN,FREE,SERon 2024 Immunoglobulin light chains.kappa.free (S) [Mass/Vol] 103.1 mg/L High 3.3-19.4 [facility] Comment on above: Order Comment: Speci men Type: BLOOD SPECIMEN Ordering Facility: [facility] Address: [address] [place] [address] Result Comment: Rare ly, increased serum free light chains levels may not be detected or accurately quantified due to prozone phenomenon or in high viscosity samples using this immunoturbidimetric assay. Correlation with other laboratory results and clinical findings is recommended. The [place] Free Light Chain was performed using the Binding Site Optilite immunoturbidimetric method. Result obtained with different assay methods or kits cannot be used interchangeably. Performed By: #### 5 195-3, 89333-0, 84397-3 #### [facility] CLIA [id number] [address] [place] [address] [place] [facility] [place] Immunoglobulin light chains.kappa/Immunoglo bulin light chains.lambda (S) [Mass ratio] 1.91 High 0.26-1.65 [facility] Comment on above: Order Comment: Speci men Type: BLOOD SPECIMEN Ordering Facility: [facility] Address: [address] [place] [address] Performed By: #### 5 195-3, 24309-6, 85711-7 #### [facility] CLIA [id number] [address] [place] [address] [place] Immunoglobulin light chains.lambda.free [Mass/Vol] 54.1 mg/L High 5.7-26.3 [facility] Comment on above: Order Comment: Speci men Type: BLOOD SPECIMEN Ordering Facility: [facility] Address: [address] [place] [address] Result Comment: Rare ly, increased serum free light chains levels may not be detected or accurately quantified due to prozone phenomenon or in high viscosity samples using this immunoturbidimetric assay. Correlation with other laboratory results and clinical findings is recommended. The Lambda Free Light Chain was performed using the Binding Site Optilite immunoturbidimetric method. Result obtained with different assay methods or kits cannot be used interchangeably. Performed By: #### 5 195-3, 39062-4, 60189-0 #### [facility] CLIA [id number] [address] [place] [address] [place] Prot/Creat Uron 12-15-2024 Protein/Creatinine (U) [Mass ratio] 0.87 mg/mg High <0.15 [facility] Comment on above: Order Comment: Speci men Type: BLOOD SPECIMEN Ordering Facility: [facility] Address: [address] [place] [address] Result Comment: Adul t Proteinuria Categories: <0.15 mg/mg is considered normal to mildly increased 0.15 - 0.50 mg/mg is considered moderately increased >0.50 mg/mg is considered severely increased KDIGO. (2013). KDIGO 2012 Clinical Practice Guideline for the Evaluation and Management of Chronic Kidney Disease. Official Journal of the International Society of Nephrology, 3(1), 1-150. Performed By: #### 5 195-3, 15228-9, 79764-7 #### [facility] CLIA [id number] [address] [place] [address] [place] Protein/Creatinine (U) [Mass ratio]on 12-15-2024 Creatinine (U) [Mass/Vol] 38.9 mg/dL Normal 20.0-300.0 [facility] Comment on above: Order Comment: Speci men Type: BLOOD SPECIMEN Ordering Facility: [facility] Address: [address] [place] [address] Performed By: #### 5 195-3, 49769-5, 29466-4 #### [facility] CLIA [id number] [address] [place] [address] [place] Protein (U) [Mass/Vol] 34 mg/dL High 0-20 [facility] Comment on above: Order Comment: Speci men Type: BLOOD SPECIMEN Ordering Facility: [facility] Address: [address] [place] [address] Performed By: #### 5 195-3, 38634-6, 53365-1 #### [facility] CLIA [id number] [address] [place] [address] [place] Renal function 2000 panelon 12-15-2024 Albumin [Mass/Vol] 3.8 g/dL Low 3.9-4.9 [facility] Comment on above: Order Comment: Speci men Type: BLOOD SPECIMENOrdering Facility: [facility] Address: [address] [place] [address] Performed By: #### 2 4362-6 ####[facility] [id number] [place] [address] [place] Anion gap [Moles/Vol] 10 mmol/L Normal 8-15 [facility] Comment on above: Order Comment: Speci men Type: BLOOD SPECIMENOrdering Facility: [facility] Address: [address] [place] [address] Performed By: #### 2 4362-6 ####[facility] [id number] [place] [address] [place] Calcium [Mass/Vol] 8.9 mg/dL Normal 8.5-10.2 [facility] Comment on above: Order Comment: Speci men Type: BLOOD SPECIMENOrdering Facility: [facility] Address: [address] [place] [address] Performed By: #### 2 4362-6 ####[facility] [id number] [place] [id number] [place] Chloride [Moles/Vol] 102 mmol/L Normal 98-107 [facility] Comment on above: Order Comment: Speci men Type: BLOOD SPECIMENOrdering Facility: [facility] Address: [address] [place] [address] Performed By: #### 2 4362-6 ####[facility] [id number] [place] [id number] [place] CO2 [Moles/Vol] 25 mmol/L Normal 22-30 [facility] Comment on above: Order Comment: Speci men Type: BLOOD SPECIMENOrdering Facility: [facility] Address: [address] [place] [address] Performed By: #### 2 4362-6 ####[facility] [id number] [place] [address] [place] Creatinine [Mass/Vol] 0.88 mg/dL Normal 0.73-1.22 [facility] Comment on above: Order Comment: Speci men Type: BLOOD SPECIMENOrdering Facility: [facility] Address: [address] [place] [address] Performed By: #### 2 4362-6 ####[facility] [id number] [place] [address] [place] Creatinine and Glomerular filtration rate.predicted panel (S/P/Bld) 85 mL/min/1.73m??? Normal >=60 [facility] Comment on above: Order Comment: Speci men Type: BLOOD SPECIMENOrdering Facility: [facility] Address: [address] [place] [address] Result Comment: [place] mated Glomerular Filtration Rate (eGFR) is calculated using the 2020 CKD-EPI creatinine equation. This equation utilizes serum creatinine, sex, and age as parameters. The creatinine assay has traceable calibration to isotope dilution-mass spectrometry. Refer to KDIGO guidelines for clinical interpretation. In patients with unstable renal function, e.g. those with acute kidney injury, the eGFR may not accurately reflect actual GFR. Performed By: #### 2 4362-6 ####[facility] [id number] [place] [id number] [place] Glucose [Mass/Vol] 100 mg/dL High 74-99 [facility] Comment on above: Order Comment: Speci men Type: BLOOD SPECIMENOrdering Facility: [facility] Address: [address] [place] [id number] Result Comment: The [place] Diabetes [employer] (ADA) provides guidance for cutoff values for fasting glucose and random glucose. The ADA defines fasting as no caloric intake for at least 8 hours. Fasting plasma glucose results between 100 to 125 mg/dL indicate increased risk for diabetes (prediabetes). Fasting plasma glucose results greater than or equal to 126 mg/dL meet the criteria for diagnosis of diabetes. In the absence of unequivocal hyperglycemia, results should be confirmed by repeat testing. In a patient with classic symptoms of hyperglycemia or hyperglycemic crisis, random plasma glucose results greater than or equal to 200 mg/dL meet the criteria for diagnosis of diabetes. Reference: Standards of Medical Care in Diabetes 2016, [place] [employer] Association. Diabetes Care. 2016.39(Suppl 1). Performed By: #### 2 4362-6 ####[facility] [id number] [place] [address] [place] Phosphate [Mass/Vol] 3.1 mg/dL Normal 2.7-4.8 [facility] Comment on above: Order Comment: Speci men Type: BLOOD SPECIMENOrdering Facility: [facility] Address: [address] [place] [address] Performed By: #### 2 4362-6 ####[facility] [id number] [place] [address] [place] Potassium [Moles/Vol] 5.3 mmol/L High 3.7-5.1 [facility] Comment on above: Order Comment: Speci men Type: BLOOD SPECIMENOrdering Facility: [facility] Address: [address] [place] [address] Performed By: #### 2 4362-6 ####[facility] [id number] [place] [address] [place] Sodium [Moles/Vol] 137 mmol/L Normal 136-144 [facility] Comment on above: Order Comment: Speci men Type: BLOOD SPECIMENOrdering Facility: [facility] Address: [address] [place] [address] Performed By: #### 2 4362-6 ####[facility] [id number] [place] [address] [place] Urea nitrogen [Mass/Vol] 17 mg/dL Normal 9-24 [facility] Comment on above: Order Comment: Speci men Type: BLOOD SPECIMENOrdering Facility: [facility] Address: [address] [place] [address] Performed By: #### 2 4362-6 ####[facility] [id number] [place] [address] [place] Urinalysis complete panel (U )on 12-15-2024 Bacteria LM.HPF (Urine sed) [#/Area] Negative Normal Negative [facility] Comment on above: Order Comment: Speci men Type: BLOOD SPECIMEN Ordering Facility: [facility] Address: [address] [place] [address] Performed By: #### 5 195-3, 34239-7, 91551-8 #### [facility] CLIA [id number] [address] [place] [address] [place] Bilirubin Ql (U) Negative Normal Negative [facility] Comment on above: Order Comment: Speci men Type: BLOOD SPECIMEN Ordering Facility: [facility] Address: [address] [place] [address] Performed By: #### 5 195-3, 38134-7, 07247-1 #### [facility] CLIA [id number] [address] [place] [address] [place] Clarity (Unsp spec) Clear Normal Clear [facility] Comment on above: Order Comment: Speci men Type: BLOOD SPECIMEN Ordering Facility: [facility] Address: [address] [place] [address] Performed By: #### 5 195-3, 23585-5, 89971-3 #### [facility] CLIA [id number] [address] [place] [address] [place] Color (U) Yellow Normal Yellow [facility] Comment on above: Order Comment: Speci men Type: BLOOD SPECIMEN Ordering Facility: [facility] Address: [address] [place] [address] Performed By: #### 5 195-3, 21692-0, 76967-7 #### [facility] CLIA [id number] [address] [place] [address] [place] Epithelial cells LM.HPF (Urine sed) [#/Area] None Seen Normal [facility] Comment on above: Order Comment: Speci men Type: BLOOD SPECIMEN Ordering Facility: [facility] Address: [address] [place] [address] Performed By: #### 5 195-3, 16789-3, 88400-7 #### [facility] CLIA [id number] [address] [place] [address] [place] Glucose Test strip (U) [Mass/Vol] Negative Normal Negative [facility] Comment on above: Order Comment: Speci men Type: BLOOD SPECIMEN Ordering Facility: [facility] Address: [address] [place] [address] Performed By: #### 5 195-3, 27525-1, 02581-1 #### [facility] CLIA [id number] [address] [place] [address] [place] Hemoglobin Ql (U) Negative Normal Negative [facility] Comment on above: Order Comment: Speci men Type: BLOOD SPECIMEN Order[facility] Facility: [facility] Address: [address] [place] [address] Performed By: #### 5 195-3, 14760-7, 65471-6 #### [facility] CLIA [id number] [address] [place], [place] [id number] [place] Hyaline casts (Urine sed) [#/Area] 0 /[LPF] Normal 0 /LPF [facility] Comment on above: Order Comment: Speci men Type: BLOOD SPECIMEN Order[facility] Facility: [facility] Address: [address] [place] [address] Performed By: #### 5 195-3, 60802-9, 29999-7 #### [facility] CLIA [id number] [address] [place] [address] [place] Ketones Ql (U) Negative Normal Negative [facility] Comment on above: Order Comment: Speci men Type: BLOOD SPECIMEN Ordering Facility: [facility] Address: [address] [place] [address] Performed By: #### 5 195-3, 37910-6, 13197-1 #### [facility] CLIA [id number] [address] [place] [address] [place] Leukocyte esterase Test strip Ql (U) Negative Normal Negative [facility] Comment on above: Order Comment: Speci men Type: BLOOD SPECIMEN Ordering Facility: [facility] Address: [address] [place] [address] Performed By: #### 5 -3, 39451-5, 88070-6 #### [facility] CLIA [id number] [address] [place] [address] [place] Nitrite Ql (U) Negative Normal Negative [facility] Comment on above: Order Comment: Speci men Type: BLOOD SPECIMEN Ordering Facility: [facility] Address: [address] [place] [address] Performed By: #### 5 195-3, 00631-4, 14047-2 #### [facility] CLIA [id number] [address] [place], [place] [address] [place] pH (U) 6.5 [pH] Normal <8.5 [facility] Comment on above: Order Comment: Speci men Type: BLOOD SPECIMEN Order[facility] Facility: [facility] Address: [address] [place] [address] Performed By: #### 5 195-3, 43906-5, 06350-8 #### [facility] CLIA [id number] [address] [place] [address] [place] Protein (U) [Mass/Vol] 1+ Abnormal Negative [facility] Comment on above: Order Comment: Speci men Type: BLOOD SPECIMEN Ordering Facility: [facility] Address: [address] [place] [address] Performed By: #### 5 195-3, 19533-0, 59040-6 #### [facility] CLIA [id number] [address] [place] [address] [place] RBC LM.HPF (Urine sed) [#/Area] 0-2 /HPF Normal 0-2 /HPF [facility] Comment on above: Order Comment: Speci men Type: BLOOD SPECIMEN Ordering Facility: [facility] Address: [address] [place] [address] Performed By: #### 5 195-3, 30991-1, 21391-6 #### [facility] CLIA [id number] [address] [place] [address] [place] Specific gravity (U) [Rel density] 1.012 Normal 1.005-1.030 [facility] Comment on above: Order Comment: Speci men Type: BLOOD SPECIMEN Ordering Facility: [facility] Address: [address] [place] [address] Performed By: #### 5 195-3, 45139-3, 26291-8 #### [facility] CLIA [id number] [address] [place] [address] [place] Urobilinogen Ql (U) 0.2 EU/dL Normal 0.2-1.0 EU/dL [facility] Comment on above: Order Comment: Speci men Type: BLOOD SPECIMEN Ordering Facility: [facility] Address: [address] [place] [address] Performed By: #### 5 195-3, 10724-8, 18441-2 #### [facility] CLIA [id number] [address] [place] [address] [place] WBC LM.HPF (Urine sed) [#/Area] 0-5 /HPF Normal 0-5 /HPF [facility] Comment on above: Order Comment: Speci men Type: BLOOD SPECIMEN Order[facility] Facility: [facility] Address: [address] [place] [address] Performed By: #### 5 195-3, 50443-3, 22866-6 #### [facility] CLIA [id number] [address] [place] [address] [place] CHRIS BY IFA WITH REFLEXon Nuclear Ab Ql (S) Negative Normal Negative [facility] Comment on above: Order Comment: Speci men Type: BLOOD SPECIMENOrdering Facility: [facility] Address: [address] [place] [address] Result Comment: Anti -nuclear antibody test is used as an aid in diagnosis of systemic autoimmune diseases. Where positive and clinically warranted, follow-up using disease-specific testing is recommended. Low positive titers are not uncommon with advanced age, certain chronic infections, and malignancies among others. Test methodology: Indirect fluorescence immunoassay (IFA) using HEp-2 cells. Performed By: #### A NCA, ANAIFR ####[facility] [id number] [place] [address] [place] ANTI NEUTRO CYTO ABon 2024 INTERPRETATION (ANCA) Equivocal staining seen on the ethanol (indirect immunofluorescence screen) slide but negative results on follow up confirmatory testing. Anti-nuclear antibody test may be considered. Clinical correlation is required. Normal [facility] Comment on above: Order Comment: Speci men Type: BLOOD SPECIMENOrdering Facility: [facility] Address: [address] [place] [address] Performed By: #### A NCA, ANAIFR ####[facility] [id number] [place] [address] [place] Myeloperoxidase Ab Qn (S) <0.2 Normal <1.0 [facility] Comment on above: Order Comment: Speci men Type: BLOOD SPECIMENOrdering Facility: [facility] Address: [address] [place] [address] Performed By: #### A NCA, ANAIFR ####[facility] [id number] [address] [place] Neutrophil cytoplasmic Ab.classic IF Ql (S) Negative Normal Negative [facility] Comment on above: Order Comment: Speci men Type: BLOOD SPECIMENOrdering Facility: [facility] Address: [address] [place] [address] Performed By: #### A NCA, ANAIFR ####[facility] [id number] [address] Neutrophil cytoplasmic Ab.perinuclear IF Ql (S) Negative Normal Negative [facility] Comment on above: Order Comment: Speci men Type: BLOOD SPECIMENOrdering Facility: [facility] Address: [address] [place] [address] Performed By: #### A NCA, ANAIFR ####[facility] [id number] [place] [address] [place] Proteinase 3 Ab Qn (S) <0.2 Normal <1.0 [facility] Comment on above: Order Comment: Speci men Type: BLOOD SPECIMENOrdering Facility: [facility] Address: [address] [place] [address] Performed By: #### A NCA, ANAIFR ####[facility] [id number] [address] [place] STAFF REVIEW (ANCA) Reviewed by Lang Galicia, Ph.D D(GIACOMO) Normal [facility] Comment on above: Order Comment: Speci men Type: BLOOD SPECIMENOrdering Facility: [facility] Address: [address] [place] [address] Performed By: #### A NCA, ANAIFR ####[facility] [id number] [place] [address] [place] C3 SerPl-mCncon 09-14-2024 Complement C3 [Mass/Vol] 144 mg/dL Normal 86-166 [facility] Comment on above: Order Comment: Speci men Type: BLOOD SPECIMENOrdering Facility: [facility] Address: [address] [place] [address] Performed By: #### 4 485-9, 4498-2 ####[facility] [id number] [place] [address] [place]#### 1987-5 ####[facility] [id number] [place] [address] [place] C4 SerPl-ncon 09-14-2024 Complement C4 [Mass/Vol] 26 mg/dL Normal 13-46 [facility] Comment on above: Order Comment: Speci men Type: BLOOD SPECIMENOrdering Facility: [facility] Address: [address] [place] [address] Performed By: #### 4 485-9, 4498- ####[facility] [id number] [place] [address] [place]#### 1987- ####[facility]ORY[facility] [id number] [place] [address] [place] CBC panel Auto (Bld)on 09-14 Erythrocyte distribution width (RBC) [Ratio] 14.2 % Normal 11.5-15.0 [facility] Comment on above: Order Comment: Speci men Type: BLOOD SPECIMEN [facility] Address: [address] [place] [address] Performed By: #### 5 195-3, 18701-4, 43153-0 #### [facility] CLIA [id number] [address] [place] [address] [place] Hematocrit (Bld) [Volume fraction] 44.2 % Normal 39.0-51.0 [facility] Comment on above: Order Comment: Speci men Type: BLOOD SPECIMEN [facility]: [facility] Address: [address] [place] [address] Performed By: #### 5 195-3, 24134-1, 44139-3 #### [facility] CLIA [id number] [address] [place] [address] [place] Hemoglobin (Bld) [Mass/Vol] 15.3 g/dL Normal 13.0-17.0 [facility] Comment on above: Order Comment: Speci men Type: BLOOD SPECIMEN [facility] Facility: [facility] Address: [address] [place] [address] Performed By: #### 5 195-3, 38974-5, 35994-6 #### [facility] CLIA [id number] [address] [place] [address] [place] MCH (RBC) [Entitic mass] 32.4 pg Normal 26.0-34.0 [facility] Comment on above: Order Comment: Speci men Type: BLOOD SPECIMEN [facility] Facility: [facility] Address: [address] [place] [address] Performed By: #### 5 195-3, 11315-3, 43967-1 #### [facility] [facility] CLIA [id number] [address] [place] [address] [place] MCHC (RBC) [Mass/Vol] 34.6 g/dL Normal 30.5-36.0 [facility] Comment on above: Order Comment: Speci men Type: BLOOD SPECIMEN Ordering Facility: [facility] Address: [address] [place] [address] Performed By: #### 5 195-3, 87050-6, 79384-1 #### [facility] CLIA [id number] [address] [place] [address] [place] MCV (RBC) [Entitic vol] 93.6 fL Normal 80.0-100.0 [facility] Comment on above: Order Comment: Speci men Type: BLOOD SPECIMEN Ordering Facility: [facility] Address: [address] [place] [address] Performed By: #### 5 195-3, 22765-7, 47658-3 #### [facility] CLIA [id number] [address] [place] [address] [place] Nucleated RBC (Bld) [#/Vol] 10*3/uL Normal <0.01 [facility] Comment on above: Order Comment: Speci men Type: BLOOD SPECIMEN Ordering Facility: [facility] Address: [address] [place] [address] Performed By: #### 5 195-3, 03041-4, 23632-0 #### [facility] CLIA [id number] [address] [place] [address] [place] Platelet mean volume (Bld) [Entitic vol] 10.4 fL Normal 9.0-12.7 [facility] Comment on above: Order Comment: Speci men Type: BLOOD SPECIMEN Ordering Facility: [facility] Address: [address] [place] [address] Performed By: #### 5 195-3, 98424-9, 19428-1 #### [facility] CLIA [id number] [address] [place] [address] [place] Platelets (Bld) [#/Vol] 352 10*3/uL Normal 150-400 [facility] Comment on above: Order Comment: Speci men Type: BLOOD SPECIMEN Ordering Facility: [facility] Address: [address] [place] [address] Performed By: #### 5 195-3, 06470-2, 23368-0 #### [facility] CLIA [id number] [address] [place] [address] [place] RBC (Bld) [#/Vol] 4.72 10*6/uL Normal 4.20-6.00 [facility] Comment on above: Order Comment: Speci men Type: BLOOD SPECIMEN Ordering Facility: [facility] Address: [address] [place] [address] Performed By: #### 5 195-3, 83392-6, 70303-3 #### [facility] CLIA [id number] [address] [place] [address] [place] WBC (Bld) [#/Vol] 6.77 10*3/uL Normal 3.70-11.00 [facility] Comment on above: Order Comment: Speci men Type: BLOOD SPECIMEN Ordering Facility: [facility] Address: [address] [place] [address] Performed By: #### 5 195-3, 69593-5, 69761-0 #### [facility] CLIA [id number] [address] [place] [address] [place] CREATININE BLDon 09-14-2024 Creatinine [Mass/Vol] 0.86 mg/dL Normal 0.73-1.22 [facility] Comment on above: Order Comment: Speci men Type: BLOOD SPECIMEN Ordering Facility: [facility] Address: [address] [place] [address] Performed By: #### 5 195-3, 75677-6, 46126-4 #### [facility] CLIA [id number] [address] [place] [address] [place] Creatinine and Glomerular filtration rate.predicted panel (S/P/Bld) 86 mL/min/1.73m??? Normal >=60 [facility] Comment on above: Order Comment: Speci men Type: BLOOD SPECIMEN Ordering Facility: [facility] Address: [address] [place] [address] Result Comment: [place] mated Glomerular Filtration Rate (eGFR) is calculated using the 2020 CKD-EPI creatinine equation. This equation utilizes serum creatinine, sex, and age as parameters. The creatinine assay has traceable calibration to isotope dilution-mass spectrometry. Refer to KDIGO guidelines for clinical interpretation. In patients with unstable renal function, e.g. those with acute kidney injury, the eGFR may not accurately reflect actual GFR. Performed By: #### 5 195-3, 94304-7, 21969-9 #### [facility] CLIA [id number] [address] [place] [address] [place] CRP SerPl-mCncon 09-14-2024 CRP [Mass/Vol] mg/L Normal <0.9 [facility] Comment on above: Order Comment: Regulo bryan Type: BLOOD SPECIMENOrdering Facility: [facility] Address: [address] [place] [address] Performed By: #### 4 485-9, 4498-2 ####[facility] [id number] [place] [address] [place]#### 1988-5 ####[facility] [id number] [place] [address] [place] HBV core Ab Ser Qlon 025 HBV core Ab Ql (S) Negative Normal Negative [facility] Comment on above: Order Comment: Regulo bryan Type: BLOOD SPECIMEN Ordering Facility: [facility] Address: [address] [place] [address] Result Comment: No e vidence of current or past infection with Hepatitis B virus. Should recent infection be suspected, repeat testing may be considered 3-4 weeks after this draw. Performed By: #### 5 195-3, 65431-7, 57730-2 #### [facility] CLIA [id number] [address] [place] [address] [place] HBV surface Ab Ql (S)on 08-22 HBV surface Ab Qn (S) <8.00 Normal [facility] Comment on above: Order Comment: Regulo bryan Type: BLOOD SPECIMEN Ordering Facility: [facility] Address: [address] [place] [address] Result Comment: <8 m IU/mL: No serological evidence of immunity to Hepatitis B Virus. >/= 8 to <12 mIU/mL: No serological evidence of immunity to Hepatitis B Virus. >/= 12 mIU/mL: Consistent with serological evidence of immunity to Hepatitis B Virus. Performed By: #### 5 195-3, 99376-8, 22019-7 #### [facility] CLIA [id number] [address] [place] [address] [place] HBV surface Ab Ser Qlon 08-22 HBV surface Ab Ql (S) Negative Normal [facility] Comment on above: Order Comment: Speci men Type: BLOOD SPECIMEN Ordering Facility: [facility] Address: [address] [place] [address] Result Comment: No s erological evidence of immunity to Hepatitis B Virus. Performed By: #### 5 195-3, 73940-0, 01386-9 #### [facility] CLIA [id number] [address] [place] [address] [place] HBV surface Ag Ser Qlon 08-22 HBV surface Ag Ql (S) Negative Normal Negative [facility] Comment on above: Order Comment: Speci men Type: BLOOD SPECIMEN Ordering Facility: [facility] Address: [address] [place] [address] Performed By: #### 5 195-3, 55718-4, 21191-5 #### [facility] CLIA [id number] [address] [place] [address] [place] HCV Ab Ser Qlon 09-14-2024 HCV Ab Ql (S) Negative Normal Negative [facility] Comment on above: Order Comment: Speci men Type: BLOOD SPECIMENOrdering Facility: [facility] Address: [address] [place] [address] Result Comment: The result suggests no evidence of active infection with Hepatitis C virus. Should recent infection be suspected, repeat testing may be considered 4-6 weeks after this draw. Performed By: #### 1 6128-1 ####[facility] [id number] [address] [place] IMMUNOFIXATION SCREEN, SERUM on 09-14-2024 MPA RESULT No M protein is identified. Normal No M protein is identified. [facility] Comment on above: Order Comment: Speci men Type: BLOOD SPECIMEN Ordering Facility: [facility] Address: [address] [place] [address] Performed By: #### 5 195-3, 92606-0, 63653-0 #### [facility] CLIA [id number] [address] [place] [address] [place] STAFF REVIEW (MPA) Reviewed by Ravinder Bronson MD, Ph.D ([id number]) Normal [facility] Comment on above: Order Comment: Speci men Type: BLOOD SPECIMEN Ordering Facility: [facility] Address: [address] [place] [address] Performed By: #### 5 195-3, 26722-1, 07505-7 #### [facility] CLIA [id number] [address] [place] [address] [place] IMMUNOGLOBULINS,IGG,IGA,IGMo n 09-14-2024 IgA [Mass/Vol] 534 mg/dL High 70-400 [facility] Comment on above: Order Comment: Speci men Type: BLOOD SPECIMEN Ordering Facility: [facility] Address: [address] [place] [address] Performed By: #### 5 195-3, 99889-5, 45798-6 #### [facility] CLIA [id number] [address] [place], [place] [address] [place] IgG [Mass/Vol] 1612 mg/dL High 700-1600 [facility] Comment on above: Order Comment: Speci men Type: BLOOD SPECIMEN Ordering Facility: [facility] Address: [address] [place] [address] Performed By: #### 5 195-3, 90879-3, 55247-0 #### [facility] CLIA [id number] [address] [id number] [address] [place] IgM [Mass/Vol] 38 mg/dL Low 40-230 [facility] Comment on above: Order Comment: Speci men Type: BLOOD SPECIMEN Ordering Facility: [facility] Address: [address] [place] [address] Performed By: #### 5 195-3, 92404-8, 68794-4 #### [facility] CLIA [id number] [address] [place] [address] [place] KAPPA/DEAN,FREE,SERon 2024 Immunoglobulin light chains.kappa.free (S) [Mass/Vol] 107.9 mg/L High 3.3-19.4 [facility] Comment on above: Order Comment: Speci men Type: URINE SPECIMEN Ordering Facility: [facility] Address: [address] [place] [address] Result Comment: Rare ly, increased serum free light chains levels may not be detected or accurately quantified due to prozone phenomenon or in high viscosity samples using this immunoturbidimetric assay. Correlation with other laboratory results and clinical findings is recommended. The [place] Ii Free Light Chain was performed using the Binding Site Optilite immunoturbidimetric method. Result obtained with different assay methods or kits cannot be used interchangeably. Performed By: #### 2 4356-8 #### [facility] CLIA [id number] [address] [place] [address] [place] Immunoglobulin light chains.kappa/Immunoglo bulin light chains.lambda (S) [Mass ratio] 2.12 High 0.26-1.65 [facility] Comment on above: Order Comment: Speci men Type: URINE SPECIMEN Ordering Facility: [facility] Address: [address] [place] [address] Performed By: #### 2 4356-8 #### [facility] CLIA [id number] [address] [place] [address] [place] Immunoglobulin light chains.lambda.free [Mass/Vol] 50.8 mg/L High 5.7-26.3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 [facility] [address] [place], [address] GAP 5 Normal 5-15 [facility] Comment on above: Performed By: #### L 500.2500, L500.4100, L501.5200 #### [facility] [address] [place], [address] GFR/1.73 sq M.predicted among non-blacks MDRD (S/P/Bld) [Vol rate/Area] 73 mL/min/{1.73_m2} Normal >60 [facility] Comment on above: Result Comment: Non- GFR Calc Performed By: #### L 500.2500, L500.4100, L501.5200 #### [facility] [address] [place], [address] Glucose [Mass/Vol] 97 mg/dL Normal 74-106 [facility] Comment on above: Performed By: #### L 500.2500, L500.4100, L501.5200 #### [facility] [address] [place], [address] Potassium [Moles/Vol] 4.3 mmol/L Normal 3.5-5.1 [facility] Comment on above: Performed By: #### L 500.2500, L500.4100, L501.5200 #### [facility] [address] [place], [address] Sodium [Moles/Vol] 138 mmol/L Normal 136-145 [facility] Comment on above: Performed By: #### L 500.2500, L500.4100, L501.5200 #### [facility] [address] [place], [address] Urea nitrogen [Mass/Vol] 21 mg/dL High 7-18 [facility] Comment on above: Performed By: #### L 500.2500, L500.4100, L501.5200 #### [facility] [address] [place], [address] Basophil percentageOrdered B y: Josephine Morrissey on 06-11-2023 Chloride [Moles/Vol] 105 mmol/L 98-107 [facility] Cholesterol [Mass/Vol] 159 mg/dL <200 [facility] Comment on above: <200 mg/dL Desirable 200-240 mg/dL Borderline >240 mg/dL High Risk Glucose [Mass/Vol] 97 mg/dL 74-106 [facility] Potassium [Moles/Vol] 4.3 mmol/L 3.5-5.1 [facility] Sodium [Moles/Vol] 138 mmol/L 136-145 [facility] Triglyceride [Mass/Vol] 293 mg/dL <199 [facility] Comment on above: The drugs N-Acetylcy steine and Metamizole may falsely depress this assay.Serum Triglycerides Reference Interval Normal <150 mg/dL Borderline high 150 - 199 mg/dL High 200 - 499 mg/dL Very High > or = 500 mg/dL Echo Completeon 06-11-2023 Echo Complete [facility] [address] [place] [address] Echo Complete 06/11/23 1113 MR#: [id number] Acct: [id number] Name: ANKIT LEWIS Rep #: [id number] : 1940 82 From: Josephine Morrissey MD Attending Dr: Dr. Josephine Morrissey MD Status: REG I Ordering Dr: Josephine Morrissey MD Date: 06/11/23 Location: [facility] Sex: M C Admitted: Reason For Study: CARDIOMEGALY Procedure This was a 2D Doppler, Color Flow transthoracic echocardiogram. Exam performed in department. Left Ventricle Mild concentric left ventricular hypertrophy. Severely dilated left ventricle. Severe global left ventricular systolic dysfunction. The left ventricular ejection fraction is 20 %. Stage 1 diastolic dysfunction. Right Ventricle Normal right ventricle. Atria The left and right atria are normal. Mitral Valve Trivial mitral valve insufficiency. Tricuspid Valve Trivial tricuspid valve insufficiency. Unable to estimate RV systolic pressure due to insufficient tricuspid regurgitant envelope. Aortic Valve Aortic sclerosis, no stenosis. Pulmonic Valve The pulmonic valve is not well visualized. Great Vessels Normal sized aortic root. Pericardium/Pleural No pericardial effusion. MMode/2D Measurements Calculations LVIDd: 7.0 cm IVSd: 1.4 cm Ao root diam: 3.7 cm LVPWd: 1.1 cm LAV(MOD-bp): 90.0 ml LVAd ap4: 48.3 cm2 SV(MOD-sp4): 51.6 ml LAV(MOD-bp) Indexed: 41.5 ml/m2 LVLd ap4: 10.5 cm LAV(MOD-sp2): 94.2 ml EDV(MOD-sp4): 186.4 ml LAV(MOD-sp4): 84.0 ml EDV(sp4-el): 187.5 ml LVAs ap4: 38.6 cm2 LVLs ap4: 9.3 cm ESV(MOD-sp4): 134.9 ml ESV(sp4-el): 136.7 ml EF(MOD-sp4): 27.7 % EF(sp4-el): 27.1 % SV(sp4-el): 50.8 ml LA A4 area: 24.3 cm2 LA dimension(2D): 4.0 cm RA A4 area: 13.8 cm2 TAPSE: 2.7 cm Time Measurements MV dec time: 0.20 sec Doppler Measurements Calculations MV E max raad: 59.8 cm/sec Lat Peak E' Raad: 6.7 cm/sec Med Peak E' Raad: 6.0 cm/sec MV A max raad: 84.8 cm/sec E/E' lat: 8.9 E/E' med: 9.9 MV E/A: 0.70 MV V2 max: 88.3 cm/sec Ao V2 max: 141.2 cm/sec MV max P.1 mmHg MV dec slope: 307.9 cm/sec2 Ao max P.0 mmHg MV V2 mean: 51.8 cm/sec Ao V2 mean: 95.3 cm/sec MV mean P.2 mmHg Ao mean P.2 mmHg MV V2 VTI: 31.2 cm Ao V2 VTI: 31.7 cm AV (velocity ratio): 0.71 LV V1 max: 105.9 cm/sec PA V2 max: 123.4 cm/sec LV V1 max P.5 mmHg PA V2 mean: 76.5 cm/sec LV V1 mean P.2 mmHg LV V1 mean: 67.8 cm/sec LV V1 VTI: 22.5 cm ECHO/Echo Complete Interpretation Summary Mild concentric left ventricular hypertrophy. Severely dilated left ventricle. Severe global left ventricular systolic dysfunction. The left ventricular ejection fraction is 20 %. Stage 1 diastolic dysfunction. Ordering Physician: Josephine Morrissey Referring Physician: Josephine Morrissey Performed By: Janina Olivares RCS 06/11/23 1548 Date Josephine Morrissey MD CC: Dr. Josephine Morrissey MD; Dr. Rishi Wright MD Date Dictated: 06/11/23 1113 Date Transcribed: 06/11/23 1548 Marine Painter: Signed Normal [facility] Laboratory - Chemistry and C hemistry - challengeOrdered By: Josephine Morrissey on 06-11-2023 CO2 [Moles/Vol] 28.0 mmol/L 21.0-32.0 [facility] Magnesium [Mass/Vol] 2.3 mg/dL 1.6-2.6 [facility] Urea nitrogen/Creatinine [Mass ratio] 20.4 mg/mg - [facility] Lipid Profileon 06-11-2023 Cholesterol [Mass/Vol] 159 mg/dL Normal 200 [facility] Comment on above: Result Comment: <200 mg/dL Desirable 200-240 mg/dL Borderline >240 mg/dL High Risk Performed By: #### L 500.2500, L500.4100, L501.5200 #### [facility] [address] [place], [address] Cholesterol in HDL [Mass/Vol] 29 mg/dL Low [facility] Comment on above: Result Comment: The drugs N-Acetylcysteine and Metamizole may falsely depress this assay. Reference Range HDL <40 mg/dL Low HDL Cholesterol HDL >or= 60 mg/dL High HDL Cholesterol Performed By: #### L 500.2500, L500.4100, L501.5200 #### [facility] [address] [place], [address] Cholesterol in LDL [Mass/Vol] 71 mg/dL Normal 0-130 [facility] Comment on above: Performed By: #### L 500.2500, L500.4100, L501.5200 #### [facility] [address] [place], [address] Cholesterol in VLDL [Mass/Vol] 59 mg/dL High 5-40 [facility] Comment on above: Performed By: #### L 500.2500, L500.4100, L501.5200 #### [facility] [address] [place], [place], [address] Triglyceride [Mass/Vol] 293 mg/dL High [facility] Comment on above: Result Comment: The drugs N-Acetylcysteine and Metamizole may falsely depress this assay. Serum Triglycerides Reference Interval Normal <150 mg/dL Borderline high 150 - 199 mg/dL High 200 - 499 mg/dL Very High > or = 500 mg/dL Performed By: #### L 500.2500, L500.4100, L501.5200 #### [facility] [address] [place], [address] Magnesiumon 06-11-2023 Magnesium [Mass/Vol] 2.3 mg/dL Normal 1.6-2.6 [facility] Comment on above: Performed By: #### L 500.2500, L500.4100, L501.5200 #### [facility] [address] [place], [place], [id number] No Panel InformationOrdered By: Josephine Morrissey on 06-11-2023 Estimated GFR (MDRD) Amer 89 mL/min >60 [facility] Comment on above: GFR Calc Estimated GFR (MDRD) Non-Af Amer 73 mL/min >60 [facility] Comment on above: Non- GFR Calc Serum or plasma calcium logan urement (mass/volume)Ordered By: Josephine Morrissey on 06-11-2023 Calcium [Mass/Vol] 8.1 mg/dL 8.5-10.1 [facility] Serum or plasma cholesterol in HDL measurement (mass/volume)Ordered By: Josephine Morrissey on 06-11-2023 Cholesterol in HDL [Mass/Vol] 29 mg/dL >40 [facility] Comment on above: The drugs N-Acetylcy steine and Metamizole may falsely depress this assay. Reference Range HDL <40 mg/dL Low HDL Cholesterol HDL >or= 60 mg/dL High HDL Cholesterol Serum or plasma cholesterol in VLDL measurement (mass/volume)Ordered By: Josephine Morrissey on 06-11-2023 Cholesterol in VLDL [Mass/Vol] 59 mg/dL 5-40 [facility] Serum or plasma creatinine m easurement (mass/volume)Ordered By: Josephine Morrissey on 06-11-2023 Creatinine [Mass/Vol] 1.03 mg/dL 0.70-1.30 [facility] Comment on above: The validity of the calculated GFR & GFRAA in patients over 70 years has not been determined. Clinical correlation is essential. Serum or plasma low density lipoprotein (LDL) cholesterol measurement (mass/volume)Ordered By: Josephine Morrissey on 06-11-2023 Cholesterol in LDL [Mass/Vol] 71 mg/dL 0-130 [facility] Serum or plasma urea nitroge n measurement (mass/volume)Ordered By: Josephine Morrissey on 06-11-2023 Urea nitrogen [Mass/Vol] 21 mg/dL 7-18 [facility] Thin prep Papanicolaou smear with manual screeningOrdered By: Josephine Morrissey on 06-11-2023 Thin prep Papanicolaou smear with manual screening 5 5-15 [facility] Cardiology Visit Reporton Cardiology Visit Report [facility] [place] [facility] [address] [place] [address]. [address] [place], [place] [address] OFFICE VISIT Date of Service: 06/02/23 MR#: [id number] Acct: [id number] Name: ANKIT LEWIS Rep #: [id number] : 1940 Provider: Dr. Josephine Morrissey MD Age/Sex: 82/M Location[place] [facility] Status: Signed [facility] History of Present Illness Details: This gentleman is here for follow-up visit. Denies any complaints today. No chest pains. Shortness of breath only with strenuous activity. No orthopnea. No PND. No ankle edema. Denies any palpitations. No lightheadedness or dizziness. No syncope or presyncope. Intake Vital Signs 02/11/23 10:44 06/02/23 14:39 Height 5 ft 8.9 in 5 ft 8.9 in Weight: 232 lb BMI 34.3 BP 155/79 H Blood Pressure Location Lt brachial Position Sitting Respiration 16 Pulse 71 Pulse Source Auscultation Intake Visit Reasons: 3 M FU Pants Busheler Required: No Accompanied by: Is patient in pain?: No Allergies No Known Allergies Allergy (Unverified 06/02/23 14:39) Medications aspirin 81 mg tablet,delayed release 81 mg PO DAILY 02/11/23 [History Confirmed 05/26/23] ascorbic acid (vitamin C) 500 mg tablet 500 mg PO BID 06/02/23 [History Confirmed 06/02/23] coenzyme Q10 200 mg capsule 200 mg PO BID 06/02/23 [History Confirmed 06/02/23] empagliflozin 10 mg tablet (Jardiance) 10 mg PO DAILY #30 tabs 06/02/23 [Rx Confirmed 06/02/23] garlic 1,000 mg capsule 1,000 mg PO DAILY 06/02/23 [History Confirmed 06/02/23] losartan 100 mg tablet 100 mg PO DAILY #90 tabs 06/02/23 [Rx Confirmed 06/02/23] mecobalamin (vitamin B12) 1,000 mcg chewable tablet 3,000 mcg PO DAILY 06/02/23 [History Confirmed 06/02/23] metoprolol succinate 50 mg tablet,extended release 24 hr 50 mg PO DAILY #90 tabs 06/02/23 [Rx Confirmed 06/02/23] omega-3 fatty acids 1,000 mg capsule 1,000 mg PO DAILY 06/02/23 [History Confirmed 06/02/23] vitamin E (dl, acetate) 180 mg (400 unit) capsule 360 mg PO BID 06/02/23 [History Confirmed 06/02/23] Ejection fraction %: 25 to 29 [facility] History Abnormal echocardiogram 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 Essential hypertension HFrEF (heart failure with reduced ejection fraction) Hypertriglyceridemia Left atrial enlargement Left-sided weakness Memory deficit RLS (restless legs syndrome) Umbilical hernia without obstruction or gangrene Ventral hernia without obstruction or gangrene Surgical History Hx of left knee surgery Hx of splenectomy Hx of tonsillectomy Family History Father Kidney disease Heart disease Social History Smoking Status: Former smoker how long ago did patient quit smokin's alcohol intake: current alcohol intake frequency: holidays/special occasions only substance use type: does not use caffeine: Yes Type: coffee Number of servings: 4 ROS Const Const: Positive for fatigue, daytime sleepiness (occasionally) and difficulty sleeping; Negative for weakness, headache(s), frequent falls or excessive sweating Eyes Eyes: Positive for change in vision; Negative for loss of peripheral vision, transient loss of vision, blurry vision, double vision or tunnel vision ENT ENT: Negative for headache(s), dizziness, Nosebleed/epistaxis or balance problems Cardio Chest Pain: No Palpitations: No Edema: None Muscle aches with walking: None Resp Respiratory: Positive for SOB with activity (when walking up hill); Negative for SOB at rest, SOB orthopnea SOB lying down, Cough or paroxysmal nocturnal dyspnea GI GI: Negative nausea, vomiting, heartburn or black,tarry stools : Negative for hematuria Musc Musc: Negative for muscle aches/ myalgia, muscle weakness, joint pain or balance problems Skin Skin: Negative non-healing lesions, rash or unusual bruising Neuro Neuro: Negative for dizziness, lightheadedness, near syncope, syncope, frequent falls, headache(s), weakness, blurry vision, double vision or lack of coordination Ketan Hematologic/Lymphatic: Negative for easy bleeding or easy bruising Endo Endo: Positive for fatigue; Negative for excessive sweating or increased thirst/drinking Psych Psych: Negative for anxiety or depression Allergy Allergy/Immunology: Negative for hives and Negative for rash Cardiology Exam Const Appearance: comfortable and no acute distress Nutritional Appearance: well nourished Neck Neck: no JVD Carotids: Negative bruit Chest Auscultation: Bilateral: Clear to Auscultation Cardio Rate: regular rate Rhythm: regular rhythm Heart sounds: S1 normal and S2 (more content not included)... Normal [facility] Stress Reporton 02-27-2023 Stress Report [facility] [address] [place] [address] MR#: [id number] Acct: [id number] Name: NICOANKIT RIZZO Rep #: [id number] : 1940 82 From: Josephine Morrissey MD Primary Care: Dr. Rishi Wright MD Status: REG CLI Referring Dr: Josephine Morrissey MD Sex: M C Stress Test Report Date: 02/26/2023 Procedure: Pharmacologic stress nuclear imaging study Indications: Heart failure Consent: Per the patient Procedure: The patient underwent pharmacologic (Regadenoson 0.4mg ) evaluation with a peak heart rate of 82 beats per minute (59%predicted maximal heart rate) and a peak blood pressure of 130/84 mmHg. The baseline ECG demonstrated sinus rhythm with left bundle branch block. The peak pharmacologic ECG demonstrated no diagnostic changes secondary to baseline abnormalities. There were no cardiac dysrhythmias pretest, during pharmacologic infusion, or recovery. There was no complaint of chest discomfort during pharmacologic infusion or recovery. The patient was injected with 14.1 millicuries of technetium 99m Cardiolite and subsequently rest SPECT Cardiolite nuclear imaging was obtained in the horizontal long, vertical long, and short axis views. The patient underwent pharmacologic (Regadenoson) evaluation. The patient was injected with 44.3 millicuries of technetium 99m Cardiolite and subsequently stress SPECT Cardiolite nuclear imaging was obtained in the horizontal long, vertical long, and short axis views. A gated Cardiolite study at peak stress was obtained. The examination was stopped secondary to completion of protocol. Rest and stress SPECT Cardiolite nuclear imaging status post realignment, normalization, and attenuation correction demonstrate no reversible perfusion defects. There is mildly decreased uptake at the apex which may represent physiological thinning. The left ventricle appears dilated. The reported LVEF is 24%. Impression: 1. Pharmacologic (Regadenoson) evaluation 2. Peak pharmacologic ECG with no diagnostic changes secondary to baseline abnormalities. 3. There were no cardiac dysrhythmias pretest, during pharmacologic infusion, or recovery. 5. No reversible perfusion defects.. 6. The gated Cardiolite study reports an LVEF of 24%. The left ventricle appears dilated with global hypokinesis. This note was generated with Cardiioation software. It may contain incorrect words, spelling, and punctuation that were not noted in checking the note before signing. 02/27/23 1244 Date Josephine Morrissey MD CC: Dr. Josephine Morrissey MD; Dr. Rishi Wright MD Date Dictated: 02/27/231240 Date Transcribed: 02/27/231240 Marine Painter: AR Signed Normal [facility] Basic Metabolic Profile (BMP )on 02-19-2023 BUN/CRE 18.5 RATIO Normal 10-20 [facility] Comment on above: Performed By: #### L 500.2500 #### [facility] [address] [place], [address] CA,Total 8.6 mg/dL Normal 8.5-10.1 [facility] Comment on above: Performed By: #### L 500.2500 #### [facility] [address] [place], [address] Chloride [Moles/Vol] 107 mmol/L Normal 98-107 [facility] Comment on above: Performed By: #### L 500.2500 #### [facility] [address] [place], [address] CO2 [Moles/Vol] 29.0 mmol/L Normal 21.0-32.0 [facility] Comment on above: Performed By: #### L 500.2500 #### [facility] [address] [place], [address] Creatinine [Mass/Vol] 0.97 mg/dL Normal 0.70-1.30 [facility] Comment on above: Result Comment: The validity of the calculated GFR GFRAA in patients over 70 years has not been determined. Clinical correlation is essential. Performed By: #### L 500.2500 #### [facility] [address] [place], [address] EST GFR - AA 95 mL/min Normal >60 [facility] Comment on above: Result Comment: Afri can Nigerian GFR Calc Performed By: #### L 500.2500 #### [facility] [address] [place], [address] GAP 1 Low 5-15 [facility] Comment on above: Performed By: #### L 500.2500 #### [facility] [address] [place], [address] GFR/1.73 sq M.predicted among non-blacks MDRD (S/P/Bld) [Vol rate/Area] 78 mL/min/{1.73_m2} Normal >60 [facility] Comment on above: Result Comment: Non- GFR Calc Performed By: #### L 500.2500 #### [facility] [address] [place], [address] Glucose [Mass/Vol] 109 mg/dL High 74-106 [facility] Comment on above: Result Comment: Fast ing Glucose result from 100 to 125 mg/dL suggests IMPAIRED HOMEOSTASIS per A.D.A. criteria. Performed By: #### L 500.2500 #### [facility] [address] [place], [address] Potassium [Moles/Vol] 4.3 mmol/L Normal 3.5-5.1 [facility] Comment on above: Performed By: #### L 500.2500 #### [facility] [address] [place], [address] Sodium [Moles/Vol] 137 mmol/L Normal 136-145 [facility] Comment on above: Performed By: #### L 500.2500 #### [facility] [address] [place], [address] Urea nitrogen [Mass/Vol] 18 mg/dL Normal 7-18 [facility] Comment on above: Performed By: #### L 500.2500 #### [facility] [address] [place], [address] Basophil percentageOrdered B y: Josephine Morrissey on 02-19-2023 Chloride [Moles/Vol] 107 mmol/L 98-107 [facility] Glucose [Mass/Vol] 109 mg/dL 74-106 [facility] Comment on above: Fasting Glucose resu lt from 100 to 125 mg/dL suggests IMPAIRED HOMEOSTASIS per A.D.A. criteria. Potassium [Moles/Vol] 4.3 mmol/L 3.5-5.1 [facility] Sodium [Moles/Vol] 137 mmol/L 136-145 [facility] - Chemistry and C hemistry - challengeOrdered By: Josephine Morrissey on 02-19-2023 CO2 [Moles/Vol] 29.0 mmol/L 21.0-32.0 [facility] Urea nitrogen/Creatinine [Mass ratio] 18.5 mg/mg 10-20 [facility] No Panel InformationOrdered By: Josephine Morrissey on 02-19-2023 Estimated GFR (MDRD) Amer 95 mL/min >60 [facility] Comment on above: GFR Calc Estimated GFR (MDRD) Non-Af Amer 78 mL/min >60 [facility] Comment on above: Non- GFR Calc Serum or plasma calcium logan urement (mass/volume)Ordered By: Josephine Morrissey on 02-19-2023 Calcium [Mass/Vol] 8.6 mg/dL 8.5-10.1 [facility] Serum or plasma creatinine m easurement (mass/volume)Ordered By: Josephine Morrissey on 02-19-2023 Creatinine [Mass/Vol] 0.97 mg/dL 0.70-1.30 [facility] Comment on above: The validity of the calculated GFR & GFRAA in patients over 70 years has not been determined. Clinical correlation is essential. Serum or plasma urea nitroge n measurement (mass/volume)Ordered By: Josephine Morrissey on 02-19-2023 Urea nitrogen [Mass/Vol] 18 mg/dL 7-18 [facility] Thin prep Papanicolaou smear with manual screeningOrdered By: Josephine Morrissey on 02-19-2023 Thin prep Papanicolaou smear with manual screening 1 5-15 [facility] Cardiology Visit Reporton Cardiology Visit Report [facility] [place] [facility] [address] [place] [address] OFFICE VISIT Date of Service: 02/11/23 MR#: [id number] Acct: [id number] Name: ANKIT LEWIS Rep #: [id number] : 1940 Provider: Dr. Josephine Morrissey MD Age/Sex: 82/M Location: [facility] Status: Signed HPI HPI History of Present Illness Details: This gentleman has had a CVA last month. He was emergently transferred to [facility] where in cerebral thrombectomy was performed. As part of his work-up, an echocardiogram was done. It showed ejection fraction of 25%. Presently, he is wearing a 30-day heart monitor. Patient denies any history of coronary artery disease. Denies any history of angina either at rest or with exertion. Denies any shortness of breath. According to him, the day before his CVA, he had done his routine 4 miles walk without any problems. Denies any orthopnea. No PND. No ankle edema. Denies any palpitations. Intake Vital Signs 01/01/23 15:00 02/11/23 10:44 Height 5 ft 8.9 in 5 ft 8.9 in Weight: 220 lb BMI 32.5 BP 150/75 H Blood Pressure Location Lt brachial Position Sitting Respiration 16 Pulse 54 L Pulse Source Auscultation Intake Visit Reasons: HFREF / CVA (MARAVILLA) Pants Busheler Required: No Accompanied by: Is patient in pain?: No Allergies No Known Allergies Allergy (Unverified 02/11/23 10:47) Medications metoprolol succinate 25 mg tablet,extended release 24 hr 25 mg PO DAILY 02/04/23 [History Confirmed 02/04/23] aspirin 81 mg tablet,delayed release 81 mg PO DAILY 02/11/23 [History Confirmed 02/11/23] losartan 50 mg tablet 50 mg PO DAILY #90 tabs 02/11/23 [Rx Confirmed 02/11/23] Ejection fraction %: 25 to 29 [facility] Medical History (Updated 02/11/23 @ 11:[address] 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 Essential hypertension HFrEF (heart failure with reduced ejection fraction) Hypertriglyceridemia Left atrial enlargement Left-sided weakness Memory deficit RLS (restless legs syndrome) Umbilical hernia without obstruction or gangrene Ventral hernia without obstruction or gangrene Surgical History (Updated 02/11/23 @ 10:52 by Lucrecia Hill) Hx of left knee surgery Hx of splenectomy Hx of tonsillectomy Family History (Updated 02/11/23 @ 10:50 by Lucrecia Hill) Father Kidney disease Heart disease Social History (Updated 02/11/23 @ 10:50 by Lucrecia Hill) Smoking Status: Former smoker how long ago did patient quit smokin's alcohol intake: current alcohol intake frequency: holidays/special occasions only substance use type: does not use caffeine: Yes Type: coffee Number of servings: 4 ROS Const Const: Positive for fatigue, daytime sleepiness and difficulty sleeping; Negative for weakness, headache(s), frequent falls or excessive sweating Eyes Eyes: Negative for loss of peripheral vision, transient loss of vision, blurry vision, double vision or tunnel vision ENT ENT: Negative for headache(s), dizziness, Nosebleed/epistaxis or balance problems Cardio Chest Pain: No Palpitations: No Edema: Right Muscle aches with walking: None Resp Respiratory: Negative for SOB with activity, SOB at rest, SOB orthopnea SOB lying down, Cough or paroxysmal nocturnal dyspnea GI GI: Negative nausea, vomiting, heartburn or black,tarry stools : Positive for frequent nighttime urination/ nocturia; Negative for hematuria Musc Musc: Negative for muscle aches/ myalgia, muscle weakness, joint pain or balance problems Skin Skin: Negative non-healing lesions, rash or unusual bruising Neuro Neuro: Negative for dizziness, lightheadedness, near syncope, syncope, frequent falls, headache(s), weakness, blurry vision, double vision or lack of coordination Ketan Hematologic/Lymphatic: Negative for easy bleeding or easy bruising Endo Endo: Positive for fatigue; Negative for excessive sweating or increased thirst/drinking Psych Psych: Negative for anxiety or depression Allergy Allergy/Immunology: Negative for hives and Negative for rash Cardiology Exam Const Appearance: comfortable and no acute distress Nutritional Appearance: well nourished Neck Neck: no JVD Carotids: Negative bruit Chest Auscultation: Bilateral: Clear to Auscultation Cardio Rate: regular rate Rhythm: regular rhythm Heart sounds: S1 normal and S2 normal Neuro General: patient alert, patient awake and patient oriented x3 Extremities Lower Extremity Edema: None: Bilateral Supplemental Info Supplemental Information ECHOCARDIOGRAM 01/02/23: - Left ventricle: Chamber size is normal. Normal wall thickness. Severe global hypokinesis. Abnormal septal motion consistent with left bundle branch block. Ejecti (more content not included)... Normal [facility] CBC,PLATELETSon 01-05-2023 Hematocrit (Bld) [Volume fraction] 37.2 % Low 39.6-48.8 [facility] Comment on above: Performed By: #### L DLB, LIPDR #### [facility] (DEFAULT) [address] [place] [id number] Hemoglobin (Bld) [Mass/Vol] 12.7 g/dL Low 13.4-16.8 [facility] Comment on above: Performed By: #### L DLB, LIPDR #### [facility] (DEFAULT) [address] [place] [phone] MCV (RBC) [Entitic vol] 93.9 fL Normal 79.0-94.5 [facility] Comment on above: Performed By: #### L DLB, LIPDR #### [facility] (DEFAULT) [address] [place] [address] Mean Cell Hgb 32.1 pg Normal 26.1-33.3 [facility] Comment on above: Performed By: #### L DLB, LIPDR #### [facility] (DEFAULT) [address] [place] [address] Mean Cell Hgb Conc 34.1 g/dL Normal 31.9-36.5 [facility] Comment on above: Performed By: #### L DLB, LIPDR #### [facility] (DEFAULT) [address] [place] [address] Platelet mean volume (Bld) [Entitic vol] 10.6 fL Normal 8.7-12.3 [facility] Comment on above: Performed By: #### L DLB, LIPDR #### [facility] [facility] ([facility] [address] [place] [address] 14714 Platelets (Bld) [#/Vol] 251 10*3/uL Normal 146-337 [facility] Comment on above: Performed By: #### L FREDERICK, LIPDR #### [facility] (DEFAULT) [address] [place] [address] 45977 RBC (Bld) [#/Vol] 3.96 10*6/uL Low 4.38-5.83 [facility] Comment on above: Performed By: #### L DLB, LIPDR #### [facility] (DEFAULT) [address] [place] [address] 07047 RBC Distribution 14.2 % Normal 10.9-14.3 [facility] Comment on above: Performed By: #### L FREDERICK, LIPDR #### [facility] (DEFAULT) [address] [place] [address] 36912 WBC (Bld) [#/Vol] 10.81 10*3/uL High 3.73-10.10 [facility] Comment on above: Performed By: #### L DLB, LIPDR #### [facility] (DEFAULT) [address] [place] [address] 31365 Erythrocyte distribution width (RBC) [Ratio] 14.2 % 10.9 - 14.3 % [facility] Hematocrit (Bld) [Volume fraction] 37.2 % Low 39.6 - 48.8 % [facility] Hemoglobin (Bld) [Mass/Vol] 12.7 g/dL Low 13.4 - 16.8 g/dL [facility] Interpretation and review of laboratory results Abnormal [facility] MCH (RBC) [Entitic mass] 32.1 pg 26.1 - 33.3 pg [facility] MCHC (RBC) [Mass/Vol] 34.1 g/dL 31.9 - 36.5 g/dL [facility] MCV (RBC) [Entitic vol] 93.9 fL 79.0 - 94.5 fL [facility] Platelet mean volume (Bld) [Entitic vol] 10.6 fL 8.7 - 12.3 fL [facility] Platelets (Bld) [#/Vol] 251 10*3/uL 146 - 337 K/uL [facility] RBC (Bld) [#/Vol] 3.96 10*6/uL Low [facility] WBC (Bld) [#/Vol] 10.81 10*3/uL High 3.73 - 10 .10 K/uL [facility] CHEM 7 (LYTES,BUN,CREA,GLUC) on 01-05-2023 Anion gap [Moles/Vol] 12 mmol/L Normal 7-17 [facility] Comment on above: Performed By: #### C HM7, IPB, MGO, TRIG, CKB #### [facility] (DEFAULT) [address] [place] [address] 91907 Chloride [Moles/Vol] 106 mmol/L Normal 98-108 [facility] Comment on above: Performed By: #### C HM7, IPB, MGO, TRIG, CKB #### [facility] (DEFAULT) [address] [place] [address] 32121 CO2 [Moles/Vol] 23 mmol/L Normal 21-31 [facility] Comment on above: Performed By: #### C HM7, IPB, MGO, TRIG, CKB #### [facility] (DEFAULT) [address] [place] [address] 06137 Creatinine [Mass/Vol] 0.81 mg/dL Normal 0.70-1.30 [facility] Comment on above: Performed By: #### C HM7, IPB, MGO, TRIG, CKB #### [facility] (DEFAULT) [address] [place] [address] 84742 GFR/1.73 sq M.predicted among non-blacks MDRD (S/P/Bld) [Vol rate/Area] 88 mL/min/{1.73_m2} Normal >=60 [facility] Comment on above: Result Comment: Repo rted eGFR is based on the CKD-EPI 2020 equation using creatinine, age, and sex. Performed By: #### C HM7, IPB, MGO, TRIG, CKB #### [facility] (DEFAULT) [address] [place] [address] 10903 Glucose [Mass/Vol] 111 mg/dL High 70-99 [facility] Comment on above: Performed By: #### C HM7, IPB, MGO, TRIG, CKB #### [facility] (DEFAULT) [address] [place] [address] 14948 Osmolality [Osmolality] 290 mosm/kg Normal 278-305 [facility] Comment on above: Performed By: #### C HM7, IPB, MGO, TRIG, CKB #### [facility] (DEFAULT) [address] [place] [address] 19443 Potassium [Moles/Vol] 4.0 mmol/L Normal 3.5-5.0 [facility] Comment on above: Performed By: #### C HM7, IPB, MGO, TRIG, CKB #### [facility] (DEFAULT) [address] [place] [address] 33839 Sodium [Moles/Vol] 137 mmol/L Normal 135-145 [facility] Comment on above: Performed By: #### C HM7, IPB, MGO, TRIG, CKB #### [facility] (DEFAULT) [address] [place] [address] 68563 Urea nitrogen [Mass/Vol] 18 mg/dL Normal 7-25 [facility] Comment on above: Performed By: #### C HM7, IPB, MGO, TRIG, CKB #### [facility] (DEFAULT) [address] [place] [address] 72979 Urea nitrogen/Creatinine [Mass ratio] 22 mg/mg Normal [facility] Comment on above: Performed By: #### C HM7, IPB, MGO, TRIG, CKB #### [facility] (DEFAULT) [address] [place] [address] 88079 Anion gap [Moles/Vol] 12 mmol/L 7 - 17 mmol/L [facility] Chloride [Moles/Vol] 106 mmol/L 98 - 10 8 mmol/L [facility] CO2 [Moles/Vol] 23 mmol/L 21 - 31 mmol/L [facility] Creatinine [Mass/Vol] 0.81 mg/dL 0.70 - 1.30 mg/dL [facility] GFR/1.73 sq M.predicted CKD-EPI (S/P/Bld) [Vol rate/Area] 88 - PINF [facility] Comment on above: Reported eGFR is bas ed on the CKD-EPI 2020 equation using creatinine, age, and sex. Glucose [Mass/Vol] 111 mg/dL High 70 - 99 mg/dL [facility] Interpretation and review of laboratory results Abnormal [facility] Osmolality Calc [Osmolality] 290 [facility] Potassium [Moles/Vol] 4.0 mmol/L 3.5 - 5.0 mmol/L [facility] Sodium [Moles/Vol] 137 mmol/L 135 - 145 mmol/L [facility] Urea nitrogen [Mass/Vol] 18 mg/dL 7 - 25 mg/dL [facility] Urea nitrogen/Creatinine [Mass ratio] 22 mg/mg [facility] CONTINUOUS CARDIAC MONITORIN G STRIPon 01-05-2023 [facility] CBC,PLATELETSon 01-04-2023 Hematocrit (Bld) [Volume fraction] 38.2 % Low 39.6-48.8 [facility] Comment on above: Performed By: #### H [facility] #### [facility] (DEFAULT) [address] [place] [address] Hemoglobin (Bld) [Mass/Vol] 12.8 g/dL Low 13.4-16.8 [facility] Comment on above: Performed By: #### H [facility] #### [facility] (DEFAULT) [address] [place] [address] MCV (RBC) [Entitic vol] 93.9 fL Normal 79.0-94.5 [facility] Comment on above: Performed By: #### H EMOGC #### [facility] (DEFAULT) [address] [address] Mean Cell Hgb 31.4 pg Normal 26.1-33.3 [facility] Comment on above: Performed By: #### H EMOGC #### [facility] (DEFAULT) [address] [address] Mean Cell Hgb Conc 33.5 g/dL Normal 31.9-36.5 [facility] Comment on above: Performed By: #### H EMOGC #### [facility] (DEFAULT) [address] [address] Platelet mean volume (Bld) [Entitic vol] 10.8 fL Normal 8.7-12.3 [facility] Comment on above: Performed By: #### H EMO #### [facility] (DEFAULT) [address] [address] Platelets (Bld) [#/Vol] 239 10*3/uL Normal 146-337 [facility] Comment on above: Performed By: #### H EMO #### [facility] (DEFAULT) [address] [address] RBC (Bld) [#/Vol] 4.07 10*6/uL Low 4.38-5.83 [facility] Comment on above: Performed By: #### H EMOGC #### [facility] (DEFAULT) [address] [address] RBC Distribution 14.5 % High 10.9-14.3 [facility] Comment on above: Performed By: #### H EMOGC #### [facility] (DEFAULT) [address] [address] WBC (Bld) [#/Vol] 13.37 10*3/uL High 3.73-10.10 [facility] Comment on above: Performed By: #### H [facility] #### [facility] (DEFAULT) [address] [place] [address] Erythrocyte distribution width (RBC) [Ratio] 14.5 % High 10.9 - 14.3 % [facility] Hematocrit (Bld) [Volume fraction] 38.2 % Low 39.6 - 48.8 % [facility] Hemoglobin (Bld) [Mass/Vol] 12.8 g/dL Low 13.4 - 16.8 g/dL [facility] Interpretation and review of laboratory results Abnormal [facility] MCH (RBC) [Entitic mass] 31.4 pg 26.1 - 33.3 pg [facility] MCHC (RBC) [Mass/Vol] 33.5 g/dL 31.9 - 36.5 g/dL [facility] MCV (RBC) [Entitic vol] 93.9 fL 79.0 - 94.5 fL [facility] Platelet mean volume (Bld) [Entitic vol] 10.8 fL 8.7 - 12.3 fL [facility] Platelets (Bld) [#/Vol] 239 10*3/uL 146 - 337 K/uL [facility] RBC (Bld) [#/Vol] 4.07 10*6/uL Low [facility] WBC (Bld) [#/Vol] 13.37 10*3/uL High 3.73 - 10 .10 K/uL [facility] CHEM 7 (LYTES,BUN,CREA,GLUC) on 01-04-2023 Anion gap [Moles/Vol] 10 mmol/L Normal 7-17 [facility] Comment on above: Performed By: #### C HM7, IPB, MGO, TRIG, CKB #### [facility] (DEFAULT) [address] [place] [address] Chloride [Moles/Vol] 106 mmol/L Normal 98-108 [facility] Comment on above: Performed By: #### C HM7, IPB, MGO, TRIG, CKB #### [facility] (DEFAULT) [address] [place] [address] 70416 CO2 [Moles/Vol] 24 mmol/L Normal 21-31 [facility] Comment on above: Performed By: #### C HM7, IPB, MGO, TRIG, CKB #### [facility] (DEFAULT) [address] [place] [address] 11362 Creatinine [Mass/Vol] 0.74 mg/dL Normal 0.70-1.30 [facility] Comment on above: Performed By: #### C HM7, IPB, MGO, TRIG, CKB #### [facility] (DEFAULT) [address] [place] [address] 16559 GFR/1.73 sq M.predicted among non-blacks MDRD (S/P/Bld) [Vol rate/Area] 90 mL/min/{1.73_m2} Normal >=60 [facility] Comment on above: Result Comment: Repo rted eGFR is based on the CKD-EPI 2020 equation using creatinine, age, and sex. Performed By: #### C HM7, IPB, MGO, TRIG, CKB #### [facility] (DEFAULT) [address] [place] [address] 84159 Glucose [Mass/Vol] 114 mg/dL High 70-99 [facility] Comment on above: Performed By: #### C HM7, IPB, MGO, TRIG, CKB #### [facility] (DEFAULT) [address] [place] [address] 23828 Osmolality [Osmolality] 288 mosm/kg Normal 278-305 [facility] Comment on above: Performed By: #### C HM7, IPB, MGO, TRIG, CKB #### [facility] (DEFAULT) [address] [place] [address] 71800 Potassium [Moles/Vol] 4.0 mmol/L Normal 3.5-5.0 [facility] Comment on above: Performed By: #### C HM7, IPB, MGO, TRIG, CKB #### [facility] (DEFAULT) [address] [place] [address] 08089 Sodium [Moles/Vol] 136 mmol/L Normal 135-145 [facility] Comment on above: Performed By: #### C HM7, IPB, MGO, TRIG, CKB #### [facility] (DEFAULT) [address] [place] [address] 57689 Urea nitrogen [Mass/Vol] 17 mg/dL Normal 7-25 [facility] Comment on above: Performed By: #### C HM7, IPB, MGO, TRIG, CKB #### [facility] (DEFAULT) [address] [place] [address] 98442 Urea nitrogen/Creatinine [Mass ratio] 23 mg/mg Normal [facility] Comment on above: Performed By: #### C HM7, IPB, MGO, TRIG, CKB #### [facility] (DEFAULT) [address] [place] [address] 90914 Anion gap [Moles/Vol] 10 mmol/L 7 - 17 mmol/L [facility] Chloride [Moles/Vol] 106 mmol/L 98 - 10 8 mmol/L [facility] CO2 [Moles/Vol] 24 mmol/L 21 - 31 mmol/L [facility] Creatinine [Mass/Vol] 0.74 mg/dL 0.70 - 1.30 mg/dL [facility] GFR/1.73 sq M.predicted CKD-EPI (S/P/Bld) [Vol rate/Area] 90 - PINF [facility] Comment on above: Reported eGFR is bas ed on the CKD-EPI 2020 equation using creatinine, age, and sex. Glucose [Mass/Vol] 114 mg/dL High 70 - 99 mg/dL [facility] Interpretation and review of laboratory results Abnormal [facility] Osmolality Calc [Osmolality] 288 [facility] Potassium [Moles/Vol] 4.0 mmol/L 3.5 - 5.0 mmol/L [facility] Sodium [Moles/Vol] 136 mmol/L 135 - 145 mmol/L [facility] Urea nitrogen [Mass/Vol] 17 mg/dL 7 - 25 mg/dL [facility] Urea nitrogen/Creatinine [Mass ratio] 23 mg/mg [facility] CONTINUOUS CARDIAC MONITORIN G STRIPon 01-04-2023 [facility] GLUCOSE POCon 01-04-2023 Glucose [Mass/Vol] 104 mg/dL High 70 - 99 mg/dL [facility] Comment on above: Notified RNread back Interpretation and review of laboratory results Abnormal [facility] POC Sample Type CAPBL [facility] Test performed at address of the patient encounter. [facility] Glucose [Mass/Vol] 112 mg/dL High 70 - 99 mg/dL [facility] Interpretation and review of laboratory results Abnormal [facility] POC Sample Type CAPBL [facility] Test performed at address of the patient encounter. [facility] Glucose [Mass/Vol] 110 mg/dL High 70 - 99 mg/dL [facility] Interpretation and review of laboratory results Abnormal [facility] POC Sample Type CAPBL [facility] Test performed at address of the patient encounter. [facility] Glucose [Mass/Vol] 131 mg/dL High 70 - 99 mg/dL [facility] Interpretation and review of laboratory results Abnormal [facility] POC Sample Type CAPBL [facility] Test performed at address of the patient encounter. [facility] Glucose [Mass/Vol] 94 mg/dL 70 - 99 mg/dL [facility] Glucose [Mass/Vol] 129 mg/dL High 70 - 99 mg/dL [facility] Interpretation and review of laboratory results Abnormal [facility] Glucose [Mass/Vol] 143 mg/dL High 70 - 99 mg/dL [facility] Glucose [Mass/Vol] 115 mg/dL High 70 - 99 mg/dL [facility] Glucose [Mass/Vol] 129 mg/dL High 70 - 99 mg/dL [facility] Glucose [Mass/Vol] 132 mg/dL High 70 - 99 mg/dL [facility] IONIZED CALCIUM, SERUMon ICA 4.61 mg/dL Normal 4.60-5.30 [facility] Comment on above: Performed By: #### L DLB, LIPDR #### [facility] (DEFAULT) [address] [place] [address] IONIZED CALCIUM, SERUMOrdere d By: Luis Olvera on 01-04-2023 Calcium.ionized (Bld) [Moles/Vol] 4.61 mg/dL 4.60 - 5.30 mg/dL [facility] Interpretation and review of laboratory results Normal [facility] MAGNESIUMon 01-04-2023 Magnesium [Mass/Vol] 1.9 mg/dL Normal 1.6-2.6 [facility] Comment on above: Performed By: #### C HM7, IPB, MGO, TRIG, CKB #### [facility] (DEFAULT) [address] [address] Magnesium [Mass/Vol] 1.9 mg/dL 1.6 - 2 .6 mg/dL [facility] No Panel Informationon 01-04 POC Sample Type CAPBL [facility] Test performed at address of the patient encounter. [facility] Interpretation and review of laboratory results Abnormal [facility] POC Sample Type CAPBL [facility] Test performed at address of the patient encounter. [facility] Interpretation and review of laboratory results Normal [facility] PHOSPHATE, INORGANICon 01-04 Phosphorous 2.7 mg/dL Normal 2.2-4.6 [facility] Comment on above: Performed By: #### C HM7, IPB, MGO, TRIG, CKB #### [facility] (DEFAULT) [address] [place] [address] 14082 Phosphate [Mass/Vol] 2.7 mg/dL 2.2 - 4 .6 mg/dL [facility] CBC,PLATELETSon 01-03-2023 Hematocrit (Bld) [Volume fraction] 36.5 % Low 39.6-48.8 [facility] Comment on above: Performed By: #### L DLB, LIPDR #### [facility] (DEFAULT) [address] [place] [address] 39556 Hemoglobin (Bld) [Mass/Vol] 12.6 g/dL Low 13.4-16.8 [facility] Comment on above: Performed By: #### L DLB, LIPDR #### [facility] (DEFAULT) [address] [place] [address]17[address] MCV (RBC) [Entitic vol] 95.3 fL High 79.0-94.5 [facility] Comment on above: Performed By: #### L DLB, LIPDR #### [facility] (DEFAULT) [address] [place] [address] Mean Cell Hgb 32.9 pg Normal 26.1-33.3 [facility] Comment on above: Performed By: #### L DLB, LIPDR #### [facility] (DEFAULT) [address] [place] [address] 36803 Mean Cell Hgb Conc 34.5 g/dL Normal 31.9-36.5 [facility] Comment on above: Performed By: #### L DLB, LIPDR #### [facility] (DEFAULT) [address] [place] [address] 42634 Platelet mean volume (Bld) [Entitic vol] 10.9 fL Normal 8.7-12.3 [facility] Comment on above: Performed By: #### L DLB, LIPDR #### [facility] (DEFAULT) [address] [place] [address] 46017 Platelets (Bld) [#/Vol] 229 10*3/uL Normal 146-337 [facility] Comment on above: Performed By: #### L FREDERICK, LIPDR #### [facility] (DEFAULT) [address] [place] [address] 97[address] RBC (Bld) [#/Vol] 3.83 10*6/uL Low 4.38-5.83 [facility] Comment on above: Performed By: #### L DLB, LIPDR #### [facility] (DEFAULT) [address] [place] [address]649 RBC Distribution 14.7 % High 10.9-14.3 [facility] Comment on above: Performed By: #### L DLB, LIPDR #### [facility] (DEFAULT) [address] [place] [address]798 WBC (Bld) [#/Vol] 10.72 10*3/uL High 3.73-10.10 [facility] Comment on above: Performed By: #### L DLB, LIPDR #### [facility] (DEFAULT) [address] [place] [address] 05509 Erythrocyte distribution width (RBC) [Ratio] 14.7 % High 10.9 - 14.3 % [facility] Hematocrit (Bld) [Volume fraction] 36.5 % Low 39.6 - 48.8 % [facility] Hemoglobin (Bld) [Mass/Vol] 12.6 g/dL Low 13.4 - 16.8 g/dL [facility] Interpretation and review of laboratory results Abnormal [facility] MCH (RBC) [Entitic mass] 32.9 pg 26.1 - 33.3 pg [facility] MCHC (RBC) [Mass/Vol] 34.5 g/dL 31.9 - 36.5 g/dL [facility] MCV (RBC) [Entitic vol] 95.3 fL High 79.0 - 94.5 fL [facility] Platelet mean volume (Bld) [Entitic vol] 10.9 fL 8.7 - 12.3 fL [facility] Platelets (Bld) [#/Vol] 229 10*3/uL 146 - 337 K/uL [facility] RBC (Bld) [#/Vol] 3.83 10*6/uL Low [facility] WBC (Bld) [#/Vol] 10.72 10*3/uL High 3.73 - 10 .10 K/uL [facility] CHEM 7 (LYTES,BUN,CREA,GLUC) on 01-03-2023 Anion gap [Moles/Vol] 13 mmol/L Normal 7-17 [facility] Comment on above: Performed By: #### L DLB, LIPDR #### [facility] (DEFAULT) [address] [address] Chloride [Moles/Vol] 108 mmol/L Normal 98-108 [facility] Comment on above: Performed By: #### L DLB, LIPDR #### [facility] (DEFAULT) [address] [place] [address] [id number] CO2 [Moles/Vol] 22 mmol/L Normal 21-31 [facility] Comment on above: Performed By: #### L DLB, LIPDR #### [facility] (DEFAULT) [address] [place] [id number] Creatinine [Mass/Vol] 0.80 mg/dL Normal 0.70-1.30 [facility] Comment on above: Performed By: #### L DLB, LIPDR #### [facility] (DEFAULT) [address] [place] [address] GFR/1.73 sq M.predicted among non-blacks MDRD (S/P/Bld) [Vol rate/Area] 88 mL/min/{1.73_m2} Normal >=60 [facility] Comment on above: Result Comment: Repo rted eGFR is based on the CKD-EPI 2020 equation using creatinine, age, and sex. Performed By: #### L DLB, LIPDR #### [facility] (DEFAULT) [address] [place] [address] Glucose [Mass/Vol] 115 mg/dL High 70-99 [facility] Comment on above: Performed By: #### L DLB, LIPDR #### [facility] (DEFAULT) [address] [place] [address]96 Osmolality [Osmolality] 294 mosm/kg Normal 278-305 [facility] Comment on above: Performed By: #### L DLB, LIPDR #### [facility] (DEFAULT) [address] [place] [address]48 Potassium [Moles/Vol] 3.9 mmol/L Normal 3.5-5.0 [facility] Comment on above: Performed By: #### L DLB, LIPDR #### [facility] (DEFAULT) [address] [place] [address] Sodium [Moles/Vol] 139 mmol/L Normal 135-145 [facility] Comment on above: Performed By: #### L DLB, LIPDR #### [facility] (DEFAULT) [address] [place] [address] 14291 Urea nitrogen [Mass/Vol] 18 mg/dL Normal 7-25 [facility] Comment on above: Performed By: #### L DLB, LIPDR #### [facility] (DEFAULT) [address] [place] [address]129 Urea nitrogen/Creatinine [Mass ratio] 23 mg/mg Normal [facility] Comment on above: Performed By: #### L DLB, LIPDR #### [facility] (DEFAULT) [address] [place] [address]14 Anion gap [Moles/Vol] 13 mmol/L 7 - 17 mmol/L [facility] Chloride [Moles/Vol] 108 mmol/L 98 - 10 8 mmol/L [facility] CO2 [Moles/Vol] 22 mmol/L 21 - 31 mmol/L [facility] Creatinine [Mass/Vol] 0.80 mg/dL 0.70 - 1.30 mg/dL [facility] GFR/1.73 sq M.predicted CKD-EPI (S/P/Bld) [Vol rate/Area] 88 - PINF [facility] Comment on above: Reported eGFR is bas ed on the CKD-EPI 2020 equation using creatinine, age, and sex. Glucose [Mass/Vol] 115 mg/dL High 70 - 99 mg/dL [facility] Interpretation and review of laboratory results Abnormal [facility] Osmolality Calc [Osmolality] 294 [facility] Potassium [Moles/Vol] 3.9 mmol/L 3.5 - 5.0 mmol/L [facility] Sodium [Moles/Vol] 139 mmol/L 135 - 145 mmol/L [facility] Urea nitrogen [Mass/Vol] 18 mg/dL 7 - 25 mg/dL [facility] Urea nitrogen/Creatinine [Mass ratio] 23 mg/mg [facility] CONTINUOUS CARDIAC MONITORIN G STRIPon 01-03-2023 [facility] Cardiac echo study Procedure Ordered By: Lj Ward on 01-03-2023 Ao ASC index 1.78 cm/m2 [facility] Work Phone: Ao peak raad 1.52 m/s [facility] Work Phone: Ao SOV index 1.77 cm/m2 [facility] Work Phone: Ao STJ index 1.47 cm/m2 [facility] Work Phone: Ao VTI 31.10 cm [facility] Work Phone: Ascending aorta 3.[address] [facility] Work Phone: AV LVOT peak gradient 6 mmHg [facility] Work Phone: AV mean gradient 5 mmHg [facility] Work Phone: AV peak gradient 9 mmHG [facility] Work Phone: AV valve area 3.50 cm2 [facility] Work Phone: AV Velocity Ratio 0.83 [facility] Work Phone: LIANNE (continuity Vmax) 3.66 cm2 [facility] Work Phone: LIANNE (continuity VTI) 3.50 cm2 [facility] Work Phone: LIANNE index (continuity Vmax) 1.77 m/s [facility] Work Phone: LIANNE index (continuity VTI) 1.70 cm2/m2 [facility] Work Phone: Avg e' pk raad 0.08 m/s [facility] Work Phone: Avg E/e' ratio 10.12 [facility] Work Phone: Body surface area Derived from formula 2.06 m2 [facility] Work Phone: BP EF 31 % [facility] Work Phone: DI (Vmax) 0.83 [facility] Work Phone: DI (VTI) 0.79 m/2 [facility] Work Phone: E wave decelartion time 248.40 msec [facility] Work Phone: e' lateral pk raad 0.1056 m/s [facility] Work Phone: e' lateral pk raad 0.11 m/s [facility] Work Phone: e' septal pk raad 0.0632 m/s [facility] Work Phone: e' septal pk raad 0.06 m/s [facility] Work Phone: E/A ratio 0.69 [facility] Work Phone: E/e' lateral ratio 7.58 [facility] Work Phone: E/e' septal ratio 12.66 [facility] Work Phone: EF SP 2CH 32 [facility] Work Phone: EF SP 4CH 31 [facility] Work Phone: EST RAP 5 mmHg [facility] Work Phone: EST RVSP 20 mmHg [facility] Work Phone: FS 18 % Abnormal 28 - 44 % [facility] Work Phone: Interpretation and review of laboratory results Abnormal [facility] Work Phone: IVC ostium 1.82 cm [facility] Work Phone: IVS 1.00 cm [facility] Work Phone: LA ESV BP (MOD) 89 mL [facility] Work Phone: LA ESV BP (MOD) index 43 mL/m2 [facility] Work Phone: LA ESV SP 2CH (MOD) 99 mL [facility] Work Phone: LA ESV SP 4CH (MOD) 86 mL [facility] Work Phone: LV EDV BP 247 mL [facility] Work Phone: LV EDV SP 2CH 278 mL [facility] Work Phone: LV EDV SP 4CH 196 mL [facility] Work Phone: LV ESV BP 170 mL [facility] Work Phone: LV ESV SP 2CH 190 mL [facility] Work Phone: LV ESV SP 4CH 136 mL [facility] Work Phone: LV mass 234.00 g [facility] Work Phone: LV Mass Index 113.6 g/m2 [facility] Work Phone: LV RWT 0.32 [facility] Work Phone: LV stroke volume BP (ml) 77 mL [facility] Work Phone: LV stroke volume index BP 37.38 mL/m2 [facility] Work Phone: LVIDD 5.95 cm [facility] Work Phone: LVIDS 4.86 cm [facility] Work Phone: LVOT area 4.41 cm2 [facility] Work Phone: LVOT diameter 2.37 cm [facility] Work Phone: LVOT peak raad 1.26 m/s [facility] Work Phone: LVOT peak VTI 24.66 cm [facility] Work Phone: LVOT stroke volume 109 cm3 [facility] Work Phone: LVOT stroke volume index 52.78 ml/m2 [facility] Work Phone: MV pk A raad 1.16 m/s [facility] Work Phone: MV pk E raad 0.80 m/s [facility] Work Phone: [facility]SU AV VTI RATIO PRE STRESS 0.79 [facility] Work Phone: OSU ECHO LV BIPLANE SYSTOLIC VOLUME INDEX 82.52 mL/m2 [facility] Work Phone: OSU ECHO LV BP DIASTOLIC VOLUME INDEX 119.90 mL/m2 [facility] Work Phone: PV peak gradient 5 mmHg [facility] Work Phone: PV PK RAAD 1.10 m/s [facility] Work Phone: PW 0.94 cm [facility] Work Phone: RA vol index 4CH (MOD) 12.14 mL/m2 O [facility] Work Phone: Right atrium volume 4 chamber method of disks 25 mL [facility] Work Phone: RV Area diastolic 13.74 cm2 [facility] Work Phone: RV Area systolic 4.41 cm2 [facility] Work Phone: RV basal diam 2.80 cm [facility] Work Phone: RV Fractional area change 67.9 % [facility] Work Phone: RV long diam 7.75 cm [facility] Work Phone: RV mid diam 1.94 cm [facility] Work Phone: RV S' 13.72 cm/s [facility] Work Phone: RVOT peak gradient 3 mmHg [facility] Work Phone: RVOT peak raad 0.82 m/s [facility] Work Phone: Sinus 3.65 cm [facility] Work Phone: STJ 3.03 cm [facility] Work Phone: Stroke Volume 109 cm/mL [facility] Work Phone: Stroke volume index 53 [facility] Work Phone: TAPSE 2.55 cm [facility] Work Phone: TR pk grad 15 mmHg [facility] Work Phone: TR pk raad 1.92 m/s [facility] Work Phone: TV rest pulmonary artery pressure 19.75 mmHg [facility] Work Phone: [facility] Work Phone: Cardiac echo study Procedure on 01-03-2023 Left Ventricle: Arvin jennifer size is normal. Normal wall thickness. Severe global hypokinesis. Abnormal septal motion consistent with left bundle branch block. Ejection fraction is severely reduced (25 - 30%). Diastolic function is consistent with impaired relaxation (grade I). Right Ventricle: Chamber size is normal. Systolic function is normal. Left Atrium: Chamber size is moderately enlarged. No hemodynamically significant valve disease. No prior for comparison. Left Ventricle Chamber size is normal. Normal wall thickness. Severe global hypokinesis. Abnormal septal motion consistent with left bundle branch block. Ejection fraction is severely reduced (25 - 30%). Diastolic function is consistent with impaired relaxation (grade I). Right Ventricle Chamber size is normal. Systolic function is normal. Left Atrium Chamber size is moderately enlarged. Right Atrium Chamber size is normal. IVC/SVC The inferior vena cava is normal in size. Mitral Valve Normal appearing leaflets. Leaflet mobility is normal. Trace regurgitation. No valve stenosis. Tricuspid Valve Normal leaflets. Leaflet mobility is normal. Trace regurgitation. No stenosis. Estimated right ventricular systolic pressure is 20 mmHg. Aortic Valve Trileaflet valve. Non-specific thickening. Leaflet calcification. Leaflet mobility is normal. No regurgitation. No stenosis. Pulmonic Valve Normal structure. Mild regurgitation. No stenosis. Pericardium No pericardial effusion. Septum The atrial septum is normal. Pulmonary Artery The pulmonary artery is normal. Aorta No dilation to extent seen. Study Details A complete echocardiography study (including microbubbles) was performed. Study limitations include poor cardiac windows. Imaging system used: Siemens. Wall Scoring Score Index: 2.00 The left ventricular wall motion is globally hypokinetic. [facility] ECHOCARDIOGRAMon 01-03-2023 Echocardiography ? Left Ventricle: Chamber size is normal. Normal wall thickness. Severe global hypokinesis. Abnormal septal motion consistent with left bundle branch block. Ejection fraction is severely reduced (25 - 30%). Diastolic function is consistent with impaired relaxation (grade I). ? Right Ventricle: Chamber size is normal. Systolic function is normal. ? Left Atrium: Chamber size is moderately enlarged. ? No hemodynamically significant valve disease. ? No prior for comparison. Table formatting from the original result was not included. Images from the original result were not included. Facility [facility] Patient Information Patient Name Ankit Lewis Legal Sex Male Indication for Exam Priority: Routine Dx: Cerebrovascular accident (CVA), unspecified mechanism [I63.9 (ICD-10-CM)] Order Question Reason for Exam stroke Interpretation Summary ? Left Ventricle: Chamber size is normal. Normal wall thickness. Severe global hypokinesis. Abnormal septal motion consistent with left bundle branch block. Ejection fraction is severely reduced (25 - 30%). Diastolic function is consistent with impaired relaxation (grade I). ? Right Ventricle: Chamber size is normal. Systolic function is normal. ? Left Atrium: Chamber size is moderately enlarged. ? No hemodynamically significant valve disease. ? No prior for comparison. Findings Left Ventricle Chamber size is normal. Normal wall thickness. Severe global hypokinesis. Abnormal septal motion consistent with left bundle branch block. Ejection fraction is severely reduced (25 - 30%). Diastolic function is consistent with impaired relaxation (grade I). Right Ventricle Chamber size is normal. Systolic function is normal. Left Atrium Chamber size is moderately enlarged. Right Atrium Chamber size is normal. Septum The atrial septum is normal. Mitral Valve Normal appearing leaflets. Leaflet mobility is normal. Trace regurgitation. No valve stenosis. Aortic Valve Trileaflet valve. Non-specific thickening. Leaflet calcification. Leaflet mobility is normal. No regurgitation. No stenosis. Tricuspid Valve Normal leaflets. Leaflet mobility is normal. Trace regurgitation. No stenosis. Estimated right ventricular systolic pressure is 20 mmHg. Pulmonic Valve Normal structure. Mild regurgitation. No stenosis. Aorta No dilation to extent seen. Pericardium No pericardial effusion. IVC/SVC The inferior vena cava is normal in size. Pulmonary Artery The pulmonary artery is normal. Reading Providers Reading Role Read Date Lj Ward MD Echo [place] 01/03/2023 Wall Scoring Score Index: 2.00 The left ventricular wall motion is globally hypokinetic. Left Heart Measurements LV - Systole LVIDD 5.95 cm IVS 1 cm LVIDS 4.86 cm PW 0.94 cm LV RWT 0.32 LV Mass Index 113.6 g/m2 LV EDV BP 247 mL LV ESV BP 170 mL BP EF 31 % LV stroke volume BP (ml) 77 mL LV stroke volume index BP 37.38 mL/m2 LV - Diastole MV pk E raad 0.8 m/s MV pk A raad 1.16 m/s E/A ratio 0.69 e' septal pk raad 0.06 m/s e' lateral pk raad 0.11 m/s Avg e' pk raad 0.08 m/s E/e' septal ratio 12.66 E/e' lateral ratio 7.58 Avg E/e' ratio 10.12 LV - HCM AV LVOT peak gradient 6 mmHg Left Atrium LA ESV SP 4CH (MOD) 86 mL LA ESV SP 2CH (MOD) 99 mL LA ESV BP (MOD) index 43 mL/m2 Right Heart Measurements RV - 2D RV basal diam 2.8 cm RV mid diam 1.94 cm RV long diam 7.75 cm RV Area diastolic 13.74 cm2 RV Area systolic 4.41 cm2 RV Fractional area change 67.9 % RV - Doppler TAPSE 2.55 cm RV S' 13.72 cm/s Right Atrium RA vol index 4CH (MOD) 12.14 mL/m2 EST RAP 5 mmHg Great Vessels Aortic Root - End Diastolic Sinus 3.65 cm STJ 3.03 cm Ascending aorta 3.67 cm Inferior Vena Cava IVC ostium 1.82 cm Doppler Measurements - Aortic Valve Stenosis LVOT diameter 2.37 cm LVOT area 4.41 cm2 LVOT peak raad 1.26 m/s LVOT peak VTI 24.66 cm Stroke Volume 109 cm/mL Stroke volume index 53 Ao peak raad 1.52 m/s Ao VTI 31.1 cm AV peak gradient 9 mmHG AV mean gradient 5 mmHg DI (VTI) 0.79 m/2 DI (Vmax) 0.83 LIANNE (continuity Vmax) 3.66 cm2 LIANNE index (continuity Vmax) 1.77 m/s LIANNE (continuity VTI) 3.5 cm2 LIANNE index (continuity VTI) 1.7 cm2/m2 LVOT stroke volume 109 cm3 LVOT stroke volume index 52.78 ml/m2 Doppler Measurements - Mitral Valve Stenosis MV pk E raad 0.8 m/s MV pk A raad 1.16 m/s E/A ratio 0.69 TV rest pulmonary artery pressure 19.75 mmHg PISA-MS MV pk E raad 0.8 m/s Doppler Measurements - Tricuspid Valve Stenosis IVC ostium 1.82 cm Regurgitation TR pk raad 1.92 m (more content not included)... Abnormal [facility] GLUCOSE POCon 01-03-2023 Glucose [Mass/Vol] 105 mg/dL High 70 - 99 mg/dL [facility] Interpretation and review of laboratory results Abnormal [facility] POC Sample Type CAPBL [facility] Test performed at address of the patient encounter. [facility] IONIZED CALCIUM, SERUMon ICA 4.18 mg/dL Low 4.60-5.30 [facility] Comment on above: Performed By: #### L FREDERICK, JULIANNA #### [facility] (DEFAULT) [address] [place] [address] IONIZED CALCIUM, SERUMOrdere d By: Ana Maria Maldonado on 01-03-2023 Calcium.ionized (Bld) [Moles/Vol] 4.18 mg/dL Low 4.60 - 5.30 mg/dL [facility] Interpretation and review of laboratory results Abnormal [facility] MAGNESIUMon 01-03-2023 Magnesium [Mass/Vol] 2.2 mg/dL Normal 1.6-2.6 [facility] Comment on above: Performed By: #### L DLB, LIPDR #### [facility] (DEFAULT) [address] [place] [address] Magnesium [Mass/Vol] 2.2 mg/dL 1.6 - 2 .6 mg/dL [facility] MR Brain WO contraston 01-03 IMPRESSION: Small areas of acute infarct within the right lenticulostriate and MCA territory. No significant mass effect or midline shift. No intracranial hemorrhage. I personally viewed and interpreted these images and I have reviewed and approved this report. 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 TECHNIQUE: A series of multisequence, multiplanar images of the brain are obtained without intravenous contrast according to acute stroke protocol. Study includes diffusion-weighted images. Study was performed at 1.5 [place]. FINDINGS: Increased FLAIR signal and restricted diffusion [...] limits. Skull and extracranial structures are unremarkable. 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 TECHNIQUE: A series of multisequence, multiplanar images of the brain are obtained without intravenous contrast according to acute stroke protocol. Study includes diffusion-weighted images. Study was performed at 1.5 [place]. FINDINGS: Increased FLAIR signal and restricted diffusion [...] limits. Skull and extracranial structures are unremarkable. IMPRESSION IMPRESSION: Small areas of acute infarct within the right lenticulostriate and MCA territory. No significant mass effect or midline shift. No intracranial hemorrhage. I personally viewed and interpreted these images and I have reviewed and approved this report. [facility] Radiology Study observation (narrative) [facility] MR Brain WO contrastOrdered By: Brad Pan on 01-03-2023 [facility] Work Phone: MRI BRAIN STROKE WITHOUT CON TRASTon 01-03-2023 MRI BRAIN STROKE WITHOUT CONTRAST EXAM: MRI BRAIN STROKE WITHOUT CONTRAST, 01/03/2023 13:05 PM COMPARISON: CT head from January 02, 2023 CLINICAL INDICATIONS: 82 years Male Stroke, follow up; RELEVANT CLINICAL HISTORY: Patient diagnosed with right MCA occlusion, 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 TECHNIQUE: A series of multisequence, multiplanar images of the brain are obtained without intravenous contrast according to acute stroke protocol. Study includes diffusion-weighted images. Study was performed at 1.5 [place]. FINDINGS: Increased FLAIR signal and restricted diffusion [...] I have reviewed and approved this report. Normal [facility] No Panel Informationon 01-03 Interpretation and review of laboratory results Normal [facility] PHOSPHATE, INORGANICon 01-03 Phosphorous 2.7 mg/dL Normal 2.2-4.6 [facility] Comment on above: Performed By: #### L DLB, LIPDR #### [facility] (DEFAULT) [address] [place] [address] Phosphate [Mass/Vol] 2.7 mg/dL 2.2 - 4 .6 mg/dL [facility] Portable XR Chest Viewson IMPRESSION: Bibasilar atelectasis and potential small pleural effusions, limited by portable technique. OLOGY EXAM: XR CHEST PORTABLE, 01/03/2023 12:23 PM COMPARISON: January 02, 2023 CLINICAL INDICATIONS: c/f pulmonary edema RELEVANT CLINICAL HISTORY: FINDINGS: (Adequate technique) Implanted Devices: None Thorax: Visualized lungs demonstrate some bibasilar atelectasis. Potential small pleural effusions. No pneumothorax. Stable cardiomegaly. Midline trachea. RADIOLOGY Milton Castorena, - 01/03/2023 EXAM: XR CHEST PORTABLE, 01/03/2023 12:23 PM COMPARISON: January 02, 2023 CLINICAL INDICATIONS: c/f pulmonary edema RELEVANT CLINICAL HISTORY: FINDINGS: (Adequate technique) Implanted Devices: None Thorax: Visualized lungs demonstrate some bibasilar atelectasis. Potential small pleural effusions. No pneumothorax. Stable cardiomegaly. Midline trachea. IMPRESSION IMPRESSION: Bibasilar atelectasis and potential small pleural effusions, limited by portable technique. [facility] Radiology Study observation (narrative) [facility] Portable XR Chest ViewsOrder ed By: Milton Castorena on 01-03-2023 [facility] Work Phone: XR CHEST PORTABLEon 01-04-20 XR CHEST PORTABLE EXAM: XR CHEST PORTABLE, 01/03/2023 12:23 PM COMPARISON: January 02, 2023 CLINICAL INDICATIONS: c/f pulmonary edema RELEVANT CLINICAL HISTORY: FINDINGS: (Adequate technique) Implanted Devices: None Thorax: Visualized lungs demonstrate some bibasilar atelectasis. Potential small pleural effusions. No pneumothorax. Stable cardiomegaly. Midline trachea. IMPRESSION: Bibasilar atelectasis and potential small pleural effusions, limited by portable technique. Normal [facility] ABORH TYPE RECONFIRMATIONon 01-02-2023 ABO/RH(D) TYPE Positive Normal [facility] Comment on above: Performed By: #### L DLB, LIPDR #### [facility] (DEFAULT) [address] [place] [address] ABO/RH(D) TYPE Positive [facility] B-TYPE NATRIURETIC PEPTIDE ( BRAIN)on 01-02-2023 Interpretation and review of laboratory results Abnormal [facility] Natriuretic peptide B (Bld) [Mass/Vol] 147 pg/mL High 0 - 100 pg/mL [facility] Natriuretic peptide B (Bld) [Mass/Vol] 147 pg/mL High 0-100 [facility] Comment on above: Performed By: #### L DLB, LIPDR #### [facility] (DEFAULT) [address] [place] [address] CHEM 7 (LYTES,BUN,CREA,GLUC) on 01-02-2023 Anion gap [Moles/Vol] 13 mmol/L Normal 7-17 [facility] Comment on above: Performed By: #### C HM7, IPB, MGO, TRIG, CKB #### [facility] (DEFAULT) [address] [place] [address] 0[address]99 Chloride [Moles/Vol] 108 mmol/L Normal 98-108 [facility] Comment on above: Performed By: #### C HM7, IPB, MGO, TRIG, CKB #### [facility] (DEFAULT) [address] [place] [address] 26963 CO2 [Moles/Vol] 21 mmol/L Normal 21-31 [facility] Comment on above: Performed By: #### C HM7, IPB, MGO, TRIG, CKB #### [facility] (DEFAULT) [address] [place] [address] 33021 Creatinine [Mass/Vol] 0.81 mg/dL Normal 0.70-1.30 [facility] Comment on above: Performed By: #### C HM7, IPB, MGO, TRIG, CKB #### [facility] (DEFAULT) [address] [place] [address] GFR/1.73 sq M.predicted among non-blacks MDRD (S/P/Bld) [Vol rate/Area] 88 mL/min/{1.73_m2} Normal >=60 [facility] Comment on above: Result Comment: Repo rted eGFR is based on the CKD-EPI 2020 equation using creatinine, age, and sex. Performed By: #### C HM7, IPB, MGO, TRIG, CKB #### [facility] (DEFAULT) [address] [place] [address] Glucose [Mass/Vol] 160 mg/dL High 70-99 [facility] Comment on above: Performed By: #### C HM7, IPB, MGO, TRIG, CKB #### [facility] (DEFAULT) [address] [place] [address]295 Osmolality [Osmolality] 297 mosm/kg Normal 278-305 [facility] Comment on above: Performed By: #### C HM7, IPB, MGO, TRIG, CKB #### [facility] (DEFAULT) [address] [place] [address] 68935 Potassium [Moles/Vol] 4.4 mmol/L Normal 3.5-5.0 [facility] Comment on above: Performed By: #### C HM7, IPB, MGO, TRIG, CKB #### [facility] (DEFAULT) [address] [place] [address]01 Sodium [Moles/Vol] 138 mmol/L Normal 135-145 [facility] Comment on above: Performed By: #### C HM7, IPB, MGO, TRIG, CKB #### [facility] (DEFAULT) [address] [place] [address] 58334 Urea nitrogen [Mass/Vol] 22 mg/dL Normal 7-25 [facility] Comment on above: Performed By: #### C HM7, IPB, MGO, TRIG, CKB #### [facility] (DEFAULT) [address] [place] [address]603 Urea nitrogen/Creatinine [Mass ratio] 27 mg/mg Normal [facility] Comment on above: Performed By: #### C HM7, IPB, MGO, TRIG, CKB #### [facility] (DEFAULT) [address] [place] [address] 90925 Anion gap [Moles/Vol] 13 mmol/L 7 - 17 mmol/L [facility] Chloride [Moles/Vol] 108 mmol/L 98 - 10 8 mmol/L [facility] CO2 [Moles/Vol] 21 mmol/L 21 - 31 mmol/L [facility] Creatinine [Mass/Vol] 0.81 mg/dL 0.70 - 1.30 mg/dL [facility] GFR/1.73 sq M.predicted CKD-EPI (S/P/Bld) [Vol rate/Area] 88 - PINF [facility] Comment on above: Reported eGFR is bas ed on the CKD-EPI 2020 equation using creatinine, age, and sex. Glucose [Mass/Vol] 160 mg/dL High 70 - 99 mg/dL [facility] Osmolality Calc [Osmolality] 297 [facility] Potassium [Moles/Vol] 4.4 mmol/L 3.5 - 5.0 mmol/L [facility] Sodium [Moles/Vol] 138 mmol/L 135 - 145 mmol/L [facility] Urea nitrogen/Creatinine [Mass ratio] 27 mg/mg [facility] CKon 01-02-2023 CK [Catalytic activity/Vol] 98 U/L Normal 30-220 [facility] Comment on above: Order Comment: While on Propofol. Performed By: #### C HM7, IPB, MGO, TRIG, CKB #### [facility] (DEFAULT) [address] [place] [address] CK [Catalytic activity/Vol] 98 U/L 30 - 220 U/L [facility] CONTINUOUS CARDIAC MONITORIN G STRIPOrdered By: Unassigned Pacs on 01-02-2023 [facility] Work Phone: CT HEAD WITHOUT CONTRASTon 0 01-02-2023 CT HEAD WITHOUT CONTRAST EXAM: CT HEAD WITHOUT CONTRAST, 01/02/2023 2:32 PM COMPARISON: None. CLINICAL INDICATIONS: 82 years Male ischemic stroke; RELEVANT CLINICAL HISTORY: To be scheduled 24 hours post admission.; TECHNIQUE: A series of transaxial computerized tomographic images are obtained from base of skull to vertex without intravenous contrast. Axial whole-head and thin section posterior fossa slices are provided. Reformats: Sagittal and coronal. FINDINGS: No acute large territory infarction is seen. No acute intracranial hemorrhage is seen. No significant mass effect or midline shift. Ventricles are normal in size and configuration for patient age. Skull appears intact. Visualized orbits appear normal. There is heterogenous opacification of the sphenoid sinus with central calcifications which may be from fungal colonization. Mucoperiosteal thickening is present which suggests that this is likely chronic. IMPRESSION: 1. No evolving large vessel occlusion within the brain. 2. No evidence of intracranial hemorrhage. 3. Chronic appearing sphenoid sinus opacification with potential fungal colonization. Normal [facility] CT Head WO contraston 2022 IMPRESSION: 1. No evolving large vessel occlusion within the brain. 2. No evidence of intracranial hemorrhage. 3. Chronic appearing sphenoid sinus opacification with potential fungal colonization. OLOGY EXAM: CT HEAD WITHOU T CONTRAST, 01/02/2023 2:32 PM COMPARISON: None. CLINICAL INDICATIONS: 82 years Male ischemic stroke; RELEVANT CLINICAL HISTORY: To be scheduled 24 hours post admission.; TECHNIQUE: A series of transaxial computerized tomographic images are obtained from base of skull to vertex without intravenous contrast. Axial whole-head and thin section posterior fossa slices are provided. Reformats: Sagittal and coronal. FINDINGS: No acute large territory infarction is seen. No acute intracranial hemorrhage is seen. No significant mass effect or midline shift. Ventricles are normal in size and configuration for patient age. Skull appears intact. Visualized orbits appear normal. There is heterogenous opacification of the sphenoid sinus with central calcifications which may be from fungal colonization. Mucoperiosteal thickening is present which suggests that this is likely chronic. RADIOLOGY James Mcmullen MD - 01/02/2023 EXAM: CT HEAD WITHOUT CONTRAST, 01/02/2023 2:32 PM COMPARISON: None. CLINICAL INDICATIONS: 82 years Male ischemic stroke; RELEVANT CLINICAL HISTORY: To be scheduled 24 hours post admission.; TECHNIQUE: A series of transaxial computerized tomographic images are obtained from base of skull to vertex without intravenous contrast. Axial whole-head and thin section posterior fossa slices are provided. Reformats: Sagittal and coronal. FINDINGS: No acute large territory infarction is seen. No acute intracranial hemorrhage is seen. No significant mass effect or midline shift. Ventricles are normal in size and configuration for patient age. Skull appears intact. Visualized orbits appear normal. There is heterogenous opacification of the sphenoid sinus with central calcifications which may be from fungal colonization. Mucoperiosteal thickening is present which suggests that this is likely chronic. IMPRESSION IMPRESSION: 1. No evolving large vessel occlusion within the brain. 2. No evidence of intracranial hemorrhage. 3. Chronic appearing sphenoid sinus opacification with potential fungal colonization. [facility] Radiology Study observation (narrative) [facility] CT Head WO contrastOrdered B y: James Mcmullen on 01-02-2023 [facility] Work Phone: Cardiac echo study Procedure on 01-02-2023 Radiology Study observation (narrative) [facility] GLUCOSE POCon 01-02-2023 Glucose [Mass/Vol] 162 mg/dL High 70 - 99 mg/dL [facility] Interpretation and review of laboratory results Abnormal [facility] POC Sample Type VENO [facility] Test performed at address of the patient encounter. [facility] Glucose [Mass/Vol] 137 mg/dL High 70 - 99 mg/dL [facility] Glucose [Mass/Vol] 167 mg/dL High 70 - 99 mg/dL [facility] POC Sample Type CAPBL [facility] POC Sample Type VENO [facility] HEMOGLOBIN & HEMATOCRITon Hematocrit (Bld) [Volume fraction] 39.6 % Normal 39.6-48.8 [facility] Comment on above: Performed By: #### L DLB, LIPDR #### [facility] (DEFAULT) [address] [place] [address] Hemoglobin (Bld) [Mass/Vol] 13.4 g/dL Normal 13.4-16.8 [facility] Comment on above: Performed By: #### L FREDERICK, LIP #### [facility] (DEFAULT) [address] [place] [address] Hematocrit (Bld) [Volume fraction] 39.6 % 39.6 - 48.8 % [facility] Hemoglobin (Bld) [Mass/Vol] 13.4 g/dL 13.4 - 16.8 g/dL [facility] Interpretation and review of laboratory results Normal [facility] Hematocrit (Bld) [Volume fraction] 40.8 % Normal 39.6-48.8 [facility] Comment on above: Performed By: #### L FREDERICK, LIP #### [facility] (DEFAULT) [address] [place] [address]116 Hemoglobin (Bld) [Mass/Vol] 13.7 g/dL Normal 13.4-16.8 [facility] Comment on above: Performed By: #### L FREDERICK, LIPDR #### [facility] (DEFAULT) [address] [place] [address] 97534 Hematocrit (Bld) [Volume fraction] 40.8 % 39.6 - 48.8 % [facility] Hemoglobin (Bld) [Mass/Vol] 13.7 g/dL 13.4 - 16.8 g/dL [facility] Interpretation and review of laboratory results Normal [facility] HIGH SENSITIVITY TROPONIN I - SINGLE ORDERon 01-02-2023 hs-Troponin I 18 ng/L Normal <53 [facility] Comment on above: Order Comment: Acute Coronary Syndrome (ACS): Initial Evaluation and Management:[email or web address] Performed By: #### L FREDERICK, LIPDR #### [facility] (DEFAULT) [address] [place] [address] Interpretation and review of laboratory results Normal [facility] Troponin I.cardiac High sensitivity method [Mass/Vol] 18 ng/L NINF - 53 ng/L [facility] MAGNESIUMon 01-02-2023 Magnesium [Mass/Vol] 1.9 mg/dL Normal 1.6-2.6 [facility] Comment on above: Performed By: #### C HM7, IPB, MGO, TRIG, CKB #### [facility] (DEFAULT) [address] [place] [address]32 Magnesium [Mass/Vol] 1.9 mg/dL 1.6 - 2 .6 mg/dL [facility] No Panel Informationon 01-02 Interpretation and review of laboratory results Abnormal [facility] Test performed at address of the patient encounter. [facility] Interpretation and review of laboratory results Abnormal [facility] Interpretation and review of laboratory results Normal [facility] PHOSPHATE, INORGANICon 01-02 Phosphorous 4.0 mg/dL Normal 2.2-4.6 [facility] Comment on above: Performed By: #### C HM7, IPB, MGO, TRIG, CKB #### [facility] (DEFAULT) [address] [place] [address]226 Phosphate [Mass/Vol] 4.0 mg/dL 2.2 - 4 .6 mg/dL [facility] Portable XR Chest Viewson IMPRESSION: Pulmonary edema. Life support devices in place. Minor atelectasis. OLOGY EXAM: XR CHEST PORTABLE, 01/02/2023 13:10 PM COMPARISON: No prior studies available for comparison. CLINICAL INDICATIONS: Atelectasis RELEVANT CLINICAL HISTORY: FINDINGS: (Adequate technique) Implanted Devices: ET tube tip in the midtrachea. Feeding tube courses into the stomach then out of the [id number]. Thorax: Bilateral effusions, right greater than left, with some minor atelectasis. Pulmonary edema. RADIOLOGY Drake Mcdonald MD - 01/02/2023 EXAM: XR CHEST PORTABLE, 01/02/2023 13:10 PM COMPARISON: No prior studies available for comparison. CLINICAL INDICATIONS: Atelectasis RELEVANT CLINICAL HISTORY: FINDINGS: (Adequate technique) Implanted Devices: ET tube tip in the midtrachea. Feeding tube courses into the stomach then out of the [id number]. Thorax: Bilateral effusions, right greater than left, with some minor atelectasis. Pulmonary edema. IMPRESSION IMPRESSION: Pulmonary edema. Life support devices in place. Minor atelectasis. [facility] Radiology Study observation (narrative) [facility] Portable XR Chest ViewsOrder ed By: Drake Mcdonald on 01-02-2023 [facility] Work Phone: SCREEN: MRSA/MSSAOrdered By: Jacques Floyd on 01-02-2023 Interpretation and review of laboratory results Abnormal [facility] Methicillin Resistant S. Aureus By Pcr Negative Negative [facility] Staphylococcus Aureus By Pcr Positive Abnormal Negative [facility] This test was perfor med using a real time PCR assay. Results should be interpreted in conjunction with other clinical and laboratory findings. A positive result does not necessarily indicate the presence of viable organism. This test should not be used as a test of cure. For E-swab specimens, this test was developed and its performance characteristics determined by the Clinical Microbiology Laboratory at [facility]. It has not been cleared or approved by the FDA.The laboratory is regulated under CLIA as qualified to perform high-complexity testing. This test is used for clinical purposes. It should not be regarded as investigational or for research. [facility] SCREEN: MRSA/MSSAon 01-03-20 23 Methicillin Resistant S. Aureus By Pcr Negative Normal Negative [facility] Comment on above: Order Comment: Colle ct with an ESWAB - Anterior Nares for MRSA + MSSA This test was performed using a real time PCR assay. Results should be interpreted in conjunction with other clinical and laboratory findings. A positive result does not necessarily indicate the presence of viable organism. This test should not be used as a test of cure. For E-swab specimens, this test was developed and its performance characteristics determined by the Clinical Microbiology Laboratory at [facility]. It has not been cleared or approved by the FDA.The laboratory is regulated under CLIA as qualified to perform high-complexity testing. This test is used for clinical purposes. It should not be regarded as investigational or for research. Performed By: #### S CRSB #### [facility] (DEFAULT) [address] [address] Staphylococcus Aureus By Pcr Positive Abnormal Negative [facility] Comment on above: Order Comment: Colle ct with an ESWAB - Anterior Nares for MRSA + MSSA This test was performed using a real time PCR assay. Results should be interpreted in conjunction with other clinical and laboratory findings. A positive result does not necessarily indicate the presence of viable organism. This test should not be used as a test of cure. For E-swab specimens, this test was developed and its performance characteristics determined by the [facility] at [facility]. It has not been cleared or approved by the FDA.The laboratory is regulated under CLIA as qualified to perform high-complexity testing. This test is used for clinical purposes. It should not be regarded as investigational or for research. Performed By: #### S CRSB #### [facility] (DEFAULT) [address] [address] Serum or plasma urea nitroge n measurement (mass/volume)on 01-02-2023 Urea nitrogen [Mass/Vol] 22 mg/dL 7-18 [facility] TRIGLYCERIDEon 01-02-2023 Triglyceride [Mass/Vol] 186 mg/dL High <150 [facility] Comment on above: Order Comment: While on Propofol. Result Comment: [<15 0 mg/dL: Desirable] [150-199 mg/dL: Borderline] [200-499 mg/dL: High] [>500 mg/dL: Very High] Performed By: #### C HM7, IPB, MGO, TRIG, CKB #### [facility] (DEFAULT) [address] [place] [address] Triglyceride [Mass/Vol] 186 mg/dL High NINF - 150 mg/dL [facility] Comment on above: [<150 mg/dL: Desirab le] [150-199 mg/dL: Borderline] [200-499 mg/dL: High] [>500 mg/dL: Very High] VON WILLEBRAND FACTOR AGOrde red By: Cristal Neal on 01-02-2023 Interpretation and review of laboratory results Abnormal [facility] vWf Ag actual/normal IA (PPP) [Relative mass conc] 294 % High 50 - 180 % [facility] XR ABDOMEN 1 VIEW PORTABLEon 01-02-2023 XR ABDOMEN 1 VIEW PORTABLE EXAM: XR ABDOMEN 1 VIEW PORTABLE, 01/02/2023 10:56 AM COMPARISON: No prior abdominal radiographs available for comparison. CLINICAL INDICATIONS: DHt placement FINDINGS: The distal tip of the Dobbhoff tube is identified at the junction of the second and third portion of the duodenum. No gross free air is identified or visceromegaly. The bowel gas pattern is nonobstructive. Mild gaseous distention of some bowel loops is suggested. The mid to lower pelvis was excluded. Degenerative changes are visualized in the spine. Bibasilar atelectasis is suspected. IMPRESSION: Distal tip of the Dobbhoff tube at the junction of the second and third portion of the duodenum. Normal [facility] XR Abdomen Single viewon IMPRESSION: Distal tip of the Dobbhoff tube at the junction of the second and third portion of the duodenum. OLOGY EXAM: XR ABDOMEN 1 V IEW PORTABLE, 01/02/2023 10:56 AM COMPARISON: No prior abdominal radiographs available for comparison. CLINICAL INDICATIONS: DHt placement FINDINGS: The distal tip of the Dobbhoff tube is identified at the junction of the second and third portion of the duodenum. No gross free air is identified or visceromegaly. The bowel gas pattern is nonobstructive. Mild gaseous distention of some bowel loops is suggested. The mid to lower pelvis was excluded. Degenerative changes are visualized in the spine. Bibasilar atelectasis is suspected. RADIOLOGY Milka Dinero MD - 01/02/2023 EXAM: XR ABDOMEN 1 VIEW PORTABLE, 01/02/2023 10:56 AM COMPARISON: No prior abdominal radiographs available for comparison. CLINICAL INDICATIONS: DHt placement FINDINGS: The distal tip of the Dobbhoff tube is identified at the junction of the second and third portion of the duodenum. No gross free air is identified or visceromegaly. The bowel gas pattern is nonobstructive. Mild gaseous distention of some bowel loops is suggested. The mid to lower pelvis was excluded. Degenerative changes are visualized in the spine. Bibasilar atelectasis is suspected. IMPRESSION IMPRESSION: Distal tip of the Dobbhoff tube at the junction of the second and third portion of the duodenum. [facility] Radiology Study observation (narrative) [facility] XR Abdomen Single viewOrdere d By: Milka Dinero on 01-02-2023 [facility] Work Phone: XR CHEST PORTABLEon 01-03-20 XR CHEST PORTABLE EXAM: XR CHEST PORTABLE, 01/02/2023 13:10 PM COMPARISON: No prior studies available for comparison. CLINICAL INDICATIONS: Atelectasis RELEVANT CLINICAL HISTORY: FINDINGS: (Adequate technique) Implanted Devices: ET tube tip in the midtrachea. Feeding tube courses into the stomach then out of the [id number]. Thorax: Bilateral effusions, right greater than left, with some minor atelectasis. Pulmonary edema. IMPRESSION: Pulmonary edema. Life support devices in place. Minor atelectasis. Normal [facility] 12 Lead EKGon 01-01-2023 12 Lead EKG [facility] Cardiovascular Services [address] [place] [address] 12 Lead EKG 01/01/23 1503 MR#: [id number] Acct: [id number] Name: ANKIT LEWIS Rep #: [id number] : 1940 82 From: Aly Dooley MD Attending Dr: Status: DEP ER Ordering Dr: Lovely Karimi DO Date: 01/01/23 Location: ED Sex: M C Admitted: Test Reason : STROKE Blood Pressure : / mmHG Vent. Rate : 062 BPM Atrial Rate : 062 BPM P-R Int : 202 ms QRS Dur : 192 ms QT Int : 538 ms P-R-T Axes : 042 -39 131 degrees QTc Int : 546 ms Normal sinus rhythm Left axis deviation Left bundle branch block Abnormal ECG Confirmed by GABO PEGUERO, MARCO ANTONIO ([id number]), assistant editor CATHY KEATING ([id number]) on 01/03/2023 10:11:37 AM Referred By: Confirmed By:DENI DOOLEY MD 01/03/23 1011 Date Aly Dooley MD CC: Dr. Rishi Wright MD; Dr. Lovely Karimi DO Signed Normal [facility] Absolute lymphocyte countOrd ered By: Lovely Karimi on 01-01-2023 Lymphocytes Auto (Unsp spec) [#/Vol] 3.19 10*3/uL 0.83-4.51 [facility] Automated blood hematocrit ( percentage)Ordered By: Lovely Karimi on 01-01-2023 Hematocrit (Bld) [Volume fraction] 44.2 % Normal 40-54 [facility] Comment on above: Performed By: #### L 300.3900, L500.2500, L100.0100, L300.4310, L501.4020 #### [facility] Laboratory [address] [place], [place], [address] Basic Metabolic Profile (BMP )on 01-01-2023 BUN/CRE 20.2 RATIO High 10-20 [facility] Comment on above: Order Comment: 'TROP ' Serial specimen #1, #2 or #3: 1 Performed By: #### L 300.3900, L500.2500, L100.0100, L300.4310, L501.4020 ####[facility] [address] [place], [address] CA,Total 8.7 mg/dL Normal 8.5-10.1 [facility] Comment on above: Order Comment: 'TROP ' Serial specimen #1, #2 or #3: 1 Performed By: #### L 300.3900, L500.2500, L100.0100, L300.4310, L501.4020 ####[facility] [address] [place], [address] ECRCL 52.25 ml/min Normal [facility] Comment on above: Order Comment: 'TROP ' Serial specimen #1, #2 or #3: 1 Performed By: #### L 300.3900, L500.2500, L100.0100, L300.4310, L501.4020 ####[facility] [address] [place], [address] EST GFR - AA 83 mL/min Normal >60 [facility] Comment on above: Order Comment: 'TROP ' Serial specimen #1, #2 or #3: 1 Result Comment: Afri can Nigerian GFR Calc Performed By: #### L 300.3900, L500.2500, L100.0100, L300.4310, L501.4020 ####[facility] [address] [place], [address] GAP 6 Normal 5-15 [facility] Comment on above: Order Comment: 'TROP ' Serial specimen #1, #2 or #3: 1 Performed By: #### L 300.3900, L500.2500, L100.0100, L300.4310, L501.4020 ####[facility] [address] [place], [address] GFR/1.73 sq M.predicted among non-blacks MDRD (S/P/Bld) [Vol rate/Area] 69 mL/min/{1.73_m2} Normal >60 [facility] Comment on above: Order Comment: 'TROP ' Serial specimen #1, #2 or #3: 1 Result Comment: Non- GFR Calc Performed By: #### L 300.3900, L500.2500, L100.0100, L300.4310, L501.4020 ####[facility] [address] [place], [address] Urea nitrogen [Mass/Vol] 22 mg/dL High 7-18 [facility] Comment on above: Order Comment: 'TROP ' Serial specimen #1, #2 or #3: 1 Performed By: #### L 300.3900, L500.2500, L100.0100, L300.4310, L501.4020 ####[facility] [address] [place], [address] Basic Metabolic Profile (BMP )Ordered By: Remus Trev on 01-01-2023 CO2 [Moles/Vol] 24.0 mmol/L Normal 21.0-32.0 [facility] Comment on above: Order Comment: 'TROP ' Serial specimen #1, #2 or #3: 1 Performed By: #### L 300.3900, L500.2500, L100.0100, L300.4310, L501.4020 ####[facility] [address] [place], [address] Basophil percentageOrdered B y: Remus Ungur on 01-01-2023 Chloride [Moles/Vol] 109 mmol/L High 98-107 [facility] Comment on above: Order Comment: 'TROP ' Serial specimen #1, #2 or #3: 1 Performed By: #### L 300.3900, L500.2500, L100.0100, L300.4310, L501.4020 ####[facility] [address] [place], [address] Glucose [Mass/Vol] 130 mg/dL High 74-106 [facility] Comment on above: Fasting Glucose resu lt greater than or equal to 126 mg/dL suggests DIABETES MELLITUS per A.D.A. criteria. Order Comment: 'TROP ' Serial specimen #1, #2 or #3: 1 Result Comment: Fast ing Glucose result greater than or equal to 126 mg/dL suggests DIABETES MELLITUS per A.D.A. criteria. Performed By: #### L 300.3900, L500.2500, L100.0100, L300.4310, L501.4020 ####[facility] [address] [place], [address] Potassium [Moles/Vol] 4.2 mmol/L Normal 3.5-5.1 [facility] Comment on above: Order Comment: 'TROP ' Serial specimen #1, #2 or #3: 1 Performed By: #### L 300.3900, L500.2500, L100.0100, L300.4310, L501.4020 ####[facility] [address] [place], [address] Sodium [Moles/Vol] 139 mmol/L Normal 136-145 [facility] Comment on above: Order Comment: 'TROP ' Serial specimen #1, #2 or #3: 1 Performed By: #### L 300.3900, L500.2500, L100.0100, L300.4310, L501.4020 ####[facility] [address] [place], [address] Basophils/100 WBC (Bld) 0.9 % Normal 0-1 [facility] Comment on above: Performed By: #### L 300.3900, L500.2500, L100.0100, L300.4310, L501.4020 #### [facility] Laboratory [address] [place], [address] Eosinophils/100 WBC (Bld) 2.2 % Normal 0-5 [facility] Comment on above: Performed By: #### L 300.3900, L500.2500, L100.0100, L300.4310, L501.4020 #### [facility] Laboratory [address] [place], [address] Neutrophils/100 WBC (Bld) 48.2 % Normal 47-70 [facility] Comment on above: Performed By: #### L 300.3900, L500.2500, L100.0100, L300.4310, L501.4020 #### [facility] Laboratory [address] [place], [address] WBC (Bld) [#/Vol] 8.9 10*3/uL Normal 4.4-11.0 [facility] Comment on above: Performed By: #### L 300.3900, L500.2500, L100.0100, L300.4310, L501.4020 #### [facility] Laboratory [address] [place], [address] Neutrophils (Bld) [#/Vol] 4.3 10*3/uL 2.0-7.7 [facility] Blood erythrocytes count (nu mber/volume)Ordered By: Lovely Karimi on 01-01-2023 RBC (Bld) [#/Vol] 4.61 10*6/uL Normal 4.6-6.2 [facility] Comment on above: Performed By: #### L 300.3900, L500.2500, L100.0100, L300.4310, L501.4020 #### [facility] Laboratory [address] [place], [address] Blood hemoglobin measurement (mass/volume)Ordered By: Lovely Karimi on 01-01-2023 Hemoglobin (Bld) [Mass/Vol] 14.9 g/dL Normal 13.0-16.5 [facility] Comment on above: Performed By: #### L 300.3900, L500.2500, L100.0100, L300.4310, L501.4020 #### [facility] Laboratory [address] [place], [address] Blood lymphocytes/100 leukoc ytesOrdered By: Remus Trev on 01-01-2023 Lymphocytes/100 WBC (Bld) 35.8 % Normal 19-41 [facility] Comment on above: Performed By: #### L 300.3900, L500.2500, L100.0100, L300.4310, L501.4020 #### [facility] Laboratory [address] [place], [address] Blood monocytes/100 leukocyt esOrdered By: Remus Trev on 01-01-2023 Monocytes/100 WBC (Bld) 12.7 % High 0-10 [facility] Comment on above: Performed By: #### L 300.3900, L500.2500, L100.0100, L300.4310, L501.4020 #### [facility] Laboratory [address] [place], [address] Blood platelet mean volumeOr dered By: Ninius Trev on 01-01-2023 Platelet mean volume (Bld) [Entitic vol] 11.2 fL Normal 6.2-12.0 [facility] Comment on above: Performed By: #### L 300.3900, L500.2500, L100.0100, L300.4310, L501.4020 #### [facility] Laboratory [address] [place], [address] CBC W/Diff, Automatedon 12-19 Absolute Lymph 3.19 X10 3/uL Normal 0.83-4.51 [facility] Comment on above: Performed By: #### L 300.3900, L500.2500, L100.0100, L300.4310, L501.4020 #### [facility] Laboratory [address] [place], [address] Absolute Neut 4.3 X10 3/uL Normal 2.0-7.7 [facility] Comment on above: Performed By: #### L 300.3900, L500.2500, L100.0100, L300.4310, L501.4020 #### [facility] Laboratory [address] [place], [address] IG% 0.200 Normal 0.0-0.9 [facility] Comment on above: Result Comment: IG% - Immature Granulocytes (promyelocytes, myelocytes and metamyelocytes) > 1% indicates that a LEFT SHIFT is Present. Performed By: #### L 300.3900, L500.2500, L100.0100, L300.4310, L501.4020 #### [facility] Laboratory [address] [place], [address] Nucleated RBC (Bld) [#/Vol] 0 10*3/uL Normal 0-5 [facility] Comment on above: Performed By: #### L 300.3900, L500.2500, L100.0100, L300.4310, L501.4020 #### [facility] Laboratory [address] [place], [address] RDW SD 49.7 fl High 35.1-43.9 [facility] Comment on above: Performed By: #### L 300.3900, L500.2500, L100.0100, L300.4310, L501.4020 #### [facility] Laboratory [address] [place], [address] CBC W/Diff, AutomatedOrdered By: Lovely Karimi on 01-01-2023 Erythrocyte distribution width (RBC) [Ratio] 14.2 % Normal 11.6-14.6 [facility] Comment on above: Performed By: #### L 300.3900, L500.2500, L100.0100, L300.4310, L501.4020 #### [facility] Laboratory [address] [place], [address] MCH (RBC) [Entitic mass] 32.3 pg High 27.0-32.0 [facility] Comment on above: Performed By: #### L 300.3900, L500.2500, L100.0100, L300.4310, L501.4020 #### [facility] Laboratory [address] [place], [address] Determination of erythrocyte mean corpuscular volume (MCV)Ordered By: Lovely Karimi on 01-01-2023 MCV (RBC) [Entitic vol] 95.9 fL High 80-94 [facility] Comment on above: Performed By: #### L 300.3900, L500.2500, L100.0100, L300.4310, L501.4020 #### [facility] Laboratory [address] [place], [place], [address] Emergency Department Summary on 01-01-2023 Emergency Department Summary [facility] Medical Records Department [address] [place] [address] Emergency Department Summary 01/01/23 MR#: [id number] Acct: [id number] Name: ANKIT LEWIS Rep #: [id number] : 1940 82 From: Lovely Karimi DO PCP: Dr. Rishi Wright MD Status:DEP ER Location: ED HPI History of Present Illness Chief Complaint: Stroke Alert Detail of Chief Complaint: Concern for stroke Informant: patient and EMS Narrative Narrative: Patient presents the emergency department via EMS from home. Patient apparently was sitting at a desk and then had a could not get up about 25 minutes ago. Patient was noted to be diaphoretic. called EMS. On EMS arrival they noted patient had left-sided weakness and left-sided facial droop. Patient with slurred speech. Patient diaphoretic. They did check a blood sugar and was unremarkable. I am being told patient has no medical history although he cannot really give me much history because of his slurred speech. He is not believed to be on blood thinners. PFSH PFSH Home Medications NK 01/01/23 [History Last Taken Unknown] Allergy/AdvReac Type Severity Reaction Status Date / Time Unable to Assess Allergy Verified 01/01/23 14:12 Social History Smoking Status: Never smoker ROS ROS ED Review of Systems ROS Unobtainable: due to encephalopathy, due to mental status and other Constitutional Constitutional ED: Reports lethargy; Denies chills, fever(s), sweats or weight loss Eyes Eyes: Denies blurry vision, change in vision or diplopia ENT ENT ED: Denies rhinorrhea or sore throat Cardiovascular Cardiovascular: Reports chest pain and racing heartbeat; Denies orthopnea Respiratory/Chest Respiratory/Chest: Reports dyspnea and dyspnea on exertion; Denies cough, orthopnea or sputum Gastrointestinal Gastrointestinal: Denies abdominal pain, diarrhea, nausea or vomiting Genitourinary Genitourinary ED: Denies dysuria, hematuria or urinary frequency Musculoskeletal Musculoskeletal: Denies arthralgias, back pain, myalgias or neck pain Integumentary Denies abscess, Abrasions or rash Neurologic Neurologic: Denies headache(s) or weakness Psychiatric Psychiatric: Denies anxiety, depression or suicidal thoughts Endocrine Endocrinology: Denies polydipsia, polyphagia or polyuria Hematologic/Lymphatic Hematologic/Lymphatic: Denies easy bleeding, easy bruising or lymphadenopathy Allergic/Immunologic Allergic/Immunologic ED: Denies mouth swelling, tongue swelling or urticaria EXAM Physical Exam Const Vital Signs: 01/01/23 14:13 01/01/23 14:21 01/01/23 14:39 Temperature 97.6 F L Temperature Source Temporal Pulse Rate Respiratory Rate Blood Pressure 151/84 H Blood Pressure Mean Blood Pressure Source Blood Pressure Position Blood Pressure Location Pulse Ox Oxygen Delivery Method Room Air 01/01/23 14:23 01/01/23 14:13 01/01/23 14:38 Temperature Temperature Source Pulse Rate 64 65 64 Respiratory Rate 20 H 21 H 27 H Blood Pressure 159/77 H 133/97 H 150/81 H Blood Pressure Mean 104 109 104 Blood Pressure Source Monitor Monitor Blood Pressure Position Semi-Fowlers Semi-Fowlers Blood Pressure Location Right Arm Pulse Ox 92 92 92 Oxygen Delivery Method Room Air Room Air Room Air 01/01/23 15:00 01/01/23 14:53 01/01/23 15:08 Temperature Temperature Source Pulse Rate 80 64 62 Respiratory Rate 18 23 H 21 H Blood Pressure 139/66 H 145/79 H 142/75 H Blood Pressure Mean 90 101 97 Blood Pressure Source Monitor Monitor Blood Pressure Position Semi-Fowlers Semi-Fowlers Blood Pressure Location Right Arm Right Arm Pulse Ox 96 92 91 Oxygen Delivery Method Room Air Room Air Room Air 01/01/23 14:59 Temperature Temperature Source Pulse Rate Respiratory Rate Blood Pressure 140/75 H Blood Pressure Mean 96 Blood Pressure Source Blood Pressure Position Blood Pressure Location Pulse Ox Oxygen Delivery Method Positive well nourished and well developed General Appearance ED: well developed and NAD HEENT Reports TM's clear and moist mucous membranes normocephalic and atraumatic; Negative for trauma or tenderness Tympanic Membrane ED: Yes TM's clear Eyes PERRL and EOMs intact bilaterally General Eye ED: Negative for pale conjunctiva or scleral icterus Neck no lymphadenopathy, supple and no JVD General: Negative for tenderness Chest Wall inspection of chest normal and palpation of chest normal Chest: Negative for tenderness Resp normal respiratory effort and clear to auscultation bilaterally Effort and Inspection: Negative for respiratory distress or pain with movement Auscultation: Negative for rhonchi, wheezes or diminished lung sounds Cardio regular r (more content not included)... Normal [facility] FIBRINOGEN, CLOTTABLEon 12-19 Fibrinogen-Clottable 300 mg/dL Normal 220-410 [facility] Comment on above: Result Comment: Func tional Fibrinogen (activity) levels can be affected by direct thrombin inhibitors such as heparins (>2.0 IU/ml) and dabigatran. Abnormal results should be interpreted with caution. Performed By: #### C HM7, IPB, MGO, TRIG, CKB #### [facility] (DEFAULT) [address] [place] [address] Fibrinogen Coag (PPP) [Mass/Vol] 300 mg/dL 220 - 410 mg/dL [facility] Comment on above: Functional Fibrinoge n (activity) levels can be affected by direct thrombin inhibitors such as heparins (>2.0 IU/ml) and dabigatran. Abnormal results should be interpreted with caution. Interpretation and review of laboratory results Normal [facility] HEMOGLOBIN A1Con 01-01-2023 Glucose [Mass/Vol] 126 mg/dL Normal [facility] Comment on above: Performed By: #### C HM7, IPB, MGO, TRIG, CKB #### [facility] (DEFAULT) [address] [place] [address] Hemoglobin A1C HPLC 6.0 % High 4.7-5.6 [facility] Comment on above: Performed By: #### C HM7, IPB, MGO, TRIG, CKB #### [facility] (DEFAULT) [address] [place] [address] HEMOGLOBIN [id number] By: Deon Romero on 01-01-2023 Average glucose Estimated from glycated hemoglobin (Bld) [Mass/Vol] 126 mg/dL [facility] HbA1c (Bld) [Mass fraction] 6.0 % High 4.7 - 5.6 % [facility] Interpretation and review of laboratory results Abnormal [facility] HIGH SENSITIVITY TROPONIN I - SINGLE ORDERon 01-01-2023 hs-Troponin I 17 ng/L Normal <53 [facility] Comment on above: Order Comment: Acute Coronary Syndrome (ACS): Initial Evaluation and Management:[email or web address] Performed By: #### L DLB, LIPDR #### [facility] (DEFAULT) [address] [place] [address] Interpretation and review of laboratory results Normal [facility] Troponin I.cardiac High sensitivity method [Mass/Vol] 17 ng/L NINF - 53 ng/L [facility] INR in Blood by Coagulation assayon 01-01-2023 INR Coag (Bld) [Relative time] 1.0 {INR} [facility] L501.4020on 01-01-2023 TROPONIN-I HS 21 pg/mL Normal 3.0-78.0 [facility] Comment on above: Order Comment: 'TROP ' Serial specimen #1, #2 or #3: 1 Result Comment: Leann larsen Note: New Test Units and Gender Specific Reference Ranges. For more information see Policy Stat Procedure [place] High Sensitivity Troponin (TNIH) and attachments. Performed By: #### L 300.3900, L500.2500, L100.0100, L300.4310, L501.4020 ####[facility] [address] [place], [address] LDL, DIRECT MEASUREon 2022 LDL Cholesterol - Direct Measure 93 mg/dL Normal <100 [facility] Comment on above: Result Comment: [<10 0 mg/dL: Optimal] [100-129 mg/dL: Near Optimal] [130-159 mg/dL: Borderline High] [160-189 mg/dL: High] [>189 mg/dL: Very High] Performed By: #### L FREDERICK, JULIANNA #### [facility] (DEFAULT) [address] [place] [address] Cholesterol in LDL [Mass/Vol] 93 mg/dL NINF - 100 mg/dL [facility] Comment on above: [<100 mg/dL: Optimal ] [100-129 mg/dL: Near Optimal] [130-159 mg/dL: Borderline High] [160-189 mg/dL: High] [>189 mg/dL: Very High] Interpretation and review of laboratory results Normal [facility] LIPID PANEL WITH REFLEX TO M LINDSAYURED LDLon 01-01-2023 Calculated LDL Cholesterol Normal [facility] Comment on above: Result Comment: Not Calculated Performed By: #### L FREDERICK, LIP #### [facility] (DEFAULT) [address] [place] [address] Cholesterol [Mass/Vol] 159 mg/dL Normal <200 [facility] Comment on above: Result Comment: [<20 0 mg/dL: Desirable] [200-239 mg/dL: Borderline High] [>239 mg/dL: High] Performed By: #### L DLB, LIP #### [facility] (DEFAULT) [address] [place] [address] Cholesterol in HDL [Mass/Vol] 23 mg/dL Low >=40 [facility] Comment on above: Result Comment: [<40 mg/dL: Low (High Risk)] [>59 mg/dL: High (Low Risk)] Performed By: #### L DLB, LIPDR #### [facility] (DEFAULT) [address] [place] [address] Non HDL Cholesterol 136 mg/dL High <130 [facility] Comment on above: Performed By: #### L DLB, LIPDR #### [facility] (DEFAULT) [address] [place] [address] Total Cholesterol/HDL Ratio 6.9 High <4.5 [facility] Comment on above: Performed By: #### L DLB, LIPDR #### [facility] (DEFAULT) [address] [place] [address] Triglyceride [Mass/Vol] 429 mg/dL High <150 [facility] Comment on above: Result Comment: [<15 0 mg/dL: Desirable] [150-199 mg/dL: Borderline] [200-499 mg/dL: High] [>500 mg/dL: Very High] Performed By: #### L DLB, LIPDR #### [facility] (DEFAULT) [address] [place] [address] Cholesterol [Mass/Vol] 159 mg/dL NINF - 200 mg/dL [facility] Comment on above: [<200 mg/dL: Desirab le] [200-239 mg/dL: Borderline High] [>239 mg/dL: High] Cholesterol in HDL [Mass/Vol] 23 mg/dL Low 40 - PINF mg/dL [facility] Comment on above: [<40 mg/dL: Low (Hig h Risk)] [>59 mg/dL: High (Low Risk)] Cholesterol in HDL [Mass/Vol] 136 mg/dL High NINF - 130 mg/dL [facility] Cholesterol in LDL [Mass/Vol] [facility] Comment on above: Not Calculated Cholesterol.total/Chol esterol in HDL [Mass ratio] 6.9 {ratio} High NINF - 4.5 [facility] Interpretation and review of laboratory results Abnormal [facility] Triglyceride [Mass/Vol] 429 mg/dL High NINF - 150 mg/dL [facility] Comment on above: [<150 mg/dL: Desirab le] [150-199 mg/dL: Borderline] [200-499 mg/dL: High] [>500 mg/dL: Very High] [facility] Laboratory - Chemistry and C hemistry - challengeOrdered By: Lovely Karimi on 01-01-2023 Urea nitrogen/Creatinine [Mass ratio] 20.2 mg/mg 10-20 [facility] Laboratory - Hematology and Cell countsOrdered By: Lovely Karimi on 01-01-2023 Erythrocyte distribution width (RBC) [Entitic vol] 49.7 fL 35.1-43.9 [facility] Immature granulocytes/100 WBC (Bld) 0.200 % 0.0-0.9 [facility] Comment on above: IG% - Immature Granu locytes (promyelocytes, myelocytes and metamyelocytes) > 1% indicates that a LEFT SHIFT is Present. Nucleated RBC/100 WBC (Bld) [Ratio] 0 % 0-5 [facility] MCHC [Mass/volume] by Automa shiloh countOrdered By: Lovely Karimi on 01-01-2023 MCHC (RBC) [Mass/Vol] 33.7 g/dL Normal 32-36 [facility] [facility] Comment on above: Performed By: #### L 300.3900, L500.2500, L100.0100, L300.4310, L501.4020 #### [facility] Laboratory [facility] [address] [place], [place], [id number] No Panel InformationOrdered By: Lovely Karimi on 01-01-2023 Estimated Creatinine Clearance Calc 52.25 ml/min [facility] Estimated GFR (MDRD) Amer 83 mL/min >60 [facility] Comment on above: GFR Calc Estimated GFR (MDRD) Non-Af Amer 69 mL/min >60 [facility] Comment on above: Non- GFR Calc Troponin I High Sensitivity 21 pg/mL 3.0-78.0 [facility] Comment on above: Please Note: New [place] t Units and Gender Specific Reference Ranges. For more information see Policy Stat Procedure [place] High Sensitivity Troponin (TNIH) and attachments. PT,INR,PTTon 01-01-2023 aPTT Coag (Bld) [Time] 24.9 s Normal 24.0-34.3 [facility] Comment on above: Performed By: #### C HM7, IPB, MGO, TRIG, CKB #### [facility] (DEFAULT) [address] [place] [address]19 INR Coag (PPP) [Relative time] 1.0 {INR} Normal 0.9-1.1 [facility] Comment on above: Performed By: #### C HM7, IPB, MGO, TRIG, CKB #### [facility] (DEFAULT) [address] [place] [address] PT Coag (PPP) [Time] 13.7 s Normal 11.9-14.2 [facility] Comment on above: Performed By: #### C HM7, IPB, MGO, TRIG, CKB #### [facility] (DEFAULT) [address] [place] [address] aPTT Coag (PPP) [Time] 24.9 s [facility] Interpretation and review of laboratory results Normal [facility] PT Coag (PPP) [Time] 13.7 s [facility] Partial Thromboplast TimeOrd ered By: Lovely Karimi on 01-01-2023 aPTT Coag (Bld) [Time] 24.6 s Normal 24.1-36.2 [facility] Comment on above: Performed By: #### L 300.3900, L500.2500, L100.0100, L300.4310, L501.4020 ####[facility] [id number] [place], [place], [id number] Platelets bldOrdered By: Nini Karimi on 01-01-2023 Platelets (Bld) [#/Vol] 325 10*3/uL Normal 150-450 [facility] Comment on above: Performed By: #### L 300.3900, L500.2500, L100.0100, L300.4310, L501.4020 #### [facility] Laboratory [address] [place], [address] Prothrombin Time w/INRon INR Coag (PPP) [Relative time] 1.0 {INR} Normal [facility] Comment on above: Performed By: #### L 300.3900, L500.2500, L100.0100, L300.4310, L501.4020 ####[facility] [id number] [place], [address] Prothrombin Time w/INROrdere d By: Lovely Karimi on 01-01-2023 PT Coag (PPP) [Time] 13.3 s Normal 11.7-14.9 [facility] Comment on above: Performed By: #### L 300.3900, L500.2500, L100.0100, L300.4310, L501.4020 ####[facility] [id number] [place], [address] STROKE Brain/Head without Co nton 01-01-2023 STROKE Brain/Head without Cont [facility] Imaging Services [address] [place] [address] STROKE Brain/Head without Cont MR#: [id number] Acct: [id number] Name: ANKIT LEWIS Rep #: [id number] : 1940 M 82 From: Perry dia MD PCP: Care Physician,No Primary Status: REG ER Study: STROKE Brain/Head without Cont Date of Exam: 0 01/01/23 Exam# [id number] Ordering Dr: Lovely Karimi DO ADDENDUM by Dr. Perry Lama MD on 01/01/23 at 1429 STUDY: CT HEAD STROKE PROTOCOL W/O CONTRAST INJECTION REASON FOR EXAM: Male, 82 years old. Neuro deficit, acute, stroke suspected RADIATION DOSAGE (If Supplied By Facility): CTDIvol = ( 44.99 ) mGy, DLP = ( 846.73 ) mGycm TECHNIQUE: Transaxial CT imaging of the brain was performed without administration of intravenous contrast material. Individualized dose optimization techniques were used for this CT. COMPARISON: No relevant priors. FINDINGS: Normal soft tissue structures. Normal calvarium. There is mild cerebral atrophy with widening of the extra-axial spaces and ventricular dilatation. There are areas of decreased attenuation within the white matter tracts of the supratentorial brain, consistent with microvascular disease changes. Normal basal ganglia and thalami. Normal brainstem. Normal cerebellum. There is no intracranial hemorrhage. There are no findings of an acute ischemic infarction. Atherosclerotic calcific plaques of the vertebral arteries and cavernous portions of the internal carotid arteries bilaterally. Partial opacification of the sphenoid sinus. ASPECT score: 10 01/01/23 1429 Date cc: Dr. Lovely Karimi DO; No Primary Care Physician * Signed ADDENDUM by Dr. Perry Lama MD on 01/01/[address]/STROKE Brain/Head without Cont IMPRESSION: Chronic involutional changes of the brain. N.B. : The above Results were Read Back by Perry Lama MD to Dr Bev DO, and understanding confirmed on 01/01/2023 14:28:22 (ET). Electronically Signed: Perry Lama MD at 14:29 EDT , 01/01/23 1436 Date cc: Dr. Lovely Karimi DO; No Primary Care Physician * Signed STUDY: CT HEAD STROKE PROTOCOL W/O CONTRAST INJECTION REASON FOR EXAM: Male, 82 years old. Neuro deficit, acute, stroke suspected RADIATION DOSAGE (If Supplied By Facility): CTDIvol = ( 44.99 ) mGy, DLP = ( 846.73 ) mGycm TECHNIQUE: Transaxial CT imaging of the brain was performed without administration of intravenous contrast material. Individualized dose optimization techniques were used for this CT. COMPARISON: No relevant priors. FINDINGS: Normal soft tissue structures. Normal calvarium. There is mild cerebral atrophy with widening of the extra-axial spaces and ventricular dilatation. There are areas of decreased attenuation within the white matter tracts of the supratentorial brain, consistent with microvascular disease changes. Normal basal ganglia and thalami. Normal brainstem. Normal cerebellum. There is no intracranial hemorrhage. There are no findings of an acute ischemic infarction. Atherosclerotic calcific plaques of the vertebral arteries and cavernous portions of the internal carotid arteries bilaterally. Partial opacification of the sphenoid sinus. ASPECT score: 10 CT/STROKE Brain/Head without Cont IMPRESSION: Chronic involutional changes of the brain. N.B. : The above Results were Read Back by Perry Lama MD to Dr Bev DO, and understanding confirmed on 01/01/2023 14:28:22 (ET). Electronically Signed: Perry Lama MD at 14:29 EDT Reading Location ID and State: [facility] / [place] , Service support , CC: Dr. 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 Imaging Services [address] [place] [address] STROKE CTA Head AND Neck W/Con MR#: [id number] Acct: [id number] Name: ANKIT LEWIS Rep #: [id number] : 1940 M 82 From: Perry dia MD PCP: Dr. Rishi Wright MD Status: DEP ER Study: STROKE CTA Head AND Neck W/Con Date of Exam: 0 01/01/23 Exam# [id number] Ordering Dr: Lovely Karimi DO ADDENDUM by Dr. Perry Lama MD on 01/01/23 at 1541 ==== ADDENDUM ==== This is an addendum report. 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 Electronically Signed: Perry Lama MD at 15:41 EDT , N.B. : The above Results were Read Back by Perry Lama MD to Lovely Karimi and understanding confirmed on 01/01/2023 14:49:21 (ET). 01/01/23 1541 Date cc: Dr. Rishi Wright MD; Dr. Lovely Karimi DO * Signed ADDENDUM by Dr. Perry Lama MD on 01/01/23 at 1450 STUDY: CTA HEAD AND NECK WITH CONTRAST REASON FOR EXAM: Male, 82 years old. Neuro deficit, acute, stroke suspected RADIATION DOSAGE (If Supplied By Facility): CTDIvol = ( 28.06 ) mGy, DLP = ( 726.04 ) mGycm TECHNIQUE: CT angiography was performed with a multi-detector CT scanner. Data acquisition was obtained from the skull base through the vertex following intravenous administration of IV 100mL Isovue-370. MIP images were reconstructed from the axial data set. Post-processing of the angiographic images was performed, with multiplanar reformation and 3D reconstruction. Individualized dose optimization techniques were used for this CT. COMPARISON: No relevant priors. FINDINGS: Normal bilateral petrous carotid arteries. There is calcified plaque formation of the right cavernous carotid artery, without a cross-sectional luminal stenosis. There is calcified plaque formation of the left cavernous carotid artery, without a cross-sectional luminal stenosis. Normal right A1 segments of the anterior cerebral artery. Normal left A1 segments of the anterior cerebral artery. Normal intact anterior communicating artery (ACOM). Normal bilateral A2 segments of the anterior cerebral arteries. Normal right M1 and M2 segments of the middle cerebral arteries, with a normal M1 bifurcation. Normal left M1 and M2 segments of the middle cerebral arteries, with a normal M1 bifurcation. Normal right posterior communicating artery (PCOM). Normal left posterior communicating artery (PCOM). Normal bilateral vertebral arteries. Normal basilar artery with a normal basilar bifurcation. The visualized bilateral superior cerebellar (SCA) arteries are normal. Normal bilateral P1, P2 and visualized P3 segments of the posterior cerebral arteries. There is no demonstrated aneurysm of the pit[place] point of [place]. Heterogeneous enlargement of the left lobe of the thyroid gland. AORTIC ARCH: There is atherosclerotic calcific plaque formation of the aortic arch and great vessels arising from the aortic arch, without a hemodynamically significant stenosis. There is a bovine origin of the great vessels with a common origin of the brachiocephalic and left common carotid artery. Normal origin of the left subclavian artery. RIGHT CAROTID ARTERIES: Normal right common carotid artery (CCA). Normal right common carotid bulb. Normal origin of the right internal carotid (ICA) artery without a hemodynamically significant stenosis. Normal visualized cervical portion of the right internal carotid artery. Normal origin of the right external carotid artery (ECA). LEFT CAROTID ARTERIES: Normal left common carotid artery (CCA). Normal left common carotid bulb. There is mild atherosclerotic plaque formation of the origin of the left internal carotid artery with less than 50% cross sectional diameter stenosis. Normal visualized cervical portion of the left internal carotid artery. Normal origin of the left external carotid artery (ECA). VERTEBRAL ARTERIES: There is enhancement within the bilateral vertebral arteries with a small right vertebral artery, and a dominant left vertebral artery. Calcific plaque seen in the distal aspect of the basilar artery. 01/01/23 1450 Date cc: Dr. Rishi Wright MD; Dr. Lovely Karimi, DO * Signed ADDENDUM by Dr. Perry Lama MD on 01/01/[address]/STROKE CTA Head AND Neck W/Con IMPRESSION: undefined 01/01/23 1548 Date cc: Dr. Rishi Wright MD; Dr. Lovely Karimi DO * Signed ADDEN (more content not included)... Normal [facility] Serum or plasma calcium logan urement (mass/volume)[facility] By: [facility] on 01-01-2023 Calcium [Mass/Vol] 8.7 mg/dL 8.5-10.1 [facility] Serum or plasma creatinine m easurement (mass/volume)Ordered By: Lovely Karimi on 01-01-2023 Creatinine [Mass/Vol] 1.09 mg/dL Normal 0.70-1.30 [facility] Comment on above: The validity of the calculated GFR & GFRAA in patients over 70 years has not been determined. Clinical correlation is essential. Order Comment: 'TROP ' Serial specimen #1, #2 or #3: 1 Result Comment: The validity of the calculated GFR GFRAA in patients over 70 years has not been determined. Clinical correlation is essential. Performed By: #### L 300.3900, L500.2500, L100.0100, L300.4310, L501.4020 ####[facility] [id number] [place], [address] TYPE AND SCREENon 01-01-2023 ABO/RH(D) TYPE Positive Normal [facility] Comment on above: Performed By: #### X M #### [facility] (DEFAULT) [address] [address] ABO/RH(D) TYPE Positive [facility] Thin prep Papanicolaou smear with manual screeningOrdered By: Lovely Karimi on 01-01-2023 Thin prep Papanicolaou smear with manual screening 6 5-15 [facility] VON WILLEBRAND FACTOR AGon 0 01-01-2023 Von Willebrand Factor Antigen 294 % High 50-180 [facility] Comment on above: Performed By: #### L DLB, LIPDR #### [facility] (DEFAULT) [address] [place] [address] CNNURSEon 09-21-2020 CNNURSE Nurse Visit (COVAMD) ANKIT LEWIS ([id number]) 1940 Date Time Provider Department 09/21/20 CAIT CASANOVA During your visit today, we recorded the following information about you: Allergies As of Date: 09/21/2020 (No Known Allergies) Date Reviewed: 12/11/2018 Reviewed by: True Maravilla - Fully Assessed Order(s):[employer] SARS-COV-2 VACCINE 2D DOSE APPT [[id number]] Order #: [id number] Prescriptions as of 09/21/2020 Sig: ASPIRIN 325 MG TABLET,DELAYED* Take 1 tablet by mouth as nee* Problem List As Of Date 09/21/2020 Noted Resolved MALIG NEOPLASM SKIN NEC [173.8] 01/29/2007 ANOMALIES OF SPLEEN [Q89.09] 07/06/2007 Memory deficit [R41.3] 12/11/2018 Restless leg syndrome [G25.81] 12/11/2018 Encounter Status:Open Normal [facility] Vital Signs Date Time Vital Sign Value Performing Clinician Ellie gilliland 03-24-2025 15:22-0400 Body mass index (BMI) [Ratio] 33.38 kg/m2 Jacques Whitmore MD Work Phone: [facility] 03-24-2025 15:22-0400 Body temperature 97 [degF] Jacques Whitmore MD Work Phone: [facility] 03-24-2025 15:22-0400 Body weight 104 kg Jacques Whitmore MD Work Phone: [facility] 03-24-2025 15:22-0400 Diastolic blood pressure 79 mm[Hg] Jacques Whitmore MD Work Phone: [facility] 03-24-2025 15:22-0400 Heart rate 64 /min Jacques Whitmore MD Work Phone: [facility] 03-24-2025 15:22-0400 Respiratory rate 22 /min Jacques Whitmore MD Work Phone: [facility] 03-24-2025 15:22-0400 SaO2% (BldA) [Mass fraction] 94 % Jacques Whitmore MD Work Phone: [facility] 03-24-2025 15:22-0400 Systolic blood pressure 158 mm[Hg] Jacques Whitmore MD Work Phone: [facility] 03-09-2025 10:06-0400 Body height 176.5 cm Girma Woody MD Work Phone: [facility] 03-09-2025 10:06-0400 Body mass index (BMI) [Ratio] 33.49 kg/m2 Girma Woody MD Work Phone: [facility] 03-09-2025 10:06-0400 Body weight 104.33 kg Girma Woody MD Work Phone: [facility] 03-09-2025 10:06-0400 Diastolic blood pressure 66 mm[Hg] Girma Woody MD Work Phone: [facility] 03-09-2025 10:06-0400 Heart rate 60 /min Girma Woody MD Work Phone: [facility] 08-20-2025 10:06-0400 Systolic blood pressure 127 mm[Hg] Girma Woody MD Work Phone: [facility] 09-08-2024 14:26-0500 Body mass index (BMI) [Ratio] 33.57 kg/m2 Girma Woody MD Work Phone: [facility] 09-08-2024 14:26-0500 Body weight 104.6 kg Girma Woody MD Work Phone: [facility] 09-08-2024 14:26-0500 Diastolic blood pressure 77 mm[Hg] Girma Woody MD Work Phone: [facility] 09-08-2024 14:26-0500 Heart rate 54 /min Girma Woody MD Work Phone: [facility] 09-08-2024 14:26-0500 Systolic blood pressure 145 mm[Hg] Girma Woody MD Work Phone: [facility] 07-15-2024 14:45-0500 Body mass index (BMI) [Ratio] 34.18 kg/m2 [facility] FIRE EXTINGUISHER MECHANIC.CRIMINAL RESEARCHER Work Phone: [facility] 07-15-2024 14:45-0500 Body temperature 97.2 [degF] [facility] FIRE EXTINGUISHER MECHANIC.CRIMINAL RESEARCHER Work Phone: [facility] 07-15-2024 14:45-0500 Body weight 106.5 kg [facility] FIRE EXTINGUISHER MECHANIC.CRIMINAL RESEARCHER Work Phone: [facility] 07-15-2024 14:45-0500 Diastolic blood pressure 84 mm[Hg] Rishi Pendlebury FIRE EXTINGUISHER MECHANIC.CRIMINAL RESEARCHER Work Phone: [facility] 07-15-2024 14:45-0500 Heart rate 66 /min Rishi Pendlegriselda FIRE EXTINGUISHER MECHANIC.CRIMINAL RESEARCHER Work Phone: [facility] 07-15-2024 14:45-0500 Respiratory rate 16 /min Rishi Pendlegriselda FIRE EXTINGUISHER MECHANIC.CRIMINAL RESEARCHER Work Phone: [facility] 07-15-2024 14:45-0500 SaO2% (BldA) [Mass fraction] 96 % Rishi Mcguire FIRE EXTINGUISHER MECHANIC.CRIMINAL RESEARCHER Work Phone: [facility] 07-15-2024 14:45-0500 Systolic blood pressure 132 mm[Hg] Rishi Mcguire FIRE EXTINGUISHER MECHANIC.CRIMINAL RESEARCHER Work Phone: [facility] 06-30-2024 09:43-0500 Body height 176.5 cm Rishi Wright MD Work Phone: [facility] 06-30-2024 09:43-0500 Body mass index (BMI) [Ratio] 34.06 kg/m2 Rishi Wright MD Work Phone: [facility] 06-30-2024 09:43-0500 Body weight 106.14 kg Rishi Wright MD Work Phone: [facility] 06-30-2024 09:43-0500 Diastolic blood pressure 72 mm[Hg] Rishi Wright MD Work Phone: [facility] 06-30-2024 09:43-0500 Heart rate 68 /min Rishi Wright MD Work Phone: [facility] 06-30-2024 09:43-0500 Respiratory rate 18 /min Rishi Wright MD Work Phone: [facility] 06-30-2024 09:43-0500 Systolic blood pressure 122 mm[Hg] Rishi Wright MD Work Phone: [facility] 08-09-2023 20:04-0500 Diastolic blood pressure 74 mm[Hg] Dr. Rishi Wright Work Phone: [facility] 08-09-2023 20:04-0500 Heart rate 81 /min Dr. Rishi Wright Work Phone: [facility] 08-09-2023 20:04-0500 Respiratory rate 16 /min Dr. Rishi Wright Work Phone: [facility] 08-09-2023 20:04-0500 SaO2% (BldA) [Mass fraction] 99 % Dr. Rishi Wright Work Phone: [facility] 08-09-2023 20:04-0500 Systolic blood pressure 138 mm[Hg] Dr. Rishi Wright Work Phone: 7(613)751-975117 [place] [address] 08-09-2023 18:15-0500 Body height 177.[address] Rishi Wright Work Phone: 0(617)416-710251 [place] [address] 08-09-2023 18:15-0500 Body mass index (BMI) [Ratio] 33.9 kg/m2 Dr. Rishi Wright Work Phone: 8(837)517-354051 [place] [address] 08-09-2023 18:15-0500 Body temperature 97.1 [degF] Dr. Rishi Wright Work Phone: 4(396)077-920651 [place] [address] 08-09-2023 18:15-0500 Body weight 107.[address] Rishi Wright Work Phone: 4(904)299-637417 [place] [address] 06-21-2023 11:01-0500 Body height 176.5 cm Rishi Wright MD Work Phone: [facility] 06-21-2023 11:01-0500 Body weight 105.23 kg Rishi Wright MD Work Phone: [facility] 06-21-2023 11:01-0500 Diastolic blood pressure 70 mm[Hg] Rishi Wright MD Work Phone: [facility] 06-21-2023 11:01-0500 Heart rate 64 /min Rishi Wright MD Work Phone: [facility] 06-21-2023 11:01-0500 Respiratory rate 18 /min Rishi Wright MD Work Phone: [facility] 06-21-2023 11:01-0500 Systolic blood pressure 140 mm[Hg] Rishi Wright MD Work Phone: [facility] 06-02-2023 14:39-0500 Body height 175.[address] Rishi Wright Work Phone: [facility] 06-02-2023 14:39-0500 Body mass index (BMI) [Ratio] 34.3 kg/m2 Dr. Rishi Wright Work Phone: 8(380)930-727651 [place] [address] 06-02-2023 14:39-0500 Body weight 105.[address] Rishi Wright Work Phone: 0(310)031-179151 [place] [address] 06-02-2023 14:39-0500 Diastolic blood pressure 79 mm[Hg] Dr. Rishi Wright Work Phone: 1(507)491-269051 [place] [address] 06-02-2023 14:39-0500 Heart rate 71 /min Dr. Rishi Wright Work Phone: 9(160)338-523251 [place] [address] 06-02-2023 14:39-0500 Respiratory rate 16 /min Dr. Rishi Wright Work Phone: 9(946)722-419951 [place] [address] 06-02-2023 14:39-0500 Systolic blood pressure 155 mm[Hg] Dr. Rishi Wright Work Phone: 5(317)371-655151 [place] [address] 02-11-2023 10:44-0400 Body height 175.[address] Rishi Wright Work Phone: 6(610)599-736651 [place] [address] 02-11-2023 10:44-0400 Body mass index (BMI) [Ratio] 32.5 kg/m2 Dr. Rishi Wright Work Phone: 3(547)497-688151 [place] [address] 02-11-2023 10:44-0400 Body weight 99.[address] Rishi Wright Work Phone: 3(437)901-936651 [place] [address] 02-11-2023 10:44-0400 Diastolic blood pressure 75 mm[Hg] Dr. Rishi Wright Work Phone: 2(835)012-898551 [place] [address] 02-11-2023 10:44-0400 Heart rate 54 /min Dr. Rishi Wright Work Phone: 3(131)732-846951 [place] [address] 02-11-2023 10:44-0400 Respiratory rate 16 /min Dr. Rishi Wright Work Phone: 1(847)045-601051 [place] [address] 02-11-2023 10:44-0400 Systolic blood pressure 150 mm[Hg] Dr. Rishi Wright Work Phone: [facility] 01-16-2023 14:27-0400 Body weight 99.52 kg Natalia Dahlhausen FIRE EXTINGUISHER MECHANIC.CRIMINAL RESEARCHER Work Phone: [facility] 01-16-2023 14:27-0400 Diastolic blood pressure 70 mm[Hg] Natalia Dahlhausen FIRE EXTINGUISHER MECHANIC.CRIMINAL RESEARCHER Work Phone: [facility] 01-16-2023 14:27-0400 Heart rate 62 /min Natalia Dahlhausen FIRE EXTINGUISHER MECHANIC.CRIMINAL RESEARCHER Work Phone: [facility] 01-16-2023 14:27-0400 Respiratory rate 20 /min Natalia Dahlhausen FIRE EXTINGUISHER MECHANIC.CRIMINAL RESEARCHER Work Phone: [facility] 01-16-2023 14:27-0400 SaO2% (BldA) [Mass fraction] 97 % Natalia Dahlhausen FIRE EXTINGUISHER MECHANIC.CRIMINAL RESEARCHER Work Phone: [facility] 01-16-2023 14:27-0400 Systolic blood pressure 138 mm[Hg] Natalia Dahlhausen FIRE EXTINGUISHER MECHANIC.CRIMINAL RESEARCHER Work Phone: [facility] 01-07-2023 07:54-0400 Body temperature 98.2 [degF] Polina Maravilla PA-C Work Phone: [facility] 01-07-2023 07:54-0400 Body weight 100.7 kg Polina AMADOR-C Work Phone: [facility] 01-07-2023 07:54-0400 Diastolic blood pressure 60 mm[Hg] Polina Maravilla PA-C Work Phone: [facility] 01-07-2023 07:54-0400 Heart rate 72 /min Polina Maravilla PA-C Work Phone: [facility] 01-07-2023 07:54-0400 Respiratory rate 18 /min Polina Maravilla PA-C Work Phone: [facility] 01-07-2023 07:54-0400 Systolic blood pressure 108 mm[Hg] Polina Maravilla PA-C Work Phone: [facility] 01-05-2023 07:38-0400 Body temperature 97.5 [degF] Felipe Crook MD Work Phone: [facility] 01-05-2023 07:38-0400 Diastolic blood pressure 64 mm[Hg] Felipe Crook MD Work Phone: [facility] 01-05-2023 07:38-0400 Heart rate 69 /min Felipe Crook MD Work Phone: [facility] 01-05-2023 07:38-0400 Respiratory rate 16 /min Felipe Crook MD Work Phone: [facility] 01-05-2023 07:38-0400 SaO2% (BldA) [Mass fraction] 96 % Felipe Crook MD Work Phone: [facility] 01-05-2023 07:38-0400 Systolic blood pressure 131 mm[Hg] Felipe Crook MD Work Phone: [facility] 01-03-2023 03:20-0400 Body mass index (BMI) [Ratio] 28.35 kg/m2 Felipe Crook MD Work Phone: [facility] [facility] 01-03-2023 03:20-0400 Body weight 89.63 kg Felipe Crook MD Work Phone: [facility] 01-02-2023 15:20-0400 Body height 177.8 cm Felipe Crook MD Work Phone: [facility] 01-01-2023 15:08-0400 Diastolic blood pressure 75 mm[Hg] Dr. Rishi Wright Work Phone: [facility] 01-01-2023 15:08-0400 Heart rate 62 /min Dr. Rishi Wright Work Phone: [facility] 01-01-2023 15:08-0400 Respiratory rate 21 /min Dr. Rishi Wright Work Phone: [facility] 01-01-2023 15:08-0400 SaO2% (BldA) [Mass fraction] 91 % Dr. Rishi Wright Work Phone: [facility] 01-01-2023 15:08-0400 Systolic blood pressure 142 mm[Hg] Dr. Rishi Wright Work Phone: [facility] 01-01-2023 15:00-0400 Body mass index (BMI) [Ratio] 34.4 kg/m2 Dr. Rishi Wright Work Phone: [facility] 01-01-2023 15:00-0400 Body weight 105.[address] Rishi Wright Work Phone: [facility] 01-01-2023 14:21-0400 Body temperature 97.6 [degF] Dr. Rishi Wright Work Phone: [facility] 06-05-2022 15:53-0500 Diastolic blood pressure 74 mm[Hg] Rishi Wright MD Work Phone: [facility] 06-05-2022 15:53-0500 Systolic blood pressure 142 mm[Hg] Rishi Wright MD Work Phone: [facility] 06-05-2022 15:31-0500 Body height 175.3 cm Rishi Wright MD Work Phone: [facility] 06-05-2022 15:31-0500 Body weight 104.78 kg Rishi Wright MD Work Phone: [facility] 06-05-2022 15:31-0500 Heart rate 80 /min Rishi Wright MD Work Phone: [facility] 06-05-2022 15:31-0500 Respiratory rate 14 /min Rishi Wright MD Work Phone: [facility] Encounters Encounter Date Encounter Type Care Provider Facility Start: 03-24-2025 End: 03-24-2025 Office outpatient visit 25 minutes Jacques Whitmore MD Work Phone: [facility] Comment on above: 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 Start: 03-09-2025 End: 03-09-2025 Patient encounter procedure Girma Woody MD Work Phone: [facility] Comment on above: Proteinuria, unspeci fied type (Primary Dx); Chronic systolic congestive heart failure (HCC); Essential hypertension Start: 03-09-2025 End: 03-09-2025 ambulatory GIRMA WOODY Facility:[facility] Start: 03-07-2025 End: 03-07-2025 ambulatory GIRMA WOODY Facility:[facility] Start: 12-17-2024 End: 12-17-2024 Telephone encounter Girma Woody MD Work Phone: [facility] Start: 12-15-2024 End: 12-15-2024 ambulatory GIRMA WOODY Facility:[facility] Start: 09-17-2024 End: 09-17-2024 Follow-up encounter Girma Woody MD Work Phone: [facility] Comment on above: Proteinuria, unspeci fied type (Primary Dx) Start: 09-14-2024 End: 09-14-2024 ambulatory GIRMA WOODY Facility:[facility] Start: 09-08-2024 End: 09-08-2024 ambulatory GIRMA WOODY Facility:[facility] Start: 09-08-2024 End: 09-08-2024 Patient encounter procedure Girma Woody MD Work Phone: [facility] Comment on above: Proteinuria, unspeci fied type (Primary Dx); Chronic systolic congestive heart failure (HCC); Essential hypertension Start: 08-04-2024 End: 08-04-2024 ambulatory ANDREA HERRERA Facility:[facility] Start: 08-04-2024 End: 08-04-2024 Subsequent hospital visit by physician [facility] (I-Stat) Work Phone: Cat Scan Comment on above: Hydronephrosis, unsp ecified hydronephrosis type [N13.30] Start: 07-20-2024 End: 07-28-2024 Telephone encounter Rishi Wright MD Work Phone: [facility] Start: 07-16-2024 End: 07-20-2024 Telephone encounter Bindu AMADOR Work Phone: [facility] Comment on above: Results Start: 07-15-2024 End: 07-15-2024 Office outpatient visit 15 minutes Rishi Mcguire APRN.CNP Work Phone: [facility] Comment on above: Exposure to COVID-19 virus (Primary Dx); Acute upper respiratory infection, unspecified Start: 07-15-2024 End: 07-15-2024 ambulatory [facility] Facility:[facility] Start: 07-15-2024 End: 07-15-2024 [facility] Facility:[facility] Start: 07-15-2024 End: 07-15-2024 Subsequent hospital visit by physician [facility] Work Phone: Radiology Comment on above: Proteinuria, unspeci fied type [R80.9] Start: 07-12-2024 End: 07-15-2024 Telephone encounter Andrea Herrera MD Work Phone: [facility] Comment on above: Results Start: 06-30-2024 End: 07-01-2024 Telephone encounter Rishi Wright MD Work Phone: [facility] Comment on above: Results Start: 06-30-2024 End: 06-30-2024 ambulatory RISHI WRIGHT Facility:[facility] Start: 06-30-2024 End: 06-30-2024 ambulatory RISHI WRIGHT Facility:[facility] Start: 06-30-2024 End: 06-30-2024 Patient encounter procedure Rishi Wright MD Work Phone: [facility] Comment on above: Medicare annual well ness visit, subsequent (Primary Dx); Hypertriglyceridemia; History of CVA (cerebrovascular accident); Elevated hemoglobin A1c; Chronic systolic congestive heart failure (HCC); Obesity, Class I, BMI 30-34.9; Memory deficit; Restless leg syndrome; Encounter for immunization; Encounter for screening examination for other mental health and behavioral disorders; Screening for depression Start: 01-23-2024 Telephone encounter Rishi Wright MD Work Phone: [facility] Comment on above: Colonoscopy Recall L bradford Start: 08-09-2023 End: 08-09-2023 Emergency department patient visit Dr. Rishi Wright Work Phone: [facility] Work Phone: Start: 06-23-2023 Telephone encounter Rishi Wright MD Work Phone: [facility] Comment on above: Results Start: 06-21-2023 End: 06-21-2023 Patient encounter procedure Rishi Wright MD Work Phone: [facility] Comment on above: Medicare annual well ness visit, subsequent (Primary Dx); History of CVA (cerebrovascular accident); Hypertriglyceridemia; Elevated blood sugar; Chronic systolic congestive heart failure (HCC); Restless leg syndrome; Advance directive discussed with patient; Obesity, Class I, BMI 30-34.9; ED (erectile dysfunction) of organic origin Start: 06-13-2023 Chart abstracting Rishi hankins MD Work Phone: [facility] Comment on above: Outside Erjf-Sso-[facility]M Ordered (ECHO) Start: 06-11-2023 ambulatory Rishi Wright Facility :[facility] Start: 06-11-2023 Non-patient / Non-visit Dr. Kemar Wright Work Phone: [facility] Start: 06-11-2023 End: 06-11-[address] Rishi Wright Work Phone: [facility] Work Phone: Start: 06-11-2023 End: 06-11-[address] Rishi Wright Work Phone: [facility] Work Phone: Start: 06-04-2023 Chart abstracting Rishi hankins MD Work Phone: [facility] Comment on above: Outside Cardiology Start: 06-02-2023 End: 06-02-2023 ambulatory Rishi Wright Facility:[facility] Start: 06-02-2023 End: 06-02-[address] Rishi Wright Work Phone: [facility] Work Phone: Start: 05-08-2023 [facility] Start: 02-27-2023 ambulatory Josephine Ghanshyam Facility:[facility] Start: 02-27-2023 Chart abstracting Rishi hankins MD Work Phone: [facility] Comment on above: Outside Stress Test Start: 02-27-2023 Non-patient / Non-visit Dr. Kemar Wright Work Phone: [facility] Start: 02-26-2023 End: 02-26-[address] Rishi Wright Work Phone: [facility] Work Phone: Start: 02-26-2023 End: 02-26-[address] 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 Rishi Wright Work Phone: [facility] Work Phone: Start: 02-19-2023 End: 02-19-[address] 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); Left atrial enlargement; Left-sided weakness Start: 01-31-2023 End: 01-31-2023 ambulatory Anoop Silveira PT Work Phone: [facility] Comment on above: HFrEF (heart failure with reduced ejection fraction) (HCC) (Primary Dx); Left atrial enlargement; 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); Left-sided weakness Start: 01-29-2023 End: 01-29-2023 ambulatory Anoop Silveira PT Work Phone: [facility] Comment on above: HFrEF (heart failure with reduced ejection fraction) (HCC) (Primary Dx); Left atrial enlargement; 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); Left-sided weakness Start: 01-16-2023 End: 01-16-2023 Patient encounter procedure Natalia Dowell APRN.CNP Work Phone: Neurology Comment on above: Cerebrovascular acci dent (CVA) 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 (HCC) Start: 01-07-2023 End: 01-07-2023 Patient encounter procedure Polina Maravilla PA-C Work Phone: [facility] Comment on above: Hospital discharge f ollow-up (Primary Dx); 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); HFrEF (heart failure with reduced ejection fraction) (HCC); Left atrial enlargement; Left-sided weakness Start: 01-06-2023 Chart abstracting Rishi hankins MD Work Phone: [facility] Comment on above: CT Report (CT report /) Start: 01-02-2023 Chart abstracting Rishi hankins MD Work Phone: [facility] Comment on above: ER Discharge Summary Start: 01-01-2023 End: 01-01-2023 ambulatory UNKNOWN PROVIDER Facility:[facility] Start: 01-01-2023 End: 01-05-2023 Evaluation and management of inpatient MELI DOMINGUEZ Facility:[facility] Start: 01-01-2023 End: 01-01-2023 Emergency department patient visit Lovely Karimi Facility:[facility] Start: 01-01-2023 End: 01-01-2023 Emergency department patient visit Dr. Rishi Wright Work Phone: [facility]-Emergency Department Work Phone: Start: 01-01-2023 End: 01-05-2023 Evaluation and management of inpatient Felipe Crook MD Work Phone: [id number] Comment on above: Stroke Start: 06-25-2022 End: 06-25-2022 Nursing evaluation of patient and report Mi Nurse Work Phone: [facility] Comment on above: Need for vaccination (Primary Dx) Start: 06-05-2022 End: 06-05-2022 Patient encounter procedure Rishi Wright MD Work Phone: [facility] Comment on above: Medicare annual well ness visit, subsequent (Primary Dx); Elevated blood sugar; Hypertriglyceridemia; Memory deficit; Umbilical hernia without obstruction or gangrene; Ventral hernia without obstruction or gangrene; Hx of splenectomy; Need for vaccination; Living will in place; Advance directive discussed with patient Start: 12-01-2021 Telephone encounter Rishi Wright MD Work Phone: [facility] Comment on above: Results Procedures Date Procedure Procedure Detail Performing Clinician Start: 09-08-2024 Urnls dip stick/tabl et rgnt auto w/o microscopy Girma Woody MD Work Phone: Start: 07-15-2024 Us retroperitoneal r eal time w/image complete Andrea Herrera MD Work Phone: Start: 06-30-2024 PFIZER[employer]BIONTE[employer] COVI D-19 VACCINE AGE 12+ YR (COMIRNATY) Rishi Wright MD Work Phone: Start: 06-30-2024 Adult depression scr eening assessment iRshi Wright MD Work Phone: Start: 08-09-2023 Diagnostic radiograp hy of abdomen Dr. Rishi Wright Work Phone: Start: 02-26-2023 Cardiovascular stres s test using pharmacologic stress agent Dr. Rishi Wright Work Phone: Start: 01-05-2023 CONTINUOUS CARDIAC MONITORING STRIP Other Other Start: 01-05-2023 Creatinine blood Fatoumata Mcmullen FIRE EXTINGUISHER MECHANIC-CRIMINAL RESEARCHER Work Phone: Start: 01-04-2023 Glucose measurement, blood Meli Dominguez MD Work Phone: Start: 01-04-2023 Glucose measurement, simón Dominguez MD Work Phone: Start: 01-04-2023 CONTINUOUS CARDIAC MONITORING STRIP Other Other Start: 01-04-2023 Glucose measurement, blood Meli Dominguez MD Work Phone: Start: 01-04-2023 Calcium ionized Divya Vazquez FIRE EXTINGUISHER MECHANIC-[facility] Work Phone: Start: 01-03-2023 Glucose measurement, blood Meli Dominguez MD Work Phone: Start: 01-03-2023 Glucose measurement, blood Meli Dominguez MD Work Phone: Start: 01-03-2023 Mri brain brain stem w/o contrast material Karma Mcmullen FIRE EXTINGUISHER MECHANIC-[facility] Work Phone: Start: 01-03-2023 Radiologic exam ches t single view Aleksandra D Dye FIRE EXTINGUISHER MECHANIC-[facility] Work Phone: Start: 01-03-2023 Glucose measurement, simón Dominguez MD Work Phone: Start: 01-03-2023 CONTINUOUS CARDIAC MONITORING STRIP Other Other Start: 01-03-2023 Glucose measurement, simón Dominguez MD Work Phone: Start: 01-02-2023 Calcium ionized Divya Vazquez FIRE EXTINGUISHER MECHANIC-[facility] Work Phone: Start: 01-02-2023 Glucose measurement, simón Dominguez MD Work Phone: Start: 01-02-2023 Glucose measurement, blood Meli Dominguez MD Work Phone: Start: 01-02-2023 TTE w or wo fol wcon,Doppler Lisa Wheeler FIRE EXTINGUISHER MECHANIC-CRIMINAL RESEARCHER Start: 01-02-2023 Ct head/brain w/o co ntrast material Karma Mcmullen FIRE EXTINGUISHER MECHANIC-CRIMINAL RESEARCHER Work Phone: Start: 01-02-2023 Radiologic exam ches t single view Alexis Baerrudy MOHR Work Phone: Start: 01-02-2023 Retired procedure Naser in Bethany Vazquez FIRE EXTINGUISHER MECHANIC-CRIMINAL RESEARCHER Work Phone: Start: 01-02-2023 Glucose measurement, blood Meli Dominguez MD Work Phone: Start: 01-02-2023 Radiologic exam abdo men 1 view Divya Vzaquez FIRE EXTINGUISHER MECHANIC-CRIMINAL RESEARCHER Work Phone: Start: 01-02-2023 CONTINUOUS CARDIAC MONITORING STRIP Other Other Start: 01-02-2023 Natriuretic peptide Sim aysha Vazquez FIRE EXTINGUISHER MECHANIC-CRIMINAL RESEARCHER Work Phone: Start: 01-02-2023 Glucose measurement, blood Meli Dominguez MD Work Phone: Start: 01-02-2023 ABORH TYPE RECONFIRMATION Ranulfo Kaur MD Work Phone: Start: 01-02-2023 Creatine kinase total C kapil Mcmullen FIRE EXTINGUISHER MECHANIC-CRIMINAL RESEARCHER Work Phone: Start: 01-02-2023 Glucose measurement, blood Felipe Crook MD Work Phone: Start: 01-01-2023 Iadna s aureus ampli fied probe tq Karma Mcmullen FIRE EXTINGUISHER MECHANIC-CRIMINAL RESEARCHER Work Phone: Start: 01-01-2023 End: 01-01-2023 Antibody screen Felipe Crook MD Work Phone: Comment on above: Performed By: #### X M #### [facility] ([facility]) [address] [place] [address] Start: 01-01-2023 Blood typing serologic abo Karma L Mcmullen FIRE EXTINGUISHER MECHANIC-CRIMINAL RESEARCHER Work Phone: Start: 01-01-2023 Hemoglobin glycosylated a1c Karma Zayas Benedict FIRE EXTINGUISHER MECHANIC-CRIMINAL RESEARCHER Work Phone: Start: 01-01-2023 Glucose measurement, blood Felipe Crook MD Work Phone: Start: 01-01-2023 Glucose measurement, blood Felipe Crook MD Work Phone: Start: 01-01-2023 End: 01-01-2023 Prim prq trluml mchnl thrmbc n-cor n-icra 1st Felipe Crook MD Work Phone: Start: 01-01-2023 End: 01-01-2023 Slctv cath intrnl carotid art angio intrcrnl art Felipe Crook MD Work Phone: Start: 01-01-2023 CT angiography of he ad and neck Dr. Rishi Wright Work Phone: Start: 01-01-2023 CT of head without contrast Dr. Rishi Wright Work Phone: Start: 06-25-2022 [employer] COVI D-19 BIVALENT BOOSTER VACCINE, AGE 12+ YR Polina Maravilla PA-C Work Phone: Start: 06-05-2022 Menacwy-tt conj vacc serogroups acwy for im use Rishi Wright MD Work Phone: Start: 07-21-1990 H/O splenectomy Hx of splenectomy Kemar Wright MD Work Phone: H/O splenectomy Hx of splenectomy Rishi Wright MD Work Phone: Plan of Treatment Date Care Activity Detail Author Start: 06-30-2027 Diabetes Screening Diabetes Screenin [facility] Start: 06-21-2026 Diabetes Screening Diabetes Screenin [facility] Start: 01-05-2026 Diabetes Screening Diabetes Screenin [facility] Start: 01-01-2026 DIABETES SCREEN DIABETES SCREEN [facility] Start: 01-01-2026 Diabetes Screening Diabetes Screenin g [facility] Start: 07-01-2025 End: 07-01-2025 Patient encounter procedure [facility] Comment on above: Medicare wellness Start: 06-30-2025 Anxiety Screening Anxiety Screening [facility] Start: 06-30-2025 Depression Screening Depression Scre ening [facility] Start: 06-30-2025 Medicare Annual Well ness Visit Medicare Annual Wellness Visit [facility] Start: 06-30-2025 RSV Vaccine (1 - 1-d ose 75+ series) RSV Vaccine (1 - 1-dose 75+ series) [facility] Comment on above: Postponed from 09/26 (Insurance Coverage) Start: 06-30-2025 Shingrix Vaccine (1 of 2) Shingrix Vaccine (1 of 2) [facility] Comment on above: Postponed from 09/26 (Insurance Coverage) Start: 06-30-2025 Urine microalbumin profile DTaP,Tdap,Td Vaccine (1 - Tdap) [facility] Comment on above: Postponed from 09/26 (Insurance Coverage) Start: 06-05-2025 DIABETES SCREEN DIABETES SCREEN [facility] Start: 03-09-2025 End: 06-08-2025 CYSTATIN C CYSTATIN C Lab Routine Proteinuria, unspecified type Expected: 03/09/2025, Expires: 06/08/2025 [facility] Work Phone: Comment on above: Expected: 03/09/2025 , Expires: 06/08/2025 Start: 03-09-2025 End: 03-09-2025 Patient encounter procedure 03/09/2025 10:20 AM EDT Office Visit [facility] [id number] [place] [address] [place] [id number] [place] [address] Return in about 6 months (around 03/08/2025). [facility] Comment on above: Return in about 6 mo nths (around 03/08/2025). Start: 12-29-2024 Covid-19 Vaccine () Covid-19 Vaccine () [facility] Start: 12-15-2024 End: 03-16-2025 KAPPA/DEAN,FREE,SER KAPPA/DEAN,FREE,SER Lab Routine Proteinuria, unspecified type Expected: 12/15/2024, Expires: 03/16/2025 [facility] Work Phone: Comment on above: Expected: 12/15/2024 , Expires: 03/16/2025 Start: 11-30-2024 DIABETES SCREEN DIABETES SCREEN [facility] Start: 09-08-2024 End: 09-08-2024 Patient encounter procedure 09/08/2024 2:20 PM EST Office Visit [facility] [id number] [place] [address] [place] [id number] [place] [id number] Proteinuria, unspecified type [R80.9] [facility] Comment on above: Proteinuria, unspeci fied type [R80.9] Start: 09-08-2024 End: 12-08-2024 CHRIS BY IFA WITH REFLEX CHRIS BY IFA WITH REFLEX Lab Routine Proteinuria, unspecified type Expected: 09/08/2024, Expires: 12/08/2024 [facility] Comment on above: Expected: 09/08/2024 , Expires: 12/08/2024 Start: 09-08-2024 End: 09-08-2025 ANTI NEUTRO CYTO AB ANTI NEUTRO CYTO AB Lab Routine Proteinuria, unspecified type Expected: 09/08/2024, Expires: 09/08/2025 [facility] Comment on above: Expected: 09/08/2024 , Expires: 09/08/2025 Start: 09-08-2024 End: 09-08-2025 C reactive protein [Mass/volume] in Serum or Plasma C-REACTIVE PROTEIN Lab Routine Proteinuria, unspecified type Expected: 09/08/2024, Expires: 09/08/2025 [facility] Comment on above: Expected: 09/08/2024 , Expires: 09/08/2025 Start: 09-08-2024 End: 09-08-2025 Chronic hepatitis differentiation between hepatitis B and C virus panel - Serum or Plasma HEP REMOTE PANEL BL Lab Routine Proteinuria, unspecified type Expected: 09/08/2024, Expires: 09/08/2025 [facility] Comment on above: Expected: 09/08/2024 , Expires: 09/08/2025 Start: 09-08-2024 End: 09-08-2025 Complement C3 [Mass/volume] in Serum or Plasma C3 COMPLEMENT Lab Routine Proteinuria, unspecified type Expected: 09/08/2024, Expires: 09/08/2025 [facility] Comment on above: Expected: 09/08/2024 , Expires: 09/08/2025 Start: 09-08-2024 End: 09-08-2025 Complement C4 [Mass/volume] in Serum or Plasma C4 COMPLEMENT Lab Routine Proteinuria, unspecified type Expected: 09/08/2024, Expires: 09/08/2025 [facility] Comment on above: Expected: 09/08/2024 , Expires: 09/08/2025 Start: 09-08-2024 End: 09-08-2025 HIV 1+2 Ab [Presence] in Serum or Plasma by Immunoassay HIV 1/2 COMBO WITH REFLEX TO DIFFERENTIATION Lab Routine Proteinuria, unspecified type Expected: 09/08/2024, Expires: 09/08/2025 [facility] Comment on above: Expected: 09/08/2024 , Expires: 09/08/2025 Start: 09-08-2024 End: 12-08-2024 Microalbumin/Creatinine [Mass Ratio] in Urine [facility] Comment on above: Expected: 09/08/2024 , Expires: 12/08/2024 Start: 09-08-2024 End: 12-08-2024 MONOCLONAL PROTEIN, SERUM (BLOOD) MONOCLONAL PROTEIN, SERUM (BLOOD) Lab Routine Proteinuria, unspecified type Expected: 09/08/2024, Expires: 12/08/2024 [facility] Comment on above: Expected: 09/08/2024 , Expires: 12/08/2024 Start: 09-08-2024 End: 12-08-2024 PRIMARY MEMBRANEOUS NEPHROPATHY DIAGNOSTIC CASCADE, SER PRIMARY MEMBRANEOUS NEPHROPATHY DIAGNOSTIC CASCADE, SER Lab Routine Proteinuria, unspecified type Expected: 09/08/2024, Expires: 12/08/2024 [facility] Comment on above: Expected: 09/08/2024 , Expires: 12/08/2024 Start: 09-08-2024 End: 12-08-2024 Protein/Creatinine [Mass Ratio] in Urine [facility] Work Phone: Comment on above: Expected: 09/08/2024 , Expires: 12/08/2024 Start: 09-08-2024 End: 12-08-2024 Renal function 2000 panel - Serum or Plasma RENAL FUNCTION PANEL Lab Routine Proteinuria, unspecified type Expected: 09/08/2024, Expires: 12/08/2024 [facility] Comment on above: Expected: 09/08/2024 , Expires: 12/08/2024 Start: 08-04-2024 End: 08-04-2024 Patient encounter procedure 08/04/2024 10:00 AM EST Appointment Cat Scan [address] [place] [address] Hydronephrosis, unspecified hydronephrosis type Cat Scan Comment on above: Hydronephrosis, unsp ecified hydronephrosis type Start: 07-21-2024 Advance Directive Discussion Advance Directive Discussion [facility] Start: 07-20-2024 End: 10-19-2024 CREATININE BLD CREATININE BLD Lab Routine Screening for nephropathy Expected: 07/20/2024, Expires: 10/19/2024 [facility] Work Phone: Comment on above: Expected: 07/20/2024 , Expires: 10/19/2024 Start: 06-30-2024 End: 09-29-2024 Comprehensive metabolic 2000 panel - Serum or Plasma [facility] Work Phone: Comment on above: Expected: 06/30/2024 , Expires: 09/29/2024 Start: 06-30-2024 End: 09-29-2024 LIPID PANEL, NONFASTING [facility] Comment on above: Expected: 06/30/2024 , Expires: 09/29/2024 Start: 06-30-2024 End: 06-30-2024 Patient encounter procedure 06/30/2024 9:40 AM EST Office [facility] [address] [place] [address] Rishi Wright MD [address] [place] [address] Medicare wellness [facility] Comment on above: Medicare wellness Start: 06-21-2024 RSV Vaccine (1 - 1-d ose 60+ series) RSV Vaccine (1 - 1-dose 60+ series) [facility] Comment on above: Postponed from 09/26 (Insurance Coverage) Start: 06-21-2024 Shingrix Vaccine (1 of 2) Shingrix Vaccine (1 of 2) [facility] Comment on above: Postponed from 09/26 (Insurance Coverage) Start: 06-21-2024 Urine microalbumin profile DTaP,Tdap,Td Vaccine (1 - Tdap) [facility] Comment on above: Postponed from 09/26 (Insurance Coverage) Start: 10-16-2023 Covid-19 Vaccine (2022- season) Covid-19 Vaccine ( season) [facility] Start: 08-09-2023 [facility] Start: 07-21-2023 Advance Directive Discussion Advance Directive Discussion [facility] Start: 07-21-2023 Behavioral Health Screening Behavioral Health Screening [facility] Start: 06-21-2023 End: 09-20-2023 Comprehensive metabolic 2000 panel - Serum or Plasma [facility] Work Phone: Comment on above: Expected: 06/21/2023 , Expires: 09/20/2023 Start: 06-21-2023 End: 09-20-2023 Hemoglobin A1c in Blood [facility] Work Phone: Comment on above: Expected: 06/21/2023 , Expires: 09/20/2023 Start: 06-21-2023 End: 09-20-2023 LIPID PANEL, NONFASTING [facility] Work Phone: Comment on above: Expected: 06/21/2023 , Expires: 09/20/2023 Start: 06-21-2023 End: 09-20-2023 Urinalysis complete panel - Urine [facility] Work Phone: Comment on above: Expected: 06/21/2023 , Expires: 09/20/2023 Start: 06-05-2023 SHINGRIX VACCINE (1 of 2) SHINGRIX VACCINE (1 of 2) [facility] Comment on above: Postponed from 09/26 (Insurance Coverage) Start: 06-05-2023 Urine microalbumin profile [facility] Comment on above: Postponed from 09/26 (Insurance Coverage) Start: 03-21-2023 Covid-19 Vaccine () Covid-19 Vaccine () [facility] Start: 03-21-2023 Influenza vaccination INFLUENZ A VACCINE (Season Ended) [facility] Start: 01-05-2023 End: 01-06-2024 Cardiac telemetry MOBILE CARDIAC TELEMETRY ECG Routine Cerebrovascular accident (CVA), unspecified mechanism Other cerebrovascular vasospasm and vasoconstriction Expected: 01/05/2023, Expires: 01/06/2024 [facility] Comment on above: Expected: 01/05/2023 , Expires: 01/06/2024 Start: 01-01-2023 Bleeding precautions [facility] Start: 01-01-2023 Consultation [facility] Start: 01-01-2023 End: 01-01-2023 Oxygen therapy [facility] Start: 01-01-2023 [facility] Start: 10-24-2022 COVID-19 VACCINE (5 - Pfizer series) COVID-19 VACCINE (5 - Pfizer series) [facility] Start: 07-21-2022 ADVANCE DIRECTIVE DISCUSSION ADVANCE DIRECTIVE DISCUSSION [facility] Start: 07-21-2022 DEPRESSION ASSESSMENT DEPRESSION ASS ESSMENT [facility] Start: 06-05-2022 End: 08-05-2022 Hemoglobin A1c in Blood [facility] Work Phone: Comment on above: Expected: 06/05/2022 , Expires: 08/05/2022 Start: 06-05-2022 End: 08-05-2022 LIPID PANEL, NONFASTING [facility] Work Phone: Comment on above: Expected: 06/05/2022 , Expires: 08/05/2022 Start: 03-21-2022 Influenza vaccination INFLUENZA (Sea son Ended) [facility] Start: 11-23-2021 COVID-19 VACCINE (4 - Booster for Pfizer series) COVID-19 VACCINE (4 - Booster for Pfizer series) [facility] Start: 09-20-2021 COVID-19 VACCINE (4 - Booster for Pfizer series) COVID-19 VACCINE (4 - Booster for Pfizer series) [facility] Start: 07-21-2021 ADVANCE DIRECTIVE DISCUSSION ADVANCE DIRECTIVE DISCUSSION [facility] Start: 2000 RSV Vaccine (1 - 1-d ose 60+ series) RSV Vaccine (1 - 1-dose 60+ series) [facility] Start: 1990 SHINGRIX VACCINE (1 of 2) SHINGRIX VACCINE (1 of 2) [facility] Start: 1990 Zoster vaccine hzv l savi for subcutaneous use ZOSTER (SHINGLES) VACCINE (1 of 2) [facility] Start: 1985 Screening for malign ant neoplasm of colon COLORECTAL CANCER SCREENING DISCUSSION [facility] Start: 09-27-1959 Third diphtheria, tetanus and acellular pertussis (DTaP) vaccination TDAP (ADULT) [facility] Start: 09-27-1959 Urine microalbumin profile [facility] Start: 1940 Tetanus vaccination TETANUS [facility] End: 09-08-2025 CBC panel - Blood by Automated count COMPLETE BLOOD COUNT Lab Routine Proteinuria, unspecified type Every 3 months for 8 Occurrences starting 09/08/2024 until 09/08/2025 [facility] Comment on above: Every 3 months for 8 Occurrences starting 09/08/2024 until 09/08/2025 COVID & INFLUENZA A/ B & RSV PCR, ROUTINE COVID & INFLUENZA A/B & RSV PCR, ROUTINE Microbiology Routine Acute upper respiratory infection, unspecified Exposure to COVID-19 virus 07/15/2024 4:00 PM EST [facility] Work Phone: End: 08-15-2025 CT Kidney WO and W contrast IV CT UROGRAM WO/W IVCON Radiology Routine Hydronephrosis, unspecified hydronephrosis type 1 Occurrences starting 07/16/2024 until 08/15/2025 [facility] Work Phone: Comment on above: 1 Occurrences starti ng 07/16/2024 until 08/15/2025 CT Kidney WO and W contrast IV CT UROGRAM WO/W IVCON Radiology Routine Hydronephrosis, unspecified hydronephrosis type 08/04/2024 10:44 AM EST [facility] Work Phone: NM Heart Views W str ess and W radionuclide IV [facility] Patient Education ED Constipation (Adult) [facility] Work Phone: Patient referral [facility] Work Phone: Protein [Mass/time] in 24 hour Urine PROTEIN 24 HR URINE Lab Routine Proteinuria, unspecified type Ordered: 06/23/2023 [facility] Work Phone: Comment on above: Ordered: 06/23/2023 Protein [Mass/time] in 24 hour Urine PROTEIN, 24 HOUR URINE Lab Routine Proteinuria, unspecified type Ordered: 07/01/2024 [facility] Work Phone: Comment on above: Ordered: 07/01/2024 End: 09-08-2025 Protein/Creatinine [Mass Ratio] in Urine PROTEIN / CREATININE RATIO Lab Routine Proteinuria, unspecified type Every 3 months for 8 Occurrences starting 09/08/2024 until 09/08/2025 [facility] Comment on above: Every 3 months for 8 Occurrences starting 09/08/2024 until 09/08/2025 PT PLAN OF CARE CERTIFICATION PT PLAN OF CARE CERTIFICATION Procedures Routine HFrEF (heart failure with reduced ejection fraction) (HCC) Left atrial enlargement 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) Left-sided weakness Ordered: 01/29/2023 [facility] Work Phone: Comment on above: Ordered: 01/29/2023 End: 09-08-2025 Renal function 2000 panel - Serum or Plasma RENAL FUNCTION PANEL Lab Routine Proteinuria, unspecified type Every 3 months for 8 Occurrences starting 09/08/2024 until 09/08/2025 [facility] Comment on above: Every 3 months for 8 Occurrences starting 09/08/2024 until 09/08/2025 End: 09-08-2025 Urinalysis complete panel - Urine URINALYSIS, WITH MICROSCOPIC Lab Routine Proteinuria, unspecified type Every 3 months for 8 Occurrences starting 09/08/2024 until 09/08/2025 [facility] Comment on above: Every 3 months for 8 Occurrences starting 09/08/2024 until 09/08/2025 [facility] Immunizations Immunization Date Immunization Notes Care Provider Fa trevor 06-30-2024 COVID-19 vaccine, ag e 12+ yr (PFIZER-BIONTECH COMIRNATY) Rishi Wright MD Work Phone: [facility] 06-30-2024 influenza, high dose seasonal, preservative-free Rishi Wright MD Work Phone: [facility] 06-17-2023 COVID-19 vaccine, ag e 12+ yr, 2022- season (PFIZER-BIONTECH) Rishi Wright MD Work Phone: [facility] 04-28-2023 influenza, high dose seasonal, preservative-free Rishi Wright MD Work Phone: [facility] 06-25-2022 COVID-19 booster vaccine, age 12+ yr, bivalent (PFIZER-BIONTECH) Co Nurse Work Phone: [facility] Work Phone: 06-05-2022 pneumococcal Conjuga te, unspecified formulation Rishi Wright MD Work Phone: [facility] Work Phone: 06-05-2022 meningococcal (MenACWY-TT) vaccine, quadrivalent (MENQUADFI) Rishi Wright MD Work Phone: [facility] 06-05-2022 pneumococcal (PCV20) vaccine, 20 valent (PREVNAR 20) Rishi Wright MD Work Phone: [facility] 09-21-2020 COVID-19 vaccine, ag e 12+ yr (PFIZER-BIONTECH - PURPLE TOP) Rishi Wright MD Work Phone: [facility] Work Phone: 08-31-2020 COVID-19 vaccine, ag e 12+ yr ([employer]ine[employer] - PURPLE TOP) Rishi Wright MD Work Phone: [facility] Work Phone: 07-05-2008 pneumococcal polysaccharide vaccine, 23 valent Rishi Wright MD Work Phone: [facility] Work Phone: Payers Date Payer Category Payer Self-pay 2015 Private Health Insurance HUMANA HUMANA MEDICARE SUPPLEMENT [id number] 2015-Present [phone] [address] [address] [place] [address] Indemnity [id number] 2015 Private Health Insurance [id number] 2015 Unknown GENERIC PAYOR ME DICARE SUPPLEMENT [id number] 2015-Present [phone] [address] [address] [place] [address] [id number] 2015 Private Health Insurance [id number] 2005 Medicare MEDICARE MEDICAR E A AND B [id number] 2005-Present [phone] [address] [address] [place] [address] Medicare [id number] 2005 Medicare [id number] 2005 Medicare [id number] 1940 Unknown [id number] 1940 Unknown [id number] 1940 Unknown [id number] Unknown MED [employer] [place] [id number] 462 Unknown [id number] 462 Unknown [id number] 462 Unknown [id number] 462 Unknown [id number] 462 Unknown [id number] 462 Unknown [id number] 462 Unknown [id number] 462 Unknown [id number] 462 Social History Date Type Detail Facility Start: 06-05-2022 Tobacco smoking status NHIS Ex-smoker [facility] Work Phone: Start: 11-30-2021 End: 03-24-2025 Alcohol intake Lifetime non-drinker (finding) [facility] Start: 12-11-2018 End: 06-04-2022 History SDOH Alcohol Frequency 1 [facility] Start: 01-08-2008 End: 06-05-2022 Tobacco Comment per patient quit smoking in the 80's [facility] Start: 03-09-1941 Sex Assigned At Not on file [facility] Start: 11-20-2021 End: 06-05-2022 Exposure to SARS-CoV-2 (event) Not sure [facility] History of tobacco use Current smoker [facility] Start: 06-05-2022 Tobacco use and exposure Smokeless tobacco non-user [facility] Start: 06-04-2022 History SDOH Alcohol Std Drinks 0 [facility] Start: 06-04-2022 History SDOH Social Connections Phone 4 [facility] Start: 06-04-2022 History SDOH Social Connections Get Together 5 [facility] Start: 06-04-2022 History SDOH Social Connections Evangelical 3 [facility] Start: 06-04-2022 History SDOH Physical Activity MPS 13 [facility] Start: 06-04-2022 History SDOH Transport Med 2 [facility] Start: 02-11-2023 End: 08-09-2023 Tobacco smoking status COIS Tobacco smoking consumption unknown [facility] Start: 06-04-2022 End: 01-16-2023 Gender identity Not on file [facility] Start: 06-04-2022 End: 01-16-2023 History of Social function [facility] Do you belong to any clubs or organizations such as congregational groups, unions, fraternal or athletic groups, or school groups? Yes [facility] Are you now , , , , never or living with a partner? [facility] How often to you hav e a drink containing alcohol? Never [facility] Start: 06-21-2012 How many standard drinks containing alcohol do you have on a typical day? Patient does not drink [facility] Do you feel stress - tense, restless, nervous, or anxious, or unable to sleep at night because your mind is troubled all the time - these days [OSQ] To some extent [facility] (I/We) worried wheth er (my/our) food would run out before (I/we) got money to buy more. Never true [facility] In the past 12 month s, was there a time when you were not able to pay the mortgage or rent on time? No [facility] Start: 1940 Sex Assigned At Male [facility] Do you feel stress - tense, restless, nervous, or anxious, or unable to sleep at night because your mind is troubled all the time - these days [OSQ] Not at all [facility] How many standard dr inks containing alcohol do you have on a typical day? 1 or 2 [facility] Functional Status Date Assessment Result Facility 12-14-2014 Are you deaf, or do you have serious difficulty hearing No 12/14/2014 1:39 PM EDT Lj Wahl MA No [facility] 12-14-2014 Are you blind, or do you have serious difficulty seeing, even when wearing glasses No 12/14/2014 1:39 PM EDT Lj Wahl MA No [facility] 12-14-2014 Do you have serious difficulty walking or climbing stairs No 12/14/2014 1:39 PM Lj Almaraz MA No [facility] 12-14-2014 Do you have difficul ty dressing or bathing No 12/14/2014 1:39 PM Lj Almaraz MA No [facility] 12-14-2014 Because of a physica l, mental, or emotional condition, do you have difficulty doing errands alone such as visiting a physician's office or shopping No 12/14/2014 1:39 PM YARYT Lj Wahl MA No [facility] Mental Status Date Assessment Result Facility 01-01-2023 Cognitive function Voice/Name [facility] Work Phone: 12-14-2014 Because of a physica l, mental, or emotional condition, do you have serious difficulty concentrating, remembering, or making decisions No 12/14/2014 1:39 PM Lj Almaraz MA No [facility] Clinical Notes 12-03-2021 to 03-24-2025 Jacques [facility] MD - 03/24/2025 3:40 PM EDTPatient InstructionsPatient Girma Pulido MD - 03/09/2025 10:20 AM EDTPatient Girma Pulido MD - 09/08/2024 2:20 PM ESTMedications Note Date & Type Note Facility 03-24-2025 Note HNO ID: [id number] Author: JACQUES WHITMORE MD Service: ? Author Type: Physician Type: Progress Notes Filed: 03/24/2025 15:51 Note Text: [facility] Subjective Ankit eLwis is a 84 year old male. 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 Review of Systems Objective BP 158/79 Pulse 97 Temp (!) 17.8 ?C (64 ?F) Resp 22 Wt 104 kg (229 lb 4.5 oz) SpO2 94% BMI 33.38 kg/m? Physical Exam Constitutional: General: He is not in acute distress. HENT: Nose: Comments: 9 mm circumference by 5 mm tall keratotic papule on the midline ball of the nose. Central dome has erosion and granulation tissue. Eyes: Extraocular Movements: Extraocular movements intact. Pupils: Pupils are equal, round, and reactive to light. Cardiovascular: Rate and Rhythm: Normal rate and regular rhythm. Pulmonary: Effort: Pulmonary effort is normal. Breath sounds: Normal breath sounds. Musculoskeletal: Cervical back: Neck supple. No tenderness. Comments: KNEE: left. No erythema, no effusion, mild joint hypertrophy. FROM without pain. No crepitus. No joint line tenderness. Stable to varus and valgus strain. Negative anterior drawer test. Negative posterior drawer test. Lymphadenopathy: Cervical: No cervical adenopathy. Neurological: Mental Status: He is alert. {ASSESSMENT/PLAN: 1. 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 - CONSULT TO DERMATOLOGY He would like to stay local. Numbers for [place] dermatology offices provided. 2. Acute pain of left knee - ICD9: 719.46, ICD10: M25.562 Follow up if failing to continue improving. Jacques Whitmore MD Differential Diagnoses - Basal carcinoma - Squamous cell carcinoma - Keratoacanthoma Procedures [facility] 03-24-2025 History of Present illness Narrative [facility] Subjective Ankit Lewis is a 84 year old male. 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 Review of Systems Objective BP 158/79 Pulse 97 Temp (!) 17.8 C (64 F) Resp 22 Wt 104 kg (229 lb 4.5 oz) SpO2 94% BMI 33.38 kg/m Physical Exam Constitutional: General: He is not in acute distress. HENT: Nose: Comments: 9 mm circumference by 5 mm tall keratotic papule on the midline ball of the nose. Central dome has erosion and granulation tissue. Eyes: Extraocular Movements: Extraocular movements intact. Pupils: Pupils are equal, round, and reactive to light. Cardiovascular: Rate and Rhythm: Normal rate and regular rhythm. Pulmonary: Effort: Pulmonary effort is normal. Breath sounds: Normal breath sounds. Musculoskeletal: Cervical back: Neck supple. No tenderness. Comments: KNEE: left. No erythema, no effusion, mild joint hypertrophy. FROM without pain. No crepitus. No joint line tenderness. Stable to varus and valgus strain. Negative anterior drawer test. Negative posterior drawer test. Lymphadenopathy: Cervical: No cervical adenopathy. Neurological: Mental Status: He is alert. {ASSESSMENT/PLAN: 1. 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 - CONSULT TO DERMATOLOGY He would like to stay local. Numbers for [place] dermatology offices provided. 2. Acute pain of left knee - ICD9: 719.46, ICD10: M25.562 Follow up if failing to continue improving. Jacques Whitmore MD Differential Diagnoses - Basal carcinoma - Squamous cell carcinoma - Keratoacanthoma Procedures documented in this encounter [facility] 03-24-2025 Instructions Jacques Whitmore MD - 03/24/2025 3:34 PM EDT Schedule follow-up with dermatology for suspected cancer on the nose. [facility] [phone] [facility] [phone] documented in this encounter [facility] 03-09-2025 Instructions Girma Woody MD - 03/09/2025 10:33 AM EDT We discussed your kidney health: - Your kidney function in the blood tests looks fine. However, the protein in your urine has only slightly improved. - I recommend starting Jardiance, as it can help both your kidneys and your heart. You mentioned you have a bottle of this medication at home but have not been taking it. Please consider starting it, as it is most effective when taken consistently over time. Studies show long-term benefits for both kidney and heart health. Let me know if you decide to start taking it. - We will continue to monitor your kidney function and protein levels in your urine with labs every 3 months. We discussed your heart health: - You mentioned some mild swelling, which could be related to your heart condition or dilated veins. Please continue monitoring for any changes. - You have not seen your heart doctor in over a year. I recommend scheduling a follow-up with your hearing examiner to ensure your heart health is well-managed. We discussed your weight and physical activity: - Your weight is stable at 230 pounds, which is the same as your last visit in August. Please try to avoid gaining weight, as this can worsen kidney function. Weight loss should be a goal. - You mentioned you have not been walking for the past two weeks due to a foot issue but were previously walking 4 miles daily. Now that your foot has healed, I encourage you to resume walking regularly, as it is beneficial for your overall health. We discussed your diet and hydration: - You are drinking 3-5 glasses of water daily, which is good. Please continue this. - You have reduced your coffee intake to 2 cups per day, spread throughout the day. This is a healthy adjustment--please maintain this habit. Follow-Up Plan: - Continue your current medications, including losartan 100 mg daily. - Consider starting Jardiance for kidney and heart health. Let me know if you decide to begin taking it. - Schedule a follow-up with your hearing examiner. - We will repeat your labs every 3 months to monitor your kidney function and protein levels in your urine. - Your next visit with me will be in approximately 9 months. Please call the office to schedule this appointment. documented in this encounter [facility] 03-09-2025 History of Present illness Narrative [facility] SERVICE DATE: 03/09/2025 CHIEF COMPLAINT: proteinuria f/u Recording using ambient [employer] software for draft documentation of the visit was discussed with the patient/authorized claim representative; all questions welcomed and answered. 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 Previous notes and results reviewed. Relevant events/history: - 09/08/2024: Seen by me. Serologies ordered. 03/09/2025 Ankit reports no new symptoms or concerns since his last visit. He has been taking Metamucil but recently switched to a similar product from [employer], which he finds more effective. He drinks 3-5 glasses of water daily and has reduced his coffee intake to 2 cups per day, split into halves and spread throughout the day. He previously consumed 12-20 cups of coffee daily but reduced his intake after experiencing headaches. He has not walked for about 2 weeks due to a foot injury caused by a twisted sock but plans to resume walking soon. Prior to his stroke, he walked 4 miles daily, 5-7 times a week. He uses one large pillow for sleep and denies dyspnea, except what he attributes to old age. He is currently on losartan 100 mg and has a bottle of Jardiance at home but has not taken it. He reports some swelling, which he attributes to his heart condition. He has not seen his hearing examiner for about a year. He recalls a previous stroke affecting his left leg and arm, which resolved after treatment. He denies any recent changes in weight. 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 metoprolol succinate ER (TOPROL XL) 50 mg 24 hr tablet Take 1 tablet by mouth once daily. Per [facility] losartan (COZAAR) 100 mg tablet Take 1 tablet by mouth once daily. Per [facility] ALLERGIES: ALLERGIES No Known Allergies REVIEW OF SYSTEMS: Constitutional: No fevers, chills, weight loss Eyes: No loss in vision, photophobia Ear, Nose, and Throat: No epistaxis, nasal congestion Cardiovascular: No chest pain, CALLEJAS, SOB, palpitations Respiratory: No cough, hemoptysis Gastrointestinal: No diarrhea, constipation Genitourinary: No dysuria, polyuria Musculoskeletal: No joint pain, morning stiffness Skin: No rash, no ulcers Neurological: No headaches, seizures, paresthesias Psychiatric: No depression, anxiety Endocrine: No hair loss, no heat intolerance Hematologic:No easy bruising, easy bleeding PHYSICAL EXAM: BP 127/66 Pulse 60 Ht 176.5 cm (5' 9.49) Wt 104.3 kg (230 lb) BMI 33.49 kg/m BP - standardized method Pulse 1 BP #1: 127/65 Pulse #1: 60 beats/min 2 BP #2 : 125/63 Pulse #2 : 60 beats/min 3 BP #3 : 130/72 Pulse #3 : 61 beats/min Average Average BP: 127/66 Average Pulse: 60 beats/min Orthostatic vitals Supine Sitting Standing BP cuff location BP cuff size Comments for BP values First BP (right) First BP (left) Last 14 BP Last 14 Encounter BP Readings: Date: BP: 09/08/2024 145/77 07/15/2024 132/84 06/30/2024 122/72 06/21/2023 140/70 01/16/2023 138/70 01/07/2023 108/60 06/05/2022 142/74 11/30/2021 134/80 12/11/2018 122/78 04/19/2014 120/70 03/03/2014 137/88 03/17/2013 132/80 07/05/2008 140/80 01/08/2008 114/74 Last 2 Encounter Wt Readings: Date: Wt: 09/08/2024 104.6 kg (230 lb 9.6 oz) 07/15/2024 106.5 kg (234 lb 12.6 oz) General: Awake, not in distress. HENT: Normocephalic. Eyes: PERRL, Anicteric Neck:Trachea midline, No JVD Respiratory: Clear bilaterally. CV: RRR, No murmurs, rubs, or gallops Abdomen: Soft, non-distended. Extremities: Pedal edema absent. Skin: No rashes. Neurologic: Alert and oriented x 3, no focal deficits. Psychiatric: Cooperative, normal mood/affect. DATA: Diagnostic tests reviewed for today's visit: Recent Labs 03/07/25 1042 NA 137 K 4.5 CHLOR 102 CO2 24 BUN 16 CREAT 0.92 GLUC 99 ANION 11 CA 9.0 P 3.4 Recent Labs 03/07/25 1042 WBC 7.15 HB 14.5 HCT 42.4 PLT 376 Recent Labs 03/07/25 1047 12/15/24 1447 09/14/24 1521 COLOR Yellow Yellow Yellow CLARITY Clear Clear Clear UGLUC Negative Negative Negative UBILI Negative Negative Negative UKET Negative Negative Negative SPGR 1.014 1.012 1.018 UHB Negative Negative Negative UPH 6.5 6.5 5.5 UPROT 1+* 1+* 2+* NITRITES Negative Negative Negative LEUKEST Negative Negative Negative UWBC 0-5 /HPF 0-5 /HPF 0-5 /HPF URBC 0-2 /HPF 0-2 /HPF 0-2 /HPF Recent Labs 03/07/25 1042 HB 14.5 Recent Labs 03/07/25 1042 09/14/24 1427 06/30/24 1045 ALKPHOS -- -- 93 CA 9.0 < > 8.9 P 3.4 < > -- ALB 3.9 < > 3.8* < > = values in this interval not displayed. Kidney/bladder ultrasound 07/05/2024 RESULT: Right Kidney: -Renal length: 13.0 cm -Parenchyma: Normal parenchymal echogenicity. Normal parenchymal thickness. -Collecting system: No hydronephrosis. -Calculus: No echogenic, shadowing calculus. -Lesion: Upper pole septated cyst of 0.2 cm. Left Kidney: -Renal length: 13.5 cm -Parenchyma: Normal parenchymal echogenicity. Normal parenchymal thickness. -Collecting system: Mild lower pole hydronephrosis. -Calculus: No echogenic, shadowing calculus. -Lesion: None. Bladder: Normal sonographic appearance. Pre and postvoid urinary bladder volume of 107 cc and 16 cc respectively IMPRESSION: Mild lower pole hydronephrosis on the left Septated right renal cyst CT urogram may be helpful for further evaluation CT Urogram 08/06/2024 IMPRESSION: No urolithiasis or suspicious lesions within the bilateral kidneys, ureters and bladder. Resolution of the previously seen mild left hydronephrosis. Echo 01/02/2023 Left Ventricle: Chamber size is normal. [...] significant valve disease. No prior for comparison. ASSESSMENT: Proteinuria: 24 hour urine protein done on 06/2024 was 700 mg. Serologies negative. No M protein in MPA; slightly elevated kappa to lambda ratio. No hematuria, normal kidney function. Patient is on losartan 100 mg daily. Proteinuria could be obesity related or from uncontrolled hypertension and/or heart failure. Recent UPCR 550 mg. He was recently prescribed Jardiance by his hearing examiner which he did not start because of concerns for side effects Hypertension/Volume status: He has chronic systolic heart failure. Patient is on losartan 100 mg daily, metoprolol succinate 50 mg daily. Blood pressure is on the higher side. Euvolemic on exam. Hyperlipidemia: Not on statin. Anemia: Hb at target. CKD MBD: Check PTH, phos, calcium, vitamin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 resp. rate (!) 32, height 1.778 m (5' 10), weight 87.8 kg (193 lb 8 oz), SpO2 95 %. 01/02/2023 Post-Extubation Orders and Indications: Oxtgen via nasal cannula - titrate to maintain SpO2 >=92% Respiratory Plan of Care: As above plus Further therapeutic interventions as needed or required. Thank you, will follow with you. The patients respiratory plan of care was updated by Maximo Rodriguez RCP 01/02/2023 1:06 PM [facility] 01-02-2023 History of Present illness Narrative Scan on 01/01/2023 11:01 PM by External Provider, CARLOS: Consultation - Emergency Medicine documented in this encounter [facility] 01-02-2023 Progress note Formatting of t his note might be different from the original. I certify that this patient requires inpatient services at this time. I anticipate the expected length of stay will include at least two midnights. Inpatient services are due to the following medical concerns Right MCA infarct. Plans for post hospitalization care will be discharge to [facility]. [facility] 01-02-2023 Note Acute Coronary Syndr ome (ACS): Initial Evaluation and Management: [email or web address] [email or web address] [facility] 01-01-2023 History and physical note NEUROCRITICAL CARE HISTORY AND PHYSICAL HOSPITAL VISIT DEMOGRAPHICS Patient: Ankit Lewis Code status: Full Code Admission date: 01/01/2023 4:35 PM Hospital days: LOS: 0 days CHIEF COMPLAINT Level A LVO HISTORY OF PRESENT ILLNESS Ankit Lewis is a 82 y.o. male withunknown pmhx, who presented from [facility] with an acute ischemic stroke secondary to [...] >92%; wean FiO2 as tolerated - - GTI2QIE, encourage pulmonary toileting Cards: HLD Temp: [97.4 [...] mL/admission - UOP p mL/24H - Continue fredrick, (indication: I/O) - Maintenance: 0.9NS w/ 20 KCl @ 75 mL/hr - Daily Chem 10; electrolytes replaced per NCCU protocol Recent Labs 01/02/23 0006 SODIUM 138 POTASSIUM 4.4 CHLORIDE 108 CO2 21 BUN 22 CREATSERUM 0.81 MAGNESIUM 1.9 PHOSPHORUS 4.0 CPK 98 GI/Nutrition: Obesity No results for input(s): ALBUMIN, BILIDIRECT, BILITOTAL, ALKPHOS, ALT, AST, TP, AMYLASE, LIPASE in the last 72 hours. - [...] No Current Issues No results for input(s): WBC, LACT, PROCALCITONI in the last 72 hours. - [...] intubated - Lines/Tubes: Kaba: inserted 01/01, (indication:I/O) Ankit Lewis remained in the neurocritical care unit overnight requiring frequent neurochecks, strict BP control and monitoring, follow up on imaging, strict I&Os, pain management, and monitoring for neurologic decline. Greater the 50% of my time today was spent in counseling and/or coordination of care for this patient. I have spent a total of 25 minutes with this patient. Lisa Wheeler, DISHA-CRIMINAL RESEARCHER Service pager: [phone] Service [place] #: [id number] (Beds [id number] and beds), [place] #: [id number] (Beds [phone] and [facility] beds) 01/01/23 10:23 PM [facility] 01-01-2023 History and physical note NEUROCRITICAL CARE HISTORY AND PHYSICAL HOSPITAL VISIT DEMOGRAPHICS Patient: Ankit Lewis Code status: Full Code Admission date: 01/01/2023 4:35 PM Hospital days: LOS: 0 days CHIEF COMPLAINT Level A LVO HISTORY OF PRESENT ILLNESS Ankit Lewis is a 82 y.o. male withunknown pmhx, who presented from [facility] with an acute ischemic stroke secondary to [...] >92%; wean FiO2 as tolerated - - [id number], encourage pulmonary toileting Cards: HLD Temp: [97.4 [...] 98 GI/Nutrition: Obesity No results for input(s): ALBUMIN, BILIDIRECT, BILITOTAL, ALKPHOS, ALT, AST, TP, AMYLASE, LIPASE in the last 72 hours. - [...] No Current Issues No results for input(s): WBC, LACT, PROCALCITONI in the last 72 hours. - [...] - Medications reconciled - Discharge planning per PCRM/LEXI. Nicotine Dependence [facility] ICU Checklist: [ ] CAM-ICU [ ] ICU Diary daily completed on [ ] SAT [ ] SBT [ ] DVT ppx; [ x] SCDs; [ ] Lovenox, [ ] heparin [x ] Stress ulcer prophylaxis: Pepcid while intubated - Lines/Tubes: Kaba: inserted 01/01, (indication:I/O) Ankit Lewis remained in the neurocritical care unit overnight requiring frequent neurochecks, strict BP control and monitoring, follow up on imaging, strict I&Os, pain management, and monitoring for neurologic decline. Greater the 50% of my time today was spent in counseling and/or coordination of care for this patient. I have spent a total of 25 minutes with this patient. Lisa Wheeler APRN-CRIMINAL RESEARCHER Service pager: [phone] Service [place] #: [id number] (Beds [id number] and beds), [place] #: [id number] (Beds [id number] and [facility]) 01/01/23 10:23 PM documented in this encounter [facility] 01-01-2023 Note Acute Coronary Syndr ome (ACS): Initial Evaluation and Management: [email or web address] [email or web address]#search=[email or web address] [facility] 01-01-2023 Nurse procedure note NEUROCRITICAL CARE OR [...] 6:34 PM. LEANDRO Yuan 01/01/23 Service Pager: [phone] 6:34 PM [facility] Work Phone: 01-01-2023 Consult note Formatting of th is note is different from the original. Neurovascular Evaluation Note Evaluation Date: 01/01/2023 Unit: Room/bed info not found Consultation was requested by Dr. Larisa green. providers found Patient status: Emergency Length of stay: 0 days Reason for Consult/Chief Complaint L facial droop, L side weakness, + drift History of Present Illness Ankit Lewis is a 82 y.o. male with unknown PMH who presents as level A ischemic stroke transfer from [facility] with Left sided weakness and [...] no drift Left Leg: mild drift Coordination: Dnyxie-wu-hvot intact bilaterally. Sensation: less sharp on LLE. Gait: deferred Laboratory Results Diagnostics/Procedures: Labs-CBC Labs-Chem 7([facility]) Labs-Coags Additional Labs No results found for: CHOLESTEROL, TRIG, HDL, LDLCALC, LDLDIRECT Labs-Hemoglobin A1C No results found for: HGBA1C Imaging CT Stroke Head at OSH: no acute findings CTA Brain/Neck at OSH: Right M1 occlusion Assessment/Impression Ankit Lewis pis a 82 year old male [...] ED. Continuous telemetry -PT, OT, Speech and terrazzo worker apprentice consults This plan has been discussed with stroke attending Dr. Dominguez and has been communicated to ED and NCCU teams. ONUR Guerra Neurology PGY-2 Pager: [phone] 01/01/23 3:06 PM Associated attestation - Meli [...] over on right and left hemiparesis Assessment: Ankit Lewis is a 82 y.o. male with [...] after [address] Meli Dominguez MD Water Use Inspector Department of Neurology [facility] Work Phone: 10-19-2022 Miscellaneous Notes Stroke patient [...] changes unless otherwise noted. Respiratory Status Update: Ankit Lewis has been liberated from mechanical ventilation. Recent Vitals and Breath Sounds: Blood pressure 129/58, pulse 75, temperature 99 F (37.2 C), temperature source Oral, resp. rate (!) 32, height 1.778 m (5' 10), weight 87.8 kg (193 lb 8 oz), [...] post hospitalization care will be discharge to [facility]. NEUROCRITICAL CARE OR SIGNOUT NOTE Admitting Diagnosis: [...] 6:34 PM. LEANDRO Yuan 01/01/23 Service Pager: [phone] 6:34 PM documented in this encounter [facility] 06-25-2022 History of Present illness Narrative Patient presents for Covid vaccine. Denies any problems at this time. Tolerated injection well. Yanira Zaragoza LPN documented in this encounter [facility] 06-05-2022 History of Present illness Narrative Medicare [...] Topics Alcohol use: Never Drug use: Never Ankit works out regularly 3-7 times per week with walking. He watches his diet for sodium, low fat and low cholesterol most of the time. List of current specialists seen: none End of Live Planning discussed including patients advanced directive wishes: Yes I am willing to follow Ankit's advanced directives. PHQ-2 / Depression screen Depression [...] 80 Resp 14 Ht 175.3 cm (5' 9) Wt 104.8 kg (231 lb) BMI 34.11 kg/m Alert and oriented X 3: YES Body mass index is 34.11 kg/m . Visual acuity: seeing optho See below ASSESSMENT/PLAN: 81 year old male The following prevention plan was discussed during the office visit and provided to the patient: See below. Rishi Wright MD Chief Complaint Patient presents with: Medicare Wellness Exam HPI Ankit Lewis is a 81 year old male [...] comments: per patient quit smoking in the Substance Use Topics Alcohol use: Never Drug [...] 80 Resp 14 Ht 175.3 cm (5' 9) Wt 104.8 kg (231 lb) BMI 34.11 kg/m BP 142/74 Pulse 80 Resp 14 Ht 175.3 cm (5' 9) Wt 104.8 kg (231 lb) BMI 34.11 [...] Abs Lymph 1.00 - 4.00 k/uL 2.26 Borden% % 16.4 Abs Borden <0.87 k/uL 1.14 (H) Eosin% % 2.3 [...] and regular exercise - Patient was counseled tluv-fj-fxit by myself (the billing provider) for the [...] which included preparing to see the patient, jfvu-ue-fqtq patient care, completing clinical documentation, performing a medically appropriate examination, counseling and educating the patient/family/caregiver and ordering medications, tests, or procedures. Rishi Wright MD documented in this encounter [facility] 12-03-2021 Miscellaneous Notes Patient notified via [employer] message. Cristina Garcia MA Let patient know recent labs were all ok except for slightly elevated Trigs. Advise trying to reduce fat in diet. documented in this encounter [facility] Evaluation note Diagnosis Medicare annual wellness visit, subsequent- Primary Routine general medical examination at a health care facility Elevated blood sugar Other abnormal glucose Hypertriglyceridemia Pure hyperglyceridemia Memory deficit Memory loss Umbilical hernia without obstruction or gangrene Umbilical hernia without mention of obstruction or gangrene Ventral hernia without obstruction or gangrene Ventral hernia, unspecified, without mention of obstruction or gangrene Hx of splenectomy Other acquired absence of organ Need for vaccination Need for prophylactic vaccination and inoculation against unspecified single disease Living will in place Advance directive discussed with patient Other specified counseling [facility] Need for vaccination- Primary Need for prophylactic vaccination and inoculation against unspecified single disease [facility] Diagnosis 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) [facility] Diagnosis Cerebrovascular accident (CVA), unspecified mechanism- Primary Other cerebrovascular vasospasm and vasoconstriction Stroke Unspecified cerebral artery occlusion with cerebral infarction [facility] discharge follow-up- Primary Other follow-up examination 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) HFrEF (heart failure with reduced ejection fraction) (HCC) Heart failure, unspecified Left atrial enlargement Cardiomegaly Left-sided weakness Muscle weakness (generalized) [facility] 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) [facility] Diagnosis HFrEF (heart failure with reduced ejection fraction) (HCC)- Primary Heart failure, unspecified Left atrial enlargement Cardiomegaly 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) Left-sided weakness Muscle weakness (generalized) documented in this [facility]* Diagnosis HFrEF (heart failure with reduced ejection fraction) (HCC)- Primary Heart failure, unspecified Left atrial enlargement Cardiomegaly 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) Left-sided weakness Muscle weakness (generalized) documented [facility]* Diagnosis HFrEF (heart failure with reduced ejection fraction) (HCC)- Primary Heart failure, unspecified 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) Left atrial enlargement Cardiomegaly Left-sided weakness Muscle weakness (generalized) documented in this encounter [facility]* Diagnosis HFrEF (heart failure with reduced ejection fraction) (HCC)- Primary Heart failure, unspecified 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) Left atrial enlargement Cardiomegaly Left-sided weakness Muscle weakness (generalized) [facility] Diagnosis HFrEF (heart failure with reduced ejection fraction) (HCC)- Primary Heart failure, unspecified 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) Left atrial enlargement Cardiomegaly Left-sided weakness Muscle weakness (generalized) documented in this encounter [facility]* Diagnosis Onset Date Resolution Status [id number] acute Essential hypertension chron ic HFrEF (heart failure with reduced ejection fraction) chronic [facility] Work Phone: Evaluation note* Diagnosis HFrEF (heart failure with reduced ejection fraction) (HCC)- Primary Heart failure, unspecified 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 note* Diagnosis Chronic systolic congestive heart failure (HCC) Chronic systolic heart failure [facility] Diagnosis Onset Date Resolution Status [id number] acute Cardiomyopathy chronic Essential hypertension chron ic HFrEF (heart failure with reduced ejection fraction) chronic Nonsustained ventricular tachycardia [facility] Work Phone: Evaluation note* Diagnosis Medicare annual wellness visit, subsequent- Primary Routine general medical examination at a health care facility History of CVA (cerebrovascular accident) [...] of organic origin [facility] Diagnosis Proteinuria, unspecified type- Primary [facility] Diagnosis Medicare annual wellness visit, subsequent- Primary Routine general medical examination at a peoples hospital care facility Hypertriglyceridemia Pure hyperglyceridemia History of CVA (cerebrovascular accident) Transient ischemic attack (TIA), and cerebral infarction without residual deficits Elevated hemoglobin A1c Other abnormal blood chemistry Chronic systolic congestive heart failure (HCC) Chronic systolic heart failure Obesity, Class I, BMI 30-34.9 Obesity, unspecified Memory deficit Memory loss Restless leg syndrome Restless legs syndrome (RLS) Encounter for immunization Need for other specified prophylactic vaccination against single bacterial disease Encounter for screening examination for other mental health and behavioral disorders Screening for depression [facility] Diagnosis Proteinuria, unspecified type- Primary [facility] Diagnosis Proteinuria, unspecified type- Primary Proteinuria, unspecified type [facility]* Diagnosis Exposure to COVID-19 virus- Primary Acute upper respiratory infection, unspecified [facility] Diagnosis Proteinuria, unspecified type [facility] Diagnosis Hydronephrosis, unspecified hydronephrosis type- Primary [facility]* Diagnosis Screening for nephropathy- Primary [facility]* Diagnosis Hydronephrosis, unspecified hydronephrosis type documented in this encounter [facility]* Diagnosis Proteinuria, unspecified type- Primary Chronic systolic congestive heart failure (HCC) Chronic systolic heart failure Essential hypertension Unspecified essential hypertension documented in this encounter [facility] note* Diagnosis Proteinuria, unspecified type- Primary documented in this encounter [facility] note* Diagnosis Proteinuria, unspecified type- Primary Chronic systolic congestive heart failure (HCC) Chronic systolic heart failure Essential hypertension Unspecified essential hypertension documented in this encounter [facility] note* Diagnosis Neoplasm of uncertain behavior of skin of nose- Primary Neoplasm of uncertain behavior of skin Acute pain of left knee documented in this encounter [facility] for referral (narrative)* Diagnostic Procedure Only (Routine) - Closed Specialty Diagnoses / Procedures Referred By Contac Referred To Contact US IMAGING Diagnoses Proteinuria, unspecified type Procedures US KIDNEY/BLADDER US RETROPERITONEAL REAL TIME W/[place] [address] [place] [address] [facility] [place] [address] Referral ID Status Reason Start Date Expiration Date V isits Requested Visits Authorized [id number] Closed Auto-Generate d Referral 07/12/2024 08/11/2025 1 1 * Consult, Test, Treat (Routine) - Authorized Specialty Diagnoses / Procedures [facility] Referred To Contact Nephrology Diagnoses Proteinuria, unspecified type Procedures CONSULT TO NEPHROLOGY OFFICE/OUTPATIENT [facility] 60 MINUTES Andrea Herrera MD [address] [place] [address] Referral ID Status Reason Start Date Expiration Date Visits Requested Visits Authorized [id number] Authorized PCP Requested Referral 07/12/2025 [address] [facility] for referral (narrative)* Diagnostic Procedure Only (Routine) - Closed Specialty Diagnoses / Procedures [facility] Referred To Contact [facility] IMAGING Diagnoses Proteinuria, unspecified type Procedures US KIDNEY/BLADDER US RETROPERITONEAL REAL TIME W/IMAGE COMPLETE Andrea Herrera MD [address] [place] [address] [facility] [address] Referral ID Status Reason Start Date Expiration Date V isits Requested Visits Authorized [id number] Closed Auto-Generate d Referral 07/12/2024 08/11/2025 [address] [facility] for visit Narrative* Consult, Test, Treat (Routine) - Closed Specialty Diagnoses / Procedures Referred By Maddy perez Referred To Contact Nephrology Diagnoses Proteinuria, unspecified type Procedures CONSULT TO NEPHROLOGY OFFICE/OUTPATIENT [facility] 60 MINUTES Andrea Herrera MD [address] [place] [address] Phone: tel: fax: Referral ID Status Reason Start Date Expiration Date V isits Requested Visits Authorized [id number] Closed PCP Requested Referral 07/12/2024 07/12/2025 1 1 [facility] Summary Purpose Family History No Family History Records Found Relationship Condition Age at Onset Recorded Date/T lan father Kidney disorder Unknown Cardiac disease Unknown Advance Directives No Advanced Directives Records FoundLatest Code Status on File Code Status Date Activated Date Inactivated Comments Full Code 01/01/2023 6:40 PM Advance Directive Response Recorded Date/ Time Living Will No January 01, 2023 2:24pm Power of Aerial Planting And Cultivation Manager No January 01 3 2:24pm Advance Directive Response Recorded Date/ Time Living Will No January 01, 2023 1:24pm Power of Aerial Planting And Cultivation Manager No January 01 3 1:24pm Advance Directive Response Recorded Date/ Time Name of Medical Power of Aerial Planting And Cultivation Manager Jacqui Lewis , August 09, 2023 6:51pm Living Will Yes August 09 6:51pm Power of Aerial Planting And Cultivation Manager Yes August 09, 2023 6:51pm Reason for Referral Specialty Diagnoses / Procedures Referred By Maddy perez Referred To Contact Physical Therapy Diagnoses Cerebrovascular accident (CVA), unspecified mechanism Tatiana Juarez, FIRE EXTINGUISHER MECHANIC-CRIMINAL RESEARCHER [address] [place] [address] Referral ID Status Reason Start Date Expiration Date V isits Requested Visits Authorized [id number] New Request 01/05/2023 01/30/2024 1 1 Specialty Diagnoses / Procedures Referred By Contac t Referred To Contact Occupational Therapy Diagnoses Cerebrovascular accident (CVA), unspecified mechanism Tatiana Juarez FIRE EXTINGUISHER MECHANIC-CRIMINAL RESEARCHER [address] Room [place] [phone] Referral ID Status Reason Start Date Expiration Date V isits Requested Visits Authorized [id number] New Request 01/05/2023 01/30/2024 1 1 Specialty Diagnoses / Procedures Referred By Contac t Referred To Contact Diagnoses Cerebrovascular accident (CVA), unspecified mechanism Other cerebrovascular vasospasm and vasoconstriction Procedures MOBILE CARDIAC TELEMETRY Tatiana Juarez FIRE EXTINGUISHER MECHANIC-CRIMINAL RESEARCHER [address] Room [place] [phone] Referral ID Status Reason Start Date Expiration Date V isits Requested Visits Authorized [id number] New Request 01/05/2023 01/30/2024 1 1 Specialty Diagnoses / Procedures Referred By Contac t Referred To Contact Cardiovascular Medicine Diagnoses Cerebrovascular accident (CVA), unspecified mechanism Tatiana Juarez, FIRE EXTINGUISHER MECHANIC-CRIMINAL RESEARCHER [address] [place] [address] Referral ID Status Reason Start Date Expiration Date V isits Requested Visits Authorized [id number] New Request 01/05/2023 01/30/2024 1 1 Scheduling Instructions Please schedule this patient in the Department of Cardiology. Specialty Diagnoses / Procedures Referred By Contac t Referred To Contact Neurology Diagnoses Cerebrovascular accident (CVA), unspecified mechanism Ilya Chilel, FIRE EXTINGUISHER MECHANIC-CRIMINAL RESEARCHER [address] [place] [address] Referral ID Status Reason Start Date Expiration Date V isits Requested Visits Authorized [id number] New Request 01/03/2023 01/28/2024 1 1 Specialty Diagnoses / Procedures Referred By Contac t Referred To Contact Procedures DVT/VTE RISK ASSESSMENT Karma Mcmullen, FIRE EXTINGUISHER MECHANIC-CRIMINAL RESEARCHER [address] [phone] Referral ID Status Reason Start Date Expiration Date V isits Requested Visits Authorized [id number] Pending Review 01/01/2023 01/26/2024 1 1 Referral ID Status Reason Start Date Expiration Date V isits Requested Visits Authorized [id number] Pending Review 01/01/2023 01/26/2024 1 1 Specialty Diagnoses / Procedures Referred By Contac t Referred To Contact [facility] Diagnoses HFrEF (heart failure with reduced ejection fraction) (HCC) Left atrial enlargement 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) Left-sided weakness Procedures CONSULT TO PHYSICAL THERAPY PHYSICAL THERAPY [facility] 45 MINS Polina Maravilla PA-C [address] [place] [address] [facility] [place] [address] [place] [address] Referral ID Status Reason Start Date Expiration Date Visits Requested Visits Authorized [id number] Authorized PCP Requested Referral Auto-Generate d Referral 01/07/2023 01/07/2024 99 99 Specialty Diagnoses / Procedures Referred By Contac t Referred To Contact Neurology Diagnoses HFrEF (heart failure with reduced ejection fraction) (HCC) Left atrial enlargement 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) Procedures CONSULT TO NEUROLOGY OFFICE/OUTPATIENT [facility] 60-74 MINUTES Polina Maravilla PA-C [address] [place] [address] Referral ID Status Reason Start Date Expiration Date Visits Requested Visits Authorized [id number] Authorized PCP Requested Referral 01/07/2023 01/07/2024 1 1 Specialty Diagnoses / Procedures Referred By Contac t Referred To Contact Cardiology Diagnoses HFrEF (heart failure with reduced ejection fraction) (HCC) Left atrial enlargement 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) Procedures CONSULT TO CARDIOLOGY OFFICE/OUTPATIENT [facility] 60-74 MINUTES Polina Maravilla PA-C [address] [place] [address] Referral ID Status Reason Start Date Expiration Date Visits Requested Visits Authorized [id number] Authorized PCP Requested Referral 01/07/2023 01/07/2024 1 1 Specialty Diagnoses / Procedures Referred By Maddy t Referred To Contact [facility] Diagnoses HFrEF (heart failure with reduced ejection fraction) (HCC) Left atrial enlargement 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 Polina Maravilla PA-C [address] [place] [address] [facility] [place] [address] [place] [phone] Referral ID Status Reason Start Date Expiration Date Visits Requested Visits Authorized [id number] Pending Review PCP Requested Referral Auto-Generate d Referral 01/29/2023 04/29/2023 1 1 Specialty Diagnoses / Procedures Referred By Maddy perez Referred To Contact CT IMAGING Diagnoses Hydronephrosis, unspecified hydronephrosis type Procedures CT UROGRAM WO/W IVCON CT ABD & PELVIS W/WO CONTRST 1+ BODY Andrea Leong MD [address] [place] [address] Ct Imaging [facility] Referral ID Status Reason Start Date Expiration Date Visits Requested Visits Authorized [id number] Authorized Auto-Generat ed Referral 4 08/15/2025 1 1 Chief Complaint and Reason for Visit Chief Complaint stroke alert HFREF / CVA (RADHA) EORDER Reason for Visit [id number] Essential hypertension HFrEF (heart failure with reduced ejection fraction) Chief Complaint stroke alert HFREF / CVA (RADHA) EORDER HEART FAILURE HEART FAILURE Reason for Visit [id number] Essential hypertension HFrEF (heart failure with reduced ejection fraction) Chief Complaint EORDER HEART FAILURE HEART FAILURE 3 M FU CADIOMEGALY Reason for Visit [id number] Cardiomyopathy Essential hypertension HFrEF (heart failure with reduced ejection fraction) Nonsustained ventricular tachycardia Chief Complaint 3 M FU CADIOMEGALY ABD PAIN Reason for Visit [id number] Cardiomyopathy Essential hypertension HFrEF (heart failure with reduced ejection fraction) Nonsustained ventricular tachycardia Additional Source Comments (unrecognized sect ion and content) No Status Records FoundNo Status Records FoundNo Status Records FoundNo Status Records FoundNo Status Records Found INFORMATION SOURCE (unrecogn ized section and content) DATE CREATED AUTHOR 10/28/2020 [facility] DATE CREATED AUTHOR AUTHOR'S ORGANIZ ATION 01/29/2023 [facility] DATE CREATED AUTHOR AUTHOR'S ORGANIZ ATION 05/10/2023 [facility] DATE CREATED AUTHOR AUTHOR'S ORGANIZ ATION 07/05/2023 [facility] DATE CREATED AUTHOR AUTHOR'S ORGANIZ ATION 03/27/2025 [facility] Source Comments (unrecognize d section and content) In the event this informatio n is protected by the Federal Confidentiality of Alcohol and Drug Abuse Patient Records regulations: The Federal rules restrict any use of the information to criminally investigate or prosecute any alcohol or drug abuse patient.[facility] the event this information is protected by the Federal Confidentiality of Alcohol and Drug Abuse Patient Records regulations: The Federal rules restrict any use of the information to criminally investigate or prosecute any alcohol or drug abuse patient.[facility] the event this information is protected by the Federal Confidentiality of Alcohol and Drug Abuse Patient Records regulations: The Federal rules restrict any use of the information to criminally investigate or prosecute any alcohol or drug abuse patient.[facility] the event this information is protected by the Federal Confidentiality of Alcohol and Drug Abuse Patient Records regulations: The Federal rules restrict any use of the information to criminally investigate or prosecute any alcohol or drug abuse patient.[facility] the event this information is protected by the Federal Confidentiality of Alcohol and Drug Abuse Patient Records regulations: The Federal rules restrict any use of the information to criminally investigate or prosecute any alcohol or drug abuse patient.[facility] the event this information is protected by the Federal Confidentiality of Alcohol and Drug Abuse Patient Records regulations: The Federal rules restrict any use of the information to criminally investigate or prosecute any alcohol or drug abuse patient.[facility] the event this information is protected by the Federal Confidentiality of Alcohol and Drug Abuse Patient Records regulations: The Federal rules restrict any use of the information to criminally investigate or prosecute any alcohol or drug abuse patient.[facility] the event this information is protected by the Federal Confidentiality of Alcohol and Drug Abuse Patient Records regulations: The Federal rules restrict any use of the information to criminally investigate or prosecute any alcohol or drug abuse patient.[facility] the event this information is protected by the Federal Confidentiality of Alcohol and Drug Abuse Patient Records regulations: The Federal rules restrict any use of the information to criminally investigate or prosecute any alcohol or drug abuse patient.[facility] the event this information is protected by the Federal Confidentiality of Alcohol and Drug Abuse Patient Records regulations: The Federal rules restrict any use of the information to criminally investigate or prosecute any alcohol or drug abuse patient.[facility] the event this information is protected by the Federal Confidentiality of Alcohol and Drug Abuse Patient Records regulations: The Federal rules restrict any use of the information to criminally investigate or prosecute any alcohol or drug abuse patient.[facility] the event this information is protected by the Federal Confidentiality of Alcohol and Drug Abuse Patient Records regulations: The Federal rules restrict any use of the information to criminally investigate or prosecute any alcohol or drug abuse patient.[facility] the event this information is protected by the Federal Confidentiality of Alcohol and Drug Abuse Patient Records regulations: The Federal rules restrict any use of the information to criminally investigate or prosecute any alcohol or drug abuse patient.[facility] the event this information is protected by the Federal Confidentiality of Alcohol and Drug Abuse Patient Records regulations: The Federal rules restrict any use of the information to criminally investigate or prosecute any alcohol or drug abuse patient.[facility] the event this information is protected by the Federal Confidentiality of Alcohol and Drug Abuse Patient Records regulations: The Federal rules restrict any use of the information to criminally investigate or prosecute any alcohol or drug abuse patient.[facility] the event this information is protected by the Federal Confidentiality of Alcohol and Drug Abuse Patient Records regulations: The Federal rules restrict any use of the information to criminally investigate or prosecute any alcohol or drug abuse patient.[facility] the event this information is protected by the Federal Confidentiality of Alcohol and Drug Abuse Patient Records regulations: The Federal rules restrict any use of the information to criminally investigate or prosecute any alcohol or drug abuse patient.[facility] the event this information is protected by the Federal Confidentiality of Alcohol and Drug Abuse Patient Records regulations: The Federal rules restrict any use of the information to criminally investigate or prosecute any alcohol or drug abuse patient.[facility] the event this information is protected by the Federal Confidentiality of Alcohol and Drug Abuse Patient Records regulations: The Federal rules restrict any use of the information to criminally investigate or prosecute any alcohol or drug abuse patient.[facility] the event this information is protected by the Federal Confidentiality of Alcohol and Drug Abuse Patient Records regulations: The Federal rules restrict any use of the information to criminally investigate or prosecute any alcohol or drug abuse patient.[facility] the event this information is protected by the Federal Confidentiality of Alcohol and Drug Abuse Patient Records regulations: The Federal rules restrict any use of the information to criminally investigate or prosecute any alcohol or drug abuse patient.[facility] the event this information is protected by the Federal Confidentiality of Alcohol and Drug Abuse Patient Records regulations: The Federal rules restrict any use of the information to criminally investigate or prosecute any alcohol or drug abuse patient.[facility] the event this information is protected by the Federal Confidentiality of Alcohol and Drug Abuse Patient Records regulations: The Federal rules restrict any use of the information to criminally investigate or prosecute any alcohol or drug abuse patient.[facility] the event this information is protected by the Federal Confidentiality of Alcohol and Drug Abuse Patient Records regulations: The Federal rules restrict any use of the information to criminally investigate or prosecute any alcohol or drug abuse patient.[facility] the event this information is protected by the Federal Confidentiality of Alcohol and Drug Abuse Patient Records regulations: The Federal rules restrict any use of the information to criminally investigate or prosecute any alcohol or drug abuse patient.[facility] the event this information is protected by the Federal Confidentiality of Alcohol and Drug Abuse Patient Records regulations: The Federal rules restrict any use of the information to criminally investigate or prosecute any alcohol or drug abuse patient.[facility] the event this information is protected by the Federal Confidentiality of Alcohol and Drug Abuse Patient Records regulations: The Federal rules restrict any use of the information to criminally investigate or prosecute any alcohol or drug abuse patient.[facility] the event this information is protected by the Federal Confidentiality of Alcohol and Drug Abuse Patient Records regulations: The Federal rules restrict any use of the information to criminally investigate or prosecute any alcohol or drug abuse patient.[facility] the event this information is protected by the Federal Confidentiality of Alcohol and Drug Abuse Patient Records regulations: The Federal rules restrict any use of the information to criminally investigate or prosecute any alcohol or drug abuse patient.[facility] the event this information is protected by the Federal Confidentiality of Alcohol and Drug Abuse Patient Records regulations: The Federal rules restrict any use of the information to criminally investigate or prosecute any alcohol or drug abuse patient.[facility] the event this information is protected by the Federal Confidentiality of Alcohol and Drug Abuse Patient Records regulations: The Federal rules restrict any use of the information to criminally investigate or prosecute any alcohol or drug abuse patient.[facility] the event this information is protected by the Federal Confidentiality of Alcohol and Drug Abuse Patient Records regulations: The Federal rules restrict any use of the information to criminally investigate or prosecute any alcohol or drug abuse patient.[facility] the event this information is protected by the Federal Confidentiality of Alcohol and Drug Abuse Patient Records regulations: The Federal rules restrict any use of the information to criminally investigate or prosecute any alcohol or drug abuse patient.[facility] the event this information is protected by the Federal Confidentiality of Alcohol and Drug Abuse Patient Records regulations: The Federal rules restrict any use of the information to criminally investigate or prosecute any alcohol or drug abuse patient.[facility] Reason for Visit (unrecogniz ed section and content) Reason Comments PT Discharge Specialty Diagnoses / Procedures Referred By Maddy perez Referred To Contact [facility] Diagnoses HFrEF (heart failure with reduced ejection fraction) (HCC) Left atrial enlargement 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) Left-sided weakness Procedures CONSULT TO PHYSICAL THERAPY PHYSICAL THERAPY EVALUATION HIGH COMPLEX 45 MINS Polina Maravilla PA-C [address] [place] [address] [facility] [place] [address] [place] [address] Referral ID Status Reason Start Date Expiration Date Visits Requested Visits Authorized [id number] Authorized PCP Requested Referral Auto-Generate d Referral 01/07/2023 01/07/2024 99 99 Reason Comments Results Reason Comments Medicare Wellness Exam Reason Comments Imm/Inj Reason Comments ER Discharge Summary Specialty Diagnoses / Procedures Referred By Maddy perez Referred To Contact Diagnoses Level A, LVO Felipe Crook MD [address] [place] [address] [facility] [address] [place] [address] Referral ID Status Reason Start Date Expiration Date Visits Re quested Visits Authorized [id number] report Reason Comments Hospital F/U Reason Comments Stroke [facility] for stroke on , had surgery Specialty Diagnoses / Procedures Referred By Maddy perez Referred To Contact Neurology Diagnoses HFrEF (heart failure with reduced ejection fraction) (HCC) Left atrial enlargement 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) Left-sided weakness Procedures CONSULT TO PHYSICAL THERAPY PHYSICAL THERAPY EVALUATION HIGH COMPLEX 45 MINS Polina Maravilla PA-C [address] [place] [address] [facility] [place] [address] [place] [address] Reason Comments Physical Therapy Reason Comments Outside [id number] Ordered Reason Comments Outside Stress Test Reason Comments Outside Cardiology Reason Comments Outside [id number] Ordered ECHO Reason Comments Colonoscopy Recall Letter Reason Comments Results Reason Comments covid exposure requesting testing, denies symptoms Reason Comments Radiology US Specialty Diagnoses / Procedures Referred By Contac t Referred To Contact [facility] Diagnoses Proteinuria, unspecified type Procedures US KIDNEY/BLADDER US RETROPERITONEAL REAL TIME W/IMAGE COMPLETE Andrea Herrera MD [address] [place] [address] [place] [address] Referral ID Status Reason Start Date Expiration Date V isits Requested Visits Authorized [id number] Closed Auto-Generate d Referral 07/12/2024 08/11/2025 1 1 Reason Comments Results Reason Comments Radiology CT Specialty Diagnoses / Procedures Referred By Contac t Referred To Contact CT IMAGING Diagnoses Hydronephrosis, unspecified hydronephrosis type Procedures CT UROGRAM WO/W IVCON CT ABD & PELVIS W/WO CONTRST 1+ BODY REGNS Andrea Herrera MD [address] [place] [address] [place] [address] Referral ID Status Reason Start Date Expiration Date V isits Requested Visits Authorized [id number] Closed Auto-Generate d Referral 07/16/2024 08/15/2025 1 1 Reason Comments Follow Up Reason Comments Derm Problem Area on bridge/tip o f nose, red raised sore on area, x 2-3 weeks worsening Knee Pain Left knee pain, swel ling, started wearing new shoes and having issues 2-3 days Care Teams (unrecognized sec tion and content) Flat Grinder Operator Relationship Specialty Start Date End Date Rishi Wright MD [address] [place] [address] PCP - General Family Practice 12/11/18 Flat Grinder Operator Relationship Specialty Start Date End Date Rishi Wright MD [address] [place] [address] PCP - General Family Medicine 12/11/18 Flat Grinder Operator Relationship Specialty Start Date End Date Rishi Wright MD [address] [place] [address] PCP - General Family Medicine 12/11/18 Flat Grinder Operator Relationship Specialty [place] [address] [place] [address] PCP - General Family Medicine 12/11/18 Flat Grinder Operator Relationship Specialty Start Date End Date Self, Self PCP - General Other 01/02/23 01/04/23 [place] [address] [place] [address] PCP - General Family Medicine 01/05/23 Flat Grinder Operator Relationship Specialty [place] [address] [place] [address] PCP - General Family Medicine 12/11/18 Flat Grinder Operator Relationship Specialty Start Date End Date Rishi Wright MD [address] [place] [address] PCP - General Family Medicine 12/11/18 Flat Grinder Operator Relationship Specialty Start Date End Date Rishi Wright MD [address] [place] [address] PCP - General Family Medicine 12/11/18 Flat Grinder Operator Relationship Specialty Start Date End Date Rishi Wright MD [address] [place] [address] PCP - General Family Medicine 12/11/18 Flat Grinder Operator Relationship Specialty Start Date End Date Rishi Wright MD [address] [place] [address] PCP - General Family Medicine 12/11/18 Flat Grinder Operator Relationship Specialty Start Date End Date Rishi Wright MD [address] [place] [address] PCP - General Family Medicine 12/11/18 Flat Grinder Operator Relationship Specialty Start Date End Date Rishi Wright MD [address] [place], [place] [address] PCP - General Family Medicine 12/11/18 Team Status: Active Member Role Status Dates Skip [facility] Family Provider Active Dr. Rishi Wright MD Primary Care Provider Active Team Status: Inactive Member Role Status Dates Dr. Rishi Wright MD Primary Care Provider, Referri ng Provider Active Dr. Josephine Morrissey MD Attending Provider Active Team Status: Inactive Member Role Status Dates Dr. Lovely Karimi DO Attending Provider, Emergency Pro vider Active Dr. Rishi Wright MD Primary Care Provider Active Team Status: Inactive Member Role Status Dates Dr. Rishi Wright MD Primary Care Provider Active Dr. Josephine Morrissey MD Attending Provider, Referring Pr ovider Active Flat Grinder Operator Relationship Specialty Start Date End Date Rishi Wright MD [address] [place], [place] [id number] [phone] PCP - General Family Medicine 12/11/18 Team Status: Active Member Role Status Dates Dr. Rishi Wright MD Primary Care Provider Active Dr. Josephine Morrissey MD Attending Provider , Referring Provider, Other Provider Active Flat Grinder Operator Relationship Specialty Start Date End Date Rishi Wright MD [address] [place] [address] PCP - General Family Medicine 12/11/18 Flat Grinder Operator Relationship Specialty Start Date End Date Rishi Wright MD [address] [place] [address] PCP - General Family Medicine 12/11/18 Team Status: Active Member Role Status Dates Dr. Rishi Wright MD Primary Care Provider Active Dr. Josephine Morrissey MD Attending Provider Active Flat Grinder Operator Relationship Specialty Start Date End Date Rishi Wright MD [address] [place] [address] PCP - General Family Medicine 12/11/18 Flat Grinder Operator Relationship Specialty Start Date End Date Rishi Wright MD [address] [place] [address] PCP - General Family Medicine 12/11/18 Team Status: Active Member Role Status Dates Dr. Rishi Wright MD Primary Care Provider Active Dr. Josephine Morrissey MD Attending Provider, Referring Pr ovider Active Team Status: Inactive Member Role Status Dates Dr. Rishi Wright MD Primary Care Provider Active Dr. Guadalupe Simpson MD Emergency Provider Active Flat Grinder Operator Relationship Specialty Start Date End Date Rishi Wright MD [address] [place] [address] PCP - General Family Medicine 12/11/18 Flat Grinder Operator Relationship Specialty Start Date End Date Rishi Wright MD [address] [place] [address] PCP - General Family Medicine 12/11/18 Rolanda Aviles, DISHA.CRIMINAL RESEARCHER [address] [place] [address] Lie Detector Operator Family Medicine 06/26/24 Polina Maravilla PA-C [address] [place] [address] Lie Detector Operator Family Medicine 06/26/24 Flat Grinder Operator Relationship Specialty Start Date End Date Rishi Wright MD [address] [place] [address] PCP - General Family Medicine 12/11/18 Rolanda Aviles, DISHA.CRIMINAL RESEARCHER [address] [place] [address] Lie Detector Operator Family Medicine 06/26/24 Polina Maravilla PA-C [address] [place] [address] Lie Detector Operator Family Medicine 06/26/24 Flat Grinder Operator Relationship Specialty Start Date End Date Rishi Wright MD [address] [place] [address] PCP - General Family Medicine 12/11/18 Rolanda Aviles, FIRE EXTINGUISHER MECHANIC.CRIMINAL RESEARCHER [address] [place] [address] Lie Detector Operator Family Medicine 06/26/24 Polina Maravilla PA-C [address] [place] [address] Lie Detector Operator Family Medicine 06/26/24 Flat Grinder Operator Relationship Specialty Start Date End Date Rishi Wright MD [address] [place] [address] PCP - General Family Medicine 12/11/18 Rolanda Aviles, DISHA.CRIMINAL RESEARCHER [address] [place] [address] Lie Detector Operator Family Medicine 06/26/24 Polina Maravilla PA-C [address] [place] [address] Lie Detector Operator Family Medicine 06/26/24 Flat Grinder Operator Relationship Specialty Start Date End Date Rishi Wright MD [address] [place] [address] PCP - General Family Medicine 12/11/18 Rolanda Aviles, FIRE EXTINGUISHER MECHANIC.CRIMINAL RESEARCHER [address] [place] [address] Lie Detector Operator Family Medicine 06/26/24 Polina Maravilla PA-C [address] [place] [address] Lie Detector Operator Family Medicine 06/26/24 Flat Grinder Operator Relationship Specialty Start Date End Date Rishi Wright MD [address] [place] [address] PCP - General Family Medicine 12/11/18 Rolanda Aviles, FIRE EXTINGUISHER MECHANIC.CRIMINAL RESEARCHER [address] [place] [address] Lie Detector Operator Family Medicine 06/26/24 Polina Maravilla PA-C [address] [place] [address] Lie Detector Operator Family Medicine 06/26/24 Flat Grinder Operator Relationship Specialty Start Date End Date Rishi Wright MD [address] [place] [address] PCP - General Family Medicine 12/11/18 Rolanda Aviles, DISHA.CRIMINAL RESEARCHER [address] [place] [address] Lie Detector Operator Family Medicine 06/26/24 Polina Maravilla PA-C [address] [place] [address] Lie Detector Operator Family Medicine 06/26/24 Flat Grinder Operator Relationship Specialty Start Date End Date Rishi Wright MD [address] [place] [address] PCP - General Family Medicine 12/11/18 Rolanda Aviles, DISHA.CRIMINAL RESEARCHER [address] [place] [address] Lie Detector Operator Family Medicine 06/26/24 Polina Maravilla PA-C [address] [place] [address] Lie Detector Operator Family Medicine 06/26/24 Flat Grinder Operator Relationship Specialty Start Date End Date Rishi Wright MD [address] [place] [address] PCP - General Family Medicine 12/11/18 Rolanda Aviles, FIRE EXTINGUISHER MECHANIC.CRIMINAL RESEARCHER [address] [place] [address] Lie Detector Operator Family Medicine 06/26/24 Polina Maravilla PA-C [address] [place] [address] [facility] Flat Grinder Operator Relationship Specialty Start Date End Date Rishi Wright MD [address] [place] [address] PCP - General Family Medicine 12/11/18 Rolanda Aviles APRN.CRIMINAL RESEARCHER [address] [place] [address] Lie Detector Operator Family Medicine 06/26/24 Polina Maravilla PA-C [address] [place] [address] [facility] 06/26/24 Flat Grinder Operator Relationship Specialty Start Date End Date Rishi Wright MD [address] [place] [address] PCP - General Family Medicine 10/25/24 Polina Maravilla PA-C [address] [place] [address] Lie Detector Operator Family [facility] 06/26/24 Flat Grinder Operator Relationship Specialty Start Date End Date Rishi Wright MD [address] [place] [address] PCP - General Family Medicine 10/25/24 Rolanda Aviles APRN.CRIMINAL RESEARCHER [address] [place] [address] Lie Detector Operator Family Medicine 12/20/24 Polina Maravilla PA-C [address] [place] [address] Lie Detector Operator Family [facility] 12/20/24 Flat Grinder Operator Relationship Specialty Start Date End Date Rishi Wright MD [address] [place] [address] PCP - General Family Medicine 10/25/24 Rolanda Aviles APRN.CRIMINAL RESEARCHER [address] [place] [address] Lie Detector Operator [facility] 12/20/24 Polina Maravilla PA-C [address] [place] [address] [facility] 12/20/24 Scheduled Active and Recently Administ ered Medications (unrecognized section and content) Medication Order 01/03/2023 01/04/2023 01/05/2023 aspirin chewable tablet 81 mg (CANCELED) 81 mg, Per NG tube, DAILY, First dose on Deirdre 01/02/23 at 1600, Until Discontinued 805 (Given - Provider: Sivakumar Rodriguez RN) aspirin chewable tablet 81 mg 81 mg, Oral, DAILY, First dose (after last modification) on 01/04/23 at 0900, Until Discontinued 821 (Given - Provider: Claudia Richardson RN) 08 (Given - Provider: Joya Farah RN) Atorvastatin (LIPITOR) tablet 40 mg 40 mg, Oral, DAILY AT BEDTIME, First dose (after last modification) on Fri01/03/23 at 2100, Until Discontinued 2046 (Given - Provider: Kristen Yanez RN) 2110 (Given - Provider: Soraida Whiting RN) Enoxaparin Sodium (LOVENOX) injection 40 mg(Linked Group 1) 40 mg, Subcutaneous, DAILY, First dose on Fri01/03/23 at 0900, Until Discontinued, , Indications: DVT/PE prophylaxis 08 (Given - Provider: Sivakumar Rodriguez RN) 08 (Given - Provider: Claudia Richardson RN) 0847 (Given - Provider: Joya Farah RN) Lisinopril (PRINIVIL) tablet 2.5 mg 2.5 mg, Oral, DAILY, First dose on Fri01/03/23 at 1245, Until Discontinued 1240 (Given - Provider: Ezekiel Ureña RN) 0823 (Given - Provider: Claudia Richardson RN) 0847 (Given - Provider: Joya Farah RN) Metoprolol (LOPRESSOR) tablet 12.5 mg (COMPLETED) 12.5 mg, Oral, EVERY 12 HOURS, 2 doses, First dose on Fri01/03/23 at 1245, Last dose on Fri01/03/23 at 2100, 1240 (Given - Provider: Ezekiel Ureña RN)2046 (Given - Provider: Kristen Yanez RN) Metoprolol succinate (TOPROL-XL) tablet XL 25 mg 25 mg, Oral, DAILY, First dose on Fri01/04/23 at 0900, Until Discontinued, Slow release product. Do not crush. Extended release can be cut in half. 0823 (Given - Provider: Claudia Richardson RN) 0848 (Given - Provider: Joya Farah RN) Senna (SENOKOT) tablet 8.6 mg(Linked Group 2) 8.6 mg, Oral, DAILY, First dose on Fri01/02/23 at 0900, Until Discontinued 0806 (Given - Provider: Sivakumar Rodriguez RN) 0824 (Not Given - Provider: Claudia Richardson RN - Reason: Patient/family refused) 0853 (Not Given - Provider: Joya Farah RN - Reason: Patient/family refused) Senna (SENOKOT) tablet 8.6 mg(Linked Group 2) 8.6 mg, Per NG tube, DAILY, First dose on Deirdre 01/02/23 at 0900, Until Discontinued 0806 (See Alternative - Provider: Sivakumar Rodriguez RN) 0824 (See Alternative - Provider: Claudia Richardson RN) 0853 (See Alternative - Provider: Joya Farah RN) PRN Medication Order 01/03/2023 01/04/2023 01/05/2023 Acetaminophen (TYLENOL) tablet 650 mg(Linked Group 3) 650 mg, Oral, EVERY 4 HOURS NEEDED, Starting on Fri01/01/23 at 1840, Until Fri01/05/23 at 1416, Mild Pain, Other, Oral temp > 99.5 F, Maximum dose of acetaminophen is 4000 mg from all sources in 24 hours. 1957 (Given - Provider: Kristen Yanez RN) 1403 (Given - Provider: Claudia Richardson, RN)2111 (Given - Provider: Soraida Whiting RN) [...] NEEDED, Starting on Fri01/01/23 at 1840, Until 6/18/23 at 1416, Constipation If No Bowel Movement [...] after replacement. 0544 (Given - Provider: Willa Chen RN) Sodium chloride 0.9% IV solution 250 [...] 8.6 mg, Oral, DAILY, First dose on Fri01/02/23 at 0900, Until Discontinued Or Senna (SENOKOT) [...] Bowel Movement in 48 Hours, after bisacodyl Goals (unrecognized section and content) Goals may be documented in a n alternate sectionGoals may be documented in an alternate sectionGoals may be documented in an alternate sectionGoals may be documented in an alternate section FOR RECORDS PERTAINING TO PATIENTS WHO ARE [...] BE BASED ON THE PRIMARY CLINICAL RECORDS. [facility] provides no warranty or guarantee of the accuracy or completeness of information in this document.
== END 2025-03-27 01:03 | disposition home or self-care (01) ==
LOC: ED 00:57
PROVIDERS: Emergency Provider Emergency Medicine; PCP Family Medicine; Visit Provider Emergency Medicine
DX: H81.399 Other peripheral vertigo, unspecified ear (principal); I10 Essential (primary) hypertension; Z79.82 Long term (current) use of aspirin; Z79.899 Other long term (current) drug therapy; Z86.73 Personal history of transient ischemic attack (TIA), and cerebral infarction without residual deficits; Z87.891 Personal history of nicotine dependence
CPT/HCPCS: 99282